=== PATIENT | female | born 1960 | race Caucasian/White ===

== ENCOUNTER 2018-08-23 12:21 | Inpatient (IN) | payer MEDICARE, OTHER ==
[~2018-08-23] VITALS: Ht 165.1 cm; Wt 101.0 kg
[2018-08-23] MEDS ORDERED: cefTRIAXone 1GM/10ml IVPUSH 10 ML IV ONE (12:30)
[2018-08-23] MEDS ORDERED: methylPREDNISolone SOD SUCC 125 MG/2 ML VL IV ONE (13:15)
[2018-08-23] MEDS ORDERED: ALBUTEROL SULF 2.5 MG/0.5ML(0.5%) NEB SOLN NEB ONE (13:15)
[2018-08-23] MEDS ORDERED: IPRATROPIUM BROM 0.5 MG/2.5ML INH SOL NEB ONE (13:15)
[2018-08-23 13:48] LABS: Basophils # (auto) 0 uL; Basophils % (auto) 0.4 % (0.0-2.0); Eosinophils # (auto) 0.1 uL; Monocytes # (auto) 0.4 uL; Neutrophils # (auto) 6.4 uL; Neutrophils % (auto) 81.3 % (37.0-80.0); White Blood Cell 7.9 10^3/uL (4.4-10.8)
[2018-08-23 13:51] LABS: Hematocrit 47.9 % (36.0-46.0); Hemoglobin 14.1 g/dL (12.2-16.2); Lymphocytes % (auto) 12.5 % (10.0-50.0); Mean Corpuscular Hemoglobin 20.3 pg (28.0-32.0); Mean Corpuscular Hgb Conc. 29.5 g/dL (32.0-36.0); Mean Corpuscular Volume 68.8 fL (80.0-100.0); Monocytes % (auto) 4.8 % (0.0-12.0); Nucleated Red Blood Cells % 0.5 %; Platelet Count (auto) 255 10^3/uL (140-450); Red Blood Cells 6.97 10^6/uL (4.0-5.20)
[2018-08-23 13:59] LABS: Red Cell Distribution Width 20.2 % (11.8-14.3)
[2018-08-23 14:02] LABS: Partial Thromboplastin Time 29.3 sec (23.78-33.04); Prothrombin Time 10.7 sec (9.27-12.13)
[2018-08-23 14:07] LABS: Alanine Aminotransferase 21 U/L (13-56); Albumin 3.3 g/dL (3.4-5.0); Anion Gap 6 (5-15); Aspartate Aminotransferase 19 U/L (15-37); BUN/Creatinine Ratio 12.2; Blood Urea Nitrogen 9 mg/dL (7-18); Calcium 8.2 mg/dL (8.5-10.1); Carbon Dioxide 32 mmol/L (21-32); Chloride 93 mmol/L (98-107); GFR African American 104 mL/min; GFR Non-African American 86 mL/min; Glucose 186 mg/dL (74-106); Potassium 4.2 mmol/L (3.5-5.1); Sodium 131 mmol/L (136-145)
[2018-08-23 14:11] LABS: Alkaline Phosphatase 127 U/L (45-117); Bilirubin, Total 0.5 mg/dL (0.2-1.0); Total Protein 7.8 g/dL (6.4-8.2)
[2018-08-23] MEDS ORDERED: ACETAMINOPHEN 500 MG TAB PO PRN (15:30)
[2018-08-23] MEDS ORDERED: NITROGLYCERIN 0.4 MG SL TAB SL PRN (15:30)
[2018-08-23] MEDS ORDERED: traMADol HCL 50 MG TAB PO PRN (15:30)
[2018-08-23] MEDS ORDERED: LORazepam 0.5 MG TAB PO PRN (15:30)
[2018-08-23] MEDS ORDERED: TEMAZEPAM 15 MG CAP PO PRN (15:30)
[2018-08-23] MEDS ORDERED: ALBUTEROL SULF 2.5 MG/0.5ML(0.5%) NEB SOLN NEB PRN (15:30)
[2018-08-23] MEDS ORDERED: DEXTROSE (50%) 50ML SYRG IV PRN (15:30)
[2018-08-23] MEDS ORDERED: LACTULOSE 20Gm/30ML SOLN PO PRN (15:30)
[2018-08-23] MEDS: SODIUM CHLORIDE 0.9% 1,000 ML IV SCH (15:52)
[2018-08-23] MEDS ORDERED: DOXYCYCLINE 100MG/250ML 250 ML IV ONE (16:00)
[2018-08-23 16:54] LABS: Amylase 33 U/L (25-115); Lipase 110 U/L (73-393)
[2018-08-23 17:19] VITALS: BP 145/83
[2018-08-23 17:28] VITALS: BP 145/85
[2018-08-23] MEDS: InsuLIN REG 1unit/0.01ml Soln (100units/ml) SC SCH (18:16)
[2018-08-23] MEDS: ACCU-CHEK COMFORT CURVE STRIP VI SCH (18:16)
[2018-08-23] MEDS: ALBUTEROL SULF 2.5 MG/0.5ML(0.5%) NEB SOLN NEB SCH (18:22)
[2018-08-23] MEDS: IPRATROPIUM BROM 0.5 MG/2.5ML INH SOL NEB SCH (18:22)
[2018-08-23] MEDS ORDERED: methylPREDNISolone SOD SUCC 40 MG/ML VL IV SCH (22:00)
[2018-08-23] MEDS: methylPREDNISolone SOD SUCC 40 MG/ML VL IV SCH (23:14)
[2018-08-24] VITALS (76 sets, daily range): BP systolic 90–164; BP diastolic 48–100
[2018-08-24] MEDS: ALBUTEROL SULF 2.5 MG/0.5ML(0.5%) NEB SOLN NEB SCH ×4 (00:01→18:01)
[2018-08-24] MEDS: IPRATROPIUM BROM 0.5 MG/2.5ML INH SOL NEB SCH ×4 (00:01→18:01)
[2018-08-24] MEDS: ACCU-CHEK COMFORT CURVE STRIP VI SCH ×4 (00:26→17:38)
[2018-08-24] MEDS ORDERED: LORazepam 2MG/ML-1ML VIAL IV ONE (01:15)
[2018-08-24] MEDS ORDERED: SUCCINYLCHOLINE CHLORIDE 20 MG/ML 10ML VIAL IV ONE ×2 (01:28→04:00)
[2018-08-24] MEDS ORDERED: ETOMIDATE (2MG/ML) 20ML VIAL IV ONE ×2 (01:28→04:00)
[2018-08-24] MEDS ORDERED: methylPREDNISolone SOD SUCC 125 MG/2 ML VL IV ONE (01:30)
[2018-08-24] MEDS ORDERED: PROPOFOL 100 ML IV ONE (01:43)
[2018-08-24] MEDS: PROPOFOL 100 ML IV SCH ×2 (01:50→13:10)
[2018-08-24] MEDS ORDERED: fentaNYL Drip 2500mCg/250mlNS 250 ML IV ONE (02:01)
[2018-08-24] MEDS: fentaNYL Drip 2500mCg/250mlNS 250 ML IV SCH (02:10)
[2018-08-24] MEDS: SODIUM CHLORIDE 0.9% 1,000 ML IV SCH ×2 (04:00→13:13)
[2018-08-24] MEDS: DOXYCYCLINE 100MG/250ML 250 ML IV SCH ×2 (06:00→17:38)
[2018-08-24] MEDS: methylPREDNISolone SOD SUCC 40 MG/ML VL IV SCH ×3 (06:00→22:00)
[2018-08-24 06:24] LABS: Albumin 2.8 g/dL (3.4-5.0); Calcium 8.3 mg/dL (8.5-10.1); Potassium 4.5 mmol/L (3.5-5.1)
[2018-08-24 06:27] LABS: BUN/Creatinine Ratio 19.4
[2018-08-24 06:33] LABS: Bilirubin, Total 0.5 mg/dL (0.2-1.0); Total Protein 6.7 g/dL (6.4-8.2)
[2018-08-24] MEDS: InsuLIN REG 1unit/0.01ml Soln (100units/ml) SC SCH ×4 (06:35→17:38)
[2018-08-24] MEDS: ENOXAPARIN SOD 40 MG/0.4 ML SYRINGE SC SCH (09:59)
[2018-08-24] MEDS: PANTOPRAZOLE 40 MG TAB PO SCH (10:00)
[2018-08-24] MEDS ORDERED: DEXTROSE (50%) 50ML SYRG IV PRN (14:30)
[2018-08-24] MEDS: LEVOFLOXACIN 500MG 100 ML IV SCH (14:41)
[2018-08-24] MEDS ORDERED: Glucerna 1.2 Cal 1Liter BOTTLE GT SCH (15:00)
[2018-08-24] MEDS ORDERED: INSULIN LANTUS (GLARGINE) 1 /0.01ml (100units/ml) SC SCH (22:00)
[2018-08-25] VITALS (100 sets, daily range): BP systolic 94–183; BP diastolic 44–104
[2018-08-25] MEDS: IPRATROPIUM BROM 0.5 MG/2.5ML INH SOL NEB SCH ×4 (00:09→18:11)
[2018-08-25] MEDS: ALBUTEROL SULF 2.5 MG/0.5ML(0.5%) NEB SOLN NEB SCH ×4 (00:10→18:11)
[2018-08-25] MEDS: PROPOFOL 100 ML IV SCH ×2 (00:13→05:12)
[2018-08-25] MEDS: ACCU-CHEK COMFORT CURVE STRIP VI SCH ×4 (00:13→18:16)
[2018-08-25] MEDS: fentaNYL Drip 2500mCg/250mlNS 250 ML IV SCH (02:00)
[2018-08-25 03:50] LABS: Basophils # (auto) 0 uL; Basophils % (auto) 0.1 % (0.0-2.0); Eosinophils # (auto) 0 uL; Hematocrit 43.8 % (36.0-46.0); Hemoglobin 12.8 g/dL (12.2-16.2); Lymphocytes # (auto) 0.5 uL; Mean Corpuscular Hemoglobin 20.3 pg (28.0-32.0); Mean Corpuscular Hgb Conc. 29.3 g/dL (32.0-36.0); Mean Corpuscular Volume 69.5 fL (80.0-100.0); Monocytes # (auto) 0.4 uL; Monocytes % (auto) 4.4 % (0.0-12.0); Neutrophils # (auto) 8.6 uL; Neutrophils % (auto) 90.5 % (37.0-80.0); Nucleated Red Blood Cells % 0.4 %; Platelet Count (auto) 226 10^3/uL (140-450); White Blood Cell 9.5 10^3/uL (4.4-10.8)
[2018-08-25 03:51] LABS: Red Cell Distribution Width 20.3 % (11.8-14.3)
[2018-08-25 04:10] LABS: BUN/Creatinine Ratio 20.7; Calcium 7.8 mg/dL (8.5-10.1); Magnesium 1.8 mg/dL (1.6-2.6); Potassium 4.6 mmol/L (3.5-5.1)
[2018-08-25] MEDS: DOXYCYCLINE 100MG/250ML 250 ML IV SCH ×2 (05:12→18:44)
[2018-08-25] MEDS: methylPREDNISolone SOD SUCC 40 MG/ML VL IV SCH ×3 (05:13→22:23)
[2018-08-25] MEDS: InsuLIN REG 1unit/0.01ml Soln (100units/ml) SC SCH ×4 (05:14→18:44)
[2018-08-25] MEDS: SODIUM CHLORIDE 0.9% 1,000 ML IV SCH ×2 (07:17→20:37)
[2018-08-25] MEDS ORDERED: NIFE30TA76 PO (09:14)
[2018-08-25] MEDS ORDERED: [UNRECOGNIZED DRUG - CODE] IV (09:14)
[2018-08-25] MEDS: PANTOPRAZOLE 40 MG TAB PO SCH (10:00)
[2018-08-25] MEDS: LEVOFLOXACIN 500MG 100 ML IV SCH (10:23)
[2018-08-25] MEDS: ENOXAPARIN SOD 40 MG/0.4 ML SYRINGE SC SCH (10:23)
[2018-08-25] MEDS: PANTOPRAZOLE 40 MG/10 ML VIAL IV SCH (14:01)
[2018-08-25] MEDS ORDERED: INSULIN LANTUS (GLARGINE) 1 /0.01ml (100units/ml) SC SCH (22:00)
[2018-08-26] VITALS (80 sets, daily range): BP systolic 111–195; BP diastolic 45–109
[2018-08-26] MEDS: PROPOFOL 100 ML IV SCH (00:07)
[2018-08-26] MEDS: fentaNYL Drip 2500mCg/250mlNS 250 ML IV SCH (00:07)
[2018-08-26] MEDS: IPRATROPIUM BROM 0.5 MG/2.5ML INH SOL NEB SCH ×5 (00:09→23:53)
[2018-08-26] MEDS: ALBUTEROL SULF 2.5 MG/0.5ML(0.5%) NEB SOLN NEB SCH ×5 (00:09→23:53)
[2018-08-26] MEDS: ACCU-CHEK COMFORT CURVE STRIP VI SCH ×4 (00:14→18:03)
[2018-08-26 04:14] LABS: Basophils # (auto) 0 uL; Eosinophils # (auto) 0 uL; Lymphocytes # (auto) 0.4 uL; Monocytes # (auto) 0.4 uL; Monocytes % (auto) 4.2 % (0.0-12.0)
[2018-08-26 04:17] LABS: Hematocrit 43.2 % (36.0-46.0); Hemoglobin 12.8 g/dL (12.2-16.2); Mean Corpuscular Hemoglobin 20.6 pg (28.0-32.0); Mean Corpuscular Hgb Conc. 29.5 g/dL (32.0-36.0); Mean Corpuscular Volume 69.8 fL (80.0-100.0); Neutrophils # (auto) 8.3 uL; Neutrophils % (auto) 91.8 % (37.0-80.0); Nucleated Red Blood Cells % 0.5 %; Platelet Count (auto) 218 10^3/uL (140-450); Red Blood Cells 6.19 10^6/uL (4.0-5.20)
[2018-08-26 04:33] LABS: BUN/Creatinine Ratio 20.3; Calcium 8.1 mg/dL (8.5-10.1); Magnesium 2.1 mg/dL (1.6-2.6); Potassium 4.5 mmol/L (3.5-5.1)
[2018-08-26 05:19] LABS: Red Cell Distribution Width 20.4 % (11.8-14.3)
[2018-08-26] MEDS: InsuLIN REG 1unit/0.01ml Soln (100units/ml) SC SCH ×4 (06:00→18:03)
[2018-08-26] MEDS: DOXYCYCLINE 100MG/250ML 250 ML IV SCH ×2 (06:18→18:21)
[2018-08-26] MEDS: methylPREDNISolone SOD SUCC 40 MG/ML VL IV SCH ×3 (06:18→22:06)
[2018-08-26] MEDS: SODIUM CHLORIDE 0.9% 1,000 ML IV SCH ×2 (06:31→23:17)
[2018-08-26] MEDS: ONDANSETRON HCL 4 MG/2 ML VIAL IV PRN ×2 (08:45→12:55)
[2018-08-26] MEDS: PANTOPRAZOLE 40 MG/10 ML VIAL IV SCH (09:55)
[2018-08-26] MEDS: LEVOFLOXACIN 500MG 100 ML IV SCH (09:55)
[2018-08-26] MEDS: ENOXAPARIN SOD 40 MG/0.4 ML SYRINGE SC SCH (09:55)
[2018-08-26] MEDS: hydrALAZINE HCL 20 MG/ML VL IV PRN (11:47)
[2018-08-26] MEDS ORDERED: PROCHLORPERAZINE EDISYLATE 5 MG/ML 2ML VIAL IV PRN (16:30)
[2018-08-26] MEDS: INSULIN LANTUS (GLARGINE) 1 /0.01ml (100units/ml) SC SCH (22:06)
[2018-08-27] VITALS (16 sets, daily range): BP systolic 128–163; BP diastolic 61–88
[2018-08-27] MEDS: InsuLIN REG 1unit/0.01ml Soln (100units/ml) SC SCH ×5 (00:07→22:06)
[2018-08-27] MEDS: ACCU-CHEK COMFORT CURVE STRIP VI SCH ×4 (00:07→17:32)
[2018-08-27] MEDS: PROPOFOL 100 ML IV SCH (01:43)
[2018-08-27] MEDS: fentaNYL Drip 2500mCg/250mlNS 250 ML IV SCH ×2 (02:00→03:27)
[2018-08-27 04:26] LABS: Basophils # (auto) 0 uL; Basophils % (auto) 0.1 % (0.0-2.0); Eosinophils # (auto) 0 uL; Hemoglobin 13.1 g/dL (12.2-16.2); Monocytes # (auto) 0.4 uL; Nucleated Red Blood Cells % 0.5 %
[2018-08-27 04:29] LABS: Hematocrit 43.8 % (36.0-46.0); Lymphocytes # (auto) 0.3 uL; Lymphocytes % (auto) 4.7 % (10.0-50.0); Mean Corpuscular Volume 69.3 fL (80.0-100.0); Monocytes % (auto) 5.6 % (0.0-12.0); Neutrophils # (auto) 6.2 uL; Neutrophils % (auto) 89.6 % (37.0-80.0); Platelet Count (auto) 214 10^3/uL (140-450); White Blood Cell 6.9 10^3/uL (4.4-10.8)
[2018-08-27 04:32] LABS: Mean Corpuscular Hemoglobin 20.1 pg (28.0-32.0); Mean Corpuscular Hgb Conc. 30.5 g/dL (32.0-36.0); Red Blood Cells 6.24 10^6/uL (4.0-5.20); Red Cell Distribution Width 20.6 % (11.8-14.3)
[2018-08-27 04:35] LABS: Calcium 8.3 mg/dL (8.5-10.1); Potassium 4.5 mmol/L (3.5-5.1)
[2018-08-27 04:36] LABS: BUN/Creatinine Ratio 17.6
[2018-08-27] MEDS: methylPREDNISolone SOD SUCC 40 MG/ML VL IV SCH ×2 (05:57→21:35)
[2018-08-27] MEDS: DOXYCYCLINE 100MG/250ML 250 ML IV SCH (05:57)
[2018-08-27] MEDS: IPRATROPIUM BROM 0.5 MG/2.5ML INH SOL NEB SCH ×3 (07:03→19:55)
[2018-08-27] MEDS: ALBUTEROL SULF 2.5 MG/0.5ML(0.5%) NEB SOLN NEB SCH ×3 (07:03→19:55)
[2018-08-27] MEDS: hydrALAZINE HCL 20 MG/ML VL IV PRN (09:33)
[2018-08-27] MEDS: ENOXAPARIN SOD 40 MG/0.4 ML SYRINGE SC SCH (09:33)
[2018-08-27] MEDS: LEVOFLOXACIN 500MG 100 ML IV SCH (09:33)
[2018-08-27] MEDS: PANTOPRAZOLE 40 MG/10 ML VIAL IV SCH (09:33)
[2018-08-27] MEDS: SODIUM CHLORIDE 0.9% 1,000 ML IV SCH (12:37)
[2018-08-27 19:51] LABS: Cholesterol 164 mg/dL (< 200); Triglycerides 114 mg/dL (< 150)
[2018-08-27 19:54] LABS: HDL Cholesterol 51 mg/dL (40-59); LDL Cholesterol 98 mg/dL (< 100)
[2018-08-27] MEDS: INSULIN LANTUS (GLARGINE) 1 /0.01ml (100units/ml) SC SCH (21:35)
[2018-08-28] MEDS: IPRATROPIUM BROM 0.5 MG/2.5ML INH SOL NEB SCH ×3 (00:34→11:53)
[2018-08-28] MEDS: ALBUTEROL SULF 2.5 MG/0.5ML(0.5%) NEB SOLN NEB SCH ×3 (00:34→11:53)
[2018-08-28] MEDS: ACCU-CHEK COMFORT CURVE STRIP VI SCH ×3 (02:06→13:45)
[2018-08-28 05:00] VITALS: BP 152/74
[2018-08-28] MEDS: SODIUM CHLORIDE 0.9% 1,000 ML IV SCH (05:42)
[2018-08-28] MEDS: InsuLIN REG 1unit/0.01ml Soln (100units/ml) SC SCH ×2 (06:00→12:00)
[2018-08-28 07:09] LABS: Basophils # (auto) 0 uL; Eosinophils # (auto) 0 uL; Hemoglobin 13.2 g/dL (12.2-16.2); Lymphocytes # (auto) 0.5 uL; Monocytes # (auto) 0.4 uL; Neutrophils # (auto) 6.1 uL; Nucleated Red Blood Cells % 0.4 %
[2018-08-28 07:12] LABS: Basophils % (auto) 0.1 % (0.0-2.0); Eosinophils % (auto) 0.1 % (0.0-7.0); Hematocrit 45.2 % (36.0-46.0); Lymphocytes % (auto) 6.6 % (10.0-50.0); Mean Corpuscular Hemoglobin 20.2 pg (28.0-32.0); Mean Corpuscular Hgb Conc. 29.3 g/dL (32.0-36.0); Monocytes % (auto) 5.7 % (0.0-12.0); Neutrophils % (auto) 87.5 % (37.0-80.0); Platelet Count (auto) 250 10^3/uL (140-450); Red Blood Cells 6.55 10^6/uL (4.0-5.20)
[2018-08-28 07:29] LABS: BUN/Creatinine Ratio 26.6; Calcium 8.5 mg/dL (8.5-10.1); Potassium 4.4 mmol/L (3.5-5.1); Red Cell Distribution Width 20.7 % (11.8-14.3)
[2018-08-28 09:09] VITALS: BP 151/70
[2018-08-28] MEDS: ENOXAPARIN SOD 40 MG/0.4 ML SYRINGE SC SCH (10:00)
[2018-08-28] MEDS: PANTOPRAZOLE 40 MG/10 ML VIAL IV SCH (11:28)
[2018-08-28] MEDS: methylPREDNISolone SOD SUCC 40 MG/ML VL IV SCH (11:28)
[2018-08-28] MEDS: LEVOFLOXACIN 500MG 100 ML IV SCH (11:28)
[2018-08-28 12:57] VITALS: BP 161/73
[2018-08-28 16:49] VITALS: BP 162/74
== END 2018-08-28 18:20 | disposition home or self-care (01) | DRG 208 ==
LOC: ER 12:24 → TELE 12:25 → ICU WEST 08-24 07:19 → TELE-EAST 08-27 17:12
PROVIDERS: ADMIT Internal Medicine; ATTEND Internal Medicine
PROC: 5A1945Z Respiratory Ventilation, 24-96 Consecutive Hours (ICD-10-PCS; principal; 2018-08-24)
PROC: 0BH17EZ Insertion of Endotracheal Airway into Trachea, Via Natural or Artificial Opening (ICD-10-PCS; 2018-08-24)
DX: J96.01 Acute respiratory failure with hypoxia (principal); J44.1 Chronic obstructive pulmonary disease with (acute) exacerbation; C79.51 Secondary malignant neoplasm of bone; C64.2 Malignant neoplasm of left kidney, except renal pelvis; E11.9 Type 2 diabetes mellitus without complications; I10 Essential (primary) hypertension; E66.9 Obesity, unspecified; F17.210 Nicotine dependence, cigarettes, uncomplicated; R91.1 Solitary pulmonary nodule; I70.8 Atherosclerosis of other arteries; Z80.9 Family history of malignant neoplasm, unspecified; Z90.49 Acquired absence of other specified parts of digestive tract; Z90.5 Acquired absence of kidney; Z90.710 Acquired absence of both cervix and uterus; Z88.5 Allergy status to narcotic agent; Z88.8 Allergy status to other drugs, medicaments and biological substances; Z68.37 Body mass index [BMI] 37.0-37.9, adult
CPT/HCPCS: 36415; 36600; 71045; 71250; 74176; 80048; 80053; 80061; 82150; 82805; 82962; 83036; 83605; 83690; 83735; 83880; 84484; 85025; 85379; 85610; 85730; 87040; 87070; 87081; 87205; 93005; 94002; 94003; 94640; 96374; C9113; J0330; J0696; J1815; J1956; J2405; J2704; J3490

== ENCOUNTER 2019-04-04 09:31 | Inpatient (IN) | payer MEDICARE, MEDICAID, OTHER | END 2019-04-12 15:15 | disposition home or self-care (01) | LOC: DOU IN ICU 04-10 16:45 → TELE-WESTW 04-11 12:12 → ER 09:31 → TELE-WESTW 04-11 12:34 → TELE 11:48 → ICU WEST 15:54 | PROC: 5A1955Z Respiratory Ventilation, Greater than 96 Consecutive Hours (ICD-10-PCS; principal; ~2019-04-04) | PROC: 0BH17EZ Insertion of Endotracheal Airway into Trachea, Via Natural or Artificial Opening (ICD-10-PCS; ~2019-04-04) | PROC: 05HM33Z Insertion of Infusion Device into Right Internal Jugular Vein, Percutaneous Approach (ICD-10-PCS; ~2019-04-04) | DX: J96.00 Acute respiratory failure, unspecified whether with hypoxia or hypercapnia (principal); I50.41 Acute combined systolic (congestive) and diastolic (congestive) heart failure; J44.1 Chronic obstructive pulmonary disease with (acute) exacerbation; J81.1 Chronic pulmonary edema; C78.00 Secondary malignant neoplasm of unspecified lung; C79.00 Secondary malignant neoplasm of unspecified kidney and renal pelvis; E87.4 Mixed disorder of acid-base balance; E11.8 Type 2 diabetes mellitus with unspecified complications; E66.9 Obesity, unspecified ==

== ENCOUNTER → 2019-05-01 | Outpatient (CLI) | payer MEDICARE, MEDICAID ==
[~2019-05-01] VITALS: Ht 165.1 cm; Wt 93.4 kg
[~2019-05-01] MED LIST: ADENOSINE 78 MG in GIVE UN-DILUTED 0 ML IV ONE; ADENOSINE 90 MG/30 ML INJ IV ONE; NIFE30TA76 PO; [UNRECOGNIZED DRUG - CODE] IV
== END | disposition home or self-care (01) ==
LOC: Rad HDHVI 13:37
PROVIDERS: ATTEND Internal Medicine Cardiovascular Disease
DX: R07.89 Other chest pain (principal); I10 Essential (primary) hypertension; Z82.49 Family history of ischemic heart disease and other diseases of the circulatory system
CPT/HCPCS: 78452; 93005; 96374; 96375; A9500; J0153

== ENCOUNTER → 2019-06-19 | Outpatient (CLI) | payer MEDICARE, MEDICAID ==
[~2019-06-19] MED LIST changes: -ADENOSINE 78 MG in GIVE UN-DILUTED 0 ML IV ONE; -ADENOSINE 90 MG/30 ML INJ IV ONE
== END | disposition home or self-care (01) ==
LOC: Rad HDHVI 08:52
PROVIDERS: ATTEND Internal Medicine Cardiovascular Disease
DX: I42.0 Dilated cardiomyopathy (principal); I11.0 Hypertensive heart disease with heart failure; I50.23 Acute on chronic systolic (congestive) heart failure
CPT/HCPCS: 93306

== ENCOUNTER 2021-09-25 15:51 | Inpatient (IN) | payer MEDICARE, OTHER, MEDICAID ==
[~2021-09-25] VITALS: Ht 167.6 cm; Wt 101.7 kg
[~2021-09-25 15:51] MED LIST changes: +NIFE1TAB31 PO; -NIFE30TA76 PO
[2021-09-25] MEDS ORDERED: ASPirin 81 mg TAB PO ONE (16:00)
[2021-09-25] MEDS ORDERED: SODIUM CHLORIDE 0.9% 1,000 ML IV ONE (16:00)
[2021-09-25] MEDS ORDERED: ALBUTEROL SULF 2.5 MG/0.5ML(0.5%) NEB SOLN ONE (16:08)
[2021-09-25] MEDS ORDERED: ALBUTEROL SULF 2.5 MG/0.5ML(0.5%) NEB SOLN NEB ONE (16:15)
[2021-09-25 16:53] LABS: INR 1.04 (0.9-1.15); Partial Thromboplastin Time 30.1 sec (23.6-33.0)
[2021-09-25 16:55] LABS: Urine Bacteria MOD /hpf (None Seen); Urine Blood 1+ /uL (Negative); Urine Hyaline Cast MOD /lpf (0 - 2); Urine Mucus FEW (None Seen); Urine Specific Gravity 1.026 (1.001-1.035); Urine WBC 229 /hpf (0 - 5)
[2021-09-25 16:57] LABS: Albumin 3.1 g/dL (3.4-5.0); Calcium 9.2 mg/dL (8.5-10.1); Magnesium 2.6 mg/dL (1.6-2.6); Potassium 3.8 mmol/L (3.5-5.1)
[2021-09-25 17:00] LABS: Basophils # (auto) 0 10 ^3/uL (0-0.2); Eosinophils # (auto) 0 10 ^3/uL (0-0.8); Mean Corpuscular Volume 77.8 fL (80.0-100.0)
[2021-09-25 17:02] LABS: BUN/Creatinine Ratio 15.1; Bilirubin, Total 0.6 mg/dL (0.2-1.0); Total Protein 8.4 g/dL (6.4-8.2)
[2021-09-25 17:42] LABS: Basophils % (auto) 0.3 % (0.0-2.0); Eosinophils % (auto) 0.4 % (0.0-7.0); Hematocrit 32.3 % (36.0-46.0); Hemoglobin 9.6 g/dL (12.2-16.2); Lymphocytes # (auto) 0.3 10 ^3/uL (0.4-5.4); Lymphocytes % (auto) 3.5 % (10.0-50.0); Mean Corpuscular Hemoglobin 23.2 pg (28.0-32.0); Mean Corpuscular Hgb Conc. 29.8 g/dL (32.0-36.0); Monocytes # (auto) 0.9 10 ^3/uL (0-1.3); Monocytes % (auto) 9.2 % (0.0-12.0); Neutrophils # (auto) 8.4 10 ^3/uL (1.6-8.6); Neutrophils % (auto) 86.6 % (37.0-80.0); Nucleated Red Blood Cells % 0.1 %; Red Blood Cells 4.15 10^6/uL (4.0-5.20); Red Cell Distribution Width 17.2 % (11.8-14.3); White Blood Cell 9.7 10^3/uL (4.4-10.8)
[2021-09-25 18:05] VITALS: BP 111/61
[2021-09-25] MEDS ORDERED: cefTRIAXone 1GM/50ML D5W 50 ML IV ONE (18:30)
[2021-09-25] MEDS ORDERED: LEVOTHYROXINE SODIUM 100 MCG/5 ML INJ IV ONE (18:30)
[2021-09-25] MEDS ORDERED: AZITHROMYCIN 500MG/ 250ML 250 ML IV ONE (18:30)
[2021-09-25] MEDS ORDERED: FUROSEMIDE 40 MG/4 ML VIAL IV ONE (18:30)
[2021-09-25] MEDS ORDERED: INSULIN LISPRO (HUMAN) 100 UNITS/ML ML SC ONE (18:30)
[2021-09-25] MEDS ORDERED: NITROGLYCERIN 0.4 MG SL TAB SL PRN ×2 (18:45→20:30)
[2021-09-25] MEDS ORDERED: MORPHINE SULFATE INJECTION 2 MG/ML SYRG IV PRN ×2 (18:45→20:30)
[2021-09-25] MEDS ORDERED: DEXTROSE (50%) 50ML SYRG IV PRN (18:45)
[2021-09-25] MEDS ORDERED: levoFLOXacin 750MG 150 ML IV ONE (20:15)
[2021-09-25] MEDS ORDERED: FAMOTIDINE (10MG/ML) 2ML VL IV ONE (20:15)
[2021-09-25] MEDS ORDERED: hydrALAZINE HCL 20 MG/ML VL IV PRN (20:15)
[2021-09-25] MEDS ORDERED: BENAZEPRIL HCL 10 MG TAB PO ONE (20:15)
[2021-09-25] MEDS ORDERED: ACETAMINOPHEN 325 MG TAB PO PRN (20:30)
[2021-09-25] MEDS ORDERED: ALUM & MAG HYDROX-SIMETH LIQ(MAALOX) 30 ML PO PRN (20:30)
[2021-09-25] MEDS ORDERED: ONDANSETRON HCL 4 MG/2 ML VIAL IV PRN (20:30)
[2021-09-25] MEDS ORDERED: DOCUSATE SOD 100 MG CAP PO PRN (20:30)
[2021-09-25] MEDS ORDERED: LORazepam 0.5 MG TAB PO PRN (20:30)
[2021-09-25] MEDS: FAMOTIDINE (10MG/ML) 2ML VL IV SCH (22:43)
[2021-09-25] MEDS: InsuLIN REG 1unit/0.01ml Soln (100units/ml) SC SCH (22:43)
[2021-09-25] MEDS: IPRATROPIUM BROM 0.5 MG/2.5ML INH SOL NEB SCH (22:44)
[2021-09-25] MEDS: ALBUTEROL SULF 2.5 MG/0.5ML(0.5%) NEB SOLN NEB SCH (22:44)
[2021-09-25] MEDS: methylPREDNISolone SOD SUCC 40 MG/ML VL IV SCH (22:45)
[2021-09-25] MEDS: ACCU-CHEK COMFORT CURVE STRIP VI SCH (22:45)
[2021-09-25] MEDS: ATORVASTATIN 20 MG TAB PO SCH (22:45)
[2021-09-25] MEDS: POTASSIUM CHL 20 Meq TABLET PO SCH (22:45)
[2021-09-26] VITALS (8 sets, daily range): BP systolic 102–138; BP diastolic 58–87
[2021-09-26] MEDS: LORazepam 2MG/ML-1ML VIAL IV PRN ×2 (01:45→11:07)
[2021-09-26] MEDS: IPRATROPIUM BROM 0.5 MG/2.5ML INH SOL NEB SCH ×6 (02:24→22:08)
[2021-09-26] MEDS: ALBUTEROL SULF 2.5 MG/0.5ML(0.5%) NEB SOLN NEB SCH ×6 (02:24→22:08)
[2021-09-26] MEDS: FUROSEMIDE 40 MG/4 ML VIAL IV SCH ×2 (06:22→17:26)
[2021-09-26] MEDS: methylPREDNISolone SOD SUCC 40 MG/ML VL IV SCH ×3 (06:22→21:46)
[2021-09-26 07:41] LABS: Basophils # (auto) 0 10 ^3/uL (0-0.2); Basophils % (auto) 0.1 % (0.0-2.0); Eosinophils # (auto) 0 10 ^3/uL (0-0.8); Hematocrit 29.3 % (36.0-46.0); Hemoglobin 8.8 g/dL (12.2-16.2); Lymphocytes # (auto) 0.2 10 ^3/uL (0.4-5.4); Lymphocytes % (auto) 1.9 % (10.0-50.0); Mean Corpuscular Hemoglobin 23.5 pg (28.0-32.0); Mean Corpuscular Hgb Conc. 30.1 g/dL (32.0-36.0); Mean Corpuscular Volume 78.1 fL (80.0-100.0); Monocytes # (auto) 0.3 10 ^3/uL (0-1.3); Monocytes % (auto) 3.5 % (0.0-12.0); Neutrophils # (auto) 9.1 10 ^3/uL (1.6-8.6); Neutrophils % (auto) 94.5 % (37.0-80.0); Nucleated Red Blood Cells % 0.1 %; Red Blood Cells 3.75 10^6/uL (4.0-5.20); Red Cell Distribution Width 17.2 % (11.8-14.3); White Blood Cell 9.6 10^3/uL (4.4-10.8)
[2021-09-26] MEDS: LEVOTHYROXINE SODIUM 50 MCG TAB PO SCH (07:45)
[2021-09-26] MEDS: ACCU-CHEK COMFORT CURVE STRIP VI SCH ×4 (07:53→21:48)
[2021-09-26] MEDS: InsuLIN REG 1unit/0.01ml Soln (100units/ml) SC SCH ×4 (07:54→21:49)
[2021-09-26 07:55] LABS: INR 1.07 (0.9-1.15); Partial Thromboplastin Time 29.3 sec (23.6-33.0)
[2021-09-26 08:08] LABS: Albumin 2.5 g/dL (3.4-5.0); Calcium 8.6 mg/dL (8.5-10.1); Magnesium 2.5 mg/dL (1.6-2.6); Potassium 4.7 mmol/L (3.5-5.1)
[2021-09-26 08:16] LABS: BUN/Creatinine Ratio 16.5; Bilirubin, Total 0.2 mg/dL (0.2-1.0); Total Protein 7.2 g/dL (6.4-8.2); Uric Acid 5.3 mg/dL (2.6-6.0)
[2021-09-26] MEDS: levoFLOXacin 750MG 150 ML IV SCH (09:46)
[2021-09-26] MEDS: FAMOTIDINE (10MG/ML) 2ML VL IV SCH ×2 (09:46→21:46)
[2021-09-26] MEDS: BENAZEPRIL HCL 10 MG TAB PO SCH (09:47)
[2021-09-26] MEDS: ASPirin 81 mg TAB PO SCH (09:47)
[2021-09-26] MEDS: POTASSIUM CHL 20 Meq TABLET PO SCH ×2 (09:47→21:46)
[2021-09-26] MEDS ORDERED: dilTIAZem 25 MG/5 ML VIAL IV ONE (19:19)
[2021-09-26] MEDS ORDERED: dilTIAZem 25 MG/5 ML VIAL IV PRN (19:30)
[2021-09-26] MEDS ORDERED: ENOXAPARIN SOD 100 MG/1 ML SYRINGE SC ONE (19:30)
[2021-09-26] MEDS: ATORVASTATIN 20 MG TAB PO SCH (21:47)
[2021-09-27] MEDS: IPRATROPIUM BROM 0.5 MG/2.5ML INH SOL NEB SCH ×3 (02:30→10:50)
[2021-09-27] MEDS: ALBUTEROL SULF 2.5 MG/0.5ML(0.5%) NEB SOLN NEB SCH ×3 (02:30→10:51)
[2021-09-27 05:00] VITALS: BP 137/94
[2021-09-27] MEDS: InsuLIN REG 1unit/0.01ml Soln (100units/ml) SC SCH ×2 (06:43→11:52)
[2021-09-27] MEDS: ACCU-CHEK COMFORT CURVE STRIP VI SCH ×2 (06:47→11:45)
[2021-09-27] MEDS: FUROSEMIDE 40 MG/4 ML VIAL IV SCH (06:48)
[2021-09-27] MEDS: methylPREDNISolone SOD SUCC 40 MG/ML VL IV SCH (06:48)
[2021-09-27] MEDS: LEVOTHYROXINE SODIUM 50 MCG TAB PO SCH (06:48)
[2021-09-27] MEDS ORDERED: ENOXAPARIN SOD 100 MG/1 ML SYRINGE SC SCH (07:30)
[2021-09-27 07:40] VITALS: BP 146/88
[2021-09-27] MEDS: POTASSIUM CHL 20 Meq TABLET PO SCH (09:52)
[2021-09-27] MEDS: ASPirin 81 mg TAB PO SCH (09:52)
[2021-09-27] MEDS: levoFLOXacin 750MG 150 ML IV SCH (09:53)
[2021-09-27] MEDS: BENAZEPRIL HCL 10 MG TAB PO SCH (09:53)
[2021-09-27] MEDS: FAMOTIDINE (10MG/ML) 2ML VL IV SCH (09:54)
[2021-09-27 10:40] VITALS: BP 146/88
[2021-09-27 12:49] VITALS: BP 139/87
[2021-09-28] MEDS ORDERED: dilTIAZem HCL 180MG ER CAP PO SCH (10:00)
== END 2021-09-27 14:20 | disposition home or self-care (01) | DRG 193 ==
LOC: ER 15:51 → EDBD 15:51 → TELE 20:19 → TELE-CENTR 09-26 12:45
PROVIDERS: ADMIT Hospitalist; ATTEND Internal Medicine Geriatric Medicine
PROC: 5A09357 Assistance with Respiratory Ventilation, Less than 24 Consecutive Hours, Continuous Positive Airway Pressure (ICD-10-PCS; principal; 2021-09-25)
PROC: 5A09357 Assistance with Respiratory Ventilation, Less than 24 Consecutive Hours, Continuous Positive Airway Pressure (ICD-10-PCS; 2021-09-26)
PROC: 5A09357 Assistance with Respiratory Ventilation, Less than 24 Consecutive Hours, Continuous Positive Airway Pressure (ICD-10-PCS; 2021-09-27)
DX: J18.9 Pneumonia, unspecified organism (principal); J96.21 Acute and chronic respiratory failure with hypoxia; I50.43 Acute on chronic combined systolic (congestive) and diastolic (congestive) heart failure; J96.22 Acute and chronic respiratory failure with hypercapnia; J44.0 Chronic obstructive pulmonary disease with (acute) lower respiratory infection; I47.1 Supraventricular tachycardia; E44.1 Mild protein-calorie malnutrition; J98.11 Atelectasis; N39.0 Urinary tract infection, site not specified; J44.1 Chronic obstructive pulmonary disease with (acute) exacerbation; I11.0 Hypertensive heart disease with heart failure; E88.09 Other disorders of plasma-protein metabolism, not elsewhere classified; D50.9 Iron deficiency anemia, unspecified; E66.01 Morbid (severe) obesity due to excess calories; E78.5 Hyperlipidemia, unspecified; F17.210 Nicotine dependence, cigarettes, uncomplicated; F41.9 Anxiety disorder, unspecified; I48.91 Unspecified atrial fibrillation; Z20.822 Contact with and (suspected) exposure to COVID-19; Z82.49 Family history of ischemic heart disease and other diseases of the circulatory system; Z82.5 Family history of asthma and other chronic lower respiratory diseases; Z68.36 Body mass index [BMI] 36.0-36.9, adult; Z90.49 Acquired absence of other specified parts of digestive tract; E11.65 Type 2 diabetes mellitus with hyperglycemia
CPT/HCPCS: 36415; 36600; 71045; 80053; 81001; 82306; 82805; 82962; 83036; 83540; 83550; 83735; 83880; 84100; 84439; 84443; 84484; 84550; 85025; 85379; 85610; 85730; 87040; 87426; 93005; 94640; 94644; 94660; 96365; 96368; 96375; 97163; 99291; G0378; J0696; J1815; J1956; J3490

== ENCOUNTER 2024-03-19 10:30 | Inpatient (IN) | payer MEDICARE, MEDICAID ==
[~2024-03-19] VITALS: Ht 162.6 cm; Wt 98.2 kg
[2024-03-19] MEDS: FUROSEMIDE 40 MG/4 ML VIAL IV ONE (11:19)
[2024-03-19] MEDS: methylPREDNISolone SOD SUCC 125 MG/2 ML VL IV ONE (11:19)
[2024-03-19 11:20] LABS: Basophils # (auto) 0 10 ^3/uL (0-0.2); Basophils % (auto) 0.2 % (0.0-2.0); Eosinophils # (auto) 0.2 10 ^3/uL (0-0.8); Eosinophils % (auto) 2.1 % (0.0-7.0); Hematocrit 35.8 % (36.0-46.0); Hemoglobin 10.2 g/dL (12.2-16.2); Lymphocytes # (auto) 0.4 10 ^3/uL (0.4-5.4); Lymphocytes % (auto) 4.7 % (10.0-50.0); Mean Corpuscular Hemoglobin 20.5 pg (28.0-32.0); Mean Corpuscular Hgb Conc. 28.6 g/dL (32.0-36.0); Mean Corpuscular Volume 71.8 fL (80.0-100.0); Monocytes # (auto) 0.6 10 ^3/uL (0-1.3); Monocytes % (auto) 6.9 % (0.0-12.0); Neutrophils # (auto) 7.7 10 ^3/uL (1.6-8.6); Neutrophils % (auto) 86.1 % (37.0-80.0); Nucleated Red Blood Cells % 0.2 %; Red Blood Cells 4.98 10^6/uL (4.0-5.20); Red Cell Distribution Width 19.3 % (11.8-14.3); White Blood Cell 8.9 10^3/uL (4.4-10.8)
[2024-03-19 11:36] LABS: Chloride 93 mmol/L (98-107); Potassium 3.8 mmol/L (3.5-5.1); Sodium 138 mmol/L (136-145)
[2024-03-19 11:37] LABS: Calcium 10.2 mg/dL (8.7-10.4)
[2024-03-19 11:42] LABS: BUN/Creatinine Ratio 14.3 (10.0-20.0); Blood Urea Nitrogen 10 mg/dL (9-23); Glucose 212 mg/dL (74-106)
[2024-03-19 11:43] LABS: Magnesium 1.9 mg/dL (1.6-2.6)
[2024-03-19 11:49] LABS: Anion Gap 4.99999 (5-15); Carbon Dioxide > 40 mmol/L (20-30)
[2024-03-19 14:11] LABS: Urine Bacteria MOD /hpf (None Seen); Urine Blood 1+ /uL (Negative); Urine Clarity Turbid (Clear); Urine Color Colorless (Yellow); Urine Protein, UAD 2+ (Negative); Urine Urobilinogen Normal (Negative); Urine WBC 48 /hpf (0 - 5); Urine pH 6.5 (5.0-9.0)
[2024-03-19] MEDS: AZITHROMYCIN 500MG/ 250ML 250 ML IV ONE (14:15)
[2024-03-19] MEDS: cefTRIAXone 1GM/50ML D5W 50 ML IV ONE (14:15)
[2024-03-19] MEDS ORDERED: ONDANSETRON HCL 4 MG/2 ML VIAL IV PRN (14:15)
[2024-03-19] MEDS ORDERED: DOCUSATE SOD 100 MG CAP PO PRN (14:15)
[2024-03-19] MEDS ORDERED: NITROGLYCERIN 0.4 MG SL TAB SL PRN (14:15)
[2024-03-19] MEDS ORDERED: DEXTROSE (50%) 50ML SYRG IV PRN (14:15)
[2024-03-19] MEDS ORDERED: MORPHINE SULFATE INJ 2 MG/ml SYRG IV PRN (14:15)
[2024-03-19] MEDS ORDERED: ACETAMINOPHEN 325 MG TAB PO PRN (14:15)
[2024-03-19 16:33] VITALS: BP 134/62; PULSE 81; RESP 24; TEMP 98.2; O2SAT 95
[2024-03-19] MEDS: InsuLIN REG 1unit/0.01ml Soln (100units/ml) SC SCH (17:00)
[2024-03-19] MEDS: ACCU-CHEK COMFORT CURVE STRIP VI SCH (17:00)
[2024-03-19 18:42] VITALS: PULSE 85; RESP 20; O2SAT 95
[2024-03-19] MEDS: IPRATROPIUM BROM 0.5 MG/2.5ML INH SOL NEB SCH (18:42)
[2024-03-19] MEDS: ALBUTEROL SULF 2.5 MG/0.5ML(0.5%) NEB SOLN NEB SCH (18:42)
[2024-03-19 18:52] VITALS: PULSE 85; RESP 20; O2SAT 98
[2024-03-19 19:27] VITALS: PULSE 82; RESP 20; O2SAT 96
[2024-03-19 19:30] VITALS: PULSE 94; RESP 20; O2SAT 92
[2024-03-19] MEDS: methylPREDNISolone SOD SUCC 40 MG/ML VL IV SCH (23:28)
[2024-03-19 23:54] VITALS: PULSE 95; RESP 18; O2SAT 94
[2024-03-20] VITALS (17 sets, daily range): BP systolic 141–192; BP diastolic 54–104; PULSE 82–101; RESP 16–22; TEMP 97.9–98.4; O2SAT 90–98
[2024-03-20 07:06] LABS: Alanine Aminotransferase 13 U/L (7-40); Alkaline Phosphatase 89 U/L (46-116); Aspartate Aminotransferase 19 U/L (13-40); BUN/Creatinine Ratio 14.7 (10.0-20.0); Bilirubin, Total 0.2 mg/dL (0.2-1.0); Blood Urea Nitrogen 11 mg/dL (9-23); Calcium 9.9 mg/dL (8.5-10.1); Chloride 92 mmol/L (98-107); Cholesterol 191 mg/dL (< 200); Glucose 176 mg/dL (74-106); HDL Cholesterol 74 mg/dL (40-59); LDL Cholesterol 95 mg/dL (< 100); Potassium 4.7 mmol/L (3.5-5.1); Sodium 138 mmol/L (136-145); Total Protein 7.2 g/dL (5.7-8.2); Triglycerides 92 mg/dL (< 150)
[2024-03-20 07:10] LABS: Anion Gap 5.99999 (5-15)
[2024-03-20 07:12] LABS: Carbon Dioxide > 40 mmol/L (20-30)
[2024-03-20 07:59] LABS: Hematocrit 34.4 % (36.0-46.0); Hemoglobin 9.9 g/dL (12.2-16.2); Mean Corpuscular Hemoglobin 20.6 pg (28.0-32.0); Mean Corpuscular Hgb Conc. 28.8 g/dL (32.0-36.0); Mean Corpuscular Volume 71.6 fL (80.0-100.0); White Blood Cell 8.3 10^3/uL (4.4-10.8)
[2024-03-20 08:05] LABS: Band Neutrophils % (manual) 0; Basophils % (manual) 0 (0.0-2.0); Blast Cells 0; Eosinophils % (manual) 0 (0-7); Metamyelocytes % 0; Myelocytes % 0; Promyelocytes % 0; Reactive Lymphocytes 0
[2024-03-20] MEDS: hydrALAZINE HCL 20 MG/ML VL IV ONE (08:54)
[2024-03-20 08:55] LABS: Lymphocytes % (manual) 5 (10.0-50.0); Monocytes % (manual) 7 (0-12)
[2024-03-20 08:56] LABS: Hypochromia Marked; Platelet Estimate Adequate
[2024-03-20 09:11] LABS: Base Excess 12.3 mmol/L (-2.0-2.0)
[2024-03-20] MEDS ORDERED: AZITHROMYCIN 500MG/ 250ML 250 ML IV SCH (10:00)
[2024-03-20] MEDS ORDERED: NIFEdipine ER 30 MG TAB PO SCH (10:00)
[2024-03-20] MEDS ORDERED: FUROSEMIDE 20 MG/2 ML VIAL IV SCH ×2 (10:00→18:00)
[2024-03-20] MEDS: PANTOPRAZOLE 40 MG/10 ML VIAL INJ IV SCH (10:51)
[2024-03-20] MEDS: ENOXAPARIN SOD 40 MG/0.4 ML SYRINGE SC SCH (10:51)
[2024-03-20] MEDS: cefTRIAXone 1GM/50ML D5W 50 ML IV SCH (10:51)
[2024-03-20] MEDS: NIFEdipine ER 30 MG TAB PO SCH (11:01)
[2024-03-20] MEDS: ASPirin 81 mg TAB PO SCH (11:33)
[2024-03-20] MEDS: methylPREDNISolone SOD SUCC 40 MG/ML VL IV SCH (11:33)
[2024-03-20] MEDS: acetaZOLAMIDE SODIUM 500 MG VL IV ONE (11:34)
[2024-03-20] MEDS: METOPROLOL TARTRATE 25 MG TAB PO SCH (11:35)
[2024-03-20] MEDS: FUROSEMIDE 20 MG/2 ML VIAL IV SCH (11:35)
[2024-03-20] MEDS: MAGNESIUM SULFATE 1GM/100ML 100 ML IV ONE (12:58)
[2024-03-20] MEDS: hydrALAZINE HCL 20 MG/ML VL IV PRN (15:38)
[2024-03-20 18:46] LABS: COVID19 ANTIGEN SOFIA FIA NEGATIVE (NEGATIVE); Rapid Influenza A Negative (Negative); Rapid Influenza B Negative (Negative)
[2024-03-20] MEDS: LORazepam 2MG/ML-1ML VIAL IV PRN (19:06)
[2024-03-20] MEDS: LEVOTHYROXINE SODIUM 100 MCG TAB PO ONE (19:06)
[2024-03-20] MEDS: LISINOPRIL 5 MG TAB PO ONE (19:06)
[2024-03-20] MEDS ORDERED: DIGO0.12 PO (19:43)
[2024-03-20] MEDS: ATORVASTATIN 20 MG TAB PO SCH (22:20)
[2024-03-20] MEDS: DOXYCYCLINE 100 MG TAB/CAP PO SCH (22:21)
[2024-03-21] VITALS (11 sets, daily range): BP systolic 114–142; BP diastolic 61–80; PULSE 59–88; RESP 17–22; TEMP 97.7–98.3; O2SAT 93–100
[2024-03-21] MEDS: LEVOTHYROXINE SODIUM 100 MCG TAB PO SCH (06:15)
[2024-03-21] MEDS: LISINOPRIL 5 MG TAB PO SCH (10:00)
[2024-03-21] MEDS: NIFEdipine ER 30 MG TAB PO SCH (10:11)
[2024-03-21] MEDS: acetaZOLAMIDE SODIUM 500 MG VL IV SCH (10:12)
[2024-03-21 10:51] LABS: Basophils # (auto) 0 10 ^3/uL (0-0.2); Eosinophils # (auto) 0 10 ^3/uL (0-0.8); Hemoglobin 10.1 g/dL (12.2-16.2)
[2024-03-21 10:53] LABS: Basophils % (auto) 0.1 % (0.0-2.0); Eosinophils % (auto) 0.4 % (0.0-7.0); Hematocrit 34.2 % (36.0-46.0); Lymphocytes # (auto) 0.4 10 ^3/uL (0.4-5.4); Lymphocytes % (auto) 4.8 % (10.0-50.0); Mean Corpuscular Hemoglobin 20.8 pg (28.0-32.0); Mean Corpuscular Hgb Conc. 29.4 g/dL (32.0-36.0); Mean Corpuscular Volume 70.8 fL (80.0-100.0); Monocytes # (auto) 0.9 10 ^3/uL (0-1.3); Monocytes % (auto) 10.4 % (0.0-12.0); Neutrophils # (auto) 7.1 10 ^3/uL (1.6-8.6); Neutrophils % (auto) 84.3 % (37.0-80.0); Nucleated Red Blood Cells % 0.2 %; Red Blood Cells 4.84 10^6/uL (4.0-5.20); White Blood Cell 8.5 10^3/uL (4.4-10.8)
[2024-03-21 11:07] LABS: Calcium 9.9 mg/dL (8.5-10.1); Chloride 94 mmol/L (98-107); Potassium 3.6 mmol/L (3.5-5.1); Sodium 136 mmol/L (136-145)
[2024-03-21 11:08] LABS: Anion Gap 3 (5-15); Carbon Dioxide 39 mmol/L (20-30)
[2024-03-21 11:13] LABS: BUN/Creatinine Ratio 20.9 (10.0-20.0); Blood Urea Nitrogen 19 mg/dL (9-23); Glucose 253 mg/dL (74-106)
[2024-03-22] VITALS (16 sets, daily range): BP systolic 117–147; BP diastolic 42–119; PULSE 60–81; RESP 16–22; TEMP 36.5; O2SAT 94–99
[2024-03-22 05:26] LABS: Basophils # (auto) 0 10 ^3/uL (0-0.2); Eosinophils # (auto) 0 10 ^3/uL (0-0.8); Lymphocytes # (auto) 0.4 10 ^3/uL (0.4-5.4); Lymphocytes % (auto) 4.6 % (10.0-50.0); Monocytes # (auto) 0.5 10 ^3/uL (0-1.3); Neutrophils # (auto) 8.6 10 ^3/uL (1.6-8.6); White Blood Cell 9.5 10^3/uL (4.4-10.8)
[2024-03-22 05:33] LABS: Basophils % (auto) 0.3 % (0.0-2.0); Eosinophils % (auto) 0.1 % (0.0-7.0); Hematocrit 34.9 % (36.0-46.0); Mean Corpuscular Hemoglobin 20.6 pg (28.0-32.0); Mean Corpuscular Hgb Conc. 28.6 g/dL (32.0-36.0); Nucleated Red Blood Cells % 0.1 %; Red Blood Cells 4.86 10^6/uL (4.0-5.20); Red Cell Distribution Width 19.5 % (11.8-14.3)
[2024-03-22 05:48] LABS: Chloride 96 mmol/L (98-107); Potassium 4.3 mmol/L (3.5-5.1); Sodium 136 mmol/L (136-145)
[2024-03-22 05:49] LABS: Anion Gap 4 (5-15); Calcium 9.6 mg/dL (8.7-10.4); Carbon Dioxide 36 mmol/L (20-30)
[2024-03-22 05:54] LABS: Blood Urea Nitrogen 23 mg/dL (9-23); Glucose 211 mg/dL (74-106)
[2024-03-22] MEDS ORDERED: PRED20TA2 PO (11:22)
[2024-03-22] MEDS ORDERED: ATOR20TA50 PO (11:22)
[2024-03-22] MEDS ORDERED: ASPI-325 PO (11:22)
== END 2024-03-22 16:30 | disposition home or self-care (01) | DRG 280 ==
LOC: EDBD 10:30 → ER 10:30 → TELE 14:18 → TELE-WESTW 21:27
PROVIDERS: ADMIT Nurse Practitioner Family; ATTEND Internal Medicine Pulmonary Disease
DX: I13.0 Hypertensive heart and chronic kidney disease with heart failure and stage 1 through stage 4 chronic kidney disease, or unspecified chronic kidney disease (principal); I50.43 Acute on chronic combined systolic (congestive) and diastolic (congestive) heart failure; I21.A1 Myocardial infarction type 2; J96.22 Acute and chronic respiratory failure with hypercapnia; J96.21 Acute and chronic respiratory failure with hypoxia; J44.1 Chronic obstructive pulmonary disease with (acute) exacerbation; N30.00 Acute cystitis without hematuria; E66.2 Morbid (severe) obesity with alveolar hypoventilation; E87.4 Mixed disorder of acid-base balance; L03.115 Cellulitis of right lower limb; Z20.822 Contact with and (suspected) exposure to COVID-19; E03.9 Hypothyroidism, unspecified; I48.91 Unspecified atrial fibrillation; E11.65 Type 2 diabetes mellitus with hyperglycemia; D50.9 Iron deficiency anemia, unspecified; E11.22 Type 2 diabetes mellitus with diabetic chronic kidney disease; N18.9 Chronic kidney disease, unspecified; I45.10 Unspecified right bundle-branch block; Z91.199 Patient's noncompliance with other medical treatment and regimen due to unspecified reason; Z85.528 Personal history of other malignant neoplasm of kidney; Z90.5 Acquired absence of kidney; Z87.891 Personal history of nicotine dependence; Z99.81 Dependence on supplemental oxygen; Z90.49 Acquired absence of other specified parts of digestive tract; Z90.722 Acquired absence of ovaries, bilateral; Z82.5 Family history of asthma and other chronic lower respiratory diseases; Z82.49 Family history of ischemic heart disease and other diseases of the circulatory system; Z88.5 Allergy status to narcotic agent; Z68.37 Body mass index [BMI] 37.0-37.9, adult
CPT/HCPCS: 36415; 36600; 71045; 71250; 80048; 80053; 80061; 81001; 82805; 82962; 83036; 83605; 83735; 83880; 84439; 84443; 84484; 85007; 85025; 85027; 85379; 87040; 87086; 87426; 87804; 93005; 93306; 93971; 94640; 97110; 97163; 97530; 99291; C9113; G0378; J1815

== ENCOUNTER 2024-04-01 11:20 | Inpatient (IN) | payer MEDICARE, MEDICAID ==
[~2024-04-01] VITALS: Ht 165.1 cm; Wt 89.4 kg
[2024-04-01] VITALS (21 sets, daily range): BP systolic 136–156; BP diastolic 54–118; PULSE 57–81; RESP 16–20; TEMP 98–100.4; O2SAT 97–100
[~2024-04-01 11:20] MED LIST changes: +ASPI-325 PO; +ATOR20TA50 PO; +DIGO0.12 PO; +PRED20TA2 PO
[2024-04-01] MEDS: methylPREDNISolone SOD SUCC 125 MG/2 ML VL IV ONE (11:45)
[2024-04-01] MEDS: PIPERACILLIN-TAZOB 3.375GM 100 ML IV ONE (11:45)
[2024-04-01] MEDS: CLINDAMYCIN 300MG IV 50 ML IV ONE (11:45)
[2024-04-01] MEDS: ALBUTEROL SULF 2.5 MG/0.5ML(0.5%) NEB SOLN NEB ONE (12:21)
[2024-04-01] MEDS: IPRATROPIUM BROM 0.5 MG/2.5ML INH SOL NEB ONE (12:22)
[2024-04-01 13:28] LABS: Alanine Aminotransferase 33 U/L (7-40); Albumin 3.9 g/dL (3.2-4.8); Alkaline Phosphatase 152 U/L (46-116); Aspartate Aminotransferase 28 U/L (13-40); BUN/Creatinine Ratio 24.7 (10.0-20.0); Bilirubin, Total 0.4 mg/dL (0.2-1.0); Blood Urea Nitrogen 19 mg/dL (9-23); Calcium 10.4 mg/dL (8.5-10.1); Chloride 94 mmol/L (98-107); Glucose 224 mg/dL (74-106); Sodium 140 mmol/L (136-145); Total Protein 6.6 g/dL (5.7-8.2)
[2024-04-01 13:34] LABS: Basophils # (auto) 0.1 10 ^3/uL (0-0.2); Basophils % (auto) 0.9 % (0.0-2.0); Eosinophils # (auto) 0.1 10 ^3/uL (0-0.8); Eosinophils % (auto) 0.8 % (0.0-7.0); Hematocrit 37.8 % (36.0-46.0); Hemoglobin 10.1 g/dL (12.2-16.2); Lymphocytes # (auto) 0.4 10 ^3/uL (0.4-5.4); Mean Corpuscular Hemoglobin 19.5 pg (28.0-32.0); Mean Corpuscular Hgb Conc. 26.7 g/dL (32.0-36.0); Mean Corpuscular Volume 73.1 fL (80.0-100.0); Monocytes % (auto) 7.5 % (0.0-12.0); Neutrophils # (auto) 11.7 10 ^3/uL (1.6-8.6); Neutrophils % (auto) 87.8 % (37.0-80.0); Nucleated Red Blood Cells % 0.1 %; Red Blood Cells 5.17 10^6/uL (4.0-5.20); Red Cell Distribution Width 19.4 % (11.8-14.3); White Blood Cell 13.4 10^3/uL (4.4-10.8)
[2024-04-01 13:36] LABS: Anion Gap 5.99999 (5-15)
[2024-04-01 13:39] LABS: Carbon Dioxide > 40 mmol/L (20-30)
[2024-04-01 13:52] LABS: Platelet Estimate Adequate
[2024-04-01 13:53] LABS: Hypochromia Marked; Stomatocytes Few
[2024-04-01 13:54] LABS: Large Platelets FEW
[2024-04-01] MEDS: FUROSEMIDE 40 MG/4 ML VIAL IV ONE (14:15)
[2024-04-01] MEDS: ETOMIDATE (2MG/ML) 20ML VIAL IV ONE (14:49)
[2024-04-01] MEDS: MIDAZOLAM DRIP 50 mg/50mL 50 ML IV SCH (14:50)
[2024-04-01] MEDS: ROCURONIUM 10MG/ML 10ML VIAL IV ONE (14:50)
[2024-04-01] MEDS: MAGNESIUM SULFATE 1GM/100ML 100 ML IV ONE (15:00)
[2024-04-01] MEDS: SODIUM CHLORIDE 0.9% 1,000 ML IV ONE ×2 (15:00)
[2024-04-01 15:31] LABS: Urine Bacteria MANY /hpf (None Seen); Urine Blood 1+ /uL (Negative); Urine Clarity Turbid (Clear); Urine Color Yellow (Yellow); Urine Hyaline Cast FEW /lpf (0 - 2); Urine Mucus FEW (None Seen); Urine Protein, UAD 3+ (Negative); Urine Specific Gravity 1.021 (1.001-1.035); Urine Urobilinogen Normal (Negative); Urine WBC 132 /hpf (0 - 5)
[2024-04-01] MEDS: ENOXAPARIN SOD 40 MG/0.4 ML SYRINGE SC ONE (16:15)
[2024-04-01] MEDS: PANTOPRAZOLE 40 MG/10 ML VIAL INJ IV ONE (16:15)
[2024-04-01] MEDS: cefTRIAXone 1GM/50ML D5W 50 ML IV ONE (16:15)
[2024-04-01] MEDS ORDERED: VANCOMYCIN PER PHARMACY 0 MG IV SCH (16:15)
[2024-04-01] MEDS ORDERED: DEXTROSE (50%) 50ML SYRG IV PRN (16:30)
[2024-04-01 16:35] LABS: Partial Thromboplastin Time 23.6 SEC (24.5-34.5); Prothrombin Time 10.6 sec (9.3-11.8)
[2024-04-01 16:42] LABS: Amphetamine Screen, Urine Neg (NEGATIVE)
[2024-04-01 16:43] LABS: Barbiturate Scree,Urine Neg (NEGATIVE); Benzodiazephine Screen, Urine Neg (NEGATIVE); Cannabinoid Screen, Urine Pos (NEGATIVE); Cocaine Screen, Urine Neg (NEGATIVE); Opiate Scree,Urine Neg (NEGATIVE); Phencyclidine Screen, Urine Neg (NEGATIVE)
[2024-04-01 16:46] LABS: Base Excess 12.2 mmol/L (-2.0-2.0)
[2024-04-01] MEDS: VANCOMYCIN 1GM/200ML 200 ML IV ONE (16:53)
[2024-04-01] MEDS: InsuLIN REG 1unit/0.01ml Soln (100units/ml) SC SCH (17:27)
[2024-04-01] MEDS: ACCU-CHEK COMFORT CURVE STRIP VI SCH (17:31)
[2024-04-01] MEDS: NOREPINEPHRINE 8 MG/250ML KIT 250 ML IV ONE (17:56)
[2024-04-01] MEDS: NOREPINEPHRINE 8 MG/250ML KIT 250 ML IV SCH (18:00)
[2024-04-01] MEDS: ALBUTEROL SULF 2.5 MG/0.5ML(0.5%) NEB SOLN NEB SCH (18:21)
[2024-04-01] MEDS: IPRATROPIUM BROM 0.5 MG/2.5ML INH SOL NEB SCH (18:21)
[2024-04-01] MEDS: acetaZOLAMIDE SODIUM 500 MG VL IV ONE (18:30)
[2024-04-01] MEDS: LEVOTHYROXINE SODIUM 100 MCG/5 ML INJ IV ONE (19:00)
[2024-04-01] MEDS: fentaNYL Drip 2500mCg/250mlNS 250 ML IV SCH (20:11)
[2024-04-01] MEDS: methylPREDNISolone SOD SUCC 40 MG/ML VL IV SCH (23:24)
[2024-04-02] VITALS (109 sets, daily range): BP systolic 88–177; BP diastolic 45–112; PULSE 51–104; RESP 13–34; TEMP 97.5–99.9; O2SAT 88–100
[2024-04-02 04:15] LABS: Hemoglobin 8.6 g/dL (12.2-16.2)
[2024-04-02 04:17] LABS: Hematocrit 29.8 % (36.0-46.0); Mean Corpuscular Hemoglobin 20.5 pg (28.0-32.0); Mean Corpuscular Hgb Conc. 28.9 g/dL (32.0-36.0); Mean Corpuscular Volume 71.1 fL (80.0-100.0); Red Cell Distribution Width 18.8 % (11.8-14.3); White Blood Cell 9.4 10^3/uL (4.4-10.8)
[2024-04-02 04:22] LABS: Alanine Aminotransferase 20 U/L (7-40); Albumin 3.3 g/dL (3.2-4.8); Alkaline Phosphatase 117 U/L (46-116); Anion Gap 5 (5-15); Aspartate Aminotransferase 11 U/L (13-40); BUN/Creatinine Ratio 30.6 (10.0-20.0); Blood Urea Nitrogen 22 mg/dL (9-23); Calcium 9.4 mg/dL (8.7-10.4); Carbon Dioxide 39 mmol/L (20-30); Chloride 93 mmol/L (98-107); Glucose 301 mg/dL (74-106); Potassium 3.8 mmol/L (3.5-5.1); Sodium 137 mmol/L (136-145)
[2024-04-02 04:23] LABS: Basophils % (manual) 0 (0.0-2.0); Bilirubin, Total 0.4 mg/dL (0.2-1.0); Blast Cells 0; Eosinophils % (manual) 0 (0-7); Metamyelocytes % 0; Myelocytes % 0; Promyelocytes % 0; Reactive Lymphocytes 0; Total Protein 6.2 g/dL (5.7-8.2)
[2024-04-02] MEDS: VANCOMYCIN 1GM/200ML 200 ML IV SCH (04:37)
[2024-04-02 06:36] LABS: Anisocytosis Slight; Band Neutrophils % (manual) 3; Hypochromia Marked; Lymphocytes % (manual) 1 (10.0-50.0); Monocytes % (manual) 5 (0-12); Platelet Estimate Adequate; Stomatocytes Moderate
[2024-04-02 07:25] LABS: Base Excess 14.6 mmol/L (-2.0-2.0)
[2024-04-02] MEDS ORDERED: Jevity 1.2 Cal/Fiber 1 Liter GT SCH (08:45)
[2024-04-02] MEDS: cefTRIAXone 1GM/50ML D5W 50 ML IV SCH (09:24)
[2024-04-02] MEDS: LEVOTHYROXINE SODIUM 100 MCG/5 ML INJ IV SCH (09:27)
[2024-04-02] MEDS: acetaZOLAMIDE SODIUM 500 MG VL IV SCH (09:29)
[2024-04-02] MEDS: FUROSEMIDE 20 MG/2 ML VIAL IV ONE ×2 (09:31→15:18)
[2024-04-02] MEDS: PANTOPRAZOLE 40 MG/10 ML VIAL INJ IV SCH (09:32)
[2024-04-02] MEDS: ENOXAPARIN SOD 40 MG/0.4 ML SYRINGE SC SCH (09:34)
[2024-04-02] MEDS: POTASSIUM CHL 20MEQ/100ML 100 ML IV SCH (09:44)
[2024-04-02] MEDS: INSULIN LANTUS (GLARGINE) 1 /0.01ml (100units/ml) SC SCH (10:00)
[2024-04-02 10:23] LABS: COVID19 ANTIGEN SOFIA FIA NEGATIVE (NEGATIVE); Rapid Influenza A Negative (Negative); Rapid Influenza B Negative (Negative)
[2024-04-02] MEDS: CEFEPIME 1GM/ 50ML 50 ML IV SCH (13:07)
[2024-04-02] MEDS: SPIRONOLACTONE 25 MG TAB PO ONE (15:17)
[2024-04-02] MEDS: FUROSEMIDE 20 MG/2 ML VIAL IV SCH (17:24)
[2024-04-02 17:38] LABS: % Iron Saturation 4.2 % (15-50)
[2024-04-03] VITALS (76 sets, daily range): BP systolic 93–139; BP diastolic 42–94; PULSE 51–79; RESP 12–20; TEMP 97–98.8; O2SAT 93–100
[2024-04-03] MEDS: Glucerna 1.2 Cal 1Liter BOTTLE GT SCH (02:54)
[2024-04-03 04:10] LABS: Basophils # (auto) 0 10 ^3/uL (0-0.2); Eosinophils # (auto) 0 10 ^3/uL (0-0.8); Lymphocytes # (auto) 0.5 10 ^3/uL (0.4-5.4); Nucleated Red Blood Cells % 0.1 %; White Blood Cell 8.1 10^3/uL (4.4-10.8)
[2024-04-03 04:14] LABS: Basophils % (auto) 0.1 % (0.0-2.0); Eosinophils % (auto) 0.1 % (0.0-7.0); Hematocrit 26.2 % (36.0-46.0); Hemoglobin 7.8 g/dL (12.2-16.2); Lymphocytes % (auto) 5.8 % (10.0-50.0); Mean Corpuscular Hemoglobin 20.9 pg (28.0-32.0); Mean Corpuscular Hgb Conc. 29.7 g/dL (32.0-36.0); Mean Corpuscular Volume 70.3 fL (80.0-100.0); Monocytes # (auto) 0.7 10 ^3/uL (0-1.3); Monocytes % (auto) 8.1 % (0.0-12.0); Neutrophils % (auto) 85.9 % (37.0-80.0); Red Blood Cells 3.72 10^6/uL (4.0-5.20)
[2024-04-03 04:32] LABS: Alanine Aminotransferase 14 U/L (7-40); Albumin 3.2 g/dL (3.2-4.8); Alkaline Phosphatase 93 U/L (46-116); Anion Gap 4 (5-15); Aspartate Aminotransferase 14 U/L (13-40); BUN/Creatinine Ratio 28.9 (10.0-20.0); Blood Urea Nitrogen 26 mg/dL (9-23); Calcium 9.5 mg/dL (8.5-10.1); Carbon Dioxide 39 mmol/L (20-30); Chloride 97 mmol/L (98-107); Glucose 175 mg/dL (74-106); Potassium 3.2 mmol/L (3.5-5.1); Sodium 140 mmol/L (136-145)
[2024-04-03 04:33] LABS: Bilirubin, Total 0.2 mg/dL (0.2-1.0); Phosphorus 3.2 mg/dL (2.4-5.1); Total Protein 5.7 g/dL (5.7-8.2)
[2024-04-03] MEDS: POTASSIUM CHL 20MEQ/100ML 100 ML IV ONE ×2 (06:24→16:45)
[2024-04-03] MEDS ORDERED: DEXTROSE (50%) 50ML SYRG IV PRN (07:30)
[2024-04-03] MEDS: DOXYCYCLINE 100MG/250ML 250 ML IV SCH (08:58)
[2024-04-03] MEDS: methylPREDNISolone SOD SUCC 40 MG/ML VL IV SCH (09:05)
[2024-04-03] MEDS: SPIRONOLACTONE 25 MG TAB PO SCH (09:05)
[2024-04-03] MEDS: LEVOTHYROXINE SODIUM 100 MCG/5 ML INJ IV SCH (09:05)
[2024-04-03] MEDS: METOCLOPRAMIDE HCL 5MG/ml INJ 2ml VIAL IV ONE (09:31)
[2024-04-03] MEDS: ACCU-CHEK COMFORT CURVE STRIP VI SCH (11:43)
[2024-04-03] MEDS: InsuLIN REG 1unit/0.01ml Soln (100units/ml) SC SCH (11:47)
[2024-04-03] MEDS: VANCOMYCIN 1GM/200ML 200 ML IV SCH (11:53)
[2024-04-03] MEDS: IRON SUCROSE COMPLEX 100 ML IV SCH (11:54)
[2024-04-03] MEDS: METOCLOPRAMIDE HCL 5MG/ml INJ 2ml VIAL IV SCH (13:59)
[2024-04-03] MEDS: FUROSEMIDE 20 MG/2 ML VIAL IV SCH (17:37)
[2024-04-04] VITALS (95 sets, daily range): BP systolic 75–156; BP diastolic 28–77; PULSE 47–95; RESP 15–27; TEMP 98.2–99.1; O2SAT 93–99
[2024-04-04 03:54] LABS: Basophils # (auto) 0 10 ^3/uL (0-0.2); Eosinophils # (auto) 0 10 ^3/uL (0-0.8); Eosinophils % (auto) 0.1 % (0.0-7.0); Hemoglobin 7.6 g/dL (12.2-16.2); Lymphocytes # (auto) 0.4 10 ^3/uL (0.4-5.4); Monocytes # (auto) 0.6 10 ^3/uL (0-1.3); Neutrophils # (auto) 7.8 10 ^3/uL (1.6-8.6); Neutrophils % (auto) 88.3 % (37.0-80.0)
[2024-04-04 03:58] LABS: Basophils % (auto) 0.1 % (0.0-2.0); Hematocrit 26.1 % (36.0-46.0); Lymphocytes % (auto) 4.9 % (10.0-50.0); Mean Corpuscular Hemoglobin 20.4 pg (28.0-32.0); Mean Corpuscular Hgb Conc. 29.3 g/dL (32.0-36.0); Mean Corpuscular Volume 69.6 fL (80.0-100.0); Monocytes % (auto) 6.6 % (0.0-12.0); Nucleated Red Blood Cells % 0.3 %; Red Blood Cells 3.75 10^6/uL (4.0-5.20); Red Cell Distribution Width 19.5 % (11.8-14.3); White Blood Cell 8.8 10^3/uL (4.4-10.8)
[2024-04-04 04:06] LABS: Alanine Aminotransferase 15 U/L (7-40); Albumin 3.1 g/dL (3.2-4.8); Alkaline Phosphatase 82 U/L (46-116); Anion Gap 4 (5-15); Aspartate Aminotransferase 14 U/L (13-40); BUN/Creatinine Ratio 30.9 (10.0-20.0); Bilirubin, Total 0.3 mg/dL (0.2-1.0); Blood Urea Nitrogen 25 mg/dL (9-23); Carbon Dioxide 35 mmol/L (20-30); Chloride 97 mmol/L (98-107); Glucose 196 mg/dL (74-106); Phosphorus 3.3 mg/dL (2.4-5.1); Potassium 4.1 mmol/L (3.5-5.1); Sodium 136 mmol/L (136-145); Total Protein 5.7 g/dL (5.7-8.2)
[2024-04-04] MEDS: FUROSEMIDE 40 MG/4 ML VIAL IV SCH (05:35)
[2024-04-04] MEDS: LEVOTHYROXINE SODIUM 100 MCG TAB PO SCH (06:11)
[2024-04-04 07:35] LABS: Base Excess 6.4 mmol/L (-2.0-2.0)
[2024-04-04] MEDS ORDERED: CEFEPIME 2GM/50ML NS 50 ML IV SCH (14:00)
[2024-04-04] MEDS: LEVOTHYROXINE SODIUM 100 MCG/5 ML INJ IV ONE (14:41)
[2024-04-04] MEDS: CEFEPIME 2GM/50ML NS 50 ML IV SCH (15:22)
[2024-04-04] MEDS: NOREPINEPHRINE 8 MG/250ML KIT 250 ML IV SCH (19:30)
[2024-04-05] VITALS (115 sets, daily range): BP systolic 90–179; BP diastolic 45–92; PULSE 50–104; RESP 14–25; TEMP 98.1–99; O2SAT 92–100
[2024-04-05 03:38] LABS: Basophils # (auto) 0 10 ^3/uL (0-0.2); Basophils % (auto) 0.1 % (0.0-2.0); Eosinophils # (auto) 0 10 ^3/uL (0-0.8); Eosinophils % (auto) 0.1 % (0.0-7.0); Hemoglobin 8.9 g/dL (12.2-16.2); Lymphocytes # (auto) 0.7 10 ^3/uL (0.4-5.4); Monocytes # (auto) 0.9 10 ^3/uL (0-1.3)
[2024-04-05 03:44] LABS: Hematocrit 30.1 % (36.0-46.0); Lymphocytes % (auto) 5.9 % (10.0-50.0); Mean Corpuscular Hemoglobin 20.5 pg (28.0-32.0); Mean Corpuscular Hgb Conc. 29.6 g/dL (32.0-36.0); Mean Corpuscular Volume 69.2 fL (80.0-100.0); Monocytes % (auto) 7.7 % (0.0-12.0); Neutrophils # (auto) 10.4 10 ^3/uL (1.6-8.6); Neutrophils % (auto) 86.2 % (37.0-80.0); Nucleated Red Blood Cells % 0.5 %; Red Blood Cells 4.34 10^6/uL (4.0-5.20); Red Cell Distribution Width 19.5 % (11.8-14.3); White Blood Cell 12.1 10^3/uL (4.4-10.8)
[2024-04-05 03:48] LABS: Anion Gap 6 (5-15); Carbon Dioxide 32 mmol/L (20-30); Chloride 99 mmol/L (98-107); Sodium 137 mmol/L (136-145)
[2024-04-05 03:50] LABS: Calcium 9.5 mg/dL (8.7-10.4)
[2024-04-05 03:54] LABS: BUN/Creatinine Ratio 24.7 (10.0-20.0); Blood Urea Nitrogen 22 mg/dL (9-23); Glucose 180 mg/dL (74-106)
[2024-04-05 06:55] LABS: Base Excess 6.9 mmol/L (-2.0-2.0)
[2024-04-05] MEDS: LEVOTHYROXINE SODIUM 100 MCG/5 ML INJ IV SCH (07:34)
[2024-04-05] MEDS: FUROSEMIDE 40 MG/4 ML VIAL IV SCH (07:35)
[2024-04-05] MEDS ORDERED: DexmedeTOMIDine 200 MCG in D5W 5% 48 ML IV SCH (15:00)
[2024-04-05] MEDS: LISINOPRIL 5 MG TAB PO ONE (15:24)
[2024-04-05] MEDS: MIDAZOLAM DRIP 50 mg/50mL 50 ML IV SCH (17:04)
[2024-04-06] VITALS (97 sets, daily range): BP systolic 80–196; BP diastolic 37–163; PULSE 54–109; RESP 19–29; TEMP 98.2–99.7; O2SAT 90–100
[2024-04-06] MEDS: DexmedeTOMIDine 200 MCG in D5W 5% 48 ML IV SCH (01:35)
[2024-04-06 04:16] LABS: Basophils # (auto) 0 10 ^3/uL (0-0.2); Eosinophils # (auto) 0.1 10 ^3/uL (0-0.8); Lymphocytes # (auto) 0.6 10 ^3/uL (0.4-5.4); Lymphocytes % (auto) 5.8 % (10.0-50.0); Mean Corpuscular Hemoglobin 20.7 pg (28.0-32.0); Monocytes # (auto) 0.6 10 ^3/uL (0-1.3); Neutrophils # (auto) 9.3 10 ^3/uL (1.6-8.6)
[2024-04-06 04:18] LABS: Basophils % (auto) 0.1 % (0.0-2.0); Eosinophils % (auto) 0.8 % (0.0-7.0); Hematocrit 30.1 % (36.0-46.0); Hemoglobin 8.9 g/dL (12.2-16.2); Mean Corpuscular Hgb Conc. 29.5 g/dL (32.0-36.0); Mean Corpuscular Volume 69.9 fL (80.0-100.0); Neutrophils % (auto) 87.3 % (37.0-80.0); Nucleated Red Blood Cells % 0.4 %; Red Blood Cells 4.31 10^6/uL (4.0-5.20); Red Cell Distribution Width 19.1 % (11.8-14.3); White Blood Cell 10.7 10^3/uL (4.4-10.8)
[2024-04-06 04:37] LABS: Hypochromia Marked; Platelet Estimate Adequate
[2024-04-06 04:38] LABS: Stomatocytes Moderate
[2024-04-06 04:40] LABS: Alanine Aminotransferase 14 U/L (7-40); Alkaline Phosphatase 90 U/L (46-116); Anion Gap 6 (5-15); Aspartate Aminotransferase 11 U/L (13-40); Calcium 9.9 mg/dL (8.7-10.4); Carbon Dioxide 32 mmol/L (20-30); Chloride 98 mmol/L (98-107); Glucose 130 mg/dL (74-106); Potassium 3.3 mmol/L (3.5-5.1); Sodium 136 mmol/L (136-145)
[2024-04-06 04:41] LABS: Albumin 3.4 g/dL (3.2-4.8); Bilirubin, Total 0.3 mg/dL (0.2-1.0); Phosphorus 3.2 mg/dL (2.4-5.1); Total Protein 6.2 g/dL (5.7-8.2)
[2024-04-06 04:55] LABS: Blood Urea Nitrogen 21 mg/dL (9-23)
[2024-04-06 07:12] LABS: Base Excess 6.2 mmol/L (-2.0-2.0)
[2024-04-06] MEDS: LISINOPRIL 5 MG TAB PO SCH (07:44)
[2024-04-06] MEDS: POTASSIUM EFFERVESENT TAB 25 MEQ GT ONE (15:15)
[2024-04-06] MEDS: hydrALAZINE HCL 20 MG/ML VL IV PRN (20:52)
[2024-04-07] VITALS (105 sets, daily range): BP systolic 72–182; BP diastolic 36–80; PULSE 49–107; RESP 15–22; TEMP 98.6–99.7; O2SAT 96–100
[2024-04-07 03:54] LABS: Basophils # (auto) 0 10 ^3/uL (0-0.2); Eosinophils # (auto) 0.2 10 ^3/uL (0-0.8); Lymphocytes # (auto) 0.9 10 ^3/uL (0.4-5.4); Mean Corpuscular Hemoglobin 20.6 pg (28.0-32.0); Neutrophils # (auto) 11.9 10 ^3/uL (1.6-8.6); Nucleated Red Blood Cells % 0.2 %
[2024-04-07 03:57] LABS: Eosinophils % (auto) 1.4 % (0.0-7.0); Hematocrit 34.1 % (36.0-46.0); Hemoglobin 9.9 g/dL (12.2-16.2); Lymphocytes % (auto) 6.2 % (10.0-50.0); Mean Corpuscular Hgb Conc. 29.1 g/dL (32.0-36.0); Mean Corpuscular Volume 70.6 fL (80.0-100.0); Monocytes # (auto) 0.9 10 ^3/uL (0-1.3); Monocytes % (auto) 6.6 % (0.0-12.0); Neutrophils % (auto) 85.8 % (37.0-80.0); Red Blood Cells 4.83 10^6/uL (4.0-5.20); Red Cell Distribution Width 19.2 % (11.8-14.3); White Blood Cell 13.9 10^3/uL (4.4-10.8)
[2024-04-07 04:12] LABS: Alanine Aminotransferase 13 U/L (7-40); Albumin 3.5 g/dL (3.2-4.8); Alkaline Phosphatase 95 U/L (46-116); Anion Gap 8 (5-15); Aspartate Aminotransferase 9 U/L (13-40); BUN/Creatinine Ratio 27.7 (10.0-20.0); Blood Urea Nitrogen 23 mg/dL (9-23); Calcium 10.3 mg/dL (8.7-10.4); Carbon Dioxide 30 mmol/L (20-30); Chloride 97 mmol/L (98-107); Glucose 166 mg/dL (74-106); Magnesium 2.1 mg/dL (1.6-2.6); Potassium 3.8 mmol/L (3.5-5.1); Sodium 135 mmol/L (136-145)
[2024-04-07 04:13] LABS: Bilirubin, Total 0.5 mg/dL (0.2-1.0); Total Protein 6.5 g/dL (5.7-8.2)
[2024-04-07 07:37] LABS: Base Excess 6.1 mmol/L (-2.0-2.0)
[2024-04-07] MEDS: POTASSIUM EFFERVESENT TAB 25 MEQ GT SCH (09:29)
[2024-04-07] MEDS: SODIUM FERR GLUC 62.5MG/5ML 125 MG in SODIUM CHL 0.9% 100 ML IV SCH (12:02)
[2024-04-07] MEDS: CEFEPIME 2GM/50ML NS 50 ML IV SCH (22:32)
[2024-04-08] VITALS (99 sets, daily range): BP systolic 88–188; BP diastolic 50–110; PULSE 50–130; RESP 12–33; TEMP 98.4–100.6; O2SAT 84–100
[2024-04-08 06:46] LABS: Chloride 99 mmol/L (98-107); Potassium 4.3 mmol/L (3.5-5.1); Sodium 134 mmol/L (136-145)
[2024-04-08 06:47] LABS: Anion Gap 5 (5-15); Carbon Dioxide 30 mmol/L (20-30)
[2024-04-08 06:48] LABS: Calcium 10.5 mg/dL (8.5-10.1)
[2024-04-08 06:52] LABS: BUN/Creatinine Ratio 27.5 (10.0-20.0); Basophils # (auto) 0 10 ^3/uL (0-0.2); Blood Urea Nitrogen 22 mg/dL (9-23); Glucose 174 mg/dL (74-106)
[2024-04-08 06:54] LABS: Basophils % (auto) 0.1 % (0.0-2.0); Eosinophils # (auto) 0.1 10 ^3/uL (0-0.8); Eosinophils % (auto) 1.1 % (0.0-7.0); Hemoglobin 10.5 g/dL (12.2-16.2); Lymphocytes # (auto) 0.8 10 ^3/uL (0.4-5.4); Lymphocytes % (auto) 6.5 % (10.0-50.0); Mean Corpuscular Hemoglobin 20.7 pg (28.0-32.0); Mean Corpuscular Hgb Conc. 29.2 g/dL (32.0-36.0); Mean Corpuscular Volume 70.9 fL (80.0-100.0); Monocytes # (auto) 0.7 10 ^3/uL (0-1.3); Monocytes % (auto) 5.8 % (0.0-12.0); Neutrophils # (auto) 10.3 10 ^3/uL (1.6-8.6); Neutrophils % (auto) 86.5 % (37.0-80.0); Red Blood Cells 5.07 10^6/uL (4.0-5.20); Red Cell Distribution Width 19.6 % (11.8-14.3); White Blood Cell 11.9 10^3/uL (4.4-10.8)
[2024-04-08 07:16] LABS: Hypochromia Slight
[2024-04-08 07:17] LABS: Stomatocytes Few
[2024-04-08 07:29] LABS: Base Excess 4.1 mmol/L (-2.0-2.0)
[2024-04-08 07:32] LABS: Platelet Estimate Adequate
[2024-04-08] MEDS ORDERED: LEVOTHYROXINE SODIUM 100 MCG/5 ML INJ IV SCH (10:00)
[2024-04-08] MEDS ORDERED: FLUCONAZOLE 200MG/100ML 100 ML IV SCH (10:00)
[2024-04-08 10:30] LABS: Base Excess 2.6 mmol/L (-2.0-2.0)
[2024-04-08 11:46] LABS: Alkaline Phosphatase 95 U/L (46-116)
[2024-04-08 11:47] LABS: Alanine Aminotransferase 13 U/L (7-40); Albumin 3.9 g/dL (3.2-4.8); Aspartate Aminotransferase < 8 U/L (13-40); Bilirubin, Direct 0.1 mg/dL (<0.3); Bilirubin, Total 0.3 mg/dL (0.2-1.0); Magnesium 1.9 mg/dL (1.6-2.6); Phosphorus 3.2 mg/dL (2.4-5.1); Total Protein 6.8 g/dL (5.7-8.2)
[2024-04-08] MEDS: LEVOTHYROXINE SODIUM 100 MCG/5 ML INJ IV ONE (12:36)
[2024-04-08] MEDS: LORazepam 2MG/ML-1ML VIAL IV PRN (14:41)
[2024-04-08] MEDS: MORPHINE SULFATE INJ 2 MG/ml SYRG IM ONE (18:07)
[2024-04-08] MEDS: LABETALOL HCL 5 MG/ML 4ML SYRINGE IV ONE (18:31)
[2024-04-08] MEDS: DOCUSATE ORAL LIQUID 100 MG/10 ML UD GT SCH (21:31)
[2024-04-08] MEDS: ACETAMINOPHEN 325 MG TAB PO PRN (21:41)
[2024-04-09] VITALS (77 sets, daily range): BP systolic 89–213; BP diastolic 37–120; PULSE 76–121; RESP 12–36; TEMP 97.3–100; O2SAT 84–100
[2024-04-09] MEDS: dilTIAZem 25 MG/5 ML VIAL IV ONE (01:34)
[2024-04-09 04:07] LABS: Basophils # (auto) 0 10 ^3/uL (0-0.2); Eosinophils # (auto) 0.2 10 ^3/uL (0-0.8); Lymphocytes # (auto) 0.4 10 ^3/uL (0.4-5.4); Lymphocytes % (auto) 2.3 % (10.0-50.0); White Blood Cell 17.9 10^3/uL (4.4-10.8)
[2024-04-09 04:13] LABS: Basophils % (auto) 0.2 % (0.0-2.0); Hematocrit 38.7 % (36.0-46.0); Hemoglobin 11.2 g/dL (12.2-16.2); Mean Corpuscular Hemoglobin 21.3 pg (28.0-32.0); Mean Corpuscular Hgb Conc. 28.9 g/dL (32.0-36.0); Mean Corpuscular Volume 73.9 fL (80.0-100.0); Monocytes # (auto) 0.9 10 ^3/uL (0-1.3); Monocytes % (auto) 5.1 % (0.0-12.0); Neutrophils # (auto) 16.4 10 ^3/uL (1.6-8.6); Neutrophils % (auto) 91.4 % (37.0-80.0); Red Blood Cells 5.23 10^6/uL (4.0-5.20)
[2024-04-09 04:21] LABS: Anion Gap 5 (5-15); Carbon Dioxide 31 mmol/L (20-30); Chloride 98 mmol/L (98-107); Potassium 4.5 mmol/L (3.5-5.1); Sodium 134 mmol/L (136-145)
[2024-04-09 04:22] LABS: Calcium 10.6 mg/dL (8.7-10.4)
[2024-04-09 04:24] LABS: Red Cell Distribution Width 20.5 % (11.8-14.3)
[2024-04-09 04:27] LABS: Blood Urea Nitrogen 19 mg/dL (9-23); Glucose 284 mg/dL (74-106)
[2024-04-09 04:28] LABS: Magnesium 1.8 mg/dL (1.6-2.6)
[2024-04-09 04:34] LABS: Base Excess 0.7 mmol/L (-2.0-2.0)
[2024-04-09 07:55] LABS: Base Excess 4.6 mmol/L (-2.0-2.0)
[2024-04-09] MEDS ORDERED: DEXTROSE (50%) 50ML SYRG IV PRN (08:45)
[2024-04-09] MEDS: FUROSEMIDE 20 MG/2 ML VIAL IV SCH (09:46)
[2024-04-09] MEDS ORDERED: LEVOTHYROXINE SODIUM 100 MCG/5 ML INJ IV SCH (10:00)
[2024-04-09 10:04] LABS: Alanine Aminotransferase 20 U/L (7-40); Albumin 3.8 g/dL (3.2-4.8); Alkaline Phosphatase 104 U/L (46-116); Anion Gap 3 (5-15); Aspartate Aminotransferase 17 U/L (13-40); BUN/Creatinine Ratio 27.2 (10.0-20.0); Blood Urea Nitrogen 22 mg/dL (9-23); Calcium 10.3 mg/dL (8.5-10.1); Carbon Dioxide 33 mmol/L (20-30); Chloride 99 mmol/L (98-107); Glucose 210 mg/dL (74-106); Potassium 4.6 mmol/L (3.5-5.1); Sodium 135 mmol/L (136-145)
[2024-04-09 10:05] LABS: Bilirubin, Total 0.4 mg/dL (0.2-1.0); Total Protein 6.6 g/dL (5.7-8.2)
[2024-04-09] MEDS: LEVOTHYROXINE SODIUM 100 MCG TAB PO ONE (10:09)
[2024-04-09] MEDS: EMPAGLIFLOZIN 10 MG TAB PO SCH (10:14)
[2024-04-09 11:51] LABS: Base Excess 5.8 mmol/L (-2.0-2.0)
[2024-04-09] MEDS: InsuLIN REG 1unit/0.01ml Soln (100units/ml) SC SCH ×2 (12:12→22:20)
[2024-04-09] MEDS: ACCU-CHEK COMFORT CURVE STRIP VI SCH (12:12)
[2024-04-09 13:46] LABS: Base Excess 1.9 mmol/L (-2.0-2.0)
[2024-04-09] MEDS: FUROSEMIDE 20 MG/2 ML VIAL IV ONE (15:15)
[2024-04-09] MEDS: DOCUSATE SOD 100 MG CAP PO PRN (16:47)
[2024-04-09] MEDS: PANTOPRAZOLE 40 MG TAB PO ONE (16:47)
[2024-04-09] MEDS: methylPREDNISolone SOD SUCC 40 MG/ML VL IV ONE (16:48)
[2024-04-10] VITALS (33 sets, daily range): BP systolic 91–147; BP diastolic 39–69; PULSE 77–104; RESP 11–32; TEMP 98.3–99.7; O2SAT 86–100
[2024-04-10 04:00] LABS: Basophils # (auto) 0 10 ^3/uL (0-0.2); Basophils % (auto) 0.1 % (0.0-2.0); Eosinophils # (auto) 0 10 ^3/uL (0-0.8); Eosinophils % (auto) 0.1 % (0.0-7.0); Hemoglobin 10.1 g/dL (12.2-16.2); Lymphocytes # (auto) 0.3 10 ^3/uL (0.4-5.4); Monocytes # (auto) 0.5 10 ^3/uL (0-1.3)
[2024-04-10 04:02] LABS: Hematocrit 34.1 % (36.0-46.0); Lymphocytes % (auto) 3.1 % (10.0-50.0); Mean Corpuscular Hemoglobin 21.3 pg (28.0-32.0); Mean Corpuscular Hgb Conc. 29.6 g/dL (32.0-36.0); Monocytes % (auto) 5.2 % (0.0-12.0); Neutrophils # (auto) 8.4 10 ^3/uL (1.6-8.6); Neutrophils % (auto) 91.5 % (37.0-80.0); Nucleated Red Blood Cells % 0.1 %; Red Blood Cells 4.73 10^6/uL (4.0-5.20); White Blood Cell 9.2 10^3/uL (4.4-10.8)
[2024-04-10 04:13] LABS: Alanine Aminotransferase 17 U/L (7-40); Albumin 3.5 g/dL (3.2-4.8); Alkaline Phosphatase 91 U/L (46-116); Anion Gap 3 (5-15); Aspartate Aminotransferase 11 U/L (13-40); Bilirubin, Total 0.4 mg/dL (0.2-1.0); Blood Urea Nitrogen 22 mg/dL (9-23); Calcium 10.5 mg/dL (8.7-10.4); Carbon Dioxide 33 mmol/L (20-30); Chloride 100 mmol/L (98-107); Glucose 127 mg/dL (74-106); Magnesium 1.8 mg/dL (1.6-2.6); Potassium 4.3 mmol/L (3.5-5.1); Sodium 136 mmol/L (136-145); Total Protein 6.4 g/dL (5.7-8.2)
[2024-04-10 04:19] LABS: Red Cell Distribution Width 20.6 % (11.8-14.3)
[2024-04-10] MEDS: PANTOPRAZOLE 40 MG TAB PO SCH (05:31)
[2024-04-10] MEDS: LEVOTHYROXINE SODIUM 100 MCG TAB PO SCH (05:31)
[2024-04-10 08:29] LABS: Base Excess 7.9 mmol/L (-2.0-2.0)
[2024-04-10] MEDS: methylPREDNISolone SOD SUCC 40 MG/ML VL IV SCH (10:38)
[2024-04-10] MEDS: FUROSEMIDE 40 MG/4 ML VIAL IV SCH (10:39)
[2024-04-10] MEDS: LACTULOSE 20Gm/30ML SOLN PO ONE (10:39)
[2024-04-10] MEDS: HYDROcodone-ACET 5/325MG TAB PO PRN (16:46)
[2024-04-11] VITALS (20 sets, daily range): BP systolic 100–139; BP diastolic 52–79; PULSE 69–92; RESP 13–26; TEMP 98.2–98.4; O2SAT 91–100
[2024-04-11 03:52] LABS: Anion Gap 7 (5-15); Carbon Dioxide 32 mmol/L (20-30); Chloride 98 mmol/L (98-107); Potassium 3.4 mmol/L (3.5-5.1); Sodium 137 mmol/L (136-145)
[2024-04-11 03:53] LABS: Calcium 10.7 mg/dL (8.7-10.4)
[2024-04-11 03:55] LABS: Basophils # (auto) 0 10 ^3/uL (0-0.2); Basophils % (auto) 0.2 % (0.0-2.0); Monocytes # (auto) 0.7 10 ^3/uL (0-1.3)
[2024-04-11 03:57] LABS: Eosinophils # (auto) 0.1 10 ^3/uL (0-0.8); Eosinophils % (auto) 0.8 % (0.0-7.0); Hematocrit 33.3 % (36.0-46.0); Hemoglobin 9.9 g/dL (12.2-16.2); Lymphocytes # (auto) 0.6 10 ^3/uL (0.4-5.4); Lymphocytes % (auto) 8.8 % (10.0-50.0); Mean Corpuscular Hemoglobin 21.5 pg (28.0-32.0); Mean Corpuscular Hgb Conc. 29.8 g/dL (32.0-36.0); Monocytes % (auto) 9.1 % (0.0-12.0); Neutrophils # (auto) 5.8 10 ^3/uL (1.6-8.6); Neutrophils % (auto) 81.1 % (37.0-80.0); Nucleated Red Blood Cells % 0.1 %; Red Blood Cells 4.62 10^6/uL (4.0-5.20); White Blood Cell 7.2 10^3/uL (4.4-10.8)
[2024-04-11 03:58] LABS: BUN/Creatinine Ratio 33.3 (10.0-20.0); Blood Urea Nitrogen 22 mg/dL (9-23); Glucose 104 mg/dL (74-106); Red Cell Distribution Width 21.3 % (11.8-14.3)
[2024-04-11 03:59] LABS: Magnesium 1.9 mg/dL (1.6-2.6)
[2024-04-11] MEDS: ONDANSETRON HCL 4 MG/2 ML VIAL IV PRN (06:34)
[2024-04-11] MEDS: LISINOPRIL 20 MG TAB PO SCH (10:00)
[2024-04-11] MEDS: POTASSIUM CHL 20MEQ/100ML 100 ML IV ONE (10:17)
[2024-04-12] VITALS (12 sets, daily range): BP systolic 123–147; BP diastolic 48–70; PULSE 73–93; RESP 18–20; TEMP 97.1–99.3; O2SAT 92–100
[2024-04-12 06:38] LABS: Basophils # (auto) 0 10 ^3/uL (0-0.2); Basophils % (auto) 0.2 % (0.0-2.0); Eosinophils # (auto) 0.1 10 ^3/uL (0-0.8); Hemoglobin 10.4 g/dL (12.2-16.2); Lymphocytes # (auto) 0.6 10 ^3/uL (0.4-5.4); Monocytes # (auto) 0.8 10 ^3/uL (0-1.3); Neutrophils # (auto) 6.4 10 ^3/uL (1.6-8.6); Nucleated Red Blood Cells % 0.1 %
[2024-04-12 06:41] LABS: Eosinophils % (auto) 1.1 % (0.0-7.0); Hematocrit 35.4 % (36.0-46.0); Lymphocytes % (auto) 7.8 % (10.0-50.0); Mean Corpuscular Hemoglobin 21.8 pg (28.0-32.0); Mean Corpuscular Hgb Conc. 29.5 g/dL (32.0-36.0); Mean Corpuscular Volume 73.9 fL (80.0-100.0); Monocytes % (auto) 10.4 % (0.0-12.0); Neutrophils % (auto) 80.5 % (37.0-80.0); Red Blood Cells 4.78 10^6/uL (4.0-5.20)
[2024-04-12 06:49] LABS: Red Cell Distribution Width 22.3 % (11.8-14.3)
[2024-04-12 06:56] LABS: Alanine Aminotransferase 14 U/L (7-40); Albumin 3.5 g/dL (3.2-4.8); Alkaline Phosphatase 78 U/L (46-116); Anion Gap 4 (5-15); Aspartate Aminotransferase 12 U/L (13-40); Blood Urea Nitrogen 15 mg/dL (9-23); Calcium 10.3 mg/dL (8.7-10.4); Carbon Dioxide 31 mmol/L (20-30); Chloride 100 mmol/L (98-107); Glucose 73 mg/dL (74-106); Phosphorus 2.6 mg/dL (2.4-5.1); Potassium 4.1 mmol/L (3.5-5.1); Sodium 135 mmol/L (136-145)
[2024-04-12 06:57] LABS: Bilirubin, Total 0.3 mg/dL (0.2-1.0); Total Protein 6.2 g/dL (5.7-8.2)
[2024-04-12] MEDS: predniSONE 20 MG TAB PO SCH (10:03)
[2024-04-12] MEDS: FUROSEMIDE 40 MG TAB PO SCH (10:04)
[2024-04-13] VITALS (11 sets, daily range): BP systolic 91–159; BP diastolic 41–94; PULSE 69–93; RESP 16–20; TEMP 97.9–99.1; O2SAT 93–100
[2024-04-13 05:44] LABS: Basophils # (auto) 0 10 ^3/uL (0-0.2); Basophils % (auto) 0.1 % (0.0-2.0); Eosinophils # (auto) 0 10 ^3/uL (0-0.8); Eosinophils % (auto) 0.5 % (0.0-7.0); Hematocrit 35.4 % (36.0-46.0); Hemoglobin 10.5 g/dL (12.2-16.2); Lymphocytes # (auto) 0.6 10 ^3/uL (0.4-5.4); Lymphocytes % (auto) 8.5 % (10.0-50.0); Mean Corpuscular Hemoglobin 21.8 pg (28.0-32.0); Mean Corpuscular Hgb Conc. 29.6 g/dL (32.0-36.0); Mean Corpuscular Volume 73.7 fL (80.0-100.0); Monocytes # (auto) 0.7 10 ^3/uL (0-1.3); Monocytes % (auto) 10.4 % (0.0-12.0); Neutrophils # (auto) 5.5 10 ^3/uL (1.6-8.6); Neutrophils % (auto) 80.5 % (37.0-80.0); Red Blood Cells 4.81 10^6/uL (4.0-5.20); White Blood Cell 6.8 10^3/uL (4.4-10.8)
[2024-04-13 05:46] LABS: Red Cell Distribution Width 22.7 % (11.8-14.3)
[2024-04-13 05:58] LABS: Chloride 98 mmol/L (98-107); Potassium 3.8 mmol/L (3.5-5.1); Sodium 136 mmol/L (136-145)
[2024-04-13 05:59] LABS: Anion Gap 1 (5-15); Calcium 10.4 mg/dL (8.7-10.4); Carbon Dioxide 37 mmol/L (20-30)
[2024-04-13 06:04] LABS: Glucose 100 mg/dL (74-106)
[2024-04-13 06:05] LABS: Magnesium 1.8 mg/dL (1.6-2.6)
[2024-04-13 06:06] LABS: Phosphorus 2.6 mg/dL (2.4-5.1)
[2024-04-13 06:10] LABS: BUN/Creatinine Ratio 26.4 (10.0-20.0); Blood Urea Nitrogen 19 mg/dL (9-23)
[2024-04-13] MEDS: predniSONE 20 MG TAB PO SCH (09:11)
[2024-04-14] VITALS (13 sets, daily range): BP systolic 106–131; BP diastolic 46–62; PULSE 61–89; RESP 16–18; TEMP 97.7–98.5; O2SAT 91–99
[2024-04-14] MEDS: ALBUTEROL SULF 2.5 MG/0.5ML(0.5%) NEB SOLN NEB PRN (20:38)
[2024-04-14] MEDS: IPRATROPIUM BROM 0.5 MG/2.5ML INH SOL NEB PRN (20:38)
[2024-04-14] MEDS: LORazepam 2MG/ML-1ML VIAL IV PRN (23:19)
[2024-04-15] VITALS (13 sets, daily range): BP systolic 111–161; BP diastolic 44–79; PULSE 76–87; RESP 16–18; TEMP 97.7–98.6; O2SAT 91–100
[2024-04-15] MEDS: ENOXAPARIN SOD 40 MG/0.4 ML SYRINGE SC ONE (14:08)
[2024-04-16] VITALS (12 sets, daily range): BP systolic 96–143; BP diastolic 43–80; PULSE 79–91; RESP 17–20; TEMP 97.7–98.6; O2SAT 91–98
[2024-04-16 08:09] LABS: Basophils # (auto) 0 10 ^3/uL (0-0.2); Eosinophils # (auto) 0.1 10 ^3/uL (0-0.8); Lymphocytes # (auto) 0.7 10 ^3/uL (0.4-5.4); Lymphocytes % (auto) 7.7 % (10.0-50.0); Mean Corpuscular Hemoglobin 22.2 pg (28.0-32.0); Monocytes # (auto) 0.7 10 ^3/uL (0-1.3); Neutrophils # (auto) 7.7 10 ^3/uL (1.6-8.6); White Blood Cell 9.2 10^3/uL (4.4-10.8)
[2024-04-16 08:11] LABS: Basophils % (auto) 0.3 % (0.0-2.0); Eosinophils % (auto) 0.9 % (0.0-7.0); Hematocrit 38.5 % (36.0-46.0); Hemoglobin 11.3 g/dL (12.2-16.2); Mean Corpuscular Hgb Conc. 29.3 g/dL (32.0-36.0); Mean Corpuscular Volume 75.8 fL (80.0-100.0); Monocytes % (auto) 7.5 % (0.0-12.0); Neutrophils % (auto) 83.6 % (37.0-80.0); Red Blood Cells 5.08 10^6/uL (4.0-5.20)
[2024-04-16 08:14] LABS: Red Cell Distribution Width 24.7 % (11.8-14.3)
[2024-04-16 08:17] LABS: Chloride 97 mmol/L (98-107); Potassium 4.8 mmol/L (3.5-5.1); Sodium 136 mmol/L (136-145)
[2024-04-16 08:18] LABS: Anion Gap 3 (5-15); Calcium 10.4 mg/dL (8.5-10.1); Carbon Dioxide 36 mmol/L (20-30)
[2024-04-16 08:23] LABS: Blood Urea Nitrogen 23 mg/dL (9-23); Glucose 121 mg/dL (74-106)
[2024-04-16] MEDS: ENOXAPARIN SOD 40 MG/0.4 ML SYRINGE SC SCH (09:59)
[2024-04-17] VITALS (8 sets, daily range): BP systolic 99–157; BP diastolic 58–67; PULSE 71–130; RESP 18–20; TEMP 37.1; O2SAT 94–99
[2024-04-17] MEDS ORDERED: predniSONE 20 MG TAB PO SCH (10:00)
[2024-04-17] MEDS ORDERED: LISI20TA56 PO (15:52)
[2024-04-17] MEDS ORDERED: ASPI1TAB20 PO (15:52)
[2024-04-17] MEDS ORDERED: EMPA1TAB PO (15:52)
[2024-04-17] MEDS ORDERED: ATOR-507 PO (15:52)
[2024-04-17] MEDS ORDERED: PANT40T PO (15:52)
[2024-04-17] MEDS ORDERED: LEV100T PO (15:52)
[2024-04-17] MEDS ORDERED: INSLANTI SC (15:52)
[2024-04-17] MEDS ORDERED: FURO40TA4 PO (15:52)
[2024-04-17] MEDS ORDERED: SPIR25TA PO (15:52)
[2024-04-17] MEDS ORDERED: METF-370 PO (15:53)
[2024-04-17] MEDS ORDERED: IPR002IS HHN (15:58)
[2024-04-17] MEDS ORDERED: ALBU1.258 IN (15:58)
[2024-04-17 18:06] LABS: Vitamin D 25-Hydroxy 4.4 ng/mL (.); Vitamin D-2 25-Hydroxy <1.0 ng/mL (.); Vitamin D-3 25-Hydroxy 4.4 ng/mL (.)
[2024-04-19 13:07] LABS: Albumin Urine 74.4 % (.); Alpha-1-Globulin Urine 2.6 % (.); Alpha-2-Globulin Urine 5.4 % (.); Beta Globulin Urine 10.5 % (.); Protein Total Urine 106.6 mg/dL (Not Estab.)
== END 2024-04-17 18:15 | disposition home health service (06) | DRG 870 ==
LOC: EDBD 11:20 → ER 11:20 → TELE 15:47 → ICU WEST 19:45 → TELE-WESTW 04-11 15:46
PROVIDERS: ADMIT Internal Medicine; ATTEND Internal Medicine
PROC: 5A1955Z Respiratory Ventilation, Greater than 96 Consecutive Hours (ICD-10-PCS; principal; 2024-04-01)
PROC: 0BH17EZ Insertion of Endotracheal Airway into Trachea, Via Natural or Artificial Opening (ICD-10-PCS; 2024-04-01)
PROC: 02HV33Z Insertion of Infusion Device into Superior Vena Cava, Percutaneous Approach (ICD-10-PCS; 2024-04-02)
PROC: B548ZZA Ultrasonography of Superior Vena Cava, Guidance (ICD-10-PCS; 2024-04-02)
PROC: 5A09357 Assistance with Respiratory Ventilation, Less than 24 Consecutive Hours, Continuous Positive Airway Pressure (ICD-10-PCS; 2024-04-09)
PROC: 05HB33Z Insertion of Infusion Device into Right Basilic Vein, Percutaneous Approach (ICD-10-PCS; 2024-04-10)
PROC: B54MZZA Ultrasonography of Right Upper Extremity Veins, Guidance (ICD-10-PCS; 2024-04-10)
PROC: 05HC33Z Insertion of Infusion Device into Left Basilic Vein, Percutaneous Approach (ICD-10-PCS; 2024-04-15)
PROC: B54NZZA Ultrasonography of Left Upper Extremity Veins, Guidance (ICD-10-PCS; 2024-04-15)
DX: A41.9 Sepsis, unspecified organism (principal); I50.33 Acute on chronic diastolic (congestive) heart failure; J96.22 Acute and chronic respiratory failure with hypercapnia; J15.69 Pneumonia due to other Gram-negative bacteria; R65.21 Severe sepsis with septic shock; J96.21 Acute and chronic respiratory failure with hypoxia; J15.9 Unspecified bacterial pneumonia; J44.1 Chronic obstructive pulmonary disease with (acute) exacerbation; E87.4 Mixed disorder of acid-base balance; E66.2 Morbid (severe) obesity with alveolar hypoventilation; N39.0 Urinary tract infection, site not specified; G93.49 Other encephalopathy; J44.0 Chronic obstructive pulmonary disease with (acute) lower respiratory infection; I82.611 Acute embolism and thrombosis of superficial veins of right upper extremity; I11.0 Hypertensive heart disease with heart failure; Z20.822 Contact with and (suspected) exposure to COVID-19; E11.65 Type 2 diabetes mellitus with hyperglycemia; E03.9 Hypothyroidism, unspecified; E87.6 Hypokalemia; D50.9 Iron deficiency anemia, unspecified; E21.0 Primary hyperparathyroidism; R93.41 Abnormal radiologic findings on diagnostic imaging of renal pelvis, ureter, or bladder; Z68.36 Body mass index [BMI] 36.0-36.9, adult; Z85.528 Personal history of other malignant neoplasm of kidney; Z90.49 Acquired absence of other specified parts of digestive tract; Z87.891 Personal history of nicotine dependence; Z90.5 Acquired absence of kidney; Z79.899 Other long term (current) drug therapy; Z79.4 Long term (current) use of insulin; Z88.5 Allergy status to narcotic agent
CPT/HCPCS: 36415; 36556; 36600; 71045; 76937; 80048; 80053; 80076; 80202; 80307; 81001; 82306; 82570; 82728; 82805; 82962; 83010; 83540; 83550; 83605; 83615; 83735; 83880; 83970; 84100; 84155; 84156; 84165; 84166; 84439; 84443; 84484; 85007; 85025; 85027; 85045; 85379; 85610; 85730; 87040; 87070; 87077; 87081; 87086; 87186; 87205; 87426; 87804; 92610; 93005; 93970; 93971; 94002; 94003; 94640; 94660; 96365; 96368; 96375; 97110; 97116; 97163; 97530; 99291; C9113; G0378; J0692; J1756; J1815; J2405; J2543; J3480; J3490; J7060

== ENCOUNTER → 2024-05-15 | Outpatient (CLI) | payer MEDICARE, MEDICAID ==
[~2024-05-15] MED LIST changes: +ALBU1.258 IN; +ASPI1TAB20 PO; +ATOR-507 PO; +EMPA1TAB PO; +FURO40TA4 PO; +GABA-1250 PO; +INSLANTI SC; +IPR002IS HHN; +LEV100T PO; +LISI20TA56 PO; +METF-370 PO; +PANT40T PO; +SPIR25TA PO
== END | disposition home or self-care (01) ==
LOC: Rad HDHVI 11:18
PROVIDERS: ATTEND Internal Medicine Cardiovascular Disease
DX: M51.36 Other intervertebral disc degeneration, lumbar region (principal); M47.816 Spondylosis without myelopathy or radiculopathy, lumbar region; M85.88 Other specified disorders of bone density and structure, other site; I25.10 Atherosclerotic heart disease of native coronary artery without angina pectoris; I70.0 Atherosclerosis of aorta; M54.50 Low back pain, unspecified; M25.552 Pain in left hip; M25.551 Pain in right hip; Z90.710 Acquired absence of both cervix and uterus
CPT/HCPCS: 72131; 72192

== ENCOUNTER 2024-05-21 11:22 | Inpatient (IN) | payer MEDICARE, MEDICAID ==
[~2024-05-21] VITALS: Ht 167.6 cm; Wt 85.3 kg
[~2024-05-21 11:22] MED LIST changes: -GABA-1250 PO
[2024-05-21 13:26] LABS: Basophils # (auto) 0 10 ^3/uL (0-0.2); Basophils % (auto) 0.4 % (0.0-2.0); Eosinophils # (auto) 0.2 10 ^3/uL (0-0.8); Eosinophils % (auto) 1.9 % (0.0-7.0); Hematocrit 35.6 % (36.0-46.0); Hemoglobin 10.9 g/dL (12.2-16.2); Lymphocytes # (auto) 0.5 10 ^3/uL (0.4-5.4); Lymphocytes % (auto) 6.4 % (10.0-50.0); Mean Corpuscular Hgb Conc. 30.5 g/dL (32.0-36.0); Mean Corpuscular Volume 78.4 fL (80.0-100.0); Monocytes # (auto) 0.6 10 ^3/uL (0-1.3); Monocytes % (auto) 7.4 % (0.0-12.0); Neutrophils % (auto) 83.9 % (37.0-80.0); Nucleated Red Blood Cells % 0.1 %; Red Blood Cells 4.54 10^6/uL (4.0-5.20); Red Cell Distribution Width 24.7 % (11.8-14.3); White Blood Cell 8.4 10^3/uL (4.4-10.8)
[2024-05-21 13:54] LABS: Alanine Aminotransferase 16 U/L (7-40); Albumin 4.3 g/dL (3.2-4.8); Alkaline Phosphatase 67 U/L (46-116); Anion Gap 6 (5-15); Aspartate Aminotransferase < 8 U/L (13-40); BUN/Creatinine Ratio 40.5 (10.0-20.0); Bilirubin, Total < 0.2 mg/dL (0.2-1.0); Blood Urea Nitrogen 53 mg/dL (9-23); CRP High Sensitivity 0.95 mg/dL (<1.0); Calcium 10.5 mg/dL (8.5-10.1); Carbon Dioxide 23 mmol/L (20-30); Chloride 109 mmol/L (98-107); Glucose 145 mg/dL (74-106); Potassium 5.2 mmol/L (3.5-5.1); Sodium 138 mmol/L (136-145); Total Protein 7.1 g/dL (5.7-8.2)
[2024-05-21 14:23] LABS: Lactic Acid w/Reflex 2.3 mmol/L (0.4-2.0)
[2024-05-21 14:37] LABS: Erythrocyte Sedimentation Rate 46 mm/hr (0-20)
[2024-05-21] MEDS ORDERED: DOCUSATE SOD 100 MG CAP PO PRN (15:15)
[2024-05-21] MEDS ORDERED: DEXTROSE (50%) 50ML SYRG IV PRN (15:15)
[2024-05-21] MEDS: SODIUM CHLORIDE 0.9% 1,000 ML IV SCH (15:15)
[2024-05-21] MEDS ORDERED: NITROGLYCERIN 0.4 MG SL TAB SL PRN (15:45)
[2024-05-21] MEDS: ACCU-CHEK COMFORT CURVE STRIP VI SCH (17:00)
[2024-05-21] MEDS: InsuLIN REG 1unit/0.01ml Soln (100units/ml) SC SCH ×2 (17:00→22:00)
[2024-05-21] MEDS: SODIUM CHLORIDE 0.9% 1,000 ML IV ONE (17:26)
[2024-05-21] MEDS: CLINDAMYCIN 900MG IV 50 ML IV ONE (17:27)
[2024-05-21] MEDS: FUROSEMIDE 20 MG/2 ML VIAL IV ONE (17:27)
[2024-05-21 20:00] VITALS: PULSE 107; RESP 14; O2SAT 92
[2024-05-21] MEDS: HYDROmorphone HCL 2 MG/ML VL/or syr IV ONE (20:21)
[2024-05-21] MEDS: ONDANSETRON HCL 4 MG/2 ML VIAL IV PRN (20:22)
[2024-05-21] MEDS: SODIUM ZIRCONIUM CYCL 10 GM PAK PO ONE (22:26)
[2024-05-21] MEDS: ATORVASTATIN 20 MG TAB PO SCH (22:27)
[2024-05-21] MEDS: CLINDAMYCIN 600MG IV 50 ML IV SCH (22:27)
[2024-05-21 22:55] LABS: Urine Bacteria FEW /hpf (None Seen); Urine Blood Negative /uL (Negative); Urine Budding Yeast MANY /hpf (None Seen); Urine Clarity Turbid (Clear); Urine Color Colorless (Yellow); Urine Hyaline Cast MOD /lpf (0 - 2); Urine Protein, UAD TRACE (Negative); Urine Specific Gravity 1.011 (1.001-1.035); Urine Urobilinogen Normal (Negative); Urine WBC 32 /hpf (0 - 5); Urine pH 5.5 (5.0-9.0)
[2024-05-21 23:18] VITALS: BP 143/78; PULSE 107; RESP 18; TEMP 97.8; O2SAT 94
[2024-05-21 23:21] VITALS: BP 143/78; PULSE 94; RESP 14; TEMP 97.8; O2SAT 94
[2024-05-22 01:00] VITALS: BP 162/67; PULSE 91; RESP 18; TEMP 97.5; O2SAT 100
[2024-05-22] MEDS: IBUPROFEN 600 MG TAB PO PRN (01:55)
[2024-05-22 04:49] VITALS: BP 129/57; PULSE 76; RESP 17; TEMP 97.4; O2SAT 93
[2024-05-22 05:36] LABS: Basophils # (auto) 0 10 ^3/uL (0-0.2); Basophils % (auto) 0.5 % (0.0-2.0); Eosinophils # (auto) 0.1 10 ^3/uL (0-0.8); Lymphocytes # (auto) 0.7 10 ^3/uL (0.4-5.4); Mean Corpuscular Hemoglobin 23.4 pg (28.0-32.0); Mean Corpuscular Hgb Conc. 29.8 g/dL (32.0-36.0); Monocytes # (auto) 0.6 10 ^3/uL (0-1.3)
[2024-05-22 05:39] LABS: Eosinophils % (auto) 1.7 % (0.0-7.0); Hematocrit 34.6 % (36.0-46.0); Hemoglobin 10.3 g/dL (12.2-16.2); Lymphocytes % (auto) 10.6 % (10.0-50.0); Mean Corpuscular Volume 78.5 fL (80.0-100.0); Monocytes % (auto) 10.2 % (0.0-12.0); Neutrophils # (auto) 4.8 10 ^3/uL (1.6-8.6); Nucleated Red Blood Cells % 0.1 %; Red Blood Cells 4.41 10^6/uL (4.0-5.20); White Blood Cell 6.2 10^3/uL (4.4-10.8)
[2024-05-22] MEDS: LEVOTHYROXINE SODIUM 100 MCG TAB PO SCH (05:46)
[2024-05-22 06:05] LABS: Alanine Aminotransferase 13 U/L (7-40); Albumin 3.8 g/dL (3.2-4.8); Alkaline Phosphatase 61 U/L (46-116); Anion Gap 6 (5-15); Aspartate Aminotransferase 10 U/L (13-40); BUN/Creatinine Ratio 36.6 (10.0-20.0); Calcium 10.2 mg/dL (8.7-10.4); Carbon Dioxide 22 mmol/L (20-30); Chloride 114 mmol/L (98-107); Glucose 112 mg/dL (74-106); Potassium 4.9 mmol/L (3.5-5.1); Sodium 142 mmol/L (136-145)
[2024-05-22 06:06] LABS: Bilirubin, Total 0.2 mg/dL (0.2-1.0); Total Protein 6.5 g/dL (5.7-8.2)
[2024-05-22 06:15] LABS: Red Cell Distribution Width 24.6 % (11.8-14.3)
[2024-05-22 06:33] LABS: Blood Urea Nitrogen 41 mg/dL (9-23)
[2024-05-22 08:00] VITALS: PULSE 77; RESP 20; O2SAT 91
[2024-05-22] MEDS: FAMOTIDINE (10MG/ML) 2ML VL IV SCH (08:32)
[2024-05-22] MEDS: ASPirin 81 mg TAB PO SCH (08:33)
[2024-05-22 09:07] VITALS: BP 142/93; PULSE 105; RESP 19; TEMP 98; O2SAT 93
[2024-05-22 09:51] LABS: Platelet Estimate Adequate
[2024-05-22 09:52] LABS: Anisocytosis Moderate; Hypochromia Moderate; Ovalocytes MODERATE
[2024-05-22 09:53] LABS: Tear Drop Cells FEW
[2024-05-22] MEDS ORDERED: GABA-1250 PO (10:14)
[2024-05-22] MEDS: NIFEdipine ER 30 MG TAB PO SCH (10:18)
[2024-05-22] MEDS: LISINOPRIL 20 MG TAB PO SCH (10:19)
[2024-05-22] MEDS: EMPAGLIFLOZIN 10 MG TAB PO SCH (10:19)
[2024-05-22] MEDS: SPIRONOLACTONE 25 MG TAB PO SCH (10:19)
[2024-05-22] MEDS: FUROSEMIDE 40 MG/4 ML VIAL IV SCH (10:20)
[2024-05-22] MEDS: DIGOXIN 0.125 MG TAB PO SCH (10:41)
[2024-05-22] MEDS ORDERED: VANCOMYCIN PER PHARMACY 0 MG IV SCH (11:30)
[2024-05-22] MEDS: HYDROcodone-ACET 5/325MG TAB PO PRN (11:56)
[2024-05-22] MEDS: IPRATROPIUM BROM 0.5 MG/2.5ML INH SOL NEB SCH (12:00)
[2024-05-22] MEDS: ALBUTEROL SULF 2.5 MG/0.5ML(0.5%) NEB SOLN NEB SCH (12:00)
[2024-05-22 13:00] VITALS: BP 160/51; PULSE 91; RESP 17; TEMP 98.7; O2SAT 95
[2024-05-22] MEDS: CEFEPIME 1GM/ 50ML 50 ML IV ONE (16:02)
[2024-05-22] MEDS: VANCOMYCIN 1GM/200ML 200 ML IV ONE (17:32)
[2024-05-22 18:00] VITALS: BP 132/76; PULSE 62; RESP 17; TEMP 98.9; O2SAT 93
[2024-05-22] MEDS: ENOXAPARIN SOD 40 MG/0.4 ML SYRINGE SC ONE (20:21)
[2024-05-22] MEDS: CEFEPIME 1GM/ 50ML 50 ML IV SCH (21:34)
[2024-05-22] MEDS: MORPHINE SULFATE INJ 2 MG/ml SYRG IV PRN (23:05)
[2024-05-23] VITALS (13 sets, daily range): BP systolic 104–167; BP diastolic 68–72; PULSE 64–108; RESP 18–20; TEMP 98–98.4; O2SAT 92–100
[2024-05-23] MEDS: PANTOPRAZOLE 40 MG TAB PO SCH (05:59)
[2024-05-23 07:03] LABS: Calcium 10.4 mg/dL (8.5-10.1); Chloride 108 mmol/L (98-107); Potassium 4.7 mmol/L (3.5-5.1); Sodium 139 mmol/L (136-145)
[2024-05-23 07:04] LABS: Anion Gap 8 (5-15); Carbon Dioxide 23 mmol/L (20-30)
[2024-05-23 07:09] LABS: BUN/Creatinine Ratio 27.6 (10.0-20.0); Glucose 126 mg/dL (74-106)
[2024-05-23 07:15] LABS: Basophils # (auto) 0 10 ^3/uL (0-0.2); Basophils % (auto) 0.4 % (0.0-2.0); Blood Urea Nitrogen 27 mg/dL (9-23); Eosinophils # (auto) 0.1 10 ^3/uL (0-0.8); Hemoglobin 10.3 g/dL (12.2-16.2); Lymphocytes # (auto) 0.6 10 ^3/uL (0.4-5.4); Monocytes # (auto) 0.7 10 ^3/uL (0-1.3)
[2024-05-23 07:18] LABS: Hematocrit 34.1 % (36.0-46.0); Lymphocytes % (auto) 7.5 % (10.0-50.0); Mean Corpuscular Hemoglobin 23.6 pg (28.0-32.0); Mean Corpuscular Hgb Conc. 30.2 g/dL (32.0-36.0); Monocytes % (auto) 8.8 % (0.0-12.0); Neutrophils # (auto) 6.4 10 ^3/uL (1.6-8.6); Neutrophils % (auto) 82.3 % (37.0-80.0); Nucleated Red Blood Cells % 0.1 %; Red Blood Cells 4.37 10^6/uL (4.0-5.20); White Blood Cell 7.7 10^3/uL (4.4-10.8)
[2024-05-23 07:20] LABS: Red Cell Distribution Width 24.5 % (11.8-14.3)
[2024-05-23] MEDS: ENOXAPARIN SOD 40 MG/0.4 ML SYRINGE SC SCH (09:13)
[2024-05-23] MEDS: FUROSEMIDE 40 MG TAB PO SCH (09:15)
[2024-05-23] MEDS: cefTRIAXone 1GM/50ML D5W 50 ML IV ONE (12:50)
[2024-05-23] MEDS: VANCOMYCIN 1GM/200ML 200 ML IV SCH (14:07)
[2024-05-23] MEDS: LORazepam 2MG/ML-1ML VIAL IV PRN (14:30)
[2024-05-24] VITALS (15 sets, daily range): BP systolic 110–155; BP diastolic 66–87; PULSE 56–110; RESP 16–20; TEMP 97.5–98.6; O2SAT 94–100
[2024-05-24] MEDS: LEVOTHYROXINE SODIUM 100 MCG TAB PO SCH (05:37)
[2024-05-24] MEDS ORDERED: LEVOTHYROXINE SODIUM 100 MCG TAB PO SCH (06:00)
[2024-05-24 06:48] LABS: Chloride 108 mmol/L (98-107); Potassium 4.4 mmol/L (3.5-5.1); Sodium 139 mmol/L (136-145)
[2024-05-24 06:49] LABS: Anion Gap 11 (5-15); Carbon Dioxide 20 mmol/L (20-30)
[2024-05-24 06:50] LABS: Calcium 10.1 mg/dL (8.5-10.1)
[2024-05-24 06:54] LABS: BUN/Creatinine Ratio 23.5 (10.0-20.0); Blood Urea Nitrogen 20 mg/dL (9-23); Glucose 124 mg/dL (74-106)
[2024-05-24 10:04] LABS: Basophils # (auto) 0.1 10 ^3/uL (0-0.2); Basophils % (auto) 0.8 % (0.0-2.0); Eosinophils # (auto) 0.1 10 ^3/uL (0-0.8); Eosinophils % (auto) 0.9 % (0.0-7.0); Hematocrit 33.7 % (36.0-46.0); Hemoglobin 10.5 g/dL (12.2-16.2); Lymphocytes # (auto) 0.6 10 ^3/uL (0.4-5.4); Lymphocytes % (auto) 7.7 % (10.0-50.0); Mean Corpuscular Hemoglobin 23.9 pg (28.0-32.0); Monocytes # (auto) 0.8 10 ^3/uL (0-1.3); Monocytes % (auto) 9.9 % (0.0-12.0); Neutrophils # (auto) 6.4 10 ^3/uL (1.6-8.6); Neutrophils % (auto) 80.7 % (37.0-80.0); Nucleated Red Blood Cells % 0.1 %; Red Blood Cells 4.38 10^6/uL (4.0-5.20)
[2024-05-24] MEDS: cefTRIAXone 1GM/50ML D5W 50 ML IV SCH (10:17)
[2024-05-25] VITALS (9 sets, daily range): BP systolic 142–147; BP diastolic 75–86; PULSE 88–112; RESP 18–20; TEMP 98.1–98.3; O2SAT 93–99
[2024-05-25 06:49] LABS: Hemoglobin 10.8 g/dL (12.2-16.2); White Blood Cell 8.2 10^3/uL (4.4-10.8)
[2024-05-25 06:52] LABS: Hematocrit 33.9 % (36.0-46.0); Mean Corpuscular Hemoglobin 24.2 pg (28.0-32.0); Mean Corpuscular Volume 75.7 fL (80.0-100.0); Red Blood Cells 4.48 10^6/uL (4.0-5.20)
[2024-05-25 07:13] LABS: Red Cell Distribution Width 25.2 % (11.8-14.3)
[2024-05-25 07:14] LABS: Anion Gap 9 (5-15); Basophils % (manual) 0 (0.0-2.0); Blast Cells 0; Carbon Dioxide 23 mmol/L (20-30); Chloride 104 mmol/L (98-107); Metamyelocytes % 0; Myelocytes % 0; Potassium 4.3 mmol/L (3.5-5.1); Promyelocytes % 0; Reactive Lymphocytes 0; Sodium 136 mmol/L (136-145)
[2024-05-25 07:15] LABS: Calcium 10.3 mg/dL (8.7-10.4)
[2024-05-25 07:20] LABS: BUN/Creatinine Ratio 24.7 (10.0-20.0); Blood Urea Nitrogen 22 mg/dL (9-23); Glucose 131 mg/dL (74-106)
[2024-05-25 08:25] LABS: Band Neutrophils % (manual) 4; Eosinophils % (manual) 3 (0-7); Lymphocytes % (manual) 15 (10.0-50.0); Monocytes % (manual) 6 (0-12); Platelet Estimate Adequate
== END 2024-05-25 14:53 | disposition home or self-care (01) | DRG 602 ==
LOC: ER 11:22 → OVERFLOW 15:45 → WEST WING 23:00
PROVIDERS: ADMIT Internal Medicine Geriatric Medicine; ATTEND Internal Medicine Geriatric Medicine
DX: L03.115 Cellulitis of right lower limb (principal); I50.33 Acute on chronic diastolic (congestive) heart failure; N39.0 Urinary tract infection, site not specified; I13.0 Hypertensive heart and chronic kidney disease with heart failure and stage 1 through stage 4 chronic kidney disease, or unspecified chronic kidney disease; E87.5 Hyperkalemia; E11.40 Type 2 diabetes mellitus with diabetic neuropathy, unspecified; J44.9 Chronic obstructive pulmonary disease, unspecified; E03.9 Hypothyroidism, unspecified; E11.22 Type 2 diabetes mellitus with diabetic chronic kidney disease; N18.30 Chronic kidney disease, stage 3 unspecified; S91.301A Unspecified open wound, right foot, initial encounter; S82.831A Other fracture of upper and lower end of right fibula, initial encounter for closed fracture; Z79.4 Long term (current) use of insulin; Z90.710 Acquired absence of both cervix and uterus; Z82.49 Family history of ischemic heart disease and other diseases of the circulatory system; Z82.5 Family history of asthma and other chronic lower respiratory diseases; X58.XXXA Exposure to other specified factors, initial encounter; Y93.89 Activity, other specified; Y92.89 Other specified places as the place of occurrence of the external cause; Y99.8 Other external cause status
CPT/HCPCS: 36415; 71045; 73600; 73700; 73721; 80048; 80053; 80162; 80202; 81001; 82962; 83036; 83605; 83880; 84439; 84443; 84484; 85007; 85025; 85027; 85652; 86141; 87081; 93306; 93971; 94640; 96361; 96365; 96375; 97163; G0378; J1815; J2405; J3490

== ENCOUNTER → 2024-06-03 | Outpatient (CLI) | payer MEDICARE, MEDICAID ==
[~2024-06-03] VITALS: Ht 165.1 cm; Wt 77.1 kg
[~2024-06-03] MED LIST changes: +ADENOSINE 65 MG in GIVE UN-DILUTED 0 ML IV ONE; +ADENOSINE 90 MG/30 ML INJ IV ONE; -ASPI1TAB20 PO; -ATOR-507 PO; +GABA-1250 PO; -PRED20TA2 PO
== END | disposition home or self-care (01) ==
LOC: Rad HDHVI 12:49
PROVIDERS: ATTEND Internal Medicine Cardiovascular Disease
DX: R07.89 Other chest pain (principal); R06.02 Shortness of breath; J44.9 Chronic obstructive pulmonary disease, unspecified; I13.0 Hypertensive heart and chronic kidney disease with heart failure and stage 1 through stage 4 chronic kidney disease, or unspecified chronic kidney disease; N18.2 Chronic kidney disease, stage 2 (mild); E11.40 Type 2 diabetes mellitus with diabetic neuropathy, unspecified; I50.32 Chronic diastolic (congestive) heart failure; Z82.49 Family history of ischemic heart disease and other diseases of the circulatory system; E78.5 Hyperlipidemia, unspecified
CPT/HCPCS: 78452; 93005; 96374; 96375; A9500; J0153

== ENCOUNTER 2024-07-20 13:32 | Inpatient (IN) | payer MEDICARE, MEDICAID ==
[~2024-07-20] VITALS: Ht 165.1 cm; Wt 85.4 kg
[~2024-07-20 13:32] MED LIST changes: -ADENOSINE 65 MG in GIVE UN-DILUTED 0 ML IV ONE; -ADENOSINE 90 MG/30 ML INJ IV ONE; -LEV100T PO; +LEVO-849 PO
[2024-07-20 14:40] LABS: Basophils # (auto) 0 10 ^3/uL (0-0.2); Eosinophils # (auto) 0.1 10 ^3/uL (0-0.8); Eosinophils % (auto) 0.5 % (0.0-7.0); Lymphocytes # (auto) 0.7 10 ^3/uL (0.4-5.4); Mean Corpuscular Hemoglobin 26.1 pg (28.0-32.0); Neutrophils # (auto) 9.7 10 ^3/uL (1.6-8.6)
[2024-07-20 14:42] LABS: Basophils % (auto) 0.3 % (0.0-2.0); Hematocrit 28.9 % (36.0-46.0); Hemoglobin 9.1 g/dL (12.2-16.2); Lymphocytes % (auto) 6.1 % (10.0-50.0); Mean Corpuscular Hgb Conc. 31.5 g/dL (32.0-36.0); Mean Corpuscular Volume 82.8 fL (80.0-100.0); Monocytes # (auto) 1.2 10 ^3/uL (0-1.3); Monocytes % (auto) 10.2 % (0.0-12.0); Neutrophils % (auto) 82.9 % (37.0-80.0); Platelet Count (auto) 363 10^3/uL (140-450); Red Blood Cells 3.49 10^6/uL (4.0-5.20); Red Cell Distribution Width 16.4 % (11.8-14.3); White Blood Cell 11.8 10^3/uL (4.4-10.8)
[2024-07-20 14:55] LABS: Alanine Aminotransferase 43 U/L (7-40); Albumin 4.3 g/dL (3.2-4.8); Alkaline Phosphatase 78 U/L (46-116); Anion Gap 4 (5-15); Aspartate Aminotransferase 18 U/L (13-40); BUN/Creatinine Ratio 21.3 (10.0-20.0); Blood Urea Nitrogen 33 mg/dL (9-23); Calcium 10.5 mg/dL (8.7-10.4); Carbon Dioxide 25 mmol/L (20-30); Chloride 106 mmol/L (98-107); Glucose 101 mg/dL (74-106); Potassium 4.9 mmol/L (3.5-5.1); Sodium 135 mmol/L (136-145)
[2024-07-20 14:56] LABS: Bilirubin, Total 0.2 mg/dL (0.2-1.0); Total Protein 7.9 g/dL (5.7-8.2)
[2024-07-20 15:53] VITALS: PULSE 95; RESP 18; O2SAT 98
[2024-07-20] MEDS: SODIUM CHLORIDE 0.9% 1,000 ML IV ONE ×2 (17:34→18:20)
[2024-07-20] MEDS: PIPERACILLIN-TAZOB 3.375GM 100 ML IV ONE (17:34)
[2024-07-20] MEDS: HYDROcodone-ACET 10/325MG TAB PO ONE (17:38)
[2024-07-20] MEDS: CLINDAMYCIN 600MG IV 50 ML IV ONE (18:12)
[2024-07-20 19:45] VITALS: PULSE 86; RESP 16; O2SAT 99
[2024-07-20] MEDS ORDERED: ACETAMINOPHEN 325 MG TAB PO PRN (22:15)
[2024-07-20] MEDS ORDERED: VANCOMYCIN PER PHARMACY 0 MG IV SCH (22:15)
[2024-07-20] MEDS ORDERED: DOCUSATE SOD 100 MG CAP PO PRN (22:15)
[2024-07-20 22:20] LABS: Urine Bacteria FEW /hpf (None Seen); Urine Blood 2+ /uL (Negative); Urine Budding Yeast OCCASIONAL /hpf (None Seen); Urine Clarity Ex.Turbid (Clear); Urine Color Light-Orange (Yellow); Urine Mucus FEW (None Seen); Urine Protein, UAD 1+ (Negative); Urine Specific Gravity 1.017 (1.001-1.035); Urine Urobilinogen Normal (Negative); Urine WBC 457 /hpf (0 - 5); Urine WBC Clumps PRESENT /hpf (None Seen); Urine pH 5.5 (5.0-9.0)
[2024-07-20 22:43] LABS: Creatinine, Urine 105.68 mg/dL (30.0-125.0)
[2024-07-21] VITALS (8 sets, daily range): BP systolic 116–140; BP diastolic 51–75; PULSE 72–102; RESP 16–19; TEMP 97.4–98.2; O2SAT 92–97
[2024-07-21] MEDS: HYDROmorphone HCL 2 MG/ML VL/or syr IV PRN (00:45)
[2024-07-21] MEDS: VANCOMYCIN 1GM/200ML 200 ML IV ONE (00:51)
[2024-07-21] MEDS: LACTATED RINGER'S 1,000 ML IV ONE (00:52)
[2024-07-21] MEDS: PIPERACILLIN-TAZOB 3.375GM 100 ML IV SCH (03:03)
[2024-07-21] MEDS: PANTOPRAZOLE 40 MG TAB PO SCH (06:32)
[2024-07-21] MEDS: GABAPENTIN 300 MG CAP PO SCH (06:33)
[2024-07-21] MEDS: SODIUM CHLOR 0.9% PF (SALINE LOCK) 10ML VIAL/SYR IV SCH (06:33)
[2024-07-21] MEDS: LEVOTHYROXINE SODIUM 100 MCG TAB PO SCH (06:59)
[2024-07-21 08:15] LABS: Basophils # (auto) 0 10 ^3/uL (0-0.2); Basophils % (auto) 0.3 % (0.0-2.0); Eosinophils # (auto) 0.1 10 ^3/uL (0-0.8); Monocytes # (auto) 0.8 10 ^3/uL (0-1.3); White Blood Cell 8.2 10^3/uL (4.4-10.8)
[2024-07-21 08:18] LABS: Hematocrit 27.4 % (36.0-46.0); Hemoglobin 8.8 g/dL (12.2-16.2); Lymphocytes # (auto) 0.4 10 ^3/uL (0.4-5.4); Lymphocytes % (auto) 4.5 % (10.0-50.0); Mean Corpuscular Hemoglobin 26.7 pg (28.0-32.0); Mean Corpuscular Hgb Conc. 32.1 g/dL (32.0-36.0); Mean Corpuscular Volume 83.4 fL (80.0-100.0); Monocytes % (auto) 9.5 % (0.0-12.0); Neutrophils % (auto) 84.7 % (37.0-80.0); Platelet Count (auto) 315 10^3/uL (140-450); Red Blood Cells 3.28 10^6/uL (4.0-5.20); Red Cell Distribution Width 16.3 % (11.8-14.3)
[2024-07-21 08:29] LABS: Alanine Aminotransferase 48 U/L (7-40); Albumin 3.9 g/dL (3.2-4.8); Alkaline Phosphatase 74 U/L (46-116); Anion Gap 3 (5-15); Aspartate Aminotransferase 23 U/L (13-40); BUN/Creatinine Ratio 21.2 (10.0-20.0); Bilirubin, Total 0.3 mg/dL (0.2-1.0); Blood Urea Nitrogen 28 mg/dL (9-23); Carbon Dioxide 25 mmol/L (20-30); Chloride 108 mmol/L (98-107); Glucose 99 mg/dL (74-106); Potassium 4.6 mmol/L (3.5-5.1); Sodium 136 mmol/L (136-145); Total Protein 7.1 g/dL (5.7-8.2)
[2024-07-21 08:37] LABS: CRP High Sensitivity 12.39 mg/dL (<1.0)
[2024-07-21 08:38] LABS: INR 1.09 (0.9-1.15); Partial Thromboplastin Time 30.2 SEC (24.5-34.5); Prothrombin Time 11.5 sec (9.3-11.8)
[2024-07-21 09:03] LABS: Erythrocyte Sedimentation Rate 82 mm/hr (0-20)
[2024-07-21] MEDS ORDERED: LISINOPRIL 20 MG TAB PO SCH (10:00)
[2024-07-21] MEDS ORDERED: SPIRONOLACTONE 25 MG TAB PO SCH (10:00)
[2024-07-21] MEDS: HYDROcodone-ACET 5/325MG TAB PO PRN (10:35)
[2024-07-21] MEDS: EMPAGLIFLOZIN 10 MG TAB PO SCH (10:36)
[2024-07-21] MEDS: NIFEdipine ER 30 MG TAB PO SCH (10:36)
[2024-07-21] MEDS: FUROSEMIDE 40 MG TAB PO SCH (10:36)
[2024-07-21] MEDS: ASPirin-EC 81 mg tab PO SCH (10:36)
[2024-07-21] MEDS: cefTRIAXone 1GM/50ML D5W 50 ML IV ONE (12:45)
[2024-07-21] MEDS: VANCOMYCIN 500 MG in D5W 5% 100 ML IV SCH (15:24)
[2024-07-21] MEDS: INSULIN LANTUS (GLARGINE) 1 /0.01ml (100units/ml) SC SCH (17:04)
[2024-07-21] MEDS: ATORVASTATIN 20 MG TAB PO SCH (22:15)
[2024-07-22] VITALS (12 sets, daily range): BP systolic 116–166; BP diastolic 50–93; PULSE 78–93; RESP 16–21; TEMP 97.9–98.3; O2SAT 94–100
[2024-07-22 06:32] LABS: Basophils # (auto) 0 10 ^3/uL (0-0.2); Basophils % (auto) 0.4 % (0.0-2.0); Eosinophils # (auto) 0.2 10 ^3/uL (0-0.8); Eosinophils % (auto) 2.4 % (0.0-7.0); Hematocrit 27.1 % (36.0-46.0); Hemoglobin 8.5 g/dL (12.2-16.2); Lymphocytes # (auto) 0.5 10 ^3/uL (0.4-5.4); Lymphocytes % (auto) 7.1 % (10.0-50.0); Mean Corpuscular Hemoglobin 26.2 pg (28.0-32.0); Mean Corpuscular Hgb Conc. 31.5 g/dL (32.0-36.0); Mean Corpuscular Volume 83.4 fL (80.0-100.0); Monocytes # (auto) 0.8 10 ^3/uL (0-1.3); Neutrophils # (auto) 5.2 10 ^3/uL (1.6-8.6); Neutrophils % (auto) 78.1 % (37.0-80.0); Nucleated Red Blood Cells % 0.1 %; Platelet Count (auto) 308 10^3/uL (140-450); Red Blood Cells 3.25 10^6/uL (4.0-5.20); White Blood Cell 6.7 10^3/uL (4.4-10.8)
[2024-07-22 06:51] LABS: Alanine Aminotransferase 51 U/L (7-40); Albumin 3.9 g/dL (3.2-4.8); Alkaline Phosphatase 70 U/L (46-116); Anion Gap 5 (5-15); Aspartate Aminotransferase 24 U/L (13-40); BUN/Creatinine Ratio 17.4 (10.0-20.0); Bilirubin, Total 0.2 mg/dL (0.2-1.0); Blood Urea Nitrogen 21 mg/dL (9-23); Carbon Dioxide 25 mmol/L (20-30); Chloride 107 mmol/L (98-107); Glucose 90 mg/dL (74-106); Potassium 4.5 mmol/L (3.5-5.1); Sodium 137 mmol/L (136-145)
[2024-07-22] MEDS: cefTRIAXone 1GM/50ML D5W 50 ML IV SCH (08:56)
[2024-07-22] MEDS: ALBUTEROL SULF 2.5 MG/0.5ML(0.5%) NEB SOLN NEB PRN (17:27)
[2024-07-23] VITALS (15 sets, daily range): BP systolic 118–152; BP diastolic 46–76; PULSE 77–92; RESP 12–22; TEMP 97.6–98.5; O2SAT 93–100
[2024-07-23 07:17] LABS: Basophils # (auto) 0 10 ^3/uL (0-0.2); Eosinophils # (auto) 0.1 10 ^3/uL (0-0.8); Lymphocytes # (auto) 0.5 10 ^3/uL (0.4-5.4); Monocytes # (auto) 0.7 10 ^3/uL (0-1.3)
[2024-07-23 07:20] LABS: Basophils % (auto) 0.4 % (0.0-2.0); Eosinophils % (auto) 1.8 % (0.0-7.0); Hematocrit 27.4 % (36.0-46.0); Hemoglobin 9.1 g/dL (12.2-16.2); Mean Corpuscular Hemoglobin 27.3 pg (28.0-32.0); Mean Corpuscular Hgb Conc. 33.4 g/dL (32.0-36.0); Mean Corpuscular Volume 81.8 fL (80.0-100.0); Monocytes % (auto) 9.7 % (0.0-12.0); Neutrophils # (auto) 6.1 10 ^3/uL (1.6-8.6); Neutrophils % (auto) 81.1 % (37.0-80.0); Nucleated Red Blood Cells % 0.1 %; Platelet Count (auto) 319 10^3/uL (140-450); Red Blood Cells 3.35 10^6/uL (4.0-5.20); Red Cell Distribution Width 15.7 % (11.8-14.3); White Blood Cell 7.6 10^3/uL (4.4-10.8)
[2024-07-23 07:44] LABS: Alanine Aminotransferase 51 U/L (7-40); Albumin 4.1 g/dL (3.2-4.8); Alkaline Phosphatase 73 U/L (46-116); Anion Gap 5 (5-15); Aspartate Aminotransferase 17 U/L (13-40); BUN/Creatinine Ratio 20.6 (10.0-20.0); Bilirubin, Total < 0.2 mg/dL (0.2-1.0); Blood Urea Nitrogen 20 mg/dL (9-23); Calcium 10.3 mg/dL (8.7-10.4); Carbon Dioxide 27 mmol/L (20-30); Chloride 105 mmol/L (98-107); Glucose 111 mg/dL (74-106); Potassium 4.4 mmol/L (3.5-5.1); Sodium 137 mmol/L (136-145); Total Protein 7.5 g/dL (5.7-8.2)
[2024-07-23] MEDS: MORPHINE SULFATE INJ 2 MG/ml SYRG IV PRN (10:50)
[2024-07-23] MEDS: ZOLPIDEM TARTRATE 5 MG TAB PO ONE (12:30)
[2024-07-23] MEDS: IODIXANOL 320MG/ML 100ML BTL IV ONE (12:32)
[2024-07-23] MEDS: MIDAZOLAM HCL 2MG/2ML 2ml VIAL (1mg/ml) ONE ×2 (13:03→14:17)
[2024-07-23] MEDS: fentaNYL CITRATE 100 MCG/2 ML VL ONE (13:03)
[2024-07-23] MEDS: LIDOCAINE 2%HCL (LOCAL ANESTH.) INJ 20ML MDV ONE ×2 (13:08→13:44)
[2024-07-23] MEDS: ANGIOMAX 250 MG VIAL IV ONE (14:07)
[2024-07-23] MEDS: CLOPIDOGREL BISULFATE 75 MG TAB ONE (14:57)
[2024-07-23] MEDS: VANCOMYCIN 500 MG in D5W 5% 100 ML IV SCH (16:34)
[2024-07-23 21:22] LABS: Protein, Urine 83.5 mg/dL (0.0-11.9)
[2024-07-23 21:25] LABS: Creatinine, Urine 68.47 mg/dL (30.0-125.0)
[2024-07-23] MEDS: LORazepam 0.5 MG TAB PO PRN (21:28)
[2024-07-24] VITALS (9 sets, daily range): BP systolic 114–160; BP diastolic 48–81; PULSE 81–102; RESP 18–22; TEMP 97.5–98.4; O2SAT 93–100
[2024-07-24] MEDS: CLOPIDOGREL BISULFATE 75 MG TAB PO SCH (09:39)
[2024-07-24] MEDS: ONDANSETRON HCL 4 MG/2 ML VIAL IV PRN (09:41)
[2024-07-24 09:46] LABS: Basophils # (auto) 0 10 ^3/uL (0-0.2); Basophils % (auto) 0.2 % (0.0-2.0); Eosinophils # (auto) 0.1 10 ^3/uL (0-0.8); Eosinophils % (auto) 1.2 % (0.0-7.0); Hematocrit 29.5 % (36.0-46.0); Hemoglobin 9.7 g/dL (12.2-16.2); Lymphocytes # (auto) 0.5 10 ^3/uL (0.4-5.4); Lymphocytes % (auto) 6.3 % (10.0-50.0); Mean Corpuscular Hemoglobin 27.1 pg (28.0-32.0); Mean Corpuscular Hgb Conc. 32.8 g/dL (32.0-36.0); Mean Corpuscular Volume 82.4 fL (80.0-100.0); Monocytes # (auto) 0.7 10 ^3/uL (0-1.3); Neutrophils # (auto) 7.2 10 ^3/uL (1.6-8.6); Neutrophils % (auto) 84.3 % (37.0-80.0); Nucleated Red Blood Cells % 0.2 %; Platelet Count (auto) 327 10^3/uL (140-450); Red Blood Cells 3.58 10^6/uL (4.0-5.20); Red Cell Distribution Width 15.8 % (11.8-14.3); White Blood Cell 8.5 10^3/uL (4.4-10.8)
[2024-07-24 09:56] LABS: Alanine Aminotransferase 39 U/L (7-40); Albumin 4.2 g/dL (3.2-4.8); Alkaline Phosphatase 84 U/L (46-116); Anion Gap 6 (5-15); Aspartate Aminotransferase 17 U/L (13-40); BUN/Creatinine Ratio 20.7 (10.0-20.0); Bilirubin, Total 0.2 mg/dL (0.2-1.0); Blood Urea Nitrogen 23 mg/dL (9-23); Calcium 10.4 mg/dL (8.7-10.4); Carbon Dioxide 25 mmol/L (20-30); Chloride 105 mmol/L (98-107); Glucose 157 mg/dL (74-106); Potassium 4.4 mmol/L (3.5-5.1); Sodium 136 mmol/L (136-145); Total Protein 7.6 g/dL (5.7-8.2)
[2024-07-24] MEDS ORDERED: ZOLPIDEM TARTRATE 5 MG TAB PO PRN (22:00)
[2024-07-25] VITALS (11 sets, daily range): BP systolic 119–157; BP diastolic 45–67; PULSE 75–94; RESP 16–20; TEMP 97.5–98.5; O2SAT 96–100
[2024-07-25 06:09] LABS: Basophils # (auto) 0 10 ^3/uL (0-0.2); Eosinophils # (auto) 0.2 10 ^3/uL (0-0.8); Eosinophils % (auto) 2.5 % (0.0-7.0); Mean Corpuscular Volume 82.5 fL (80.0-100.0); Neutrophils # (auto) 5.6 10 ^3/uL (1.6-8.6)
[2024-07-25 06:13] LABS: Alanine Aminotransferase 27 U/L (7-40); Alkaline Phosphatase 72 U/L (46-116); Calcium 10.2 mg/dL (8.7-10.4); Carbon Dioxide 24 mmol/L (20-30); Chloride 106 mmol/L (98-107); Glucose 113 mg/dL (74-106); Potassium 4.4 mmol/L (3.5-5.1)
[2024-07-25 06:14] LABS: Albumin 3.7 g/dL (3.2-4.8); Anion Gap 5 (5-15); Aspartate Aminotransferase 12 U/L (13-40); BUN/Creatinine Ratio 19.1 (10.0-20.0); Bilirubin, Total < 0.2 mg/dL (0.2-1.0); Blood Urea Nitrogen 21 mg/dL (9-23); Sodium 135 mmol/L (136-145); Total Protein 6.8 g/dL (5.7-8.2)
[2024-07-25 06:16] LABS: Basophils % (auto) 0.6 % (0.0-2.0); Hematocrit 26.3 % (36.0-46.0); Hemoglobin 8.6 g/dL (12.2-16.2); Lymphocytes % (auto) 12.7 % (10.0-50.0); Mean Corpuscular Hemoglobin 26.9 pg (28.0-32.0); Mean Corpuscular Hgb Conc. 32.6 g/dL (32.0-36.0); Monocytes # (auto) 0.8 10 ^3/uL (0-1.3); Neutrophils % (auto) 73.2 % (37.0-80.0); Nucleated Red Blood Cells % 0.4 %; Platelet Count (auto) 307 10^3/uL (140-450); Red Blood Cells 3.19 10^6/uL (4.0-5.20); Red Cell Distribution Width 16.4 % (11.8-14.3); White Blood Cell 7.7 10^3/uL (4.4-10.8)
[2024-07-25] MEDS: IRON SUCROSE COMPLEX 100 ML IV SCH (14:59)
[2024-07-25] MEDS: MEROPENEM 1GM IVPB 50 ML IV SCH (18:54)
[2024-07-25] MEDS: EPOETIN ALFA-EPBX 10,000 UNIT/1ML VIAL SC ONE (20:33)
[2024-07-26] VITALS (8 sets, daily range): BP systolic 97–124; BP diastolic 46–71; PULSE 72–85; RESP 16–20; TEMP 36.7; O2SAT 95–100
[2024-07-26 09:35] LABS: Chloride 105 mmol/L (98-107); Potassium 4.8 mmol/L (3.5-5.1); Sodium 134 mmol/L (136-145)
[2024-07-26 09:36] LABS: Anion Gap 5 (5-15); Calcium 10.1 mg/dL (8.7-10.4); Carbon Dioxide 24 mmol/L (20-30)
[2024-07-26 09:41] LABS: BUN/Creatinine Ratio 25.5 (10.0-20.0); Blood Urea Nitrogen 26 mg/dL (9-23); Glucose 148 mg/dL (74-106)
[2024-07-26 15:18] LABS: COVID19 ANTIGEN SOFIA FIA NEGATIVE (NEGATIVE)
[2024-07-26 17:06] LABS: INR 1.12 (0.9-1.15); Partial Thromboplastin Time 30.6 SEC (24.5-34.5); Prothrombin Time 11.8 sec (9.3-11.8)
[2024-07-26] MEDS: LIDOCAINE 1% (LOCAL ANESTH.) PF 5ml SDV ID ONE (18:45)
[2024-07-26] MEDS ORDERED: SODIUM CHLOR 0.9% PF (SALINE LOCK) 10ML VIAL/SYR IV SCH (22:00)
[2024-07-27] MEDS ORDERED: VANCOMYCIN 500 MG in D5W 5% 100 ML IV SCH (03:00)
== END 2024-07-26 21:15 | DRG 854 ==
LOC: ER 13:32 → OVERFLOW 22:05 → WEST WING 23:50
PROVIDERS: ADMIT Internal Medicine; ATTEND Family Medicine
PROC: 05H933Z Insertion of Infusion Device into Right Brachial Vein, Percutaneous Approach (ICD-10-PCS; 2024-07-22)
PROC: B54MZZA Ultrasonography of Right Upper Extremity Veins, Guidance (ICD-10-PCS; 2024-07-22)
PROC: 047C3Z1 Dilation of Right Common Iliac Artery using Drug-Coated Balloon, Percutaneous Approach (ICD-10-PCS; principal; 2024-07-23)
PROC: 047L3Z1 Dilation of Left Femoral Artery using Drug-Coated Balloon, Percutaneous Approach (ICD-10-PCS; 2024-07-23)
PROC: 047K3Z1 Dilation of Right Femoral Artery using Drug-Coated Balloon, Percutaneous Approach (ICD-10-PCS; 2024-07-23)
PROC: 047D3Z1 Dilation of Left Common Iliac Artery using Drug-Coated Balloon, Percutaneous Approach (ICD-10-PCS; 2024-07-23)
PROC: 04CK3ZZ Extirpation of Matter from Right Femoral Artery, Percutaneous Approach (ICD-10-PCS; 2024-07-23)
PROC: 04CH3ZZ Extirpation of Matter from Right External Iliac Artery, Percutaneous Approach (ICD-10-PCS; 2024-07-23)
PROC: B41GYZZ Fluoroscopy of Left Lower Extremity Arteries using Other Contrast (ICD-10-PCS; 2024-07-23)
PROC: B41FYZZ Fluoroscopy of Right Lower Extremity Arteries using Other Contrast (ICD-10-PCS; 2024-07-23)
PROC: 05HC33Z Insertion of Infusion Device into Left Basilic Vein, Percutaneous Approach (ICD-10-PCS; 2024-07-24)
PROC: B54NZZA Ultrasonography of Left Upper Extremity Veins, Guidance (ICD-10-PCS; 2024-07-24)
PROC: 02HV33Z Insertion of Infusion Device into Superior Vena Cava, Percutaneous Approach (ICD-10-PCS; 2024-07-26)
PROC: B548ZZA Ultrasonography of Superior Vena Cava, Guidance (ICD-10-PCS; 2024-07-26)
DX: A41.9 Sepsis, unspecified organism (principal); E44.0 Moderate protein-calorie malnutrition; L03.115 Cellulitis of right lower limb; N39.0 Urinary tract infection, site not specified; J44.1 Chronic obstructive pulmonary disease with (acute) exacerbation; N17.9 Acute kidney failure, unspecified; I13.0 Hypertensive heart and chronic kidney disease with heart failure and stage 1 through stage 4 chronic kidney disease, or unspecified chronic kidney disease; I50.9 Heart failure, unspecified; F41.9 Anxiety disorder, unspecified; N18.30 Chronic kidney disease, stage 3 unspecified; E11.22 Type 2 diabetes mellitus with diabetic chronic kidney disease; E11.621 Type 2 diabetes mellitus with foot ulcer; I95.9 Hypotension, unspecified; E11.40 Type 2 diabetes mellitus with diabetic neuropathy, unspecified; D63.8 Anemia in other chronic diseases classified elsewhere; L97.529 Non-pressure chronic ulcer of other part of left foot with unspecified severity; Z85.528 Personal history of other malignant neoplasm of kidney; Z90.5 Acquired absence of kidney; Z87.891 Personal history of nicotine dependence; Z82.5 Family history of asthma and other chronic lower respiratory diseases; Z82.49 Family history of ischemic heart disease and other diseases of the circulatory system; Z91.199 Patient's noncompliance with other medical treatment and regimen due to unspecified reason; Z91.81 History of falling; Z68.31 Body mass index [BMI] 31.0-31.9, adult; Z79.4 Long term (current) use of insulin
CPT/HCPCS: 34201; 36415; 36569; 37224; 71045; 73620; 73718; 75716; 76775; 80048; 80053; 80202; 81001; 82570; 82962; 83036; 83605; 84156; 84300; 85025; 85610; 85652; 85730; 86141; 86850; 86900; 86901; 87040; 87086; 87088; 87186; 87426; 93925; 94640; 96365; 96367; 97163; 99152; 99291; C1725; C2623; G0378; J1756; J2185; J2250; J2405; J2543; J3490; J7060; Q9967

== ENCOUNTER → 2024-08-21 | Outpatient (CLI) | payer MEDICARE, MEDICAID ==
[~2024-08-21] MED LIST changes: +IOHEXOL 350 MG/ML 100ML IJ ONE
[2024-08-21 10:05] VITALS: BP 142/62; PULSE 91; RESP 18; O2SAT 100
[2024-08-21 10:50] VITALS: BP 140/68; PULSE 78; RESP 18; O2SAT 99
== END | disposition home or self-care (01) ==
LOC: Rad HDHVI 09:56
PROVIDERS: ATTEND Internal Medicine Cardiovascular Disease
DX: I73.9 Peripheral vascular disease, unspecified (principal)
CPT/HCPCS: 75635; G0463; Q9967

== ENCOUNTER → 2024-12-03 | Outpatient (CLI) | payer MEDICARE, MEDICAID ==
[~2024-12-03] MED LIST changes: -IOHEXOL 350 MG/ML 100ML IJ ONE
--- NOTE | 2024-12-03 11:55 | DVH ---
XY CHEST TWO VIEWS ROUTINE, HISTORY: SOB COMPARISON: None None TECHNICAL DATA: 2 view of the chest was obtained. FINDINGS: Lines and tubes: None Cardiomediastinal silhouette: normal Pulmonary vasculature: normal Lung expansion: normal Lung airspace: normal Lung interstitium: Increased Pleura: normal Pneumothorax: no Bones: Unremarkable Other: no IMPRESSION: Bilateral mid and lower lung zone reticular thickening can be seen with interstitial lung disease.
== END | disposition home or self-care (01) ==
LOC: Rad HDHVI 11:26
PROVIDERS: ATTEND Internal Medicine Cardiovascular Disease
DX: J84.89 Other specified interstitial pulmonary diseases (principal); R06.02 Shortness of breath
CPT/HCPCS: 71046

== ENCOUNTER → 2025-03-17 | Outpatient (CLI) | payer MEDICARE, MEDICAID | END | disposition home or self-care (01) | LOC: Rad HDHVI 12:35 | PROVIDERS: ATTEND Internal Medicine Cardiovascular Disease | DX: I10 Essential (primary) hypertension (principal); R07.89 Other chest pain | CPT/HCPCS: 93306 ==

== ENCOUNTER → 2025-03-24 | Outpatient (CLI) | payer MEDICARE, MEDICAID ==
[~2025-03-24] VITALS: Ht 165.1 cm; Wt 78.9 kg
[~2025-03-24] MED LIST changes: +ADENOSINE 66 MG in GIVE UN-DILUTED 0 ML IV ONE; +ADENOSINE 90 MG/30 ML INJ IV ONE
== END | disposition home or self-care (01) ==
LOC: Rad HDHVI 12:48
PROVIDERS: ATTEND Internal Medicine Cardiovascular Disease
DX: I45.10 Unspecified right bundle-branch block (principal); R07.89 Other chest pain; I11.0 Hypertensive heart disease with heart failure; I50.23 Acute on chronic systolic (congestive) heart failure; E11.21 Type 2 diabetes mellitus with diabetic nephropathy; Z82.49 Family history of ischemic heart disease and other diseases of the circulatory system; I25.5 Ischemic cardiomyopathy; E78.00 Pure hypercholesterolemia, unspecified; I73.9 Peripheral vascular disease, unspecified; J44.9 Chronic obstructive pulmonary disease, unspecified; Z88.5 Allergy status to narcotic agent; Z79.4 Long term (current) use of insulin; Z79.82 Long term (current) use of aspirin
CPT/HCPCS: 78452; 93017; A9500; J0153

== ENCOUNTER 2025-06-05 15:17 | Inpatient (IN) | payer MEDICARE, MEDICAID ==
[~2025-06-05] VITALS: Ht 165.1 cm; Wt 78.2 kg
[~2025-06-05 15:17] MED LIST changes: -ADENOSINE 66 MG in GIVE UN-DILUTED 0 ML IV ONE; -ADENOSINE 90 MG/30 ML INJ IV ONE
--- NOTE | 2025-06-05 15:30 | ED.PDOC ---
HPI (NEURO) HPI Comments OMAR: gen weak, aloc HPI: Poor Historian. Past Medical History: Past Surgical History: HPI: 65y F who presents to the ED via EMS for chief complaint of generalized weakness - per EMS, pt lives with son who is caregiver and states over the past 2x days, she has not been acting like herself and he called EMS - EMS upon arrival was ax0x2 but is baseline at ax0x04 and pt had low BP and pt had IV established and given 300 ml of fluids - EMS states pt is normally bed bound and was recently at [facility] being treated for urine infection and discharged home with antibiotics - pt has history of chronic knee pain after surgery and is bed bound due to the pain and states she takes daily Ativan and gabapentin - pt now in the ED, is alert and oriented x 4 and able to answer all questions but noted to be bed bound and - pt otherwise denies any other symptoms at this time Past Medical history: DM, CHF, COPD, hypothyroidism, depression, HLD, Past Surgical history: Medications: Lantus, Lipitor, Protonix, lisinopril, levothyroxine, asa, albuterol, gabapentin, Ativan, Social History: Denies smoking, ETOH, and drug use. Allergies: codeine REVIEW OF SYSTEMS: CONSTITUTIONAL: Denies acute: fever, diaphoresis, chills, HEAD: Denies acute: headache, photophobia Eyes: Denies acute: Double vision, vision loss, eye pain, eye discharge. EARS: Denies acute: tinnitus, hearing loss, ear discharge, ear pain, THROAT: Denies acute: sore throat, swelling, difficulty swallowing , pain with swallowing, change in voice. NECK: Denies acute: neck pain, neck swelling, stiff neck. HEART: Denies acute : chest pain, palpitations, LUNGS: Denies acute: SOB, wheezing, cough, hemoptysis ABDOMEN: Denies acute: abdominal pain, Nausea, Vomiting, diarrhea, melena , hematemesis, hematochezia SKIN: Denies acute: rash, redness, lesions, itchiness. EXTREMITIES: Denies acute: calf pain, numbness, tingling, weakness, denies pain in extremity. Denies acute: Low back pain. Neuro: Denies acute: focal neurological deficit, motor or sensory focal neurological deficit, tremors, seizure like activity, loss of bowel or bladder function, cauda equina like symptoms. : Denies acute: dysuria, hematuria, flank pain, increase in urinary frequency. PSYCH: Denies acute: hallucination, suicidal ideation, homicidal ideation. FEMALE: Denies acute: abnormal vaginal bleeding, foul odor, unusual discharge. PHYSICAL EXAM: General: ----no----acute distress, awake and alert. Head: normocephalic, atraumatic. Neck: supple, trachea is midline, no swelling. Throat: Normal phonation. Dry oral mucosa Eyes:, no erythema, no purulent discharge, no proptosis, no icterus. Heart: regular rate, regular rhythm, no significant murmur appreciated. Lungs: no apparent respiratory distress, Able to speak in full sentences. No wheezing, no rhonchi, no crackles. No stridors Clear to auscultation bilaterally. Abdomen: non tender to palpation, non distended, soft, no guarding, no rebound, + bowel sounds. Obese. Neuro: Awake, Alert, oriented to name, self, situation, follows commands. Appears weak and sedated although she is answering questions. Speech is normal. Skin: no petechia, no purpura, no cyanosis, non-pale, not jaundice. Lower extremities: --no - Pitting edema no deformity, no focal swelling, no calf TTP. Makes eye contact. Patient is bed-bound. Patient has chronic left knee pain unable to move it much. No recent fall or trauma. Face: no apparent facial droop. PERRLA, EOM-I CN 2-12 are grossly intact, No nystagmus. ED COURSE: DISCLAIMER: This medical document was created using an electronic medical record system with voice recognition software and computerized dictation system. Although this document has been carefully reviewed, there might still be some phonetic and typographical errors. Occasional wrong-word or "sound-alike" substitutions may have occurred due to the inherent limitations of voice recognition software. These areas are purely typographical due to imperfections of the software prog paul and do not reflect any compromise in the patient's medical care. Please read the chart carefully and recognize, using context, where these substitutions have occurred. Chief Complaint: General Weakness Time Seen by MD: 15:28 Primary Care Provider: DIEGO Information Source: Patient, Emergency Med Personnel Mode of Arrival: EMS Past Medical History PAST MEDICAL HISTORY: Cancer, CHF, COPD, DM, HTN Surgical History: Cholecystectomy, Tonsillectomy [employer] History: Other Family History Family History: Unknown Social History Smoker: Quit Greater Than 1 Year, Cigarettes Alcohol: Denies ETOH Use Drugs: Marijuana Lives In: Home Was a procedure done? Was a procedure done?: No X-Ray, Labs, Meds, VS Vital Signs Date Time Temp Pulse Resp B/P (MAP) Pulse Ox O2 Delivery O2 Flow Rate FiO2 06/05/25 16:00 105 06/05/25 15:50 97.8 104 16 119/62 (81) 95 97.8 06/05/25 15:25 99.1 105 22 99/52 (68) 94 99.1 06/05/25 15:20 105 Lab Test 06/05/25 16:50 06/05/25 15:55 Range/Units Troponin I High Sensitivity Pending 9 </=34 ng/L White Blood Count 14.6 H 4.4-10.8 10^3/uL Red Blood Count 4.26 4.0-5.20 10^6/uL Hemoglobin 10.7 L 12.2-16.2 g/dL Hematocrit 34.7 L 36.0-46.0 % Mean Corpuscular Volume 81.3 80.0-100.0 fL Mean Corpuscular Hemoglobin 25.1 L 28.0-32.0 pg Mean Corpuscular Hemoglobin Concent 30.9 L 32.0-36.0 g/dL Red Cell Distribution Width 16.4 H 11.8-14.3 % Platelet Count 207 140-450 10^3/uL Mean Platelet Volume 7.6 6.9-10.8 fL Neutrophils (%) (Auto) 89.0 H 37.0-80.0 % Lymphocytes (%) (Auto) 4.2 L 10.0-50.0 % Monocytes (%) (Auto) 6.3 0.0-12.0 % Eosinophils (%) (Auto) 0.4 0.0-7.0 % Basophils (%) (Auto) 0.1 0.0-2.0 % Neutrophils # (Auto) 13.0 H 1.6-8.6 10 ^3/uL Lymphocytes # (Auto) 0.6 0.4-5.4 10 ^3/uL Monocytes # (Auto) 0.9 0-1.3 10 ^3/uL Eosinophils # (Auto) 0.1 0-0.8 10 ^3/uL Basophils # (Auto) 0 0-0.2 10 ^3/uL Nucleated Red Blood Cells 0.1 % Sodium Level 139 136-145 mmol/L Potassium Level 4.7 3.5-5.1 mmol/L Chloride Level 106 98-107 mmol/L Carbon Dioxide Level 23 20-31 mmol/L Anion Gap 10 5-15 Blood Urea Nitrogen 75 H 9-23 mg/dL Creatinine 2.22 H 0.550-1.02 mg/dL Glomerular Filtration Rate Calc 24 >90 mL/min BUN/Creatinine Ratio 33.8 H 10.0-20.0 Serum Glucose 165 H 74-106 mg/dL Lactic Acid Level 1.5 0.4-2.0 mmol/L Calcium Level 9.1 8.7-10.4 mg/dL Magnesium Level 2.0 1.6-2.6 mg/dL Total Bilirubin 0.3 0.2-1.0 mg/dL Aspartate Amino Transferase (AST) 46 H 13-40 U/L Alanine Aminotransferase (ALT) 103 H 7-40 U/L Alkaline Phosphatase 249 H 46-116 U/L Ammonia < 10 L 11-32 umol/L Total Protein 5.7 5.7-8.2 g/dL Albumin 3.6 3.2-4.8 g/dL Current Medications Medications (Trade) Dose Ordered Sig/Audrey Route Start Time Stop Time Status Last Admin Sodium Chloride 1,000 ml @ 1,000 mls/hr Q1H ONCE IV 06/05/25 15:30 06/05/25 16:29 DC 06/05/25 15:45 [place] [id number] Ph: [phone] DIAGNOSTIC IMAGING Diagnostic Imaging Report : [id number] Signed PATIENT: DYLAN NELSON ACCT: [id number] UNIT: [id number] : 1960 LOC: ER ROOM / BED: / AGE / SEX: 65 / F ADM STATUS: REG ER SERVICE 1528 ORDERING PHYSICIAN: TEOFILO TANG DO PROCEDURE(s): CXRP - CHEST PORTABLE REASON: gen weak ORDER NUMBER(s): [id number], ACCESSION NUMBER(s): [id number] XY CHEST PORTABLE, HISTORY: gen kim COMPARISON: XY CHEST XRAY 1 VIEW on DOS: 07/22/24, XY CHEST PORTABLE on DOS: 05/22/24, XY CHEST XRAY 1 VIEW on DOS: 04/13/24 XY CHEST XRAY 1 VIEW on DOS: 07/22/24, XY CHEST PORTABLE on DOS: 05/22/24, XY CHEST XRAY 1 VIEW on DOS: 04/13/24 TECHNICAL DATA: 1 view of the chest was obtained. FINDINGS: Lines and tubes: None Cardiomediastinal silhouette: normal Pulmonary vasculature: normal Lung expansion: normal Lung airspace: Multifocal bilateral airspace opacities could be seen with pneumonia. Lung interstitium: normal Pleura: normal Pneumothorax: no Bones: Unremarkable Other: no IMPRESSION: Multifocal bilateral airspace opacities could be seen with pneumonia. ATED BY: ISAI SANDERS MD DICTATED DATE/TIME: 06/05/25 1601 SIGNED BY: ISAI SANDERS MD SIGNED DATE/TIME: 06/05/25 1601 CC: Patient Education/Counseling: Diagnosis, Treatment Family Education/Counseling: No Family Present Departure 1 Departure Time of Disposition: 16:24 Impression: Primary Impression: Altered level of consciousness Additional Impressions: Generalized weakness Multifocal pneumonia Sepsis Acute renal insufficiency Disposition: ADMITTED INPATIENT Admit to: [facility] Condition: Guarded Discharged With: Self Stability Stability form required: No Heart Score Heart Score: Heart Score Response (Comments) Value History Slightly Suspicious 0 Age >65 2 Risk Factors 1 or 2 risk factors 1 Troponin Normal limit 0 Total 3 I personally scribed for TEOFILO TANG DO ([email or web address]) on 06/05/25 at 15:30. Electronically submitted by Janett Daley ([facility] [employer]). I personally scribed for TEOFILO TANG DO ([email or web address]) on 06/05/25 at 17:24. Electronically submitted by Janett Daley ([employer]). I personally scribed for TEOFILO TANG DO ([email or web address]) on 06/05/25 at 17:27. Electronically submitted by Janett Daley ([employer]). I personally scribed for TEOFILO TANG DO ([email or web address]) on 06/05/25 at 17:31. Electro nically submitted by Janett Daley ([employer]). TEOFILO TANG DO Jun 05, 2025 15:30
--- NOTE | 2025-06-05 15:39 | ECG ---
[facility] Test Date: 2025-06-05 Test Time: 15:20:40 Pat Name: DYLAN NELSON Department: ED Room: 0294 Gender: F [employer]: gp : 1960 Requested By: TEOFILO TANG Order Number: [id number] Reading MD: Maycol Ryan Measurements Intervals [place] Rate: 105 P: 54 TX: 168 QRS: -84 QRSD: 139 T: 67 QT: 361 QTc: 478 Interpretive Statements Sinus tachycardia RBBB and LAFB ST elevation, consider inferior injury Baseline wander in lead(s) I,II,aVR Electronically Signed On 06-11-2025 15:42:05 PDT by Maycol Ryan Please click the below link to view image of tracing.
[2025-06-05] MEDS: SODIUM CHLORIDE 0.9% 1,000 ML IV ONE (15:45)
--- NOTE | 2025-06-05 16:03 | DVH ---
XY CHEST PORTABLE, HISTORY: gen weak COMPARISON: XY CHEST XRAY 1 VIEW on DOS: 07/22/24, XY CHEST PORTABLE on DOS: 05/22/24, XY CHEST XRAY 1 EW on DOS: 04/13/24 XY CHEST XRAY 1 VIEW on DOS: 07/22/24, XY CHEST PORTABLE on DOS: 05/22/24, XY CHEST XRAY 1 VIEW on DOS: TECHNICAL DATA: 1 view of the chest was obtained. FINDINGS: Lines and tubes: None Cardiomediastinal silhouette: normal Pulmonary vasculature: normal Lung expansion: normal Lung airspace: Multifocal bilateral airspace opacities could be seen with pneumonia. Lung interstitium: normal Pleura: normal Pneumothorax: no Bones: Unremarkable Other: no IMPRESSION: Multifocal bilateral airspace opacities could be seen with pneumonia.
[2025-06-05 16:15] LABS: Hematocrit 34.7 % (36.0-46.0); Hemoglobin 10.7 g/dL (12.2-16.2); Mean Corpuscular Hemoglobin 25.1 pg (28.0-32.0); Mean Corpuscular Volume 81.3 fL (80.0-100.0); Nucleated Red Blood Cells % 0.1 %
[2025-06-05 16:29] LABS: Albumin 3.6 g/dL (3.2-4.8); Alkaline Phosphatase 249 U/L (46-116); Anion Gap 10 (5-15); BUN/Creatinine Ratio 33.8 (10.0-20.0); Blood Urea Nitrogen 75 mg/dL (9-23); Calcium 9.1 mg/dL (8.7-10.4); Carbon Dioxide 23 mmol/L (20-31); Chloride 106 mmol/L (98-107); Glucose 165 mg/dL (74-106); Magnesium 2.0 mg/dL (1.6-2.6); Potassium 4.7 mmol/L (3.5-5.1); Sodium 139 mmol/L (136-145); Total Protein 5.7 g/dL (5.7-8.2)
[2025-06-05 16:30] LABS: Alanine Aminotransferase 103 U/L (7-40); Bilirubin, Total 0.3 mg/dL (0.2-1.0)
[2025-06-05] MEDS ORDERED: cefTRIAXone 1GM/50ML D5W 50 ML IV ONE (16:30)
[2025-06-05] MEDS ORDERED: ALBUTEROL SULF 2.5 MG/0.5ML(0.5%) NEB SOLN NEB PRN (17:30)
[2025-06-05] MEDS ORDERED: ONDANSETRON HCL 4 MG/2 ML VIAL IV PRN (17:30)
[2025-06-05] MEDS ORDERED: DEXTROSE (50%) 50ML SYRG IV PRN (17:30)
[2025-06-05] MEDS ORDERED: ACETAMINOPHEN 325 MG TAB PO PRN (17:30)
[2025-06-05] MEDS: PIPERACILLIN-TAZOB 3.375GM 100 ML IV ONE (18:28)
[2025-06-05 18:40] LABS: INR 1.11 (0.9-1.15); Partial Thromboplastin Time 29.4 SEC (24.5-34.5); Prothrombin Time 11.6 sec (9.3-11.8)
[2025-06-05 19:30] VITALS: O2SAT 94
[2025-06-05 19:33] VITALS: PULSE 102; RESP 12; O2SAT 97
[2025-06-05 19:42] LABS: Urine Budding Yeast FEW /hpf (None Seen); Urine Protein, UAD 1+ (Negative)
[2025-06-05 19:57] LABS: Amphetamine Screen, Urine Neg (NEGATIVE); Barbiturate Scree,Urine Neg (NEGATIVE); Benzodiazephine Screen, Urine Neg (NEGATIVE); Cannabinoid Screen, Urine Neg (NEGATIVE); Cocaine Screen, Urine Neg (NEGATIVE); Opiate Scree,Urine Neg (NEGATIVE); Phencyclidine Screen, Urine Neg (NEGATIVE)
[2025-06-05] MEDS: LACTATED RINGER'S 1,700 ML IV ONE (20:08)
[2025-06-05 20:23] VITALS: BP 119/62; PULSE 105; RESP 18; TEMP 97.8; O2SAT 95
--- NOTE | 2025-06-05 20:30 | DVHHP2 ---
History of Present Illness Reason for Visit: Altered mental status History of Present Illness 65-year-old female presents for evaluation of altered mental status. Patient's son reports patient being bed ridden and became progressively weak over the past seven days. He states that today patient became more altered but no making sense with several episodes of diarrhea as well. No complaints of chest pain or shortness for breath. No unilateral weakness. Past Medical History DM, CHF, COPD, hypothyroidism, depression, HLD, Past Surgical History None Family History Noncontributory Smoke: No ALCOHOL: none Drugs: None Lives: with Family Review of Systems Review of Systems Review of systems are currently negative otherwise addressed in HPI. Allergies: Coded Allergies: Codeine (Verified Allergy, Unknown, 04/04/19) Medications Current Medications Medications Dose Ordered Sig/Audrey Route Start Time Stop Time Status Last Admin Dose Admin Ceftriaxone Sodium 50 ml @ 100 mls/hr DAILY@09 IV 06/06/25 09:00 Azithromycin 250 ml @ 125 mls/hr DAILY IV 06/06/25 10:00 Albuterol 2.5 mg Q6HPRN PRN NEB 06/05/25 17:30 Aspirin 81 mg DAILY PO 06/06/25 10:00 Atorvastatin Calcium 40 mg HS PO 06/05/25 22:00 Digoxin 0.125 mg DAILY PO 06/06/25 10:00 Empaglifozin 10 mg DAILY PO 06/06/25 10:00 Furosemide 40 mg DAILY PO 06/06/25 10:00 Levothyroxine Sodium 100 mcg QAM@0600 PO 06/06/25 06:00 Pantoprazole Sodium 40 mg DAILY@0700 PO 06/06/25 07:00 Spironolactone 25 mg DAILY PO 06/06/25 10:00 Nifedipine 30 mg DAILY PO 06/06/25 10:00 Diagnostic Test (Pha) 1 strip ACHS 06/05/25 22:00 Insulin Human Regular ACHS SC 06/05/25 22:00 Dextrose 50 ml UD PRN IV 06/05/25 17:30 Ondansetron HCl 4 mg Q4HP PRN IV 06/05/25 17:30 Acetaminophen 650 mg Q6HP PRN PO 06/05/25 17:30 Exam Vital Signs Vital Signs Date Time Temp Pulse Resp B/P (MAP) Pulse Ox O2 Delivery O2 Flow Rate FiO2 06/05/25 19:33 102 12 97 Nasal Cannula* 2 28 06/05/25 19:33 97.8 128/77 (11) 97.8 Exam Gen: 65-year-old female in mild distress, lethargic Skin: Warm, dry, normal color and texture, no rash. HEENT: Normocephalic atraumatic, mucous membranes moist and pink. Neck: Cervical and supraclavicular nodes normal without enlargement, trachea is midline, thyroid gland is normal without masses. Pulmonary: Clear to auscultation and percussion bilaterally. Cardiac: Regular rate and rhythm. No murmur Abdomen: Soft, nontender, nondistended, bowel sounds present all 4 quadrants, no guarding, no rigidity, no organomegaly. Extremities: No cyanosis, clubbing, no edema Neuro: Lethargic Labs/Xrays ORDERING PHYSICIAN: TEOFILO TANG DO PROCEDURE(s): CXRP - CHEST PORTABLE REASON: gen alvarez ORDER NUMBER(s): [id number], ACCESSION NUMBER(s): [id number] XY CHEST PORTABLE, HISTORY: gen alvarez COMPARISON: XY CHEST XRAY 1 VIEW on DOS: 07/22/24, XY CHEST PORTABLE on DOS: 05/22/24, XY CHEST XRAY 1 VIEW on DOS: 04/13/24 XY CHEST XRAY 1 VIEW on DOS: 07/22/24, XY CHEST PORTABLE on DOS: 05/22/24, XY CHEST XRAY 1 VIEW on DOS: 04/13/24 TECHNICAL DATA: 1 view of the chest was obtained. FINDINGS: Lines and tubes: None Cardiomediastinal silhouette: normal Pulmonary vasculature: normal Lung expansion: normal Lung airspace: Multifocal bilateral airspace opacities could be seen with pneumonia. Lung interstitium: normal Pleura: normal Pneumothorax: no Bones: Unremarkable Other: no IMPRESSION: Multifocal bilateral airspace opacities could be seen with pneumonia. ATED BY: ISAI SANDERS MD DICTATED DATE/TIME: 06/05/251600 SIGNED BY: ISAI SANDERS MD SIGNED DATE/TIME: 06/05/251600 CC: Labs Test 06/05/25 18:30 06/05/25 18:00 06/05/25 15:55 Range/Units Lactic Acid Level 1.3 0.4-2.0 mmol/L Troponin I High Sensitivity 8 </=34 ng/L Urine Color Yellow Yellow Urine Clarity Turbid H Clear Urine pH 5.5 5.0-9.0 Urine Specific [place] 1.015 1.001-1.035 Urine Protein 1+ H Negative Urine Ketones Negative Negative Urine Blood 2+ H Negative /uL Urine Nitrite Negative Negative Urine Bilirubin Negative Negative Urine Urobilinogen Normal Negative mg/dL Urine Leukocyte Esterase 2+ Negative /uL Urine RBC 15 0 - 4 /hpf Urine Microscopic WBC 54 H 0-5 /HPF Urine Squamous Epithelial Cells Few <5 /hpf Urine Bacteria Few H None Seen /hpf Urine Mucus Few None Seen Urine Yeast (Budding) Few None Seen /hpf Urine Glucose Normal Normal mg/dL Urine Opiates Screen Neg NEGATIVE Urine Fentanyl Screen Neg NEGATIVE Urine Barbiturates Screen Neg NEGATIVE Urine Phencyclidine Screen Neg NEGATIVE Urine Amphetamines Screen Neg NEGATIVE Urine Benzodiazepines Screen Neg NEGATIVE Urine Cocaine Screen Neg NEGATIVE Urine Cannabinoids Screen Neg NEGATIVE White Blood Count 14.6 H 4.4-10.8 10^3/uL Red Blood Count 4.26 4.0-5.20 10^6/uL Hemoglobin 10.7 L 12.2-16.2 g/dL Hematocrit 34.7 L 36.0-46.0 % Mean Corpuscular Volume 81.3 80.0-100.0 fL Mean Corpuscular Hemoglobin 25.1 L 28.0-32.0 pg Mean Corpuscular Hemoglobin Concent 30.9 L 32.0-36.0 g/dL Red Cell Distribution Width 16.4 H 11.8-14.3 % Platelet Count 207 140-450 10^3/uL Mean Platelet Volume 7.6 6.9-10.8 fL Neutrophils (%) (Auto) 89.0 H 37.0-80.0 % Lymphocytes (%) (Auto) 4.2 L 10.0-50.0 % Monocytes (%) (Auto) 6.3 0.0-12.0 % Eosinophils (%) (Auto) 0.4 0.0-7.0 % Basophils (%) (Auto) 0.1 0.0-2.0 % Neutrophils # (Auto) 13.0 H 1.6-8.6 10 ^3/uL Lymphocytes # (Auto) 0.6 0.4-5.4 10 ^3/uL Monocytes # (Auto) 0.9 0-1.3 10 ^3/uL Eosinophils # (Auto) 0.1 0-0.8 10 ^3/uL Basophils # (Auto) 0 0-0.2 10 ^3/uL Nucleated Red Blood Cells 0.1 % Prothrombin Time 11.6 9.3-11.8 sec Prothrombin Time INR 1.11 0.9-1.15 Activated Partial Thromboplast Time 29.4 24.5-34.5 SEC Sodium Level 139 136-145 mmol/L Potassium Level 4.7 3.5-5.1 mmol/L Chloride Level 106 98-107 mmol/L Carbon Dioxide Level 23 20-31 mmol/L Anion Gap 10 5-15 Blood Urea Nitrogen 75 H 9-23 mg/dL Creatinine 2.22 H 0.550-1.02 mg/dL Glomerular Filtration Rate Calc 24 >90 mL/min BUN/Creatinine Ratio 33.8 H 10.0-20.0 Serum Glucose 165 H 74-106 mg/dL Calcium Level 9.1 8.7-10.4 mg/dL Magnesium Level 2.0 1.6-2.6 mg/dL Total Bilirubin 0.3 0.2-1.0 mg/dL Aspartate Amino Transferase (AST) 46 H 13-40 U/L Alanine Aminotransferase (ALT) 103 H 7-40 U/L Alkaline Phosphatase 249 H 46-116 U/L Ammonia < 10 L 11-32 umol/L Total Protein 5.7 5.7-8.2 g/dL Albumin 3.6 3.2-4.8 g/dL SEPSIS Sepsis Screen Date sepsis recognized/suspect: Jun 05, 2025 Time Sepsis recognized/suspect: 2013 Recent Procedure: No On Antibiotic Therapy: Yes Respiratory Rate >20: No Heart Rate >90: No Temp<36 C (96.8 F) or >38.3 C: No SBP <90 or MAP <65 mmHG: No New Acute Mental Status Change: Yes Is the patient on CPAP, BIPAP,: No Physician Orders [employer] (06/05/25 ) Chest Portable (06/05/25 15:28) Blood Culture (06/05/25 15:34) Accucheck (06/05/25 17:02) Lactic Acid W/ Reflex Order (06/05/25 20:00) Notify Md If Map <65 Or Bp<90 (06/05/25 17:02) If Map<65 Start Vasopressor (06/05/25 17:02) Sepsis Reassesment After Fluid (06/05/25 18:02) Ceftriaxone 1gm/50ml D5w (Rocephin) (06/06/25 09:00) Azithromycin 500mg/ 250ml (Zithromax 50 (06/06/25 10:00) Albuterol Medneb (Ventolin Medneb) (06/05/25 17:30) Aspirin Tablet (06/06/25 10:00) Atorvastatin (Lipitor) (06/05/25 22:00) Digoxin Tablet (Lanoxin Tablet) (06/06/25 10:00) Empagliflozin (Jardiance) (06/06/25 10:00) Furosemide Tablet (Lasix Tablet) (06/06/25 10:00) Levothyroxine Tablet (Synthroid Tablet) (06/06/25 06:00) Pantoprazole Tablet (Protonix Tablet) (06/06/25 07:00) Spironolactone (Aldactone) (06/06/25 10:00) Nifedipine Er (Procardia Xl (Time-Releas (06/06/25 10:00) Basic Metabolic Panel (06/06/25 04:00) Glucose Blood (Accu-Chek Comfort Curve T (06/05/25 22:00) Insulin R (Human) (Insulin R) (06/05/25 22:00) Dextrose 50% Syringe (06/05/25 17:30) Admit (06/05/25 17:23) Renal Standard(2gna,3gk,Lopho) (06/05/25 Dinner) Ondansetron Hcl (Zofran) (06/05/25 17:30) Complete Blood Count (06/06/25 04:00) Condition: Stable (06/05/25 17:23) Acetaminophen Tablet (Tylenol Tablet) (06/05/25 17:30) Bedrest With Bathroom Privileg (06/05/25 17:23) Digoxin (Lanoxin) (06/06/25 04:00) Vital Signs Date Time Temp Pulse Resp B/P (MAP) Pulse Ox O2 Delivery O2 Flow Rate FiO2 06/05/25 19:33 102 12 97 Nasal Cannula* 2 28 06/05/25 19:33 97.8 102 12 128/77 (94) 97 97.8 06/05/25 16:00 105 06/05/25 15:50 97.8 104 16 119/62 (81) 95 97.8 06/05/25 15:25 99.1 105 22 99/52 (68) 94 99.1 06/05/25 15:20 105 Laboratory Tests Test 06/05/25 15:55 06/05/25 18:30 Lactic Acid Level 1.5 mmol/L (0.4-2.0) 1.3 mmol/L (0.4-2.0) White Blood Count 14.6 10^3/uL (4.4-10.8) H Medications Medications Dose Ordered Sig/Audrey Route Start Time Stop Time Status Last Admin Dose Admin Piperacillin Sod/ Tazobactam Sod 100 ml @ 100 mls/hr ONCE ONCE IV 06/05/25 17:15 06/05/25 18:14 DC 06/05/25 18:28 100 MLS/HR Sodium Chloride 1,000 ml @ 1,000 mls/hr Q1H ONCE IV 06/05/25 15:30 06/05/25 16:29 DC 06/05/25 15:45 1,000 MLS/HR Assessment/Plan Assessment/Plan Assessment Metabolic encephalopathy Community-acquired pneumonia Urinary tract infection Leukocytosis Acute on chronic renal failure Plan Admit the patient to [facility] to the hospitalist Rocephin/azithromycin Resume home medications Continue treatment per orders. Plan discussed with: Son My Orders Orders - PINA REED AGACNP Procedure Category Date Status Time Ceftriaxone 1gm/50ml PHA 06/06/25 In Process D5w (Rocephin) 09:00 Azithromycin 500mg/ PHA 06/06/25 In Process 250ml (Zithromax 50 10:00 Albuterol Medneb PHA 06/05/25 In Process (Ventolin Medneb) 17:30 Aspirin Tablet PHA 06/06/25 In Process 10:00 Atorvastatin (Lipitor) PHA 06/05/25 In Process 22:00 Digoxin Tablet PHA 06/06/25 In Process (Lanoxin Tablet) 10:00 Empagliflozin PHA 06/06/25 In Process (Jardiance) 10:00 Furosemide Tablet PHA 06/06/25 In Process (Lasix Tablet) 10:00 Levothyroxine Tablet PHA 06/06/25 In Process (Synthroid Tablet) 06:00 Pantoprazole Tablet PHA 06/06/25 In Process (Protonix Tablet) 07:00 Spironolactone PHA 06/06/25 In Process (Aldactone) 10:00 Nifedipine Er PHA 06/06/25 In Process (Procardia Xl 10:00 Basic Metabolic Panel LAB 06/06/25 Verified 04:00 Glucose Blood PHA 06/05/25 In Process (Accu-Chek Comfort 22:00 Insulin R (Human) PHA 06/05/25 In Process (Insulin R) 22:00 Dextrose 50% Syringe PHA 06/05/25 In Process 17:30 Admit ADMIT 06/05/25 Transmitted 17:23 Renal DIET 06/05/25 Transmitted Standard(2gna,3gk,Lopho) Dinner Ondansetron Hcl PHA 06/05/25 In Process (Zofran) 17:30 Complete Blood Count LAB 06/06/25 Verified 04:00 Condition: Stable ANDREW 06/05/25 In Process 17:23 Acetaminophen Tablet PHA 06/05/25 In Process (Tylenol Tablet) 17:30 Bedrest With Bathroom ANDREW 06/05/25 In Process Privileg 17:23 Digoxin (Lanoxin) LAB 06/06/25 Verified 04:00 Date of Service: Jun 05, 2025 Billing Provider: PINA REED Common Visit Codes: [id number] INP/OBS CARE (HIGH) PINA REED Jun 05, 2025 20:30
[2025-06-05] MEDS: ACCU-CHEK COMFORT CURVE STRIP VI SCH (22:00)
[2025-06-05] MEDS: ATORVASTATIN 20 MG TAB PO SCH (22:46)
[2025-06-05] MEDS: InsuLIN REG 1unit/0.01ml Soln (100units/ml) SC SCH (22:54)
[2025-06-05 23:02] VITALS: BP 106/45; PULSE 101; RESP 19; TEMP 98.7; TEMP 99.8; O2SAT 100
[2025-06-06] VITALS (11 sets, daily range): BP systolic 105–141; BP diastolic 45–70; PULSE 87–100; RESP 14–19; TEMP 97.5–98.6; O2SAT 93–99
[2025-06-06] MEDS: LEVOTHYROXINE SODIUM 100 MCG TAB PO SCH (05:54)
[2025-06-06] MEDS: PANTOPRAZOLE 40 MG TAB PO SCH (06:15)
[2025-06-06] MEDS ORDERED: LORA-655 PO (06:48)
[2025-06-06] MEDS ORDERED: LEVO200T7 PO (06:48)
[2025-06-06] MEDS ORDERED: VERI5TAB PO (06:48)
[2025-06-06 07:08] LABS: Hemoglobin 9.7 g/dL (12.2-16.2)
[2025-06-06 07:11] LABS: Hematocrit 31.2 % (36.0-46.0); Mean Corpuscular Hemoglobin 25.7 pg (28.0-32.0); Mean Corpuscular Volume 82.6 fL (80.0-100.0); Nucleated Red Blood Cells % 0.1 %
[2025-06-06 07:12] LABS: Potassium 4.6 mmol/L (3.5-5.1); Sodium 140 mmol/L (136-145)
[2025-06-06 07:13] LABS: Anion Gap 9 (5-15)
[2025-06-06 07:14] LABS: Calcium 10.0 mg/dL (8.7-10.4); Carbon Dioxide 20 mmol/L (20-31); Chloride 111 mmol/L (98-107)
[2025-06-06 07:19] LABS: BUN/Creatinine Ratio 34.8 (10.0-20.0)
[2025-06-06 07:24] LABS: Blood Urea Nitrogen 57 mg/dL (9-23); Glucose 113 mg/dL (74-106)
[2025-06-06] MEDS: EMPAGLIFLOZIN 10 MG TAB PO SCH (09:02)
[2025-06-06] MEDS: DIGOXIN 0.125 MG TAB PO SCH (09:02)
[2025-06-06] MEDS: SPIRONOLACTONE 25 MG TAB PO SCH (09:03)
[2025-06-06] MEDS: FUROSEMIDE 40 MG TAB PO SCH (09:04)
[2025-06-06] MEDS: cefTRIAXone 1GM/50ML D5W 50 ML IV SCH (09:04)
[2025-06-06] MEDS: AZITHROMYCIN 500MG/ 250ML 250 ML IV SCH (10:20)
--- NOTE | 2025-06-06 14:17 | DVHPN2 ---
Progress Note - Dictate Date Seen: Jun 06, 2025 Medical Necessity Reason Pt with a Central, PICC or Fol: No Subjective PT WITH AMS METABOLC ENCEPHALOPATHY DIARRHEA HYPOTENSION HYPOVOLEMIA SECONDARY TO DIARRHEA AND POOR PO INTAKE LEUKOCYTOSIS ACUTE RENAL FAILURE CHRONIC RENAL DISEASE PMH: LE DOPPLER CONSISTENT WITH ADVANCE PAD HX OF DM VASCULOPATHY NEUROPATHY HX OF RENAL CELL CARCINOMA WITH LEFT PARTIAL NEPHRECTOMY BUT RENAL US SHOWS RIGHT kidney measures 12.7 cm in length. No hydronephrosis. LEFT kidney measures 9.9 cm in length. No hydronephrosis. COPD HX OF TOBACCO USE HTN ORGANIC HD NL EF DIASTOLIC DYSFUNCTIO vital signs Vital Sign Date Time Temp Pulse Resp B/P (MAP) Pulse Ox O2 Delivery O2 Flow Rate FiO2 06/06/25 12:53 97.5 90 18 141/57 (85) 98 97.5 06/06/25 10:00 Nasal Cannula* 2 28 Total Intake and Output 06/05/25 06/05/25 06/06/25 15:00 23:00 07:00 Intake Total 1000 ml 75 ml Output Total 1025 ml Balance 1000 ml -950 ml medications Current Medications Medications Dose Ordered Sig/Audrey Route Start Time Stop Time Status Last Admin Dose Admin Ceftriaxone Sodium 50 ml @ 100 mls/hr DAILY@09 IV 06/06/25 09:00 06/06/25 09:04 100 MLS/HR Azithromycin 250 ml @ 125 mls/hr DAILY IV 06/06/25 10:00 06/06/25 10:20 125 MLS/HR Albuterol 2.5 mg Q6HPRN PRN NEB 06/05/25 17:30 Aspirin 81 mg DAILY PO 06/06/25 10:00 06/06/25 09:03 81 MG Atorvastatin Calcium 40 mg HS PO 06/05/25 22:00 06/05/25 22:46 40 MG Digoxin 0.125 mg DAILY PO 06/06/25 10:00 06/06/25 09:02 0.125 MG Empaglifozin 10 mg DAILY PO 06/06/25 10:00 06/06/25 09:02 10 MG Furosemide 40 mg DAILY PO 06/06/25 10:00 06/06/25 09:04 40 MG Levothyroxine Sodium 100 mcg QAM@0600 PO 06/06/25 06:00 06/06/25 05:54 100 MCG Pantoprazole Sodium 40 mg DAILY@0700 PO 06/06/25 07:00 06/06/25 06:15 40 MG Spironolactone 25 mg DAILY PO 06/06/25 10:00 06/06/25 09:03 25 MG Nifedipine 30 mg DAILY PO 06/06/25 10:00 06/06/25 09:03 30 MG Diagnostic Test (Pha) 1 strip ACHS 06/05/25 22:00 06/06/25 11:52 1 STRIP Insulin Human Regular ACHS SC 06/05/25 22:00 06/06/25 11:52 2 UNITS Dextrose 50 ml UD PRN IV 06/05/25 17:30 Ondansetron HCl 4 mg Q4HP PRN IV 06/05/25 17:30 Acetaminophen 650 mg Q6HP PRN PO 06/05/25 17:30 Multi-Ingred Cream/Lotion/Oil/ Oint 1 applic Q6HR TOP 06/06/25 18:00 laboratory and microbiology Laboratory Tests 06/06/25 06:00 Test 06/06/25 06:00 Range/Units Serum Glucose 113 H 74-106 mg/dL Problem List PT WITH AMS METABOLC ENCEPHALOPATHY DIARRHEA HYPOTENSION HYPOVOLEMIA SECONDARY TO DIARRHEA AND POOR PO INTAKE LEUKOCYTOSIS ACUTE RENAL FAILURE CHRONIC RENAL DISEASE PMH: LE DOPPLER CONSISTENT WITH ADVANCE PAD HX OF DM VASCULOPATHY NEUROPATHY HX OF RENAL CELL CARCINOMA WITH LEFT PARTIAL NEPHRECTOMY BUT RENAL US SHOWS RIGHT kidney measures 12.7 cm in length. No hydronephrosis. LEFT kidney measures 9.9 cm in length. No hydronephrosis. COPD HX OF TOBACCO USE HTN ORGANIC HD NL EF DIASTOLIC DYSFUNCTIO Assessment/Plan IV FLUID ABX BLOOD CX Plan discussed with: Patient HUNG IVAN MD Jun 06, 2025 14:17 ZAYRA SARGENT Jun 06, 2025 16:45
[2025-06-06] MEDS: HYDROcodone-ACET 5/325MG TAB PO ONE (14:50)
--- NOTE | 2025-06-06 16:02 | DVHPNRES ---
Progress Note Date Seen: Jun 06, 2025 Resident Creating Document: ZAYRA SARGENT Medical Necessity Reason Pt with a Central, PICC or Fol: Yes The following are medically ne: [place]anca Catheter Medical Necessity Reason Altered mental status Subjective Review of Systems 65-year-old female presents to the ED with altered mental status and lethargy. The son who is a caregiver reports that he notices his mother was having diarrhea since the last 15 hours, the stool was not blood mixed. After several episodes of diarrhea, the patient started feeling lethargic, usually, patient can sit up at the corner of the bed and feed herself. But following diarrhea, she was lethargic and her level of consciousness was altered, noted by the son and the home health caregiver. Patient could not provide any further history or complaints due to altered mental status and confusion. Medical history: DM, CHF, COPD, hypothyroidism, depression, HLD, renal cell carcinoma Surgical history: Partial left nephrectomy due to RCC Family history: Noncontributory Smoke: The patient was a heavy smoker for several years. Alcohol: Unknown Drugs: Unknown Lives with family The patient was seen and examined at the bedside. Overnight events were reviewed. The patient is still confused; the patient's son stated that she still confused; asked to be seen by Dr. Kidd Objective vital signs Vital Sign Date Time Temp Pulse Resp B/P (MAP) Pulse Ox O2 Delivery O2 Flow Rate FiO2 06/06/25 12:53 97.5 90 18 141/57 (85) 98 97.5 06/06/25 10:00 Nasal Cannula* 2 28 Total Intake and Output 06/05/25 06/05/25 06/06/25 15:00 23:00 07:00 Intake Total 1000 ml 75 ml Output Total 1025 ml Balance 1000 ml -950 ml medications Current Medications Medications Dose Ordered Sig/Audrey Route Start Time Stop Time Status Last Admin Dose Admin Ceftriaxone Sodium 50 ml @ 100 mls/hr DAILY@09 IV 06/06/25 09:00 06/06/25 09:04 100 MLS/HR Azithromycin 250 ml @ 125 mls/hr DAILY IV 06/06/25 10:00 06/06/25 10:20 125 MLS/HR Albuterol 2.5 mg Q6HPRN PRN NEB 06/05/25 17:30 Aspirin 81 mg DAILY PO 06/06/25 10:00 06/06/25 09:03 81 MG Atorvastatin Calcium 40 mg HS PO 06/05/25 22:00 06/05/25 22:46 40 MG Digoxin 0.125 mg DAILY PO 06/06/25 10:00 06/06/25 09:02 0.125 MG Empaglifozin 10 mg DAILY PO 06/06/25 10:00 06/06/25 09:02 10 MG Furosemide 40 mg DAILY PO 06/06/25 10:00 06/06/25 09:04 40 MG Levothyroxine Sodium 100 mcg QAM@0600 PO 06/06/25 06:00 06/06/25 05:54 100 MCG Pantoprazole Sodium 40 mg DAILY@0700 PO 06/06/25 07:00 06/06/25 06:15 40 MG Spironolactone 25 mg DAILY PO 06/06/25 10:00 06/06/25 09:03 25 MG Nifedipine 30 mg DAILY PO 06/06/25 10:00 06/06/25 09:03 30 MG Diagnostic Test (Pha) 1 strip ACHS 06/05/25 22:00 06/06/25 11:52 1 STRIP Insulin Human Regular ACHS SC 06/05/25 22:00 06/06/25 11:52 2 UNITS Dextrose 50 ml UD PRN IV 06/05/25 17:30 Ondansetron HCl 4 mg Q4HP PRN IV 06/05/25 17:30 Acetaminophen 650 mg Q6HP PRN PO 06/05/25 17:30 Multi-Ingred Cream/Lotion/Oil/ Oint 1 applic Q6HR TOP 06/06/25 18:00 Examination Pt is lying on bed General Appearance: Altered, confused HEENT: Atraumatic, Mucous membranes moist/pink Respiratory: Clear to auscultation, Normal air movement, No added sounds Cardiovascular: Regular rate, Normal S1, Normal S2, No murmurs Abdominal/ : Active bowel sounds, Soft, no distention, no tenderness; Salamanca's in place Extremities: Bandage food on the right heel, Skin: reddish rash in the perineal area; past surgical scars Neuro: Normal speech, sensorimotor deficits none; no focal motor deficits Psych/Mental Status: Confused Nurse was there as air hole driller during examination laboratory and microbiology Laboratory Tests 06/06/25 06:00 Test 06/06/25 06:00 Range/Units Serum Glucose 113 H 74-106 mg/dL Microbiology Date/Time Source Procedure Growth Status 06/06/25 06:00 Stool Stool Culture - Preliminary Resulted 06/06/25 06:00 Stool Shiga Toxin I & II - Final Resulted Labs and/or images reviewed: Labs reviewed by me, Image(s) reviewed by me Problem List/Assessment/Plan Problem List/Assessment/Plan # Sepsis due to suspected aspiration pneumonia and UTI # Acute toxic/Metabolic encephalopathy likely due to above #Acute hypoxic respiratory failure due to pneumonia # ? COPD exacerbation # acute Gram-positive/negative bacterial PNA -Ceftriaxone and Azithromycin -Albuterol -pancultures -Chest x-ray bilateral opacities seen with pneumonia -continue oxygen therapy as needed # Acute complicated UTI/ cystitis - evident on urinalysis - ordered urine bacterial culture - currently giving Rocephin # ? Gastroenteritis -stool studies # Diabetes mellitus -Accu-Cheks to ISS # ? PAD Vasculopathy # suspected acute on chronic Diastolic heart failure, normal EF # Hypertension # HLD -Atorvastatin -empagliflozin, spironolactone -furosemide -nifedipine -consult Dr. Kidd -monitor blood pressure # history of renal cell carcinoma with left partial nephrectomy Goals of care discussed with the patient's son for 20 minutes: Full code status Case discussed with Dr. Cortez, patient's son and RN Plan discussed with: Son, Other (RN) Addendum Addendum Addendum I was physically present for the raphael portions of the service provided to patient by THE RESIDENT. I have reviewed the documentation, discussed the case with resident and agree with the resident's documentation except as noted. Also the patient's clinical case was discussed with the patient's nurse. This medical document was created using an electronic medical record system with computerized dictation system. Although this document has been carefully reviewed, there might still be some phonetic and typographical errors. These areas are purely typographical due to imperfections of the software programs, and do not reflect any compromise in the patient's medical care. Late signature. Date of Service: Jun 06, 2025 Billing Provider: NABEEL CORTEZ MD Common Visit Codes: [id number] INP/OBS CARE(HIGH) Secondary Visit Codes: [id number] CARE PLAN 30 MINUTES (20 minutes) ZAYRA SARGENT RESIDENT Jun 06, 2025 16:02 BRIT ULRICH RESIDENT Jun 06, 2025 18:12 NABEEL CORTEZ MD Jun 07, 2025 13:08
[2025-06-06 17:19] LABS: COVID19 ANTIGEN SOFIA FIA NEGATIVE (NEGATIVE)
[2025-06-06] MEDS: ZINC OXIDE 20 % OINT 30GM TOP SCH (17:45)
[2025-06-07] VITALS (9 sets, daily range): BP systolic 110–146; BP diastolic 62–83; PULSE 79–96; RESP 17–20; TEMP 97.5–98.5; O2SAT 96–98
[2025-06-07] MEDS: HYDROcodone-ACET 5/325MG TAB PO PRN (05:47)
[2025-06-07 07:45] LABS: Hematocrit 31.8 % (36.0-46.0); Hemoglobin 9.9 g/dL (12.2-16.2); Mean Corpuscular Hemoglobin 25.2 pg (28.0-32.0); Mean Corpuscular Volume 80.7 fL (80.0-100.0); Nucleated Red Blood Cells % 0.0 %
[2025-06-07 08:05] LABS: Anion Gap 9 (5-15); Carbon Dioxide 24 mmol/L (20-31); Chloride 107 mmol/L (98-107); Potassium 3.8 mmol/L (3.5-5.1); Sodium 140 mmol/L (136-145)
[2025-06-07 08:06] LABS: Calcium 10.3 mg/dL (8.7-10.4)
[2025-06-07 08:11] LABS: BUN/Creatinine Ratio 40.2 (10.0-20.0); Blood Urea Nitrogen 51 mg/dL (9-23); Glucose 79 mg/dL (74-106)
[2025-06-07] MEDS: MORPHINE SULFATE INJ 2 MG/ml SYRG IV PRN (11:54)
--- NOTE | 2025-06-07 14:22 | DVH ---
CT HEAD WITHOUT CONTRAST INDICATION: Altered mental status. Thank You! EXAM DATE: 06/07/2025 01:46 PM COMPARISON: None RADIATION DOSE: CTDIvol: 49.31 mGy, DLP: 855.23 mGy*cm PROCEDURE: CT scans of the head were obtained from the vertex to the skull base. Sagittal and coronal reconstructions were provided. All CT scans at this medical facility are performed using dose modulation techniques as appropriate t o a performed exam including the following: Automated exposure control was utilized; adjustment of th e MA and/or KV according to patient size; and use of iterative reconstruction technique. FINDINGS: There is sulcal and ventricular prominence. The brainshows normal morphology and johnson-whi te matter differentiation, without intracranial hemorrhage, extra-axial fluid collection, mass effect or acute large vessel infarct. The ventricles are normal in size. The basal cisterns are patent. The skull and visible facial bones are intact. The paranasal sinuses, mastoid air cells and middle ear c avities are well-aerated. The soft tissues of the scalp are unremarkable. IMPRESSION: No acute intracranial abnormality.
--- NOTE | 2025-06-07 15:55 | DVHPNRES ---
Progress Note Date Seen: Jun 07, 2025 Resident Creating Document: ZAYRA SARGENT Medical Necessity Reason Pt with a Central, PICC or Fol: Yes The following are medically ne: [place] Catheter Reason for samayoa catheter: Strict I&O Subjective Review of Systems A 65-year-old female presents to the ED with altered mental status and lethargy. The son who is a caregiver reports that he notices his mother was having diarrhea since the last 15 hours, the stool was not blood mixed. After several episodes of diarrhea, the patient started feeling lethargic, usually, patient can sit up at the corner of the bed and feed herself. But following diarrhea, she was lethargic and her level of consciousness was altered, noted by the son and the home health caregiver. Patient could not provide any further history or complaints due to altered mental status and confusion. Medical history: DM, CHF, COPD, hypothyroidism, depression, HLD, renal cell carcinoma Surgical history: Partial left nephrectomy due to RCC Family history: Noncontributory Smoke: The patient was a heavy smoker for several years. Alcohol: Unknown Drugs: Unknown Lives with family 06/07 interval events: The patient was seen and examined at the bedside. Overnight events were reviewed. The patient's confusion was improved since yesterday. She was experiencing pain on both of her knees, rating 8/10. The son was concerned about abdominal distention, which started 5 days ago. She had pain in the flank region. She denies any shortness of breath, nausea, vomiting or any other complaints at this time. Head CT showed no acute changes this time. Objective vital signs Vital Sign Date Time Temp Pulse Resp B/P (MAP) Pulse Ox O2 Delivery O2 Flow Rate FiO2 06/07/25 13:00 98.2 87 20 115/74 (88) 97 98.2 06/07/25 07:15 Nasal Cannula* 2 28 Total Intake and Output 06/06/25 06/06/25 06/07/25 15:00 23:00 07:00 Intake Total 50 ml 620 ml 150 ml Output Total 1300 ml 1000 ml Balance 50 ml -680 ml -850 ml medications Current Medications Medications Dose Ordered Sig/Audrey Route Start Time Stop Time Status Last Admin Dose Admin Ceftriaxone Sodium 50 ml @ 100 mls/hr DAILY@09 IV 06/06/25 09:00 06/07/25 09:20 100 MLS/HR Azithromycin 250 ml @ 125 mls/hr DAILY IV 06/06/25 10:00 06/07/25 09:58 125 MLS/HR Albuterol 2.5 mg Q6HPRN PRN NEB 06/05/25 17:30 Aspirin 81 mg DAILY PO 06/06/25 10:00 06/07/25 09:20 81 MG Atorvastatin Calcium 40 mg HS PO 06/05/25 22:00 06/06/25 21:58 40 MG Digoxin 0.125 mg DAILY PO 06/06/25 10:00 06/07/25 09:21 0.125 MG Empaglifozin 10 mg DAILY PO 06/06/25 10:00 06/07/25 09:21 10 MG Furosemide 40 mg DAILY PO 06/06/25 10:00 06/07/25 09:21 40 MG Levothyroxine Sodium 100 mcg QAM@0600 PO 06/06/25 06:00 06/07/25 05:40 100 MCG Pantoprazole Sodium 40 mg DAILY@0700 PO 06/06/25 07:00 06/07/25 05:40 40 MG Spironolactone 25 mg DAILY PO 06/06/25 10:00 06/07/25 09:20 25 MG Nifedipine 30 mg DAILY PO 06/06/25 10:00 06/07/25 09:22 30 MG Diagnostic Test (Pha) 1 strip ACHS 06/05/25 22:00 06/07/25 11:29 1 STRIP Insulin Human Regular ACHS SC 06/05/25 22:00 06/07/25 11:52 3 UNITS Dextrose 50 ml UD PRN IV 06/05/25 17:30 Ondansetron HCl 4 mg Q4HP PRN IV 06/05/25 17:30 Acetaminophen 650 mg Q6HP PRN PO 06/05/25 17:30 Multi-Ingred Cream/Lotion/Oil/ Oint 1 applic Q6HR TOP 06/06/25 18:00 06/07/25 12:11 1 APPLIC Acetaminophen/ Hydrocodone Bitart 1 tab Q6HPRN PRN PO 06/07/25 00:30 06/07/25 05:47 1 TAB Morphine Sulfate 2 mg Q6HPRN PRN IV 06/07/25 10:30 06/07/25 11:54 2 MG Enoxaparin Sodium 40 mg DAILY SC 06/08/25 10:00 Examination General Appearance: Altered, confused HEENT: Atraumatic, Mucous membranes moist/pink Respiratory: Clear to auscultation, Normal air movement, No added sounds Cardiovascular: Regular rate, Normal S1, Normal S2, No murmurs Abdominal/ : Active bowel sounds, Soft, no distention, no tenderness; F oley's in place Extremities: Bandage on the right heel, Skin: reddish rash in the perineal area Neuro: Normal speech, sensorimotor deficits none; no focal motor deficits Psych/Mental Status: Confused Nurse was there as correctional sergeant during examination laboratory and microbiology Laboratory Tests 06/07/25 05:53 Test 06/07/25 05:53 Range/Units Serum Glucose 79 74-106 mg/dL Microbiology Date/Time Source Procedure Growth Status 06/06/25 16:38 Nose MRSA Screen - Final Complete 06/06/25 16:00 Voided Urine Urine Culture - Preliminary Resulted 06/06/25 06:00 Stool Stool Culture - Preliminary Resulted 06/06/25 06:00 Stool Shiga Toxin I & II - Final Resulted 06/05/25 15:55 Blood Blood Culture - Preliminary NO GROWTH AFTER 24 HOURS OF INCUBATION. Resulted Labs and/or images reviewed: Labs reviewed by me, Image(s) reviewed by me (RN) Problem List/Assessment/Plan Problem List/Assessment/Plan # Sepsis due to suspected aspiration pneumonia and UTI # Acute toxic/Metabolic encephalopathy likely due to above #Acute hypoxic respiratory failure due to pneumonia # ? COPD exacerbation # acute Gram-positive/negative bacterial PNA -head CT showed no acute changes -Ceftriaxone and Azithromycin -Albuterol -pancultures, preliminary negative -Chest x-ray bilateral opacities seen with pneumonia -continue oxygen therapy as needed # Acute complicated UTI/ cystitis - evident on urinalysis - ordered urine bacterial culture - currently giving Rocephin # ? Gastroenteritis -stool studies # Diabetes mellitus -Accu-Cheks to ISS # exacerbation of chronic knee pain Bilateral knee x-rays ordered # abdominal distension? X-ray KUB # ? PAD Vasculopathy # suspected acute on chronic Diastolic heart failure, normal EF # Hypertension # HLD -Atorvastatin -empagliflozin, spironolactone -furosemide -nifedipine -consult Dr. Kidd -monitor blood pressure # history of renal cell carcinoma with left partial nephrectomy Case discussed with Dr. Cortez, patient's son and RN Plan discussed with: Son, Other (RN) My Orders My Orders Orders - ZAYRA SARGENT RESIDENT Procedure Category Date Status Time Kub Abdomen Single XY 06/07/25 Taken View 14:20 L Knee 2v Xray XY 06/07/25 Logged 14:20 R Knee 2v Xray XY 06/07/25 Logged 14:20 Dietary Evaluation Review Comments: 1) Consider Liberalizing to NCS + 2gm Na diet 2) Glucerna 240 ml BID if PO intake < 50% 3) Deuce 1 pk daily 4) Refer Physical Education Teacher for diabetes education Expected Outcomes/Goals: To meet >75% estimated needs Wound to improve Fu 3-5 days Addendum Addendum Addendum I was physically present for the raphael portions of the service provided to patient by THE RESIDENT. I have reviewed the documentation, discussed the case with resident and agree with the resident's documentation except as noted. Also the patient's clinical case was discussed with the patient's nurse. This medical document was created using an electronic medical record system with computerized dictation system. Although this document has been carefully reviewed, there might still be some phonetic and typographical errors. These areas are purely typographical due to imperfections of the software programs, and do not reflect any compromise in the patient's medical care. Late signature. Date of Service: Jun 07, 2025 Billing Provider: NABEEL CORTEZ MD Common Visit Codes: [id number] INP/OBS CARE(HIGH) ZAYRA SARGENT RESIDENT Jun 07, 2025 15:55 BRIT ULRICH RESIDENT Jun 07, 2025 16:31 NABEEL CORTEZ MD Jun 08, 2025 14:27
[2025-06-07] MEDS ORDERED: LORazepam 0.5 MG TAB PO PRN (16:45)
[2025-06-07 17:23] LABS: Chloride 104 mmol/L (98-107); Potassium 3.8 mmol/L (3.5-5.1); Sodium 139 mmol/L (136-145)
[2025-06-07 17:24] LABS: Anion Gap 8 (5-15); Carbon Dioxide 27 mmol/L (20-31)
[2025-06-07 17:29] LABS: BUN/Creatinine Ratio 41.7 (10.0-20.0); Hematocrit 33.8 % (36.0-46.0); Hemoglobin 10.7 g/dL (12.2-16.2); Mean Corpuscular Hemoglobin 25.6 pg (28.0-32.0); Mean Corpuscular Volume 80.8 fL (80.0-100.0); Nucleated Red Blood Cells % 0.0 %
[2025-06-07] MEDS: ENOXAPARIN SOD 40 MG/0.4 ML SYRINGE SC ONE (17:47)
[2025-06-07 18:03] LABS: Blood Urea Nitrogen 48 mg/dL (9-23); Calcium 10.7 mg/dL (8.7-10.4); Glucose 120 mg/dL (74-106)
--- NOTE | 2025-06-07 18:39 | DVH ---
Date: 06/07/2025 03:17 PM Examination: XY KUB ABDOMEN SINGLE VIEW History: Abdominal pain Comparison: None TECHNIQUE: Frontal views of the abdomen was obtained. FINDINGS: Bowel gas pattern is unremarkable. Mildly distended small bowel with gas if small bowel obstruction is clinically of concern recommend s mall-bowel follow-through. The lung bases are unremarkable. No acute osseous abnormality identified. IMPRESSION: 1. Distended small bowel worrisome for small bowel obstruction. 2. Consider small-bowel follow-through. HS:Y
[2025-06-08] VITALS (9 sets, daily range): BP systolic 138–151; BP diastolic 57–88; PULSE 88–102; RESP 17–20; TEMP 97.4–98.6; O2SAT 90–98
[2025-06-08 05:24] LABS: Urine Budding Yeast MANY /hpf (None Seen); Urine Protein, UAD 1+ (Negative)
[2025-06-08] MEDS: ENOXAPARIN SOD 40 MG/0.4 ML SYRINGE SC SCH (08:54)
--- NOTE | 2025-06-08 13:29 | DVH ---
CT CT AB PEL WO CON-NO ORAL OR IV INDICATION: abdominal pain, possible sbo EXAM DATE: 06/08/2025 11:05 AM COMPARISON: CT ANGIO ABDOMINAL WITH RUN on DOS: 08/21/24 RADIATION DOSE: CTDIvol: 20.18 mGy, DLP: 1132.17 mGy*cm PROCEDURE: Helical CT images were obtained of the abdomen and pelvis without IV contrast Sagittal and coronal reconstructions are provided. ORAL CONTRAST: None. ADDITIONAL IMAGES / REFORMATS: None All C T scans at this medical facility are performed using dose modulation techniques as appropriate to a p erformed exam including the following: Automated exposure control was utilized; adjustment of the MA and/or KV according to patient size; and use of iterative reconstruction technique. FINDINGS: LUNG BASE: Bibasilar centrilobular nodularity could be from aspiration. LIVER: Normal. GALLBLADDER AND BILIARY TREE: Norah clips are seen. No intra- or extrahepatic biliary ductal dilation . PANCREAS: Normal. SPLEEN: Normal. BOWEL: Moderate impacted feces in the rectum with mild perirectal fat stranding could be proctitis. N ormal appendix. ADRENALS: Normal. KIDNEYS AND URETER: Mild right hydronephrosis. No kidney stones are seen. BLADDER: [place]anca. REPRODUCTIVE ORGANS: Normal. LYMPH NODES:No lymphadenopathy. PERITONEUM: No ascites or free air. No other fluid collection. VESSELS: Scattered atherosclerotic calcifications are noted. RETROPERITONEUM: Normal. ABDOMINAL WALL: Normal. BONES: Scattered osseous degenerative changes are noted. IMPRESSION: Moderate impacted feces in the rectum with mild perirectal fat stranding could be proctitis. No dilat ed small bowel to suggest for SBO.
--- NOTE | 2025-06-08 16:52 | DVHPNRES ---
Progress Note Date Seen: Jun 08, 2025 Resident Creating Document: ANAT PEDERSEN Medical Necessity Reason Pt with a Central, PICC or Fol: Yes The following are medically ne: Samayoa Catheter Reason for samayoa catheter: Strict I&O Subjective Review of Systems A 65-year-old female presents to the ED with altered mental status and lethargy. The son who is a caregiver reports that he notices his mother was having diarrhea since the last 15 hours, the stool was not blood mixed. After several episodes of diarrhea, the patient started feeling lethargic, usually, patient can sit up at the corner of the bed and feed herself. But following diarrhea, she was lethargic and her level of consciousness was altered, noted by the son and the home health caregiver. Patient could not provide any further history or complaints due to altered mental status and confusion. Medical history: DM, CHF, COPD, hypothyroidism, depression, HLD, renal cell carcinoma Surgical history: Partial left nephrectomy due to RCC Family history: Noncontributory Smoke: The patient was a heavy smoker for several years. Alcohol: Unknown Drugs: Unknown Lives with family The patient was seen and examined at the bedside. Overnight events were reviewed. The patient has improved slightly than yesterday. She is slightly disoriented and seems to be having delusions; believes the patient next to her in the same room, does not like her and took away her milk. She complains of diarrhea as well but upon questioning the nurse she has had only 1 episode and was complaining of pain when they were wiping her after changing her diaper yesterday. Objective vital signs Vital Sign Date Time Temp Pulse Resp B/P (MAP) Pulse Ox O2 Delivery O2 Flow Rate FiO2 06/08/25 16:46 97.9 91 19 149/88 (108) 98 97.9 06/08/25 08:00 Nasal Cannula* 2 28 Total Intake and Output 06/07/25 06/07/25 06/08/25 15:00 23:00 07:00 Intake Total 300 ml 60 ml 100 ml Output Total 500 ml 500 ml Balance 300 ml -440 ml -400 ml medications Current Medications Medications Dose Ordered Sig/Audrey Route Start Time Stop Time Status Last Admin Dose Admin Ceftriaxone Sodium 50 ml @ 100 mls/hr DAILY@09 IV 06/06/25 09:00 06/08/25 08:52 100 MLS/HR Azithromycin 250 ml @ 125 mls/hr DAILY IV 06/06/25 10:00 06/08/25 13:17 125 MLS/HR Albuterol 2.5 mg Q6HPRN PRN NEB 06/05/25 17:30 Aspirin 81 mg DAILY PO 06/06/25 10:00 06/08/25 08:53 81 MG Atorvastatin Calcium 40 mg HS PO 06/05/25 22:00 06/06/25 21:58 40 MG Digoxin 0.125 mg DAILY PO 06/06/25 10:00 06/08/25 08:52 0.125 MG Empaglifozin 10 mg DAILY PO 06/06/25 10:00 06/08/25 08:52 10 MG Furosemide 40 mg DAILY PO 06/06/25 10:00 06/08/25 08:53 40 MG Levothyroxine Sodium 100 mcg QAM@0600 PO 06/06/25 06:00 06/08/25 06:00 100 MCG Pantoprazole Sodium 40 mg DAILY@0700 PO 06/06/25 07:00 06/08/25 06:00 40 MG Spironolactone 25 mg DAILY PO 06/06/25 10:00 06/08/25 08:52 25 MG Nifedipine 30 mg DAILY PO 06/06/25 10:00 06/08/25 08:53 30 MG Diagnostic Test (Pha) 1 strip ACHS 06/05/25 22:00 06/08/25 11:36 1 STRIP Insulin Human Regular ACHS SC 06/05/25 22:00 06/08/25 12:01 3 UNITS Dextrose 50 ml UD PRN IV 06/05/25 17:30 Ondansetron HCl 4 mg Q4HP PRN IV 06/05/25 17:30 Acetaminophen 650 mg Q6HP PRN PO 06/05/25 17:30 Multi-Ingred Cream/Lotion/Oil/ Oint 1 applic Q6HR TOP 06/06/25 18:00 06/08/25 12:13 1 APPLIC Acetaminophen/ Hydrocodone Bitart 1 tab Q6HPRN PRN PO 06/07/25 00:30 06/08/25 12:04 1 TAB Morphine Sulfate 2 mg Q6HPRN PRN IV 06/07/25 10:30 06/07/25 21:32 2 MG Enoxaparin Sodium 40 mg DAILY SC 06/08/25 10:00 06/08/25 08:54 40 MG Lorazepam 0.5 mg Q12HP PRN PO 06/07/25 16:45 Examination General Appearance: Altered, patient is confused HEENT: Atraumatic, Mucous membranes moist/pink Respiratory: Clear to auscultation, Normal air movement, No added sounds Cardiovascular: Regular rate, Normal S1, Normal S2, No murmurs Abdominal/ : Active bowel sounds, Soft, no distention, tenderness in epigastric region, Samayoa's in place Extremities: Bandage on the right side of the feet Skin: reddish rash in the perineal area Neuro: Normal speech, sensorimotor deficits none; no focal motor deficits Psych/Mental Status: Confused Nurse was there as petal cutter during examination laboratory and microbiology Laboratory Tests 06/07/25 16:53 Test 06/07/25 16:53 Range/Units Serum Glucose 120 H 74-106 mg/dL Microbiology Date/Time Source Procedure Growth Status 06/06/25 16:38 Nose MRSA Screen - Final Complete 06/06/25 16:00 Voided Urine Urine Culture - Preliminary Presumptive Marj albicans Resulted 06/06/25 06:00 Stool Stool Culture - Final Complete 06/06/25 06:00 Stool Shiga Toxin I & II - Final Complete 06/05/25 15:55 Blood Blood Culture - Preliminary NO GROWTH AFTER 72 HOURS OF INCUBATION. Resulted Labs and/or images reviewed: Labs reviewed by me, Image(s) reviewed by me Problem List/Assessment/Plan Problem List/Assessment/Plan # Sepsis due to suspected aspiration pneumonia and UTI # Acute toxic/Metabolic encephalopathy likely due to above #Acute hypoxic respiratory failure due to pneumonia # ? COPD exacerbation # acute Gram-positive/negative bacterial PNA -head CT showed no acute changes -Ceftriaxone and Azithromycin -Albuterol -yoder cultures, preliminary negative -Chest x-ray bilateral opacities seen with pneumonia -continue oxygen therapy as needed # Acute complicated UTI/ cystitis - evident on urinalysis - ordered urine bacterial culture - currently giving Rocephin # ? Gastroenteritis -stool culture, negative # Diabetes mellitus - Accu-Cheks to ISS # exacerbation of chronic knee pain - Bilateral knee x-rays ordered # Abdominal distension? X-ray KUB- Distended small bowel worrisome for small bowel obstruction. Consider small-bowel follow-through. - CT abdomen pelvis without contrast: Moderate impacted feces in the rectum with mild perirectal fat stranding could be proctitis. No dilated small bowel to suggest for SBO. - Per rectal disimpaction tried, patient in pain and didnt allow - Patient kept NPO - Small-bowel follow-through ordered, pending # ? PAD Vasculopathy # suspected acute on chronic Diastolic heart failure, normal EF # Hypertension # HLD -Atorvastatin -empagliflozin, spironolactone -furosemide -nifedipine -consult Dr. Kidd -monitor blood pressure # history of renal cell carcinoma with left partial nephrectomy GI prophylaxis: Protonix 40 mg p.o. DVT prophylaxis: Lovenox 40 mg sc Diet: Diabetic Case discussed with Dr. Cortez Plan discussed with: Son, Other (rn) My Orders My Orders Orders - ANAT PEDERSEN RESIDENT Procedure Category Date Status Time Basic Metabolic Panel LAB 06/09/25 Verified 04:00 Complete Blood Count LAB 06/09/25 Verified 04:00 Dietary Evaluation Review Comments: 1) Consider Liberalizing to NCS + 2gm Na diet 2) Glucerna 240 ml BID if PO intake < 50% 3) Deuce 1 pk daily 4) Refer Tax Revenue Officer for diabetes education Expected Outcomes/Goals: To meet >75% estimated needs Wound to improve Fu 3-5 days Addendum Addendum Addendum I was physically present for the raphael portions of the service provided to patient by THE RESIDENT. I have reviewed the documentation, discussed the case with resident and agree with the resident's documentation except as noted. Also the patient's clinical case was discussed with the patient's nurse. This medical document was created using an electronic medical record system with computerized dictation system. Although this document has been carefully reviewed, there might still be some phonetic and typographical errors. These areas are purely typographical due to imperfections of the software programs, and do not reflect any compromise in the patient's medical care. Late signature. Date of Service: Jun 08, 2025 Billing Provider: NABEEL CORTEZ MD Common Visit Codes: [id number] INP/OBS CARE(HIGH) ANAT PEDERSEN Jun 08, 2025 16:52 NABEEL CORTEZ MD Jun 09, 2025 09:53
[2025-06-09] VITALS (9 sets, daily range): BP systolic 117–158; BP diastolic 74–91; PULSE 85–97; RESP 18–20; TEMP 97.2–98.2; O2SAT 96–99
[2025-06-09 08:11] LABS: Chloride 104 mmol/L (98-107); Sodium 142 mmol/L (136-145)
[2025-06-09 08:12] LABS: Anion Gap 12 (5-15); Carbon Dioxide 26 mmol/L (20-31)
[2025-06-09 08:18] LABS: BUN/Creatinine Ratio 41.9 (10.0-20.0); Glucose 100 mg/dL (74-106)
[2025-06-09 08:23] LABS: Blood Urea Nitrogen 39 mg/dL (9-23); Calcium 10.6 mg/dL (8.7-10.4); Potassium 3.5 mmol/L (3.5-5.1)
[2025-06-09 08:25] LABS: Hematocrit 35.3 % (36.0-46.0); Hemoglobin 11.0 g/dL (12.2-16.2); Mean Corpuscular Hemoglobin 25.5 pg (28.0-32.0); Mean Corpuscular Volume 81.9 fL (80.0-100.0); Nucleated Red Blood Cells % 0.1 %
[2025-06-09] MEDS: FLUCONAZOLE 200MG/100ML 100 ML IV SCH (11:41)
[2025-06-09] MEDS ORDERED: GASTROGRAFIN 120 ML SOL ONE (14:34)
--- NOTE | 2025-06-09 15:50 | DVHPNRES ---
Progress Note Date Seen: Jun 09, 2025 Resident Creating Document: ZAYRA SARGENT Medical Necessity Reason Pt with a Central, PICC or Fol: Yes The following are medically ne: Samayoa Catheter Reason for samayoa catheter: Strict I&O Subjective Review of Systems A 65-year-old female presents to the ED with altered mental status and lethargy. The son who is a caregiver reports that he notices his mother was having diarrhea since the last 15 hours, the stool was not blood mixed. After several episodes of diarrhea, the patient started feeling lethargic, usually, patient can sit up at the corner of the bed and feed herself. But following diarrhea, she was lethargic and her level of consciousness was altered, noted by the son and the home health caregiver. Patient could not provide any further history or complaints due to altered mental status and confusion. Medical history: DM, CHF, COPD, hypothyroidism, depression, HLD, renal cell carcinoma Surgical history: Partial left nephrectomy due to RCC Family history: Noncontributory Smoke: The patient was a heavy smoker for several years. Alcohol: Unknown Drugs: Unknown Lives with family Review of the systems: The patient was seen and examined at the bedside site. Overnight events were reviewed. The patient complains of chest pain 05/29, no relation with breathing. Patient reports having abdominal pain, she was kept NPO for small-bowel series. She wanted to have some food. Rest of the ROS is negative. Objective vital signs Vital Sign Date Time Temp Pulse Resp B/P (MAP) Pulse Ox O2 Delivery O2 Flow Rate FiO2 06/09/25 13:00 97.4 85 18 135/83 (100) 97 97.4 06/09/25 09:50 Nasal Cannula* 2 28 Total Intake and Output 06/08/25 06/08/25 06/09/25 15:00 23:00 07:00 Intake Total 50 ml 710 ml 0 ml Output Total 1700 ml 650 ml Balance 50 ml -990 ml -650 ml medications Current Medications Medications Dose Ordered Sig/Audrey Route Start Time Stop Time Status Last Admin Dose Admin Ceftriaxone Sodium 50 ml @ 100 mls/hr DAILY@09 IV 06/06/25 09:00 06/09/25 08:52 100 MLS/HR Azithromycin 250 ml @ 125 mls/hr DAILY IV 06/06/25 10:00 06/09/25 08:53 125 MLS/HR Albuterol 2.5 mg Q6HPRN PRN NEB 06/05/25 17:30 Aspirin 81 mg DAILY PO 06/06/25 10:00 06/08/25 08:53 81 MG Atorvastatin Calcium 40 mg HS PO 06/05/25 22:00 06/08/25 21:23 40 MG Digoxin 0.125 mg DAILY PO 06/06/25 10:00 06/08/25 08:52 0.125 MG Empaglifozin 10 mg DAILY PO 06/06/25 10:00 06/08/25 08:52 10 MG Furosemide 40 mg DAILY PO 06/06/25 10:00 06/08/25 08:53 40 MG Levothyroxine Sodium 100 mcg QAM@0600 PO 06/06/25 06:00 06/09/25 06:06 100 MCG Pantoprazole Sodium 40 mg DAILY@0700 PO 06/06/25 07:00 06/09/25 06:06 40 MG Spironolactone 25 mg DAILY PO 06/06/25 10:00 06/08/25 08:52 25 MG Nifedipine 30 mg DAILY PO 06/06/25 10:00 06/08/25 08:53 30 MG Diagnostic Test (Pha) 1 strip ACHS 06/05/25 22:00 06/09/25 11:51 1 STRIP Insulin Human Regular ACHS SC 06/05/25 22:00 06/08/25 12:01 3 UNITS Dextrose 50 ml UD PRN IV 06/05/25 17:30 Ondansetron HCl 4 mg Q4HP PRN IV 06/05/25 17:30 Acetaminophen 650 mg Q6HP PRN PO 06/05/25 17:30 Multi-Ingred Cream/Lotion/Oil/ Oint 1 applic Q6HR TOP 06/06/25 18:00 06/09/25 11:50 1 APPLIC Acetaminophen/ Hydrocodone Bitart 1 tab Q6HPRN PRN PO 06/07/25 00:30 06/08/25 21:24 1 TAB Morphine Sulfate 2 mg Q6HPRN PRN IV 06/07/25 10:30 06/09/25 11:44 2 MG Enoxaparin Sodium 40 mg DAILY SC 06/08/25 10:00 06/09/25 08:53 40 MG Lorazepam 0.5 mg Q12HP PRN PO 06/07/25 16:45 Fluconazole 100 ml @ 100 mls/hr DAILY IV 06/09/25 10:00 06/09/25 11:41 100 MLS/HR Examination Pt is lying on bed General Appearance: Samayoa's catheter in place, Alert, Oriented X1, Cooperative, Mild distress HEENT: Atraumatic, Mucous membranes moist/pink Respiratory: Clear to auscultation, Normal air movement, No added sounds Cardiovascular: Regular rate, Normal S1, Normal S2, No murmurs Abdominal/ : Mild diffuse abdominal tenderness, Active bowel sounds, Soft, no distention Extremities: No edema, Normal pulses, No tenderness/swelling Skin: Rash in the diaper area, Neuro: Normal speech, sensorimotor deficits none Psych/Mental Status: Mental status NL, Mood NL Nurse was there as brush holder assembler during examination laboratory and microbiology Laboratory Tests 06/09/25 06:42 Test 06/09/25 06:42 Range/Units Serum Glucose 100 74-106 mg/dL Microbiology Date/Time Source Procedure Growth Status 06/06/25 16:38 Nose MRSA Screen - Final Complete 06/06/25 16:00 Voided Urine Urine Culture - Final Presumptive Marj albicans Complete 06/06/25 06:00 Stool Stool Culture - Final Complete 06/06/25 06:00 Stool Shiga Toxin I & II - Final Complete 06/05/25 15:55 Blood Blood Culture - Preliminary NO GROWTH AFTER 72 HOURS OF INCUBATION. Resulted Labs and/or images reviewed: Labs reviewed by me, Image(s) reviewed by me Problem List/Assessment/Plan Problem List/Assessment/Plan # Sepsis due to suspected aspiration pneumonia and UTI # Acute toxic/Metabolic encephalopathy likely due to above #Acute hypoxic respiratory failure due to pneumonia # ? COPD exacerbation # acute Gram-positive/negative bacterial PNA -Ceftriaxone and Azithromycin -Albuterol -pancultures -Chest x-ray bilateral opacities seen with pneumonia -continue oxygen therapy as needed # Acute complicated UTI/ cystitis - evident on urinalysis - ordered urine bacterial culture - currently giving Rocephin # ? Gastroenteritis -stool studies # Diabetes mellitus -Accu-Cheks to ISS # exacerbation of chronic knee pain Bilateral knee x-rays ordered # abdominal distension? X-ray KUB # ? PAD Vasculopathy # suspected acute on chronic Diastolic heart failure, normal EF # Hypertension # HLD -Atorvastatin -empagliflozin, spironolactone -furosemide -nifedipine -consult Dr. Kidd -monitor blood pressure # history of renal cell carcinoma with left partial nephrectomy Goals of care discussed with the patient's son for 20 minutes: Full code status Case discussed with Dr. Casitllo, patient's son and RN Plan discussed with: Son, Other (RN) Plan discussed with: Patient, Son My Orders My Orders Orders - ZAYRA SARGENT RESIDENT Procedure Category Date Status Time Small Bowel Series-W XY 06/09/25 Logged Gastrogra 08:00 Dietary Evaluation Review Comments: 1) Consider Liberalizing to NCS + 2gm Na diet 2) Glucerna 240 ml BID if PO intake < 50% 3) Deuce 1 pk daily 4) Refer Gum Dipper for diabetes education Expected Outcomes/Goals: To meet >75% estimated needs Wound to improve Fu 3-5 days Date of Service: Jun 09, 2025 Billing Provider: GRETCHEN SCHNEIDER MD Common Visit Codes: [id number] INP/OBS CARE(HIGH) ZAYRA SARGENT Jun 09, 2025 15:50 GRETCHEN SCHNEIDER MD Jun 09, 2025 22:29
--- NOTE | 2025-06-09 16:13 | DVHPN2 ---
Progress Note - Dictate Date Seen: Jun 08, 2025 Medical Necessity Reason Pt with a Central, PICC or Fol: Yes The following are medically ne: Samayoa Catheter Reason for samayoa catheter: Strict I&O Subjective PT WITH AMS METABOLC ENCEPHALOPATHY DIARRHEA HYPOTENSION HYPOVOLEMIA SECONDARY TO DIARRHEA AND POOR PO INTAKE LEUKOCYTOSIS ACUTE RENAL FAILURE CHRONIC RENAL DISEASE PMH: LE DOPPLER CONSISTENT WITH ADVANCE PAD HX OF DM VASCULOPATHY NEUROPATHY HX OF RENAL CELL CARCINOMA WITH LEFT PARTIAL NEPHRECTOMY BUT RENAL US SHOWS RIGHT kidney measures 12.7 cm in length. No hydronephrosis. LEFT kidney measures 9.9 cm in length. No hydronephrosis. COPD HX OF TOBACCO USE HTN ORGANIC HD NL EF DIASTOLIC DYSFUNCTION vital signs Vital Sign Date Time Temp Pulse Resp B/P (MAP) Pulse Ox O2 Delivery O2 Flow Rate FiO2 06/09/25 13:00 97.4 85 18 135/83 (100) 97 97.4 06/09/25 09:50 Nasal Cannula* 2 28 Total Intake and Output 06/08/25 06/08/25 06/09/25 15:00 23:00 07:00 Intake Total 50 ml 710 ml 0 ml Output Total 1700 ml 650 ml Balance 50 ml -990 ml -650 ml medications Current Medications Medications Dose Ordered Sig/Audrey Route Start Time Stop Time Status Last Admin Dose Admin Ceftriaxone Sodium 50 ml @ 100 mls/hr DAILY@09 IV 06/06/25 09:00 06/09/25 08:52 100 MLS/HR Azithromycin 250 ml @ 125 mls/hr DAILY IV 06/06/25 10:00 06/09/25 08:53 125 MLS/HR Albuterol 2.5 mg Q6HPRN PRN NEB 06/05/25 17:30 Aspirin 81 mg DAILY PO 06/06/25 10:00 06/08/25 08:53 81 MG Atorvastatin Calcium 40 mg HS PO 06/05/25 22:00 06/08/25 21:23 40 MG Digoxin 0.125 mg DAILY PO 06/06/25 10:00 06/08/25 08:52 0.125 MG Empaglifozin 10 mg DAILY PO 06/06/25 10:00 06/08/25 08:52 10 MG Furosemide 40 mg DAILY PO 06/06/25 10:00 06/08/25 08:53 40 MG Levothyroxine Sodium 100 mcg QAM@0600 PO 06/06/25 06:00 06/09/25 06:06 100 MCG Pantoprazole Sodium 40 mg DAILY@0700 PO 06/06/25 07:00 06/09/25 06:06 40 MG Spironolactone 25 mg DAILY PO 06/06/25 10:00 06/08/25 08:52 25 MG Nifedipine 30 mg DAILY PO 06/06/25 10:00 06/08/25 08:53 30 MG Diagnostic Test (Pha) 1 strip ACHS 06/05/25 22:00 06/09/25 11:51 1 STRIP Insulin Human Regular ACHS SC 06/05/25 22:00 06/08/25 12:01 3 UNITS Dextrose 50 ml UD PRN IV 06/05/25 17:30 Ondansetron HCl 4 mg Q4HP PRN IV 06/05/25 17:30 Acetaminophen 650 mg Q6HP PRN PO 06/05/25 17:30 Multi-Ingred Cream/Lotion/Oil/ Oint 1 applic Q6HR TOP 06/06/25 18:00 06/09/25 11:50 1 APPLIC Acetaminophen/ Hydrocodone Bitart 1 tab Q6HPRN PRN PO 06/07/25 00:30 06/08/25 21:24 1 TAB Morphine Sulfate 2 mg Q6HPRN PRN IV 06/07/25 10:30 06/09/25 11:44 2 MG Enoxaparin Sodium 40 mg DAILY SC 06/08/25 10:00 06/09/25 08:53 40 MG Lorazepam 0.5 mg Q12HP PRN PO 06/07/25 16:45 Fluconazole 100 ml @ 100 mls/hr DAILY IV 06/09/25 10:00 06/09/25 11:41 100 MLS/HR laboratory and microbiology Laboratory Tests 06/09/25 06:42 Test 06/09/25 06:42 Range/Units Serum Glucose 100 74-106 mg/dL Problem List AMS METABOLC ENCEPHALOPATHY DIARRHEA HYPOTENSION HYPOVOLEMIA SECONDARY TO DIARRHEA AND POOR PO INTAKE LEUKOCYTOSIS ACUTE RENAL FAILURE CHRONIC RENAL DISEASE CXR POSSIBLE INFILTRATE PMH: LE DOPPLER CONSISTENT WITH ADVANCE PAD HX OF DM VASCULOPATHY NEUROPATHY HX OF RENAL CELL CARCINOMA WITH LEFT PARTIAL NEPHRECTOMY BUT RENAL US SHOWS RIGHT kidney measures 12.7 cm in length. No hydronephrosis. LEFT kidney measures 9.9 cm in length. No hydronephrosis. COPD HX OF TOBACCO USE HTN ORGANIC HD NL EF DIASTOLIC DYSFUNCTION Assessment/Plan IV FLUID ABX BLOOD CX CT ABD PELVIS Moderate impacted feces in the rectum with mild perirectal fat stranding could be proctitis. No dilated small bowel to suggest for SBO. Dietary Evaluation Review Comments: 1) Consider Liberalizing to NCS + 2gm Na diet 2) Glucerna 240 ml BID if PO intake < 50% 3) Deuce 1 pk daily 4) Refer Director Of Marketing Communications for diabetes education Expected Outcomes/Goals: To meet >75% estimated needs Wound to improve Fu 3-5 days Plan discussed with: Patient HUNG IVAN MD Jun 09, 2025 16:13
--- NOTE | 2025-06-09 19:34 | DVH ---
Procedure: XY SMALL BOWEL SERIES-W GASTROGRA Reason for study/Clinical History: R/O SBO Comparison Study: None Technique: Single contrast small bowel series performed. FINDINGS/IMPRESSION: Initial insecticide maker view of the abdomen and pelvis appears demonstrates no acute process. Contrast is not identified within the colon by at 60 minute. The patient vomited most of the contras t before reaching the colon.
[2025-06-10 01:00] VITALS: BP 153/90; PULSE 88; RESP 19; TEMP 97.8; O2SAT 99
[2025-06-10 05:00] VITALS: BP 144/81; PULSE 90; RESP 17; TEMP 98.6; O2SAT 99
[2025-06-10 06:40] LABS: Anion Gap 14 (5-15); Carbon Dioxide 27 mmol/L (20-31); Chloride 103 mmol/L (98-107); Potassium 3.5 mmol/L (3.5-5.1); Sodium 144 mmol/L (136-145)
[2025-06-10 06:44] LABS: Hemoglobin 11.7 g/dL (12.2-16.2)
[2025-06-10 06:46] LABS: BUN/Creatinine Ratio 47.2 (10.0-20.0); Glucose 99 mg/dL (74-106)
[2025-06-10 06:49] LABS: Hematocrit 36.9 % (36.0-46.0); Mean Corpuscular Hemoglobin 25.3 pg (28.0-32.0); Mean Corpuscular Volume 79.7 fL (80.0-100.0)
[2025-06-10 06:50] LABS: Blood Urea Nitrogen 42 mg/dL (9-23); Calcium 10.7 mg/dL (8.7-10.4)
[2025-06-10 08:49] VITALS: BP 157/90; PULSE 87; RESP 18; TEMP 97.2; O2SAT 99
[2025-06-10 09:06] LABS: Total Cells Counted 100.0 (100)
[2025-06-10 09:34] VITALS: O2SAT 99
[2025-06-10 12:30] VITALS: BP 157/92; PULSE 81; RESP 18; TEMP 98.1; O2SAT 100
[2025-06-10] MEDS ORDERED: FLUC200T PO (12:57)
[2025-06-10] MEDS ORDERED: DOXY1CAP58 PO (12:57)
[2025-06-10] MEDS ORDERED: AUG875T PO (12:57)
--- NOTE | 2025-06-10 14:40 | DVHPN2 ---
Progress Note - Dictate Date Seen: Jun 09, 2025 Medical Necessity Reason Pt with a Central, PICC or Fol: Yes The following are medically ne: Samayoa Catheter Reason for samayoa catheter: Strict I&O Subjective PT WITH AMS METABOLC ENCEPHALOPATHY DIARRHEA HYPOTENSION HYPOVOLEMIA SECONDARY TO DIARRHEA AND POOR PO INTAKE LEUKOCYTOSIS ACUTE RENAL FAILURE CHRONIC RENAL DISEASE PMH: LE DOPPLER CONSISTENT WITH ADVANCE PAD HX OF DM VASCULOPATHY NEUROPATHY HX OF RENAL CELL CARCINOMA WITH LEFT PARTIAL NEPHRECTOMY BUT RENAL US SHOWS RIGHT kidney measures 12.7 cm in length. No hydronephrosis. LEFT kidney measures 9.9 cm in length. No hydronephrosis. COPD HX OF TOBACCO USE HTN ORGANIC HD NL EF DIASTOLIC DYSFUNCTION vital signs Vital Sign Date Time Temp Pulse Resp B/P (MAP) Pulse Ox O2 Delivery O2 Flow Rate FiO2 06/10/25 12:30 98.1 81 18 157/92 (113) 100 98.1 06/10/25 09:34 Nasal Cannula 2.0 06/10/25 09:34 28 Total Intake and Output 06/09/25 06/09/25 06/10/25 15:00 23:00 07:00 Intake Total 50 ml 450 ml 250 ml Output Total 600 ml 300 ml Balance 50 ml -150 ml -50 ml medications Current Medications Medications Dose Ordered Sig/Audrey Route Start Time Stop Time Status Last Admin Dose Admin Ceftriaxone Sodium 50 ml @ 100 mls/hr DAILY@09 IV 06/06/25 09:00 06/10/25 08:06 100 MLS/HR Azithromycin 250 ml @ 125 mls/hr DAILY IV 06/06/25 10:00 06/10/25 08:42 125 MLS/HR Albuterol 2.5 mg Q6HPRN PRN NEB 06/05/25 17:30 Cancel Aspirin 81 mg DAILY PO 06/06/25 10:00 06/10/25 08:38 81 MG Atorvastatin Calcium 40 mg HS PO 06/05/25 22:00 06/09/25 21:47 40 MG Digoxin 0.125 mg DAILY PO 06/06/25 10:00 06/10/25 08:38 0.125 MG Empaglifozin 10 mg DAILY PO 06/06/25 10:00 06/10/25 08:39 10 MG Furosemide 40 mg DAILY PO 06/06/25 10:00 06/10/25 08:38 40 MG Levothyroxine Sodium 100 mcg QAM@0600 PO 06/06/25 06:00 06/10/25 06:23 100 MCG Pantoprazole Sodium 40 mg DAILY@0700 PO 06/06/25 07:00 06/10/25 06:23 40 MG Spironolactone 25 mg DAILY PO 06/06/25 10:00 06/10/25 08:38 25 MG Nifedipine 30 mg DAILY PO 06/06/25 10:00 06/10/25 08:38 30 MG Diagnostic Test (Pha) 1 strip ACHS 06/05/25 22:00 06/10/25 11:15 1 STRIP Insulin Human Regular ACHS SC 06/05/25 22:00 06/10/25 11:19 2 UNITS Dextrose 50 ml UD PRN IV 06/05/25 17:30 Ondansetron HCl 4 mg Q4HP PRN IV 06/05/25 17:30 Acetaminophen 650 mg Q6HP PRN PO 06/05/25 17:30 Multi-Ingred Cream/Lotion/Oil/ Oint 1 applic Q6HR TOP 06/06/25 18:00 06/10/25 11:17 1 APPLIC Acetaminophen/ Hydrocodone Bitart 1 tab Q6HPRN PRN PO 06/07/25 00:30 06/10/25 08:45 1 TAB Morphine Sulfate 2 mg Q6HPRN PRN IV 06/07/25 10:30 06/09/25 11:44 2 MG Enoxaparin Sodium 40 mg DAILY SC 06/08/25 10:00 06/10/25 08:39 40 MG Lorazepam 0.5 mg Q12HP PRN PO 06/07/25 16:45 Fluconazole 100 ml @ 100 mls/hr DAILY IV 06/09/25 10:00 06/10/25 08:39 100 MLS/HR laboratory and microbiology Laboratory Tests 06/10/25 04:06 Test 06/10/25 04:06 Range/Units Serum Glucose 99 74-106 mg/dL Problem List AMS METABOLC ENCEPHALOPATHY DIARRHEA HYPOTENSION HYPOVOLEMIA SECONDARY TO DIARRHEA AND POOR PO INTAKE LEUKOCYTOSIS ACUTE RENAL FAILURE CHRONIC RENAL DISEASE CXR POSSIBLE INFILTRATE PMH: LE DOPPLER CONSISTENT WITH ADVANCE PAD HX OF DM VASCULOPATHY NEUROPATHY HX OF RENAL CELL CARCINOMA WITH LEFT PARTIAL NEPHRECTOMY BUT RENAL US SHOWS RIGHT kidney measures 12.7 cm in length. No hydronephrosis. LEFT kidney measures 9.9 cm in length. No hydronephrosis. COPD HX OF TOBACCO USE HTN ORGANIC HD NL EF DIASTOLIC DYSFUNCTION Assessment/Plan IV FLUID ABX BLOOD CX CT ABD PELVIS Moderate impacted feces in the rectum with mild perirectal fat stranding could be proctitis. No dilated small bowel to suggest for SBO. SMALL BOWEL SERIES NO ABSTRUCTION BUT PT VOMITED MOST CONTRAST SO NO CONSTRAST IN LASRGE INTESTINE X 60 MINS Dietary Evaluation Review Comments: 1) Consider Liberalizing to NCS + 2gm Na diet 2) Glucerna 240 ml BID if PO intake < 50% 3) Deuce 1 pk daily 4) Refer Bread Oven Operator for diabetes education Expected Outcomes/Goals: To meet >75% estimated needs Wound to improve Fu 3-5 days Plan discussed with: Patient HUNG IVAN MD Jun 10, 2025 14:40
--- NOTE | 2025-06-10 16:10 | DVHDSRES ---
Discharge Summary Date of Admission Resident Creating Document: ZAYRA SARGENT Jun 05, 2025 at 17:23 Date of Discharge: Jun 10, 2025 Admitting Diagnosis Altered mental status Labs/Diagnostic Data: Laboratory Results Test 06/10/25 05:39 06/10/25 04:06 06/09/25 06:42 06/07/25 02:34 POC Glucose 120 mg/dl (70-106) White Blood Count 10.8 10^3/uL (4.4-10.8) Red Blood Count 4.63 10^6/uL (4.0-5.20) Hemoglobin 11.7 g/dL (12.2-16.2) Hematocrit 36.9 % (36.0-46.0) Mean Corpuscular Volume 79.7 fL (80.0-100.0) Mean Corpuscular Hemoglobin 25.3 pg (28.0-32.0) Mean Corpuscular Hemoglobin Concent 31.7 g/dL (32.0-36.0) Red Cell Distribution Width 16.3 % (11.8-14.3) Platelet Count 305 10^3/uL (140-450) Mean Platelet Volume 7.3 fL (6.9-10.8) Neutrophils (%) (Auto) % (37.0-80.0) Lymphocytes (%) (Auto) % (10.0-50.0) Monocytes (%) (Auto) % (0.0-12.0) Basophils (%) (Auto) % (0.0-2.0) Neutrophils # (Auto) 10 ^3/uL (1.6-8.6) Lymphocytes # (Auto) 10 ^3/uL (0.4-5.4) Monocytes # (Auto) 10 ^3/uL (0-1.3) Differential Total Cells Counted 100.0 (100) Neutrophils % (Manual) 75 (37.0-80.0) Band Neutrophils % (Manual) 7 Lymphocytes % (Manual) 8 (10.0-50.0) Monocytes % (Manual) 4 (0-12) Eosinophils % (Manual) 6 (0-7) Basophils % (Manual) 0 (0.0-2.0) Metamyelocytes % (manual) 0 Myelocytes % (Manual) 0 Promyelocytes % (Manual) 0 Blast Cells % (Manual) 0 Reactive Lymphocytes 0 Platelet Estimate Adequate Microcytosis Slight Sodium Level 144 mmol/L (136-145) Potassium Level 3.5 mmol/L (3.5-5.1) Chloride Level 103 mmol/L (98-107) Carbon Dioxide Level 27 mmol/L (20-31) Anion Gap 14 (5-15) Blood Urea Nitrogen 42 mg/dL (9-23) Creatinine 0.89 mg/dL (0.550-1.02) Glomerular Filtration Rate Calc 72 mL/min (>90) BUN/Creatinine Ratio 47.2 (10.0-20.0) Serum Glucose 99 mg/dL (74-106) Calcium Level 10.7 mg/dL (8.7-10.4) Eosinophils (%) (Auto) 1.3 % (0.0-7.0) Eosinophils # (Auto) 0.2 10 ^3/uL (0-0.8) Basophils # (Auto) 0 10 ^3/uL (0-0.2) Nucleated Red Blood Cells 0.1 % Urine Color Light-yellow (Yellow) Urine Clarity Turbid (Clear) Urine pH 5.5 (5.0-9.0) Urine Specific [place] 1.013 (1.001-1.035) Urine Protein 1+ (Negative) Urine Ketones Negative (Negative) Urine Blood 1+ /uL (Negative) Urine Nitrite Negative (Negative) Urine Bilirubin Negative (Negative) Urine Urobilinogen Normal mg/dL (Negative) Urine Leukocyte Esterase 2+ /uL (Negative) Urine RBC 10 /hpf (0 - 4) Urine Microscopic WBC 19 /HPF (0-5) Urine Squamous Epithelial Cells None seen /hpf (<5) Urine Bacteria None seen /hpf (None Seen) Urine Yeast (Budding) Many /hpf (None Seen) Urine Glucose 3+ mg/dL (Normal) Test 06/06/25 12:42 06/06/25 06:00 06/06/25 00:00 06/05/25 18:30 B-Type Natriuretic Peptide 35.02 pg/mL (0-100) Digoxin Level < 0.14 ng/mL (0.8-2) Influenza Type A Antigen Negative (Negative) Influenza Type B Antigen Negative (Negative) SARS-CoV-2 Antigen (Rapid) Negative (NEGATIVE) Lactic Acid Level 1.3 mmol/L (0.4-2.0) Troponin I High Sensitivity 8 ng/L (</=34) Test 06/05/25 18:00 06/05/25 15:55 Urine Mucus Few (None Seen) Urine Opiates Screen Neg (NEGATIVE) Urine Fentanyl Screen Neg (NEGATIVE) Urine Barbiturates Screen Neg (NEGATIVE) Urine Phencyclidine Screen Neg (NEGATIVE) Urine Amphetamines Screen Neg (NEGATIVE) Urine Benzodiazepines Screen Neg (NEGATIVE) Urine Cocaine Screen Neg (NEGATIVE) Urine Cannabinoids Screen Neg (NEGATIVE) Prothrombin Time 11.6 sec (9.3-11.8) Prothrombin Time INR 1.11 (0.9-1.15) Activated Partial Thromboplast Time 29.4 SEC (24.5-34.5) Magnesium Level 2.0 mg/dL (1.6-2.6) Total Bilirubin 0.3 mg/dL (0.2-1.0) Aspartate Amino Transferase (AST) 46 U/L (13-40) Alanine Aminotransferase (ALT) 103 U/L (7-40) Alkaline Phosphatase 249 U/L (46-116) Ammonia < 10 umol/L (11-32) Total Protein 5.7 g/dL (5.7-8.2) Albumin 3.6 g/dL (3.2-4.8) Other Laboratory Tests 06/10/25 04:06 Brief Hx & Hospital Course: A 65-year-old female presents to the ED with altered mental status and lethargy. The son who is a caregiver reports that he notices his mother was having diarrhea since the last 15 hours, the stool was not blood mixed. After several episodes of diarrhea, the patient started feeling lethargic, usually, patient can sit up at the corner of the bed and feed herself. But following diarrhea, she was lethargic and her level of consciousness was altered, noted by the son and the home health caregiver. Patient could not provide any further history or complaints due to altered mental status and confusion. Medical history: DM, CHF, COPD, hypothyroidism, depression, HLD, renal cell carcinoma Surgical history: Partial left nephrectomy due to RCC Family history: Noncontributory Smoke: The patient was a heavy smoker for several years. Alcohol: Unknown Drugs: Unknown Lives with family Head CT reveals no acute intracranial abnormality. Chest x-ray revealed bilateral opacities with pneumonia and there was leukocytosis. The patient was treated with ceftriaxone and azithromycin and albuterol. Respiratory cultures were sent continue oxygen therapy as needed. Acute complicated cystitis or UTI evident on urinalysis was treated with on ceftriaxone and urine bacterial culture was sent. Because of patient's diarrhea we did stool studies her diabetes mellitus was controlled with Accu-Cheks and insulin sliding scale. Because of her exacerbation of chronic knee pain bilateral knee x-rays was ordered however the patient was confused and was not been able to do. Her pain was managed with [place]. For Her abdominal distention and flank pain we ordered x-ray KUB which showed distended small bowel worrisome for small bowel obstruction, we ordered small bowel series which showed no acute findings. Abdomen pelvis CT revealed moderate impacted feces in the rectum with proctitis. During the time of discharge the patient was oriented to time place person and was in hemodynamically clinically stable condition. She was tolerating oral foods. Her hypertension was managed with nifedipine and chronic diastolic heart failure was managed with and the empagliflozin, spironolactone and furosemide. Her PCP Dr. Berry was consulted. For her previous history of nephrectomy followed by renal cell carcinoma she can do outpatient follow-up with PCP and vegetable tester. General Appearance: [place]amanca's catheter in place, Alert, Oriented X1, Cooperative, Mild distress HEENT: Atraumatic, Mucous membranes moist/pink Respiratory: Clear to auscultation, Normal air movement, No added sounds Cardiovascular: Regular rate, Normal S1, Normal S2, No murmurs Abdominal/ : Mild diffuse abdominal tenderness, Active bowel sounds, Soft, no distention Extremities: No edema, Normal pulses, No tenderness/swelling Skin: Rash in the diaper area, Neuro: Normal speech, sensorimotor deficits none Psych/Mental Status: Mental status NL, Mood NL Nurse was there as upholsterer assembly line during examination Operations or Procedures X-ray KUB abdomen: 1. Distended small bowel worrisome for small bowel obstruction. 2. Consider small-bowel follow-through. Small-bowel series: No acute findings Abdomen pelvis CT: Moderate impacted feces in the rectum with mild perirectal fat stranding could be proctitis. No dilated small bowel to suggest for SBO. Head CT: No acute intracranial abnormality Chest x-ray: Multifocal bilateral airspace opacities could be seen with pneumonia. Condition at Discharge: Stable Final Diagnosis/Problems List Sepsis due to aspiration pneumonia and UTI Acute toxic or metabolic encephalopathy due to above Acute hypoxic respiratory failure due to pneumonia COPD exacerbation Acute Gram-positive or negative bacterial pneumonia Acute complicated UTI cystitis Gastroenteritis Diabetes mellitus Exacerbation of chronic knee pain Abdominal distention PID vasculopathy Suspected acute on chronic diastolic heart failure normal EF Hypertension Hyperlipidemia History of renal cell carcinoma with left partial nephrectomy Discharge Disposition: Home with Health Services Discharge Instruct/Medications Diet: Consistent carbohydrate, Cardiac 2g Na,low cholest Activity: No Restrictions, As Tolerated Follow Up/Referral: Follow-up with PCP in 1 week Medications: As per EMR Scheduled Amoxicillin & Pot Clavulanate (Augmentin Tablet), 875 MG PO BID Aspirin (Aspirin Low Dose), 81 MG PO DAILY Atorvastatin Calcium (Atorvastatin Calcium), 40 MG PO HS Digoxin (Digoxin), 125 MCG PO DAILY, (Reported) Doxycycline (Monohydrate) (Doxycycline), 100 MG PO BID Empagliflozin (Jardiance), 10 MG PO DAILY Fluconazole (Diflucan), 200 MG PO DAILY Furosemide (Furosemide), 40 MG PO DAILY Gabapentin (Gabapentin), 1 CAP PO TID, (Reported) Insulin Glargine (Lantus), 15 UNIT SC QPM Levothyroxine Sodium (Synthroid Tablet), 100 MCG PO QAM Levothyroxine Sodium (Levothyroxine Sodium), 200 MCG PO QAM, (Reported) Lisinopril (Lisinopril), 20 MG PO DAILY Lorazepam (Ativan), 1 MG PO BID, (Reported) Metformin Hydrochloride (Metformin Hcl), 500 MG PO BID Nifedipine (Nifedipine Er), 1 TAB PO DAILY, (Reported) Pantoprazole Sodium Sesquihydr (Pantoprazole Sodium), 40 MG PO DAILY@0600 Spironolactone (Aldactone), 25 MG PO DAILY Vericiguat (Verquvo), 5 MG PO BID, (Reported) Scheduled PRN Albuterol Sulfate (Albuterol Sulfate), 1.25 MG IN TIDP PRN Ipratropium [place] (Ipratropium [place]), 0.5 % HHN TIDP PRN Miscellaneous Medications Nivolumab (Opdivo), 240 MG IV, (Reported) Discharge Statement: "Patient was advised to return to the ER or call 911 if any headaches, dizziness, shortness of breath, chest pain, abdominal pain, bleeding, fevers, or worsening of medical condition. Patient was counseled about treatment plan, medications, possible side effects, patientverbalized understanding. All questions were answered to the best of my ability. This discharge took greater then 30 minutes in planning, reviewing documentation, counseling the patient, and discussing with other team members." ASSESSMENT ASSESSMENT Assessment Sepsis due to aspiration pneumonia and UTI Acute toxic or metabolic encephalopathy due to above Acute hypoxic respiratory failure due to pneumonia COPD exacerbation Acute Gram-positive or negative bacterial pneumonia Acute complicated UTI cystitis Gastroenteritis Diabetes mellitus Exacerbation of chronic knee pain Abdominal distention PID vasculopathy Suspected acute on chronic diastolic heart failure normal EF Hypertension Hyperlipidemia History of renal cell carcinoma with left partial nephrectomy Date of Service: Jun 10, 2025 Billing Provider: GRETCHEN SCHNEIDER MD Common Visit Codes: 65532-LPR/OBS DISCH DAY >30min ZAYRA SARGENT RESIDENT Jun 10, 2025 16:10 GRETCHEN SCHNEIDER MD Jun 10, 2025 22:28
== END 2025-06-10 15:53 | disposition home or self-care (01) | DRG 871 ==
LOC: EDBD 15:17 → ER 15:17 → OVERFLOW 17:23 → WEST WING 21:43
PROVIDERS: ADMIT Internal Medicine; ATTEND Internal Medicine
PROC: 05H933Z Insertion of Infusion Device into Right Brachial Vein, Percutaneous Approach (ICD-10-PCS; principal; 2025-06-08)
PROC: B54MZZA Ultrasonography of Right Upper Extremity Veins, Guidance (ICD-10-PCS; 2025-06-08)
DX: A41.9 Sepsis, unspecified organism (principal); G92.8 Other toxic encephalopathy; I50.33 Acute on chronic diastolic (congestive) heart failure; J96.01 Acute respiratory failure with hypoxia; J69.0 Pneumonitis due to inhalation of food and vomit; J15.69 Pneumonia due to other Gram-negative bacteria; J15.9 Unspecified bacterial pneumonia; N17.9 Acute kidney failure, unspecified; I13.0 Hypertensive heart and chronic kidney disease with heart failure and stage 1 through stage 4 chronic kidney disease, or unspecified chronic kidney disease; J44.1 Chronic obstructive pulmonary disease with (acute) exacerbation; J44.0 Chronic obstructive pulmonary disease with (acute) lower respiratory infection; N30.00 Acute cystitis without hematuria; N18.9 Chronic kidney disease, unspecified; E11.40 Type 2 diabetes mellitus with diabetic neuropathy, unspecified; E11.22 Type 2 diabetes mellitus with diabetic chronic kidney disease; E78.5 Hyperlipidemia, unspecified; E86.1 Hypovolemia; E03.9 Hypothyroidism, unspecified; G89.29 Other chronic pain; K56.41 Fecal impaction; N73.8 Other specified female pelvic inflammatory diseases; Z74.01 Bed confinement status; Z90.49 Acquired absence of other specified parts of digestive tract; Z87.891 Personal history of nicotine dependence; Z88.5 Allergy status to narcotic agent; Z85.528 Personal history of other malignant neoplasm of kidney; Z90.5 Acquired absence of kidney; Z79.899 Other long term (current) drug therapy
CPT/HCPCS: 36415; 70450; 71045; 74018; 74176; 74250; 80048; 80053; 80162; 80307; 81001; 82140; 82962; 83605; 83735; 83880; 84484; 85007; 85025; 85027; 85610; 85730; 87040; 87045; 87081; 87086; 87088; 87426; 87427; 87804; 93005; 96361; 96365; G0378; J1450; J1815; J2543

== ENCOUNTER 2025-06-25 13:04 | Outpatient (CLI) | payer MEDICARE, MEDICAID ==
[2025-06-25 12:58] VITALS: BP 134/80; PULSE 102; RESP 16; O2SAT 98
[~2025-06-25 13:04] MED LIST changes: +AUG875T PO; +DOXY1CAP58 PO; +FLUC200T PO; +LEVO200T7 PO; +LORA-655 PO; +VERI5TAB PO
[2025-06-25] MEDS: MULTIPLE VIT 10 ML IV ONE (13:15)
[2025-06-25] MEDS: ONDANSETRON HCL 4 MG/2 ML VIAL ONE (13:15)
[2025-06-25] MEDS: ONDANSETRON HCL 4 MG/2 ML VIAL IV ONE (13:18)
[2025-06-25] MEDS: MVI in SODIUM CHLORIDE 0.9% 500 ML IVB ONE (13:19)
--- NOTE | 2025-06-25 13:49 | DVH ---
Date: 06/25/2025 02:09 PM Examination: XY KUB ABDOMEN SINGLE VIEW History: ABD PAIN Comparison: XY SMALL BOWEL SERIES-W GASTROGRA on DOS: 06/09/25, CT CT AB PEL WO CON-NO ORAL OR IV on D OS: 06/08/25, XY KUB ABDOMEN SINGLE VIEW on DOS: 06/07/25, US KIDNEY on DOS: 07/20/24, CT PELVIS WO CONT RAST on DOS: 05/15/24 TECHNIQUE: Frontal views of the abdomen was obtained. FINDINGS: Bowel gas pattern is unremarkable. Contrast is visualized in the colon. The lung bases are unremarkable. No acute osseous abnormality identified. IMPRESSION: Nonobstructive bowel gas pattern. Contrast is visualized in the colon. Evaluation is limited given t echnique of the exam.
[2025-06-25 15:40] VITALS: BP 145/68; PULSE 92; RESP 16; O2SAT 98
== END 2025-06-25 17:00 | disposition home or self-care (01) ==
LOC: Rad HDHVI 13:04
PROVIDERS: ATTEND Internal Medicine Cardiovascular Disease
DX: E86.0 Dehydration (principal); I13.0 Hypertensive heart and chronic kidney disease with heart failure and stage 1 through stage 4 chronic kidney disease, or unspecified chronic kidney disease; E11.22 Type 2 diabetes mellitus with diabetic chronic kidney disease; I50.33 Acute on chronic diastolic (congestive) heart failure; N18.30 Chronic kidney disease, stage 3 unspecified; E11.51 Type 2 diabetes mellitus with diabetic peripheral angiopathy without gangrene; E11.40 Type 2 diabetes mellitus with diabetic neuropathy, unspecified; J44.9 Chronic obstructive pulmonary disease, unspecified; E03.9 Hypothyroidism, unspecified; F41.9 Anxiety disorder, unspecified; E78.00 Pure hypercholesterolemia, unspecified; I48.91 Unspecified atrial fibrillation; R11.0 Nausea; R10.9 Unspecified abdominal pain; Z87.891 Personal history of nicotine dependence; Z90.5 Acquired absence of kidney; Z90.49 Acquired absence of other specified parts of digestive tract; Z79.4 Long term (current) use of insulin; Z79.899 Other long term (current) drug therapy; Z79.82 Long term (current) use of aspirin; Z90.710 Acquired absence of both cervix and uterus
CPT/HCPCS: 74018; 96365; 96366; 96375; G0463; J2405; J3411; J3475; J7040; 96360; 96361

== ENCOUNTER 2025-09-04 17:35 | Inpatient (IN) | payer MEDICARE, OTHER ==
[~2025-09-04] VITALS: Ht 165.1 cm; Wt 80.0 kg
[2025-09-04 18:10] VITALS: PULSE 90; RESP 20; O2SAT 98
--- NOTE | 2025-09-04 18:20 | ED.PDOC ---
GI ASSESSMENT HPI Comments This is a 65 year old female BIBA presenting to the ED with chief complaint of ALOC and GI bleed. EMS reports patient has been experiencing nausea/vomiting with associated hematemesis and dark stools for the past 3 days. EMS relays patient's son had noted patient vomited bright red blood twice today prior to EMS arrival. EMS states patient has also been noted by son to be increasingly more altered and confused over the past month and she is currently being worked up for a possible diagnosis of dementia. Patient denies any abdominal pain, diarrhea, chest pain, or SOB. Chief Complaint: ALOC Time Seen by MD: 18:17 Primary Care Provider: UNKNOWN Reviewed Notes: Nurses Notes, Gasket Supervisor Notes, Medications, Allergies Allergies: Coded Allergies: Codeine (Verified Adverse Reaction, Unknown, vomiting, 06/06/25) patient states when she was young codeine syrup made her vomit. Home Meds Active Scripts Doxycycline (Monohydrate) (Doxycycline) 100 Mg Cap, 100 MG PO BID for 7 Days, #14 CAP Prov:BRIT ULRICH RESIDENT 06/10/25 Amoxicillin & Pot Clavulanate (AUGMENTIN TABLET) 875 Mg Tb, 875 MG PO BID for 7 Days, #14 TAB Prov:BRIT ULRICH RESIDENT 06/10/25 Fluconazole (Diflucan) 200 Mg Tab, 200 MG PO DAILY for 14 Days, #14 TAB Prov:BRIT ULRICH RESIDENT 06/10/25 Ipratropium [place] (Ipratropium [place]) 0.02 % Iram, 0.5 % HHN TIDP PRN for 30 Days, #90 ML 3 Refills Prov:PINA RIVERO MD 04/17/24 Albuterol Sulfate (Albuterol Sulfate) 1.25 Mg/3 Ml Neb, 1.25 MG IN TIDP PRN for 30 Days, #90 INH 3 Refills Prov:PINA RIVERO MD 04/17/24 Metformin Hydrochloride (Metformin Hcl) 500 Mg Tab, 500 MG PO BID for 30 Days, #60 TAB 3 Refills Prov:PINA RIVERO MD 04/17/24 Insulin Glargine (Lantus) 100 Unit/Ml Inj, 15 UNIT SC QPM for 30 Days, #1 INJ 3 Refills Prov:PINA RIVERO MD 04/17/24 Spironolactone (Aldactone) 25 Mg Tab, 25 MG PO DAILY for 30 Days, #30 TAB 3 Refills Prov:PINA RIVERO MD 04/17/24 Pantoprazole Sodium Sesquihydr (Pantoprazole Sodium) 40 Mg Tab, 40 MG PO DAILY@0600 for 30 Days, #30 TAB 3 Refills Prov:PINA RIVERO MD 04/17/24 Lisinopril (Lisinopril) 20 Mg Tab, 20 MG PO DAILY for 30 Days, #30 TAB 3 Refills Prov:PINA RIVERO MD 04/17/24 Levothyroxine Sodium (SYNTHROID TABLET) 100 Mcg Tb, 100 MCG PO QAM for 30 Days, #30 TAB 3 Refills Prov:PINA RIVERO MD 04/17/24 Furosemide (Furosemide) 40 Mg Tab, 40 MG PO DAILY for 30 Days, #30 TAB 3 Refills Prov:PINA RIVERO MD 04/17/24 Empagliflozin (Jardiance) 10 Mg Tab, 10 MG PO DAILY for 30 Days, #30 TAB 3 Refills Prov:PINA RIVERO MD 04/17/24 Atorvastatin Calcium (ATORVASTATIN CALCIUM) 20 Mg Tab, 40 MG PO HS for 30 Days, #60 TAB Prov:JAS VICTORIA MD 03/22/24 Aspirin (Aspirin Low Dose) 81 Mg Tab, 81 MG PO DAILY for 30 Days, #30 TAB Prov:JAS VICTORIA MD 03/22/24 Reported Medications Vericiguat (Verquvo) 5 Mg Tab, 5 MG PO BID, TAB 06/06/25 Lorazepam (Ativan) 0.5 Mg Tab, 1 MG PO BID, TAB 06/06/25 Levothyroxine Sodium (Levothyroxine Sodium) 200 Mcg Tab, 200 MCG PO QAM for 30 Days, MCG 06/06/25 Gabapentin (Gabapentin) 300 Mg Cap, 1 CAP PO TID, #90 CAP 1 Refill 05/22/24 Digoxin (Digoxin) 125 Mcg Tab, 125 MCG PO DAILY, TAB 03/20/24 Nifedipine (Nifedipine Er) 30 Mg Tab, 1 TAB PO DAILY, #90 TAB 1 Refill 08/25/18 Nivolumab (Opdivo) 240 Mg/24 Ml Inj, 240 MG IV, INJ 08/25/18 Information Source: Patient, Emergency Med Personnel Mode of Arrival: EMS Timing: Days Duration: Since onset Prehospital treatment: None Vomitus: Bright Red Bood Stool: Black Severity: Moderate Recent: None Recent Hx of: None Associated sign and symptoms: Nausea, Vomiting, Hematemesis, Melena Past Medical History PAST MEDICAL HISTORY: Cancer, CHF, COPD, DM, HTN Surgical History: Cholecystectomy, Tonsillectomy Surgical History (Other): Left nephrectomy RANGE AID History: Denies all RANGE AID Hx, Other Family History Family History: Reviewed,noncontributory to illness Social History Smoker: Quit Greater Than 1 Year, Cigarettes Alcohol: Denies ETOH Use Drugs: Denies Drug Use Lives In: Home Constitutional: denies: chills, diaphoresis, fatigue, fever, malaise, sweats, weakness, others EENTM: denies: blurred vision, double vision, ear bleeding, ear discharge, ear drainage, ear pain, ear ringing, eye pain, eye redness, hearing loss, mouth pain, mouth swelling, nasal discharge, nose bleeding, nose congestion, nose pain, photophobia, tearing, throat pain, throat swelling, voice changes, others Respiratory: denies: cough, hemoptysis, orthopnea, SOB at rest, shortness of breath, SOB with excertion, stridor, wheezing, others Cardiovascular: denies: chest pain, dizzy spells, diaphoresis, Dyspnea on exertion, edema, irregular heart beat, left arm pain, lightheadedness, palpitations, PND, syncope, others Gastrointestinal: reports: hematemesis, melena, nausea, vomiting; denies: abdomen distended, abdominal pain, blood streaked bowels, constipated, diarrhea, dysphagia, difficulty swallowing, poor appetite, poor fluid intake, rectal bl eeding, rectal pain, others Genitourinary: denies: abnormal vagina bleeding, burning, dyspareunia, dysuria, flank pain, frequency, hematuria, incontinence, pain, , vagina discharge, urgency, others Neurological: denies: dizziness, fainting, headache, left sided numbness, left sided weakness, numbness, paresthesia, pre-existing deficit, right sided numbness, right sided weakness, seizure, speech problems, tingling, tremors, weakness, others Musculoskeletal: denies: back pain, gout, joint pain, joint swelling, muscle pain, muscle stiffness, neck pain, others Integumetry: denies: bruises, change in color, change in hair/nails, dryness, laceration, lesions, lumps, rash, wounds, others Allergic/Immunocompromised: denies: Difficulty Healing, Frequent Infections, Hives, Itching, others Hematologic/Lymphatic: denies: anemia, blood clots, easy bleeding, easy bruising, swollen glands, others Endocrine: denies: excessive hunger, excessive sweating, excessive thirst, excessive urination, flushing, intolerance to cold, intolerance to heat, unexplained weight gain, unexplained weight loss, others Psychiatric: denies: anxiety, bipolar disorder, depression, hopeless, panic disorder, schizophrenia, sleepless, suicidal, others All Other Systems: Reviewed and Negative Physical Exam General Appearance: Moderate Distress, Obese HEENT: Pale [place] (L), Pale [place] (R), Pharynx Normal, TMs Normal Neck: Full Range of Motion, Non-Tender, Normal, Normal Inspection Respiratory: Chest Non-Tender, Lungs Clear, No Accessory Muscle Use, No Respiratory Distress, Normal Breath Sounds Cardiovascular: No Edema, No JVD, No Murmur, No Gallop, Normal Peripheral Pulses, Regular Rate/Rhythm Breast Exam: Deferred Gastrointestinal: No Organomegaly, Non Tender, No Pulsatile Mass, Normal Bowel Sounds, Soft Genitalia: Deferred Pelvic: Deferred Rectal: Deferred Extremities: No calf tenderness, Normal capillary refill, Pedal edema Musculoskeletal : Apperance: Normal Neurologic: personnel analyst II-XII nml as Tested, Motor Weakness, No Sensory Deficits, Other (The patient's seems somewhat confused) Cerebellar Function: Normal Reflexes: Normal Skin: Dry, Pallor, Warm Lymphatic: No Adenopathy Was a procedure done? Was a procedure done?: No GI differential Dx Differential Diagnosis: Appendicitis, Gastritis/PUD, Gastroenteritis, Inflammatory BD, Pancreatitis, UTI, Electrolyte Imbalance, Food Poisoning X-Ray, Labs, Meds, VS Vital Signs Date Time Temp Pulse Resp B/P (MAP) Pulse Ox O2 Delivery O2 Flow Rate FiO2 09/04/25 18:10 97.4 90 20 137/60 (85) 98 97.4 09/04/25 18:10 90 20 98 Nasal Cannula* 2 28 09/04/25 17:50 90 09/04/25 17:48 97.8 91 16 118/53 96 97.8 Lab Test 09/04/25 19:23 09/04/25 18:39 Range/Units Urine Color Yellow Yellow Urine Clarity Turbid H Clear Urine pH 6.5 5.0-9.0 Urine Specific [place] 1.020 1.001-1.035 Urine Protein 2+ H Negative Urine Ketones Negative Negative Urine Blood 2+ H Negative /uL Urine Nitrite Negative Negative Urine Bilirubin Negative Negative Urine Urobilinogen Normal Negative mg/dL Urine Leukocyte Esterase 3+ Negative /uL Urine RBC 127 0 - 4 /hpf Urine Microscopic WBC 244 H 0-5 /HPF Urine Squamous Epithelial Cells Few <5 /hpf Urine Bacteria Mod H None Seen /hpf Urine Hyaline Casts Mod 0 - 2 /lpf Urine Mucus Few None Seen Urine Yeast (Budding) Few None Seen /hpf Urine Glucose Normal Normal mg/dL Urine Opiates Screen Neg NEGATIVE Urine Fentanyl Screen Neg NEGATIVE Urine Barbiturates Screen Neg NEGATIVE Urine Phencyclidine Screen Neg NEGATIVE Urine Amphetamines Screen Neg NEGATIVE Urine Benzodiazepines Screen Neg NEGATIVE Urine Cocaine Screen Neg NEGATIVE Urine Cannabinoids Screen Neg NEGATIVE White Blood Count 5.5 4.4-10.8 10^3/uL Red Blood Count 4.49 4.0-5.20 10^6/uL Hemoglobin 10.3 L 12.2-16.2 g/dL Hematocrit 34.4 L 36.0-46.0 % Mean Corpuscular Volume 76.5 L 80.0-100.0 fL Mean Corpuscular Hemoglobin 22.9 L 28.0-32.0 pg Mean Corpuscular Hemoglobin Concent 29.9 L 32.0-36.0 g/dL Red Cell Distribution Width 17.5 H 11.8-14.3 % Platelet Count 350 140-450 10^3/uL Mean Platelet Volume 6.5 L 6.9-10.8 fL Neutrophils (%) (Auto) 69.7 37.0-80.0 % Lymphocytes (%) (Auto) 14.8 10.0-50.0 % Monocytes (%) (Auto) 12.6 H 0.0-12.0 % Eosinophils (%) (Auto) 2.4 0.0-7.0 % Basophils (%) (Auto) 0.5 0.0-2.0 % Neutrophils # (Auto) 3.8 1.6-8.6 10 ^3/uL Lymphocytes # (Auto) 0.8 0.4-5.4 10 ^3/uL Monocytes # (Auto) 0.7 0-1.3 10 ^3/uL Eosinophils # (Auto) 0.1 0-0.8 10 ^3/uL Basophils # (Auto) 0 0-0.2 10 ^3/uL Nucleated Red Blood Cells 0.0 % Prothrombin Time 11.6 9.3-11.8 sec Prothrombin Time INR 1.11 0.9-1.15 Activated Partial Thromboplast Time 24.8 24.5-34.5 SEC Sodium Level 143 136-145 mmol/L Potassium Level 4.1 3.5-5.1 mmol/L Chloride Level 108 H 98-107 mmol/L Carbon Dioxide Level 25 20-31 mmol/L Anion Gap 10 5-15 Blood Urea Nitrogen 35 H 9-23 mg/dL Creatinine 1.58 H 0.550-1.02 mg/dL Glomerular Filtration Rate Calc 36 >90 mL/min BUN/Creatinine Ratio 22.2 H 10.0-20.0 Serum Glucose 121 H 74-106 mg/dL Calcium Level 9.9 8.7-10.4 mg/dL IV Hep-Lock was established The urine tox is negative The urine test is significant for a significant UTI This time the patient was started on normal saline per sepsis protocol The patient's CBC and chemistry panel is within normal limits except for BUN of 35 and a creatinine of 1.58 At this time the patient was then started on vancomycin and Rocephin The patient is being admitted at this time Images Reviewed?: Images reviewed and evaluated by me Time of 1ST Reevaluation: 19:51 Reevaluation 1ST: Unchanged Patient Education/Counseling: Diagnosis, Treatment, Prognosis Family Education/Counseling: No Family Present SEPSIS Sepsis Screen Date sepsis recognized/suspect: Sep 04, 2025 Time Sepsis recognized/suspect: 1739 Recent Procedure: No On Antibiotic Therapy: No Respiratory Rate >20: No Heart Rate >90: No Temp<36 C (96.8 F) or >38.3 C: No SBP <90 or MAP <65 mmHG: No New Acute Mental Status Change: No Is the patient on CPAP, BIPAP,: No Physician Orders Chest Portable (09/04/25 18:08) Gm/Svp [employer] (09/04/25 18:08) Blood Pressure (09/04/25 18:08) Heplock Iv (09/04/25 18:08) Type And Screen (09/04/25 18:08) 0.9% Ns 30mls/Kg (09/04/25 20:00) Blood Culture (09/04/25 19:48) Lactic Acid W/ Reflex Order (09/04/25 19:48) Vancomycin (09/04/25 20:00) Ceftriaxone Ivpb Rocephin (09/04/25 20:00) Vital Signs Date Time Temp Pulse Resp B/P (MAP) Pulse Ox O2 Delivery O2 Flow Rate FiO2 09/04/25 18:10 97.4 90 20 137/60 (85) 98 97.4 09/04/25 18:10 90 20 98 Nasal Cannula* 2 28 09/04/25 17:50 90 09/04/25 17:48 97.8 91 16 118/53 96 97.8 Laboratory Tests Test 09/04/25 18:39 White Blood Count 5.5 10^3/uL (4.4-10.8) Departure 1 Departure Time of Disposition: 19:51 Impression: Primary Impression: UTI (urinary tract infection) Qualified Codes: N30.00 - Acute cystitis without hematuria Additional Impression: Altered mental status Qualified Codes: R41.0 - Disorientation, unspecified Disposition: 09 ADMITTED INPATIENT Admit to: Tele Condition: Fair Critical Care Note Critical Care Time?: Yes (55 min-critical care time only) Stability Stability form required: Yes Unstable for transfer: Telemetry monitoring (Telemetry monitoring required), ED Physician Assesment (Clinical assesment) Heart Score Heart Score: Heart Score Response (Comments) Value History N/A 0 EKG N/A 0 Age N/A 0 Risk Factors N/A 0 Troponin N/A 0 Total 0 I personally scribed for JOEY ESPARZA MD ([email or web address]) on 09/04/25 at 18:20. Electronically submitted by Ezra Gerber ([email or web address]). JOEY ESPARZA MD Sep 04, 2025 18:20
--- NOTE | 2025-09-04 18:45 | ECG ---
[facility] Test Date: 2025-09-04 Test Time: 17:47:39 Pat Name: DYLAN NELSON Department: [facility] ED Patient ID: [id number] Room: 0279T Gender: F Pul[employer] Operator: TAI : 1960 Requested By: JOEY ESPARZA Order Number: [id number] Reading MD: Maycol Ryan Measurements Intervals Emblem Rate: 90 P: 37 KS: 154 QRS: -92 QRSD: 139 T: 71 QT: 396 QTc: 485 Interpretive Statements Sinus rhythm RBBB and LAFB LVH by voltage Inferior infarct, acute Lateral leads are also involved Electronically Signed On 09-06-2025 18:45:31 PDT by Maycol Ryan Please click the below link to view image of tracing.
[2025-09-04 19:04] LABS: Hematocrit 34.4 % (36.0-46.0); Hemoglobin 10.3 g/dL (12.2-16.2); Mean Corpuscular Hemoglobin 22.9 pg (28.0-32.0); Mean Corpuscular Volume 76.5 fL (80.0-100.0); Nucleated Red Blood Cells % 0.0 %
[2025-09-04 19:12] LABS: Potassium 4.1 mmol/L (3.5-5.1); Sodium 143 mmol/L (136-145)
[2025-09-04 19:13] LABS: Anion Gap 10 (5-15); Calcium 9.9 mg/dL (8.7-10.4); Carbon Dioxide 25 mmol/L (20-31)
[2025-09-04 19:18] LABS: BUN/Creatinine Ratio 22.2 (10.0-20.0); INR 1.11 (0.9-1.15); Partial Thromboplastin Time 24.8 SEC (24.5-34.5); Prothrombin Time 11.6 sec (9.3-11.8)
[2025-09-04 19:30] VITALS: O2SAT 100
[2025-09-04 19:32] LABS: Blood Urea Nitrogen 35 mg/dL (9-23); Chloride 108 mmol/L (98-107); Glucose 121 mg/dL (74-106)
[2025-09-04 19:45] LABS: Urine Budding Yeast FEW /hpf (None Seen); Urine Protein, UAD 2+ (Negative)
[2025-09-04 19:46] LABS: Benzodiazephine Screen, Urine Neg (NEGATIVE); Opiate Scree,Urine Neg (NEGATIVE)
[2025-09-04 19:49] LABS: Amphetamine Screen, Urine Neg (NEGATIVE); Barbiturate Scree,Urine Neg (NEGATIVE); Cannabinoid Screen, Urine Neg (NEGATIVE); Cocaine Screen, Urine Neg (NEGATIVE); Phencyclidine Screen, Urine Neg (NEGATIVE)
[2025-09-04] MEDS: VANCOMYCIN 1GM/250ML KIT 250 ML IV ONE (20:43)
[2025-09-04] MEDS: SODIUM CHLORIDE 0.9% 1,000 ML IV ONE ×2 (20:43→22:50)
[2025-09-04] MEDS ORDERED: MORPHINE SULFATE INJ 2 MG/ml SYRG IV PRN (20:45)
[2025-09-04] MEDS ORDERED: ACETAMINOPHEN 325 MG TAB PO PRN (20:45)
--- NOTE | 2025-09-04 20:54 | DVHHPRES ---
History of Present Illness Resident Creating Document: SAE GOMEZ RESIDENT History of Present Illness Chrissy Billings this is a 65-year-old female patient who is brought to ED via EMS with chief complaint of nausea/vomiting with hematemesis associated with altered mental status which worsened three days before her admission. Due to clinical status could not obtain review of systems, obtained past medical history from EMR. Patient has been bed ridden for approximately one year. Past medical history: Dyslipidemia, hypertension, diabetes, CHF, COPD, hypothyroidism, renal cell carcinoma status post nephrectomy, CVA currently bedridden Surgical history: Nephrectomy, cholecystectomy, tonsillectomy Family history: Unknown Social history: [place] son (he is her caregiver). Unknown tobacco, alcohol and other drug abuse history Allergies: Codeine Home medication: Albuterol, aspirin, atorvastatin, digoxin, empagliflozin, fluconazole, furosemide, gabapentin, ipratropium, insulin glargine, levothyroxine 100 mcg p.o. daily, lisinopril 20 mg p.o. daily, metformin, nifedipine, nivolumab, pantoprazole, spironolactone, Vericiguat Patient seen and examined at bedside. Currently only oriented in person. Patient will be admitted for further management. Past Medical History Per HPI Past Surgical History Per HPI Family History Per HPI Past Social History Per HPI Review of Systems Allergies: Coded Allergies: Codeine (Verified Adverse Reaction, Unknown, vomiting, 06/06/25) patient states when she was young codeine syrup made her vomit. Exam Vital Signs Vital Signs Date Time Temp Pulse Resp B/P (MAP) Pulse Ox O2 Delivery O2 Flow Rate FiO2 09/04/25 19:30 97.8 90 12 112/81 (91) 100 97.8 09/04/25 19:30 Nasal Cannula* 4 36 Exam Patient lying in bed, in no acute distress General: Walters, afebrile, mucosae are dry Cardiovascular: Normal S1 and S2. No murmurs, gallops or rubs Respiratory: Normal ventilation mechanics. Clear lung sounds on auscultation Abdomen: Soft, nontender, no organomegaly, normal bowel sounds MSK/skin: Mobilizes 4 limbs. Skin is dry and warm. Presents bilateral foot wounds, no secretion and nor erythema observed during evaluation Neurological: Oriented in 1 spheres (only person). No motor no sensitive deficits. Pupils are isocoric and reactive Labs/Xrays Labs Test 09/04/25 20:05 09/04/25 19:23 09/04/25 18:39 Range/Units Lactic Acid Level 1.1 0.4-2.0 mmol/L Urine Color Yellow Yellow Urine Clarity Turbid H Clear Urine pH 6.5 5.0-9.0 Urine Specific [place] 1.020 1.001-1.035 Urine Protein 2+ H Negative Urine Ketones Negative Negative Urine Blood 2+ H Negative /uL Urine Nitrite Negative Negative Urine Bilirubin Negative Negative Urine Urobilinogen Normal Negative mg/dL Urine Leukocyte Esterase 3+ Negative /uL Urine RBC 127 0 - 4 /hpf Urine Microscopic WBC 244 H 0-5 /HPF Urine Squamous Epithelial Cells Few <5 /hpf Urine Bacteria Mod H None Seen /hpf Urine Hyaline Casts Mod 0 - 2 /lpf Urine Mucus Few None Seen Urine Yeast (Budding) Few None Seen /hpf Urine Glucose Normal Normal mg/dL Urine Opiates Screen Neg NEGATIVE Urine Fentanyl Screen Neg NEGATIVE Urine Barbiturates Screen Neg NEGATIVE Urine Phencyclidine Screen Neg NEGATIVE Urine Amphetamines Screen Neg NEGATIVE Urine Benzodiazepines Screen Neg NEGATIVE Urine Cocaine Screen Neg NEGATIVE Urine Cannabinoids Screen Neg NEGATIVE White Blood Count 5.5 4.4-10.8 10^3/uL Red Blood Count 4.49 4.0-5.20 10^6/uL Hemoglobin 10.3 L 12.2-16.2 g/dL Hematocrit 34.4 L 36.0-46.0 % Mean Corpuscular Volume 76.5 L 80.0-100.0 fL Mean Corpuscular Hemoglobin 22.9 L 28.0-32.0 pg Mean Corpuscular Hemoglobin Concent 29.9 L 32.0-36.0 g/dL Red Cell Distribution Width 17.5 H 11.8-14.3 % Platelet Count 350 140-450 10^3/uL Mean Platelet Volume 6.5 L 6.9-10.8 fL Neutrophils (%) (Auto) 69.7 37.0-80.0 % Lymphocytes (%) (Auto) 14.8 10.0-50.0 % Monocytes (%) (Auto) 12.6 H 0.0-12.0 % Eosinophils (%) (Auto) 2.4 0.0-7.0 % Basophils (%) (Auto) 0.5 0.0-2.0 % Neutrophils # (Auto) 3.8 1.6-8.6 10 ^3/uL Lymphocytes # (Auto) 0.8 0.4-5.4 10 ^3/uL Monocytes # (Auto) 0.7 0-1.3 10 ^3/uL Eosinophils # (Auto) 0.1 0-0.8 10 ^3/uL Basophils # (Auto) 0 0-0.2 10 ^3/uL Nucleated Red Blood Cells 0.0 % Prothrombin Time 11.6 9.3-11.8 sec Prothrombin Time INR 1.11 0.9-1.15 Activated Partial Thromboplast Time 24.8 24.5-34.5 SEC Sodium Level 143 136-145 mmol/L Potassium Level 4.1 3.5-5.1 mmol/L Chloride Level 108 H 98-107 mmol/L Carbon Dioxide Level 25 20-31 mmol/L Anion Gap 10 5-15 Blood Urea Nitrogen 35 H 9-23 mg/dL Creatinine 1.58 H 0.550-1.02 mg/dL Glomerular Filtration Rate Calc 36 >90 mL/min BUN/Creatinine Ratio 22.2 H 10.0-20.0 Serum Glucose 121 H 74-106 mg/dL Calcium Level 9.9 8.7-10.4 mg/dL SEPSIS Sepsis Screen Date sepsis recognized/suspect: Sep 04, 2025 Time Sepsis recognized/suspect: 2007 Recent Procedure: No On Antibiotic Therapy: No Respiratory Rate >20: No Heart Rate >90: No Temp<36 C (96.8 F) or >38.3 C: No SBP <90 or MAP <65 mmHG: No New Acute Mental Status Change: Yes Is the patient on CPAP, BIPAP,: No Physician Orders Chest Portable (09/04/25 18:08) Beater Lead (09/04/25 18:08) Blood Pressure (09/04/25 18:08) Heplock Iv (09/04/25 18:08) Type And Screen (09/04/25 18:08) Sodium Chloride 0.9% (09/04/25 20:00) Blood Culture (09/04/25 19:48) Vancomycin 1gm/250ml Kit (09/04/25 20:00) Admit (09/04/25 20:44) Code Status (09/04/25 20:44) Acetaminophen Tablet (Tylenol Tablet) (09/04/25 20:45) Ondansetron Hcl (Zofran) (09/04/25 20:45) Complete Blood Count (09/05/25 04:00) Comprehensive Metabolic Panel (09/05/25 04:00) Npo (Nothing By Mouth) Diet (09/05/25 Breakfast) Echo 2d Mode Cardiac Dop (09/04/25 20:44) Morphine Sulfate Injection (09/04/25 20:45) Oxygen By Nasal Cannula (09/04/25:44) Stat Ekg For Chest Pain (09/04/25 20:44) Notify Of Changes From Base (09/04/25 20:44) Healthcare Technician For 24 Hours (09/04/25 20:44) Emergency Dysrhythmia Protocol (09/04/25:44) Rhythm Strips Once Every Shift (09/04/25 20:44) NS (09/04/25 20:45) Vital Signs Date Time Temp Pulse Resp B/P (MAP) Pulse Ox O2 Delivery O2 Flow Rate FiO2 09/04/25 19:30 97.8 90 12 112/81 (91) 100 97.8 09/04/25 19:30 100 Nasal Cannula* 4 36 09/04/25 18:10 97.4 90 20 137/60 (85) 98 97.4 09/04/25 18:10 90 20 98 Nasal Cannula* 2 28 09/04/25 17:50 90 09/04/25 17:48 97.8 91 16 118/53 96 97.8 Laboratory Tests Test 09/04/25 18:39 09/04/25 20:05 White Blood Count 5.5 10^3/uL (4.4-10.8) Lactic Acid Level 1.1 mmol/L (0.4-2.0) Assessment/Plan Assessment/Plan ASSESSMENT Metabolic encephalopathy Probable upper GI bleed Complicated UTI KELLY hemodynamically mediated (VMN) Microcytic anemia Diabetic foot Thallic ulcer decubitus wound present on admission Diabetes Hypertension Dyslipidemia History of CVA currently bed-bound Hypothyroidism Chronic systolic congestive heart failure (HFrEF, LVEF 35-45%) PLAN Completed head CT which showed no acute findings, did show chronic microvascular changes and old left thalamus infarct Urine analysis compatible with UTI. Currently under empiric IV antibiotic (ceftriaxone) Ordered yoder culture, pending result Indicated IV fluids Patient currently with bowel rest due to probable GI bleed. Evaluate need for GI counseled for eventual endoscopies. TSH obtain, above 26. Ordered free T4 and total T3 Currently on Accu-Cheks and insulin sliding scale Ordered swallow evaluation On SCDs, avoid enoxaparin and aspirin. Goals of care could not be discussed with patient, son did not picking supervisor phone call, currently indicated as full code status from previous progress notes (per son's wishes). Discussed plan with Dr. Alvarez and nurses: Admit patient to telemetry. Currently under empiric IV antibiotic, IV fluids, completing anemia workup. Patient has poor prognosis. Plan discussed with: Patient, Other (Nurses) My Orders Orders - SAE GOMEZ RESIDENT Procedure Category Date Status Time Admit ADMIT 09/04/25 Verified 20:44 Code Status CODE 09/04/25 Verified 20:44 Acetaminophen Tablet PHA 09/04/25 Verified (Tylenol Tablet) 20:45 Ondansetron Hcl PHA 09/04/25 Verified (Zofran) 20:45 Complete Blood Count LAB 09/05/25 Verified 04:00 Comprehensive LAB 09/05/25 Verified Metabolic Panel 04:00 Npo (Nothing By DIET 09/05/25 Verified Mouth) Diet Breakfast Echo 2d Mode Cardiac US 09/04/25 Verified DOP 20:44 Morphine Sulfate PHA 09/04/25 Verified Injection 20:45 Oxygen By Nasal RT 09/04/25 Verified Cannula 20:44 Stat Ekg For Chest [facility] 09/04/25 Verified Pain 20:44 Notify Md Of Changes [facility] 09/04/25 Verified From Base 20:44 Healthcare Technician For [facility] 09/04/25 Verified 24 Hours 20:44 Emergency Dysrhythmia [facility] 09/04/25 Verified Protocol 20:44 Rhythm Strips Once [facility] 09/04/25 Verified Every Shift 20:44 NS PHA 09/04/25 Verified 20:45 Date of Service: Sep 04, 2025 Billing Provider: RUDOLPH ALVAREZ MD Common Visit Codes: [id number] INP/OBS CARE (HIGH) Secondary Visit Codes: [id number] CARE PLAN 30 MINUTES SAE GOMEZ RESIDENT Sep 04, 2025 20:54
[2025-09-04] MEDS ORDERED: DEXTROSE (50%) 50ML SYRG IV PRN (22:00)
[2025-09-04 22:45] VITALS: BP 145/77; PULSE 77; RESP 18; TEMP 97.4; O2SAT 96
[2025-09-04 23:01] LABS: Lipase 21.0 U/L (12-53)
[2025-09-04 23:02] LABS: Magnesium 2.0 mg/dL (1.6-2.6)
[2025-09-04 23:26] LABS: Triglycerides 123.0 mg/dL (< 150)
[2025-09-04 23:28] LABS: Alkaline Phosphatase 77 U/L (46-116)
[2025-09-04 23:29] LABS: Cholesterol 118.0 mg/dL (< 200)
[2025-09-04 23:32] LABS: Alanine Aminotransferase < 9 U/L (7-40); Bilirubin, Direct < 0.1 mg/dL (<0.3); Bilirubin, Total < 0.2 mg/dL (0.2-1.0); HDL Cholesterol 35.0 mg/dL (40-59); Total Protein 5.6 g/dL (5.7-8.2)
[2025-09-04 23:33] LABS: Albumin 3.1 g/dL (3.2-4.8)
[2025-09-05] VITALS (8 sets, daily range): BP systolic 124–145; BP diastolic 63–86; PULSE 60–98; RESP 17–20; TEMP 97.4–98.8; O2SAT 95–100
[2025-09-05] MEDS: ACCU-CHEK COMFORT CURVE STRIP VI SCH
[2025-09-05] MEDS: PANTOPRAZOLE 40 MG/10 ML VIAL INJ IV SCH (01:15)
[2025-09-05] MEDS: InsuLIN REG 1unit/0.01ml Soln (100units/ml) SC SCH (01:16)
[2025-09-05] MEDS: SODIUM CHLORIDE 0.9% 1,000 ML IV SCH (01:17)
[2025-09-05 07:32] LABS: Hematocrit 31.8 % (36.0-46.0); Hemoglobin 9.8 g/dL (12.2-16.2); Mean Corpuscular Hemoglobin 23.5 pg (28.0-32.0); Mean Corpuscular Volume 76.4 fL (80.0-100.0); Nucleated Red Blood Cells % 0.1 %
[2025-09-05 07:50] LABS: Alkaline Phosphatase 73 U/L (46-116); Anion Gap 12 (5-15); BUN/Creatinine Ratio 24.3 (10.0-20.0); Carbon Dioxide 22 mmol/L (20-31); Glucose 92 mg/dL (74-106); Potassium 3.5 mmol/L (3.5-5.1); Sodium 145 mmol/L (136-145); Total Protein 6.0 g/dL (5.7-8.2)
[2025-09-05 07:52] LABS: Calcium 9.2 mg/dL (8.7-10.4)
[2025-09-05 07:54] LABS: Alanine Aminotransferase < 9 U/L (7-40); Albumin 3.2 g/dL (3.2-4.8); Bilirubin, Total < 0.2 mg/dL (0.2-1.0); Blood Urea Nitrogen 33 mg/dL (9-23); Chloride 111 mmol/L (98-107)
--- NOTE | 2025-09-05 09:21 | DVH ---
CT HEAD WITHOUT CONTRAST: HISTORY: ALOC COMPARISON: CT HEAD WITHOUT CONTRAST on DOS: 06/07/25 CONTRAST: Study was performed without contrast. TECHNIQUE: Axial images from the skull base to the vertex with coronal and sagittal reformatted image s. Dose reduction technique was used on this scan by utilizing automated exposure control, adjustment of the mA and/or kV according to the patient size. DICOM format image data available to non-affili ed external healthcare facilities or entities on a secure, media free, reciprocally searchable basis with patient authorization for at least a 12 month period after the study. FINDINGS: Parenchyma: No acute intraparenchymal hemorrhage or extra-axial fluid collection. Basal cisterns irena sly unremarkable. Cerebellum and posterior fossa structures without focal abnormality. There is age a ppropriate mild generalized atrophy. Mild chronic microvascular scheme changes are present. Chronic lacunar infarct in the left denise radiata / external capsule and left thalamus. The ventricles ar e normal in size and configuration . The basal cistern are patent. There is complete opacification o f the left maxillary sinus. Minimal thickening in the anterior ethmoid and right maxillary sinuses. R emainder of the paranasal sinuses are clear . There is partial opacification of the right mastoid air cells prior IMPRESSION: 1. No acute intracranial hemorrhage, mass effect or midline shift. 2. Mild chronic microvascular ischemic changes. 3. Chronic lacunar infarct in the left thalamus.
--- NOTE | 2025-09-05 09:33 | DVHPN2 ---
Progress Note - Dictate Date Seen: Sep 04, 2025 Medical Necessity Reason Pt with a Central, PICC or Fol: Yes The following are medically ne: Central Line, [place] Catheter Subjective PT WITH UGI BLEED HEMATEMESIS MELENA NAUSEA VOMITING AMS METABOLIC ENCEPHALOPATHY DIARRHEA HYPOTENSION HYPOVOLEMIA SECONDARY TO DIARRHEA AND POOR PO INTAKE ACUTE RENAL FAILURE CHRONIC RENAL DISEASE CXR MILD LLL ATELECTASIS PMH: LE DOPPLER CONSISTENT WITH ADVANCE PAD HX OF DM VASCULOPATHY NEUROPATHY HX OF RENAL CELL CARCINOMA WITH LEFT PARTIAL NEPHRECTOMY BUT RENAL US SHOWS RIGHT kidney measures 12.7 cm in length. No hydronephrosis. LEFT kidney measures 9.9 cm in length. No hydronephrosis. COPD HX OF TOBACCO USE HTN ORGANIC HD NL EF DIASTOLIC DYSFUNCTION ECHO MILD GLOBAL HYPOKINESIS EF 40% vital signs Vital Sign Date Time Temp Pulse Resp B/P (MAP) Pulse Ox O2 Delivery O2 Flow Rate FiO2 09/05/25 09:21 97.9 87 18 124/80 (95) 97 97.9 09/05/25 01:42 Nasal Cannula* 2 28 Total Intake and Output 09/04/25 09/04/25 09/05/25 15:00 23:00 07:00 Intake Total 0 ml Balance 0 ml medications Current Medications Medications Dose Ordered Sig/Audrey Route Start Time Stop Time Status Last Admin Dose Admin Acetaminophen 325 mg Q4HP PRN PO 09/04/25 20:45 Ondansetron HCl 4 mg Q4HP PRN IV 09/04/25 20:45 Sodium Chloride 1,000 ml @ 75 mls/hr [id number] IV 09/04/25 20:45 09/05/25 01:17 75 MLS/HR Ceftriaxone Sodium 50 ml @ 100 mls/hr DAILY@09 IV 09/05/25 09:00 09/05/25 09:04 100 MLS/HR Pantoprazole Sodium 40 mg BID IV 09/04/25 22:00 09/05/25 09:04 40 MG Diagnostic Test (Pha) 1 strip Q6HR 09/05/25 00:00 09/05/25 06:22 1 STRIP Insulin Human Regular Q6HR SC 09/05/25 00:00 Dextrose 50 ml UD PRN IV 09/04/25 22:00 laboratory and microbiology Laboratory Tests 09/05/25 04:43 Test 09/05/25 04:43 Range/Units Serum Glucose 92 74-106 mg/dL Problem List UGI BLEED HEMATEMESIS MELENA NAUSEA VOMITING AMS METABOLIC ENCEPHALOPATHY DIARRHEA HYPOTENSION HYPOVOLEMIA SECONDARY TO DIARRHEA AND POOR PO INTAKE ACUTE RENAL FAILURE CHRONIC RENAL DISEASE CXR MILD LLL ATELECTASIS PMH: LE DOPPLER CONSISTENT WITH ADVANCE PAD HX OF DM VASCULOPATHY NEUROPATHY HX OF RENAL CELL CARCINOMA WITH LEFT PARTIAL NEPHRECTOMY BUT RENAL US SHOWS RIGHT kidney measures 12.7 cm in length. No hydronephrosis. LEFT kidney measures 9.9 cm in length. No hydronephrosis. COPD HX OF TOBACCO USE HTN ORGANIC HD EF 40% DIASTOLIC DYSFUNCTION/ SYSTOLIC DYSFUNCTION Assessment/Plan PROTON INHIBITOR SERIAL CBC GI CONSULT Plan discussed with: Patient Critical Care Time(min): 35 HUNG IVAN MD Sep 05, 2025 09:33
[2025-09-05 10:50] LABS: COVID19 ANTIGEN SOFIA FIA NEGATIVE (NEGATIVE)
[2025-09-05 10:55] LABS: Free T4 (Free Thyroxine) 0.56 ng/dL (0.89-1.76)
[2025-09-05] MEDS: ERGOCALCIFEROL 50,000 UNIT(1.25MG) CAP PO SCH (10:56)
[2025-09-05 11:30] LABS: Iron 18.0 ug/dL (50-170); Total Iron Binding Capacity 175.0 ug/dL (250-425)
--- NOTE | 2025-09-05 12:30 | DVHPN2 ---
Subjective The patient seen and examination at bedside. Very confuse and sleepy Reviewed: Care Plan, H&P, Labs, Medications, Previous Orders, Radiology Changes from previous H/P or p: No Changes Objective Vitals Vital Signs Date Time Temp Pulse Resp B/P (MAP) Pulse Ox O2 Delivery O2 Flow Rate FiO2 09/05/25 09:21 97.9 87 18 124/80 (95) 97 97.9 09/05/25 08:00 Nasal Cannula* 2 28 Intake/Output Intake and Output 09/05/25 07:00 Intake Total 0 ml Balance 0 ml Intake Oral 0 ml # Voids 2 # Bowel Movements 2 General Appearance: Alert, Oriented X3, Cooperative, No acute distress HEENT: Atraumatic, PERRLA, EOMI, Mucous membr. moist/pink Neck: Supple Lungs: Clear to auscultation, Normal air movement Cardiovascular: Regular rate, Normal S1, Normal S2, No murmurs, Gallops, Rubs Abdomen: Normal bowel sounds, Soft, No tenderness Neuro: Cranial nerves 3-12 NL Psych/Mental Status: Mental status NL Medications Current Medications Medications Dose Ordered Sig/Audrey Route Start Time Stop Time Status Last Admin Dose Admin Acetaminophen 325 mg Q4HP PRN PO 09/04/25 20:45 Ondansetron HCl 4 mg Q4HP PRN IV 09/04/25 20:45 Sodium Chloride 1,000 ml @ 75 mls/hr [id number] IV 09/04/25 20:45 09/05/25 01:17 75 MLS/HR Ceftriaxone Sodium 50 ml @ 100 mls/hr DAILY@09 IV 09/05/25 09:00 09/05/25 09:04 100 MLS/HR Pantoprazole Sodium 40 mg BID IV 09/04/25 22:00 09/05/25 09:04 40 MG Diagnostic Test (Pha) 1 strip Q6HR 09/05/25 00:00 09/05/25 11:11 1 STRIP Insulin Human Regular Q6HR SC 09/05/25 00:00 Dextrose 50 ml UD PRN IV 09/04/25 22:00 Ergocalciferol 50,000 unit Q7D PO 09/05/25 10:00 09/05/25 10:56 50,000 UNIT Metronidazole 100 ml @ 100 mls/hr Q8HR IV 09/05/25 14:00 Atorvastatin Calcium 40 mg HS PO 10/17/25 22:00 Levothyroxine Sodium 100 mcg QAM PO 09/06/25 07:00 Laboratory Results Laboratory Tests 09/05/25 04:43 Chemistry Test 09/04/25 18:39 09/04/25 22:29 09/05/25 04:43 Calcium Level 9.9 mg/dL (8.7-10.4) 9.2 mg/dL (8.7-10.4) Albumin 3.1 g/dL (3.2-4.8) L 3.2 g/dL (3.2-4.8) Magnesium Level 2.0 mg/dL (1.6-2.6) Phosphorus Level 3.0 mg/dL (2.4-5.1) Total Protein 5.6 g/dL (5.7-8.2) L 6.0 g/dL (5.7-8.2) Coagulation Test 09/04/25 18:39 Prothrombin Time 11.6 sec (9.3-11.8) Prothrombin Time INR 1.11 (0.9-1.15) Activated Partial Thromboplast Time 24.8 SEC (24.5-34.5) Lipid panel Test 09/04/25 22:29 Cholesterol Level 118 mg/dL (< 200) HDL Cholesterol 35 mg/dL (40-59) L Lipase 21 U/L (12-53) Triglycerides Level 123 mg/dL (< 150) LFT Test 09/04/25 22:29 09/05/25 04:43 Alanine Aminotransferase (ALT) < 9 U/L (7-40) < 9 U/L (7-40) Alkaline Phosphatase 77 U/L (46-116) 73 U/L (46-116) Aspartate Amino Transferase (AST) < 8 U/L (13-40) L < 8 U/L (13-40) L Direct Bilirubin < 0.1 mg/dL (<0.3) Total Bilirubin < 0.2 mg/dL (0.2-1.0) L < 0.2 mg/dL (0.2-1.0) L HgA1c, TSH Test 09/04/25 22:29 Hemoglobin A1c 5.6 % A1C (<5.7) Thyroid Stimulating Hormone (TSH) 26.35 uIU/mL (0.55-4.78) H Urinalysis Test 09/04/25 19:23 Urine Color Yellow (Yellow) Urine Clarity Turbid (Clear) H Urine pH 6.5 (5.0-9.0) Urine Specific [place] 1.020 (1.001-1.035) Urine Protein 2+ (Negative) H Urine Ketones Negative (Negative) Urine Blood 2+ /uL (Negative) H Urine Nitrite Negative (Negative) Urine Bilirubin Negative (Negative) Urine Urobilinogen Normal mg/dL (Negative) Urine Leukocyte Esterase 3+ /uL (Negative) Urine RBC 127 /hpf (0 - 4) Urine Microscopic WBC 244 /HPF (0-5) H Urine Squamous Epithelial Cells Few /hpf (<5) Urine Bacteria Mod /hpf (None Seen) H Urine Hyaline Casts Mod /lpf (0 - 2) Urine Mucus Few (None Seen) Urine Yeast (Budding) Few /hpf (None Seen) Urine Glucose Normal mg/dL (Normal) Labs and/or images reviewed: Labs reviewed by me Assessment/Plan Assessment/Plan Metabolic encephalopathy Probable upper GI bleed Complicated UTI KELLY hemodynamically mediated (VMN) Microcytic anemia Diabetic foot Thallic ulcer decubitus wound present on admission Diabetes type 2 Hypertension Dyslipidemia History of CVA currently bed-bound Hypothyroidism Chronic systolic congestive heart failure (HFrEF, LVEF 35-45%) PLAN Continue current management Continue IV antibiotic Rocephin. Continue IV fluid Will follow culture Will follow Thyroid function. Continue wound care. Per son, the patient wish to be FULL CODE. Plan discussed with: Patient, Son My Orders Orders - GRETCHEN SCHNEIDER MD Procedure Category Date Status Time C-Diff: Collect Next ANDREW 09/05/25 In Process Specimen 11:53 Date of Service: Sep 06, 2025 Billing Provider: GRETCHEN SCHNEIDER MD Common Visit Codes: [id number] INP/OBS CARE(HIGH) GRETCHEN SCHNEIDER MD Sep 05, 2025 12:29
--- NOTE | 2025-09-05 14:00 | DVH ---
CHEST RADIOGRAPH Indication: aloc Technique: Single frontal view of the chest was obtained COMPARISON: XY CHEST PORTABLE on DOS: 06/05/25, XY CHEST TWO VIEWS ROUTINE on DOS: 12/03/24, XY CHEST X RAY 1 VIEW on DOS: 07/22/24, XY CHEST PORTABLE on DOS: 05/22/24, XY CHEST XRAY 1 VIEW on DOS: 04/13/24 FINDINGS: Lines and Tubes: None Lungs: Increased interstitial prominence Pleura: No effusion. No pneumothorax. Cardiomediastinal contours: Unremarkable Bones: Unremarkable IMPRESSION: Increased interstitial prominence is felt to represent chronic fibrotic change. Possible superimpose d viral pneumonia or pulmonary vascular congestion.
[2025-09-05] MEDS: HYDROcodone-ACET 5/325MG TAB PO PRN (17:37)
[2025-09-05] MEDS: ALPRAZolam 0.5 MG TAB PO SCH (22:25)
[2025-09-05] MEDS: ATORVASTATIN 20 MG TAB PO SCH (22:26)
[2025-09-06] MEDS: LEVOTHYROXINE SODIUM 100 MCG TAB PO SCH (06:40)
[2025-09-06 08:00] VITALS: PULSE 89
[2025-09-06 09:00] VITALS: BP 144/81; PULSE 98; RESP 20; TEMP 97.4; O2SAT 94
[2025-09-06 13:00] VITALS: BP 135/73; PULSE 89; RESP 20; TEMP 97.6; O2SAT 100
--- NOTE | 2025-09-06 14:45 | DVHPN2 ---
Subjective The patient seen and examined at bedside. More alert and awake today. Reviewed: Care Plan, H&P, Labs, Medications, Previous Orders, Radiology Changes from previous H/P or p: No Changes Objective Vitals Vital Signs Date Time Temp Pulse Resp B/P (MAP) Pulse Ox O2 Delivery O2 Flow Rate FiO2 09/06/25 13:00 97.6 89 20 135/73 (93) 100 97.6 09/06/25 08:00 Nasal Cannula* 2 28 Intake/Output Intake and Output 09/06/25 07:00 Intake Total 350 ml Balance 350 ml Intake Oral 300 ml IV Total 50 ml # Voids 13 # Bowel Movements 6 General Appearance: Alert, Oriented X3, Cooperative, No acute distress HEENT: Atraumatic, PERRLA, EOMI, Mucous membr. moist/pink Neck: Supple Lungs: Clear to auscultation, Normal air movement Cardiovascular: Regular rate, Normal S1, Normal S2, No murmurs, Gallops, Rubs Abdomen: Normal bowel sounds, Soft, No tenderness Neuro: Cranial nerves 3-12 NL Psych/Mental Status: Mental status NL Medications Current Medications Medications Dose Ordered Sig/Audrey Route Start Time Stop Time Status Last Admin Dose Admin Acetaminophen 325 mg Q4HP PRN PO 09/04/25 20:45 Ondansetron HCl 4 mg Q4HP PRN IV 09/04/25 20:45 Sodium Chloride 1,000 ml @ 75 mls/hr [id number] IV 09/04/25 20:45 09/06/25 12:45 75 MLS/HR Ceftriaxone Sodium 50 ml @ 100 mls/hr DAILY@09 IV 09/05/25 09:00 09/06/25 08:47 100 MLS/HR Pantoprazole Sodium 40 mg BID IV 09/04/25 22:00 09/06/25 08:47 40 MG Diagnostic Test (Pha) 1 strip Q6HR 09/05/25 00:00 09/06/25 11:38 1 STRIP Insulin Human Regular Q6HR SC 09/05/25 00:00 Dextrose 50 ml UD PRN IV 09/04/25 22:00 Ergocalciferol 50,000 unit Q7D PO 09/05/25 10:00 09/05/25 10:56 50,000 UNIT Metronidazole 100 ml @ 100 mls/hr Q8HR IV 09/05/25 14:00 09/06/25 13:37 100 MLS/HR Atorvastatin Calcium 40 mg HS PO 09/05/25 22:00 09/05/25 22:26 40 MG Levothyroxine Sodium 100 mcg QAM PO 09/06/25 07:00 09/06/25 06:40 100 MCG Alprazolam 0.5 mg BID PO 09/05/25 22:00 09/06/25 08:47 0.5 MG Acetaminophen/ Hydrocodone Bitart 1 tab Q4HPRN PRN PO 09/05/25 16:45 09/05/25 17:37 1 TAB Laboratory Results Laboratory Tests 09/05/25 04:43 Urinalysis Test 09/04/25 19:23 Urine Color Yellow (Yellow) Urine Clarity Turbid (Clear) H Urine pH 6.5 (5.0-9.0) Urine Specific [place] 1.020 (1.001-1.035) Urine Protein 2+ (Negative) H Urine Ketones Negative (Negative) Urine Blood 2+ /uL (Negative) H Urine Nitrite Negative (Negative) Urine Bilirubin Negative (Negative) Urine Urobilinogen Normal mg/dL (Negative) Urine Leukocyte Esterase 3+ /uL (Negative) Urine RBC 127 /hpf (0 - 4) Urine Microscopic WBC 244 /HPF (0-5) H Urine Squamous Epithelial Cells Few /hpf (<5) Urine Bacteria Mod /hpf (None Seen) H Urine Hyaline Casts Mod /lpf (0 - 2) Urine Mucus Few (None Seen) Urine Yeast (Budding) Few /hpf (None Seen) Urine Glucose Normal mg/dL (Normal) Microbiology Microbiology Date/Time Source Procedure Growth Status 09/05/25 05:25 Nose MRSA Screen - Final Complete 09/04/25 20:05 Blood Blood Culture - Preliminary NO GROWTH AFTER 24 HOURS OF INCUBATION. Resulted 09/04/25 19:23 Voided Urine Urine Culture - Preliminary Resulted Labs and/or images reviewed: Labs reviewed by me Assessment/Plan Assessment/Plan Metabolic encephalopathy Probable upper GI bleed Complicated UTI KELLY hemodynamically mediated (VMN) Microcytic anemia Diabetic foot Thallic ulcer decubitus wound present on admission Diabetes type 2 Hypertension Dyslipidemia History of CVA currently bed-bound Hypothyroidism Chronic systolic congestive heart failure (HFrEF, LVEF 35-45%) PLAN Continue current management Continue IV antibiotic Rocephin. Continue IV fluid Will follow culture Will follow Thyroid function. Continue wound care. Hb stable. Plan discussed with: Patient My Orders Orders - GRETCHEN SCHNEIDER MD Procedure Category Date Status Time Hydrocodone-Acet PHA 09/05/25 In Process 5/325mg Tab (Zanoni 16:45 Date of Service: Sep 06, 2025 Billing Provider: GRETCHEN SCHNEIDER MD Common Visit Codes: [id number] INP/OBS CARE(HIGH) GRETCHEN SCHNEIDER MD Sep 06, 2025 14:45
[2025-09-06 17:00] VITALS: BP 166/91; PULSE 78; RESP 20; TEMP 96.1; O2SAT 99
[2025-09-06 20:00] VITALS: PULSE 82
[2025-09-06 21:00] VITALS: BP 156/85; PULSE 84; RESP 17; O2SAT 99
[2025-09-07] VITALS (7 sets, daily range): BP systolic 135–166; BP diastolic 70–99; PULSE 72–83; RESP 16–18; TEMP 97.3–97.7; O2SAT 100
[2025-09-07] MEDS: ONDANSETRON HCL 4 MG/2 ML VIAL IV PRN (08:41)
[2025-09-07 10:18] LABS: Potassium 3.7 mmol/L (3.5-5.1); Sodium 142 mmol/L (136-145)
[2025-09-07 10:19] LABS: Anion Gap 9 (5-15); Carbon Dioxide 23 mmol/L (20-31)
[2025-09-07 10:20] LABS: Calcium 8.8 mg/dL (8.7-10.4)
[2025-09-07 10:25] LABS: BUN/Creatinine Ratio 17.2 (10.0-20.0); Blood Urea Nitrogen 15 mg/dL (9-23); Glucose 90 mg/dL (74-106)
--- NOTE | 2025-09-07 10:31 | ECG ---
[facility] Test Date: 2025-09-04 Test Time: 17:48:13 Pat Name: DYLAN NELSON Department: [facility] ED Patient ID: [facility]-[id number] Room: 0279T A Gender: F Electronic Systems Technician: TAI : 1960 Requested By: JOEY ESPARZA Order Number: [id number] Reading MD: Maycol Ryan Measurements Intervals [place] Rate: 90 P: 60 WV: 150 QRS: -88 QRSD: 142 T: 67 QT: 408 QTc: 500 Interpretive Statements Sinus rhythm RBBB and LAFB LVH by voltage Inferior infarct, acute Lateral leads are also involved Electronically Signed On 09-07-2025 17:01:00 PDT by Maycol Ryan Please click the below link to view image of tracing.
[2025-09-07 10:34] LABS: Chloride 110 mmol/L (98-107)
[2025-09-07 10:35] LABS: Hematocrit 30.4 % (36.0-46.0); Hemoglobin 9.1 g/dL (12.2-16.2); Mean Corpuscular Hemoglobin 22.6 pg (28.0-32.0); Mean Corpuscular Volume 75.8 fL (80.0-100.0); Nucleated Red Blood Cells % 0.0 %
[2025-09-07] MEDS: LISINOPRIL 20 MG TAB PO ONE (16:40)
--- NOTE | 2025-09-07 22:28 | DVHPN2 ---
Subjective The patient seen and examined at bedside. Today she is very sleepy. Reviewed: Care Plan, H&P, Labs, Medications, Previous Orders, Radiology Changes from previous H/P or p: No Changes Objective Vitals Vital Signs Date Time Temp Pulse Resp B/P (MAP) Pulse Ox O2 Delivery O2 Flow Rate FiO2 09/07/25 20:00 78 09/07/25 20:00 Nasal Cannula* 2 28 09/07/25 17:00 97.7 17 140/95 (110) 100 97.7 Intake/Output Intake and Output 09/07/25 07:00 Intake Total 1900 ml Balance 1900 ml Intake Oral 1800 ml IV Total 100 ml # Voids 7 # Bowel Movements 11 General Appearance: Alert, Oriented X3, Cooperative, No acute distress HEENT: Atraumatic, PERRLA, EOMI, Mucous membr. moist/pink Neck: Supple Lungs: Clear to auscultation, Normal air movement Cardiovascular: Regular rate, Normal S1, Normal S2, No murmurs, Gallops, Rubs Abdomen: Normal bowel sounds, Soft, No tenderness Neuro: Cranial nerves 3-12 NL Psych/Mental Status: Mental status NL Medications Current Medications Medications Dose Ordered Sig/Audrey Route Start Time Stop Time Status Last Admin Dose Admin Acetaminophen 325 mg Q4HP PRN PO 09/04/25 20:45 Ondansetron HCl 4 mg Q4HP PRN IV 09/04/25 20:45 09/07/25 08:41 4 MG Sodium Chloride 1,000 ml @ 75 mls/hr [id number] IV 09/04/25 20:45 09/07/25 16:34 75 MLS/HR Ceftriaxone Sodium 50 ml @ 100 mls/hr DAILY@09 IV 09/05/25 09:00 09/07/25 08:54 100 MLS/HR Pantoprazole Sodium 40 mg BID IV 09/04/25 22:00 09/07/25 20:57 40 MG Diagnostic Test (Pha) 1 strip Q6HR 09/05/25 00:00 09/07/25 17:25 1 STRIP Insulin Human Regular Q6HR SC 09/05/25 00:00 Dextrose 50 ml UD PRN IV 09/04/25 22:00 Ergocalciferol 50,000 unit Q7D PO 09/05/25 10:00 09/05/25 10:56 50,000 UNIT Metronidazole 100 ml @ 100 mls/hr Q8HR IV 09/05/25 14:00 09/07/25 20:57 100 MLS/HR Atorvastatin Calcium 40 mg HS PO 09/05/25 22:00 09/07/25 20:58 40 MG Levothyroxine Sodium 100 mcg QAM PO 09/06/25 07:00 09/06/25 06:40 100 MCG Alprazolam 0.5 mg BID PO 09/05/25 22:00 09/07/25 20:58 0.5 MG Acetaminophen/ Hydrocodone Bitart 1 tab Q4HPRN PRN PO 09/05/25 16:45 09/07/25 16:33 1 TAB Lisinopril 20 mg DAILY PO 09/08/25 10:00 Laboratory Results Laboratory Tests 09/07/25 09:56 Chemistry Test 09/07/25 09:56 Calcium Level 8.8 mg/dL (8.7-10.4) Urinalysis Test 09/04/25 19:23 Urine Color Yellow (Yellow) Urine Clarity Turbid (Clear) H Urine pH 6.5 (5.0-9.0) Urine Specific [place] 1.020 (1.001-1.035) Urine Protein 2+ (Negative) H Urine Ketones Negative (Negative) Urine Blood 2+ /uL (Negative) H Urine Nitrite Negative (Negative) Urine Bilirubin Negative (Negative) Urine Urobilinogen Normal mg/dL (Negative) Urine Leukocyte Esterase 3+ /uL (Negative) Urine RBC 127 /hpf (0 - 4) Urine Microscopic WBC 244 /HPF (0-5) H Urine Squamous Epithelial Cells Few /hpf (<5) Urine Bacteria Mod /hpf (None Seen) H Urine Hyaline Casts Mod /lpf (0 - 2) Urine Mucus Few (None Seen) Urine Yeast (Budding) Few /hpf (None Seen) Urine Glucose Normal mg/dL (Normal) Microbiology Microbiology Date/Time Source Procedure Growth Status 09/06/25 13:45 Stool Stool Culture - Preliminary Resulted 09/06/25 13:45 Stool Shiga Toxin I & II Pending Resulted 09/05/25 05:25 Nose MRSA Screen - Final Complete 09/04/25 20:05 Blood Blood Culture - Preliminary NO GROWTH AFTER 72 HOURS OF INCUBATION. Resulted 09/04/25 19:23 Voided Urine Urine Culture - Final Complete Labs and/or images reviewed: Labs reviewed by me Assessment/Plan Assessment/Plan Metabolic encephalopathy Probable upper GI bleed Complicated UTI KELLY hemodynamically mediated (VMN) Microcytic anemia Diabetic foot Thallic ulcer decubitus wound present on admission Diabetes type 2 Hypertension Dyslipidemia History of CVA currently bed-bound Hypothyroidism Chronic systolic congestive heart failure (HFrEF, LVEF 35-45%) PLAN Continue current management Continue IV antibiotic Rocephin. Continue IV fluid Will follow culture Will follow Thyroid function. Continue wound care. No more episode of hematemesis. Hb is stable. will continue to follow up. This medical document was created using an electronic medical record system with [employer] dictation system. Although this document has been carefully reviewed, there may still be some phonetic and typographical errors. These areas are purely typographical due to imperfections of the software programs, and do not reflect any compromise in the patient's medical care. Plan discussed with: Other (RN) My Orders Orders - GRETCHEN SCHNEIDER MD Procedure Category Date Status Time Complete Blood Count LAB 09/08/25 Verified 05:00 Complete Blood Count LAB 09/09/25 Verified 05:00 Complete Blood Count LAB 09/10/25 Verified 05:00 Complete Blood Count LAB 09/11/25 Verified 05:00 Complete Blood Count LAB 09/12/25 Verified 05:00 Basic Metabolic Panel LAB 09/08/25 Verified 05:00 Basic Metabolic Panel LAB 09/09/25 Verified 05:00 Basic Metabolic Panel LAB 09/10/25 Verified 05:00 Basic Metabolic Panel LAB 09/11/25 Verified 05:00 Basic Metabolic Panel LAB 09/12/25 Verified 05:00 Lisinopril Tablet PHA 09/08/25 In Process (Zestril Tablet) 10:00 Date of Service: Sep 07, 2025 Billing Provider: GRETCHEN SCHNEIDER MD Common Visit Codes: [id number] INP/OBS CARE(HIGH) GRETCHEN SCHNEIDER MD Sep 07, 2025 22:28
[2025-09-08] VITALS (8 sets, daily range): BP systolic 139–176; BP diastolic 60–84; PULSE 72–89; RESP 16–18; TEMP 97.4–98.8; O2SAT 99–100
[2025-09-08 06:21] LABS: Potassium 3.6 mmol/L (3.5-5.1); Sodium 140 mmol/L (136-145)
[2025-09-08 06:22] LABS: Anion Gap 10 (5-15); Calcium 9.1 mg/dL (8.7-10.4); Carbon Dioxide 22 mmol/L (20-31)
[2025-09-08 06:23] LABS: Chloride 108 mmol/L (98-107)
[2025-09-08 06:27] LABS: BUN/Creatinine Ratio 13.9 (10.0-20.0); Blood Urea Nitrogen 11 mg/dL (9-23); Glucose 82 mg/dL (74-106)
[2025-09-08 06:34] LABS: Hematocrit 30.5 % (36.0-46.0); Hemoglobin 9.4 g/dL (12.2-16.2); Mean Corpuscular Hemoglobin 23.1 pg (28.0-32.0); Mean Corpuscular Volume 74.6 fL (80.0-100.0); Nucleated Red Blood Cells % 0.1 %
[2025-09-08] MEDS: LISINOPRIL 20 MG TAB PO SCH (08:51)
--- NOTE | 2025-09-08 11:27 | DVHPN2 ---
Subjective The patient seen and examined at bedside. Today she is awake but remain weak and coughing. Son at bedside. Reviewed: Care Plan, H&P, Labs, Medications, Previous Orders, Radiology Changes from previous H/P or p: No Changes Objective Vitals Vital Signs Date Time Temp Pulse Resp B/P (MAP) Pulse Ox O2 Delivery O2 Flow Rate FiO2 09/08/25 08:51 176/83 09/08/25 05:00 97.4 80 18 99 97.4 09/07/25 20:00 Nasal Cannula* 2 28 Intake/Output Intake and Output 09/08/25 07:00 Intake Total 1395 ml Balance 1395 ml Intake Oral 680 ml IV Total 475 ml Tube Feeding 240 ml # Voids 6 # Bowel Movements 6 General Appearance: Alert, Oriented X3, Cooperative, No acute distress HEENT: Atraumatic, PERRLA, EOMI, Mucous membr. moist/pink Neck: Supple Lungs: Clear to auscultation, Normal air movement Cardiovascular: Regular rate, Normal S1, Normal S2, No murmurs, Gallops, Rubs Abdomen: Normal bowel sounds, Soft, No tenderness Neuro: Cranial nerves 3-12 NL Psych/Mental Status: Mental status NL Medications Current Medications Medications Dose Ordered Sig/Audrey Route Start Time Stop Time Status Last Admin Dose Admin Acetaminophen 325 mg Q4HP PRN PO 09/04/25 20:45 Ondansetron HCl 4 mg Q4HP PRN IV 09/04/25 20:45 09/07/25 08:41 4 MG Sodium Chloride 1,000 ml @ 75 mls/hr [id number] IV 09/04/25 20:45 09/07/25 16:34 75 MLS/HR Ceftriaxone Sodium 50 ml @ 100 mls/hr DAILY@09 IV 09/05/25 09:00 09/08/25 08:50 100 MLS/HR Pantoprazole Sodium 40 mg BID IV 09/04/25 22:00 09/08/25 08:50 40 MG Diagnostic Test (Pha) 1 strip Q6HR 09/05/25 00:00 09/08/25 05:11 1 STRIP Insulin Human Regular Q6HR SC 09/05/25 00:00 Dextrose 50 ml UD PRN IV 09/04/25 22:00 Ergocalciferol 50,000 unit Q7D PO 09/05/25 10:00 09/05/25 10:56 50,000 UNIT Metronidazole 100 ml @ 100 mls/hr Q8HR IV 09/05/25 14:00 09/08/25 05:10 100 MLS/HR Atorvastatin Calcium 40 mg HS PO 09/05/25 22:00 09/07/25 20:58 40 MG Levothyroxine Sodium 100 mcg QAM PO 09/06/25 07:00 09/08/25 05:10 100 MCG Alprazolam 0.5 mg BID PO 09/05/25 22:00 09/08/25 08:50 0.5 MG Acetaminophen/ Hydrocodone Bitart 1 tab Q4HPRN PRN PO 09/05/25 16:45 09/08/25 01:35 1 TAB Lisinopril 20 mg DAILY PO 09/08/25 10:00 09/08/25 08:51 20 MG Laboratory Results Laboratory Tests 09/08/25 05:30 Chemistry Test 09/08/25 05:30 Calcium Level 9.1 mg/dL (8.7-10.4) Urinalysis Test 09/04/25 19:23 Urine Color Yellow (Yellow) Urine Clarity Turbid (Clear) H Urine pH 6.5 (5.0-9.0) Urine Specific [place] 1.020 (1.001-1.035) Urine Protein 2+ (Negative) H Urine Ketones Negative (Negative) Urine Blood 2+ /uL (Negative) H Urine Nitrite Negative (Negative) Urine Bilirubin Negative (Negative) Urine Urobilinogen Normal mg/dL (Negative) Urine Leukocyte Esterase 3+ /uL (Negative) Urine RBC 127 /hpf (0 - 4) Urine Microscopic WBC 244 /HPF (0-5) H Urine Squamous Epithelial Cells Few /hpf (<5) Urine Bacteria Mod /hpf (None Seen) H Urine Hyaline Casts Mod /lpf (0 - 2) Urine Mucus Few (None Seen) Urine Yeast (Budding) Few /hpf (None Seen) Urine Glucose Normal mg/dL (Normal) Microbiology Microbiology Date/Time Source Procedure Growth Status 09/06/25 13:45 Stool Stool Culture - Final Complete 09/06/25 13:45 Stool Shiga Toxin I & II - Final Complete 09/05/25 05:25 Nose MRSA Screen - Final Complete 09/04/25 20:05 Blood Blood Culture - Preliminary NO GROWTH AFTER 72 HOURS OF INCUBATION. Resulted 09/04/25 19:23 Voided Urine Urine Culture - Final Complete Labs and/or images reviewed: Labs reviewed by me Assessment/Plan Assessment/Plan Metabolic encephalopathy Probable upper GI bleed Complicated UTI KELLY hemodynamically mediated (VMN) Microcytic anemia Diabetic foot Thallic ulcer decubitus wound present on admission Diabetes type 2 Hypertension Dyslipidemia History of CVA currently bed-bound Hypothyroidism Chronic systolic congestive heart failure (HFrEF, LVEF 35-45%) PLAN Continue current management Continue IV antibiotic Rocephin. Continue IV fluid Will follow culture Will follow Thyroid function. Continue wound care. Will restart lisinopril. PT evaluation. No more episode of hematemesis. Hb is stable. will continue to follow up. This medical document was created using an electronic medical record system with [employer] computerized dictation system. Although this document has been carefully reviewed, there may still be some phonetic and typographical errors. These areas are purely typographical due to imperfections of the software programs, and do not reflect any compromise in the patient's medical care. Plan discussed with: Patient My Orders Orders - GRETCHEN SCHNEIDER MD Procedure Category Date Status Time Lisinopril Tablet PHA 09/08/25 In Process (Zestril Tablet) 10:00 Date of Service: Sep 08, 2025 Billing Provider: GRETCHEN SCHNEIDER MD Common Visit Codes: [id number] INP/OBS CARE(HIGH) GRETCHEN SCHNEIDER MD Sep 08, 2025 11:26
--- NOTE | 2025-09-08 13:37 | DVHPN2 ---
Progress Note - Dictate Date Seen: Sep 06, 2025 Medical Necessity Reason Pt with a Central, PICC or Fol: Yes The following are medically ne: Central Line, [place] Catheter Subjective PT WITH UGI BLEED HEMATEMESIS MELENA NAUSEA VOMITING AMS METABOLIC ENCEPHALOPATHY DIARRHEA HYPOTENSION HYPOVOLEMIA SECONDARY TO DIARRHEA AND POOR PO INTAKE ACUTE RENAL FAILURE CHRONIC RENAL DISEASE CXR MILD LLL ATELECTASIS PMH: LE DOPPLER CONSISTENT WITH ADVANCE PAD HX OF DM VASCULOPATHY NEUROPATHY HX OF RENAL CELL CARCINOMA WITH LEFT PARTIAL NEPHRECTOMY BUT RENAL US SHOWS RIGHT kidney measures 12.7 cm in length. No hydronephrosis. LEFT kidney measures 9.9 cm in length. No hydronephrosis. COPD HX OF TOBACCO USE HTN ORGANIC HD NL EF DIASTOLIC DYSFUNCTION ECHO MILD GLOBAL HYPOKINESIS EF 40% vital signs Vital Sign Date Time Temp Pulse Resp B/P (MAP) Pulse Ox O2 Delivery O2 Flow Rate FiO2 09/08/25 08:51 176/83 09/08/25 08:00 88 09/08/25 08:00 16 Nasal Cannula* 2 28 09/08/25 05:00 97.4 99 97.4 Total Intake and Output 09/07/25 09/07/25 09/08/25 15:00 23:00 07:00 Intake Total 150 ml 1005 ml 240 ml Balance 150 ml 1005 ml 240 ml medications Current Medications Medications Dose Ordered Sig/Audrey Route Start Time Stop Time Status Last Admin Dose Admin Acetaminophen 325 mg Q4HP PRN PO 09/04/25 20:45 Ondansetron HCl 4 mg Q4HP PRN IV 09/04/25 20:45 09/08/25 13:24 4 MG Sodium Chloride 1,000 ml @ 75 mls/hr [id number] IV 09/04/25 20:45 09/07/25 16:34 75 MLS/HR Ceftriaxone Sodium 50 ml @ 100 mls/hr DAILY@09 IV 09/05/25 09:00 09/08/25 08:50 100 MLS/HR Pantoprazole Sodium 40 mg BID IV 09/04/25 22:00 09/08/25 08:50 40 MG Diagnostic Test (Pha) 1 strip Q6HR 09/05/25 00:00 09/08/25 11:37 1 STRIP Insulin Human Regular Q6HR SC 09/05/25 00:00 Dextrose 50 ml UD PRN IV 09/04/25 22:00 Ergocalciferol 50,000 unit Q7D PO 09/05/25 10:00 09/05/25 10:56 50,000 UNIT Metronidazole 100 ml @ 100 mls/hr Q8HR IV 09/05/25 14:00 09/08/25 05:10 100 MLS/HR Atorvastatin Calcium 40 mg HS PO 09/05/25 22:00 09/07/25 20:58 40 MG Levothyroxine Sodium 100 mcg QAM PO 09/06/25 07:00 09/08/25 05:10 100 MCG Alprazolam 0.5 mg BID PO 09/05/25 22:00 09/08/25 08:50 0.5 MG Acetaminophen/ Hydrocodone Bitart 1 tab Q4HPRN PRN PO 09/05/25 16:45 09/08/25 01:35 1 TAB Lisinopril 20 mg DAILY PO 09/08/25 10:00 09/08/25 08:51 20 MG laboratory and microbiology Laboratory Tests 09/08/25 05:30 Test 09/08/25 05:30 Range/Units Serum Glucose 82 74-106 mg/dL Problem List UGI BLEED HEMATEMESIS MELENA NAUSEA VOMITING AMS METABOLIC ENCEPHALOPATHY DIARRHEA HYPOTENSION HYPOVOLEMIA SECONDARY TO DIARRHEA AND POOR PO INTAKE ACUTE RENAL FAILURE CHRONIC RENAL DISEASE CXR MILD LLL ATELECTASIS PMH: LE DOPPLER CONSISTENT WITH ADVANCE PAD HX OF DM VASCULOPATHY NEUROPATHY HX OF RENAL CELL CARCINOMA WITH LEFT PARTIAL NEPHRECTOMY BUT RENAL US SHOWS RIGHT kidney measures 12.7 cm in length. No hydronephrosis. LEFT kidney measures 9.9 cm in length. No hydronephrosis. COPD HX OF TOBACCO USE HTN ORGANIC HD EF 40% DIASTOLIC DYSFUNCTION/ SYSTOLIC DYSFUNCTION Assessment/Plan PR[employer] SERIAL CBC GI CONSULT CBC STABLE REVIEWED LABS: WBC, RBC, AND PLTS ARE NORMAL Plan discussed with: Patient HUNG IVAN MD Sep 08, 2025 13:37
[2025-09-09] VITALS (13 sets, daily range): BP systolic 141–195; BP diastolic 80–134; PULSE 68–93; RESP 17–20; TEMP 97.4–98.4; O2SAT 98–100
[2025-09-09 07:23] LABS: Potassium 3.8 mmol/L (3.5-5.1); Sodium 139 mmol/L (136-145)
[2025-09-09 07:24] LABS: Anion Gap 12 (5-15)
[2025-09-09 07:29] LABS: BUN/Creatinine Ratio 6.8 (10.0-20.0)
[2025-09-09 07:34] LABS: Blood Urea Nitrogen 5 mg/dL (9-23); Calcium 8.7 mg/dL (8.7-10.4); Carbon Dioxide 19 mmol/L (20-31); Chloride 108 mmol/L (98-107); Glucose 65 mg/dL (74-106)
[2025-09-09] MEDS: hydrALAZINE HCL 20 MG/ML VL IV PRN (10:19)
--- NOTE | 2025-09-09 11:47 | DVHPN2 ---
Subjective The patient seen and examined at bedside. Today she is awake but remain weak and coughing. Also has severe abdominal pain and BP elevated to 177/150. Son at bedside. Reviewed: Care Plan, H&P, Labs, Medications, Previous Orders, Radiology Changes from previous H/P or p: No Changes Objective Vitals Vital Signs Date Time Temp Pulse Resp B/P (MAP) Pulse Ox O2 Delivery O2 Flow Rate FiO2 09/09/25 10:19 179/150 09/09/25 09:00 97.4 87 20 100 97.4 09/08/25 20:00 Nasal Cannula* 2 28 Intake/Output Intake and Output 09/09/25 07:00 Intake Total 850 ml Output Total 1350 ml Balance -500 ml Intake Oral 600 ml IV Total 250 ml Output Urine Total 1350 ml # Bowel Movements 9 General Appearance: Alert, Oriented X3, Cooperative, No acute distress HEENT: Atraumatic, PERRLA, EOMI, Mucous membr. moist/pink Neck: Supple Lungs: Clear to auscultation, Normal air movement Cardiovascular: Regular rate, Normal S1, Normal S2, No murmurs, Gallops, Rubs Abdomen: Normal bowel sounds, Soft, No tenderness Neuro: Cranial nerves 3-12 NL Psych/Mental Status: Mental status NL Medications Current Medications Medications Dose Ordered Sig/Audrey Route Start Time Stop Time Status Last Admin Dose Admin Acetaminophen 325 mg Q4HP PRN PO 09/04/25 20:45 Ondansetron HCl 4 mg Q4HP PRN IV 09/04/25 20:45 09/09/25 08:53 4 MG Sodium Chloride 1,000 ml @ 75 mls/hr [id number] IV 09/04/25 20:45 09/09/25 02:10 75 MLS/HR Ceftriaxone Sodium 50 ml @ 100 mls/hr DAILY@09 IV 09/05/25 09:00 09/09/25 10:19 100 MLS/HR Pantoprazole Sodium 40 mg BID IV 09/04/25 22:00 09/09/25 10:20 40 MG Diagnostic Test (Pha) 1 strip Q6HR 09/05/25 00:00 09/09/25 06:22 1 STRIP Insulin Human Regular Q6HR SC 09/05/25 00:00 Dextrose 50 ml UD PRN IV 09/04/25 22:00 Ergocalciferol 50,000 unit Q7D PO 09/05/25 10:00 09/05/25 10:56 50,000 UNIT Metronidazole 100 ml @ 100 mls/hr Q8HR IV 09/05/25 14:00 09/09/25 05:16 100 MLS/HR Atorvastatin Calcium 40 mg HS PO 09/05/25 22:00 09/08/25 21:16 40 MG Levothyroxine Sodium 100 mcg QAM PO 09/06/25 07:00 09/09/25 06:22 100 MCG Alprazolam 0.5 mg BID PO 09/05/25 22:00 09/08/25 21:16 0.5 MG Acetaminophen/ Hydrocodone Bitart 1 tab Q4HPRN PRN PO 09/05/25 16:45 09/09/25 06:31 1 TAB Lisinopril 20 mg DAILY PO 09/08/25 10:00 09/08/25 08:51 20 MG Hydralazine HCl 10 mg Q6HP PRN IV 09/09/25 09:30 09/09/25 10:19 10 MG Laboratory Results Laboratory Tests 09/09/25 06:03 Chemistry Test 09/09/25 06:03 Calcium Level 8.7 mg/dL (8.7-10.4) Urinalysis Test 09/04/25 19:23 Urine Color Yellow (Yellow) Urine Clarity Turbid (Clear) H Urine pH 6.5 (5.0-9.0) Urine Specific [place] 1.020 (1.001-1.035) Urine Protein 2+ (Negative) H Urine Ketones Negative (Negative) Urine Blood 2+ /uL (Negative) H Urine Nitrite Negative (Negative) Urine Bilirubin Negative (Negative) Urine Urobilinogen Normal mg/dL (Negative) Urine Leukocyte Esterase 3+ /uL (Negative) Urine RBC 127 /hpf (0 - 4) Urine Microscopic WBC 244 /HPF (0-5) H Urine Squamous Epithelial Cells Few /hpf (<5) Urine Bacteria Mod /hpf (None Seen) H Urine Hyaline Casts Mod /lpf (0 - 2) Urine Mucus Few (None Seen) Urine Yeast (Budding) Few /hpf (None Seen) Urine Glucose Normal mg/dL (Normal) Microbiology Microbiology Date/Time Source Procedure Growth Status 09/06/25 13:45 Stool Stool Culture - Final Complete 09/06/25 13:45 Stool Shiga Toxin I & II - Final Complete 09/05/25 05:25 Nose MRSA Screen - Final Complete 09/04/25 20:05 Blood Blood Culture - Preliminary NO GROWTH AFTER 72 HOURS OF INCUBATION. Resulted 09/04/25 19:23 Voided Urine Urine Culture - Final Complete Labs and/or images reviewed: Labs reviewed by me Assessment/Plan Assessment/Plan Metabolic encephalopathy Probable upper GI bleed Complicated UTI KELLY hemodynamically mediated (VMN) Microcytic anemia Diabetic foot Thallic ulcer decubitus wound present on admission Diabetes type 2 Hypertension Dyslipidemia History of CVA currently bed-bound Hypothyroidism Chronic systolic congestive heart failure (HFrEF, LVEF 35-45%) PLAN Continue current management Continue IV antibiotic Rocephin. Continue IV fluid Will follow culture Will follow Thyroid function. Continue wound care. Will restart lisinopril. PT evaluation. No more episode of hematemesis. Hb is stable. will continue to follow up. I will give patient Hydralazine 10mg IV q 6hPRN for SBP greater than 160 and DBP greater than 100. I will give toradol 30mg IV bid PRN for pain CT abdomen and pelvis without contrast to rule out obstruction. This medical document was created using an electronic medical record system with [employer] computerized dictation system. Although this document has been carefully reviewed, there may still be some phonetic and typographical errors. These areas are purely typographical due to imperfections of the software programs, and do not reflect any compromise in the patient's medical care. Plan discussed with: Patient, Son My Orders Orders - GRETCHEN SCHNEIDER MD Procedure Category Date Status Time Pt Request For Service PT 09/08/25 Logged 18:29 Hydralazine Injection PHA 09/09/25 In Process (Apresoline Inject 09:30 Date of Service: Sep 09, 2025 Billing Provider: GRETCHEN SCHNEIDER MD Common Visit Codes: [id number] INP/OBS CARE(HIGH) GRETCHEN SCHNEIDER MD Sep 09, 2025 11:47
[2025-09-09] MEDS ORDERED: HYDROmorphone HCL 2 MG/ML VL/or syr IV PRN (12:15)
[2025-09-09 13:46] LABS: Nucleated Red Blood Cells % 0.1 %
[2025-09-09 13:47] LABS: Hematocrit 33.9 % (36.0-46.0); Hemoglobin 10.1 g/dL (12.2-16.2); Mean Corpuscular Hemoglobin 22.7 pg (28.0-32.0); Mean Corpuscular Volume 75.8 fL (80.0-100.0)
--- NOTE | 2025-09-09 14:31 | DVH ---
CLINICAL HISTORY: LUQ pain TECHNIQUE: CT of the abdomen and pelvis was performed without intravenous contrast. This exam was per formed according to our departmental dose optimization program. Up-to-date CT equipment and radiation dose reduction techniques are utilized as appropriate. 16.73 CTDI: 16.73 + 0.14 DLP: 990.13 WID: COMPARISON: CT CT AB PEL WO CON-NO ORAL OR IV on DOS: 06/08/25 FINDINGS: Lower Thorax: Normal-sized heart. Trace pericardial fluid. Tiny nodular and tree-in-bud opacities in the lung bases again seen. Calcified granulomas in the lung bases. Calcified coronary artery disease partially imaged up to moderate. Liver and Biliary system: Nodular contour of the liver. No definite hepatic lesion. Prior cholecystec george without biliary ductal dilatation. Spleen: Mild splenomegaly. Adrenal Glands and Kidneys: Mildly thickened bilateral adrenal glands. Bilateral renal hilar vascular calcifications. There is no hydronephrosis or nephrolithiasis. Pancreas and Retroperitoneum: Unremarkable. Aorta and Major Vessels: Aortoiliac vessels are normal in caliber with severe calcified atherosclerot ic plaque. Bowel, Mesentery and Peritoneal space: Normal caliber small and large bowel. There is moderate circum ferential wall thickening of the rectum with perirectal soft tissue stranding. Moderate retained stoo l in the colon. Normal appendix. No free air or fluid collection. Pelvis: There is a Salamanca catheter in the urinary bladder with nondependent gas likely related to inst rumentation. Prior hysterectomy. There is no pelvic lymphadenopathy. Abdominal wall and Osseous Structures: There is mild body wall edema. There is bony demineralization. Minor lower thoracic and lumbar spondylosis. No destructive osseous lesion. IMPRESSION: 1. Moderate circumferential wall thickening of the rectum with perirectal stranding which could be in fectious or inflammatory proctitis. 2. Moderate retained stool in the colon suggesting constipation. 3. No significant change in tiny nodular and tree-in-bud opacities in the bilateral lung bases which could be chronic atypical infection. 4. Mild nodular contour liver which could be fibrosis or cirrhosis. Correlate with liver function te sts and clinical history. 5. Mild splenomegaly. 6. Moderate Calcified coronary artery disease partially imaged.
--- NOTE | 2025-09-09 15:01 | DVHPN2 ---
Progress Note - Dictate Date Seen: Sep 09, 2025 Medical Necessity Reason Pt with a Central, PICC or Fol: Yes The following are medically ne: Central Line, [place] Catheter Subjective PT WITH UGI BLEED HEMATEMESIS MELENA NAUSEA VOMITING AMS METABOLIC ENCEPHALOPATHY DIARRHEA HYPOTENSION HYPOVOLEMIA SECONDARY TO DIARRHEA AND POOR PO INTAKE ACUTE RENAL FAILURE CHRONIC RENAL DISEASE CXR MILD LLL ATELECTASIS PMH: LE DOPPLER CONSISTENT WITH ADVANCE PAD HX OF DM VASCULOPATHY NEUROPATHY HX OF RENAL CELL CARCINOMA WITH LEFT PARTIAL NEPHRECTOMY BUT RENAL US SHOWS RIGHT kidney measures 12.7 cm in length. No hydronephrosis. LEFT kidney measures 9.9 cm in length. No hydronephrosis. COPD HX OF TOBACCO USE HTN ORGANIC HD NL EF DIASTOLIC DYSFUNCTION ECHO MILD GLOBAL HYPOKINESIS EF 40% vital signs Vital Sign Date Time Temp Pulse Resp B/P (MAP) Pulse Ox O2 Delivery O2 Flow Rate FiO2 09/09/25 13:18 98.0 68 165/87 (113) 98.0 09/09/25 13:00 19 100 09/08/25 20:00 Nasal Cannula* 2 28 Total Intake and Output 09/08/25 09/08/25 09/09/25 15:00 23:00 07:00 Intake Total 50 ml 400 ml 400 ml Output Total 450 ml 900 ml Balance 50 ml -50 ml -500 ml medications Current Medications Medications Dose Ordered Sig/Audrey Route Start Time Stop Time Status Last Admin Dose Admin Acetaminophen 325 mg Q4HP PRN PO 09/04/25 20:45 Ondansetron HCl 4 mg Q4HP PRN IV 09/04/25 20:45 09/09/25 08:53 4 MG Sodium Chloride 1,000 ml @ 75 mls/hr [id number] IV 09/04/25 20:45 09/09/25 02:10 75 MLS/HR Ceftriaxone Sodium 50 ml @ 100 mls/hr DAILY@09 IV 09/05/25 09:00 09/09/25 10:19 100 MLS/HR Pantoprazole Sodium 40 mg BID IV 09/04/25 22:00 09/09/25 10:20 40 MG Diagnostic Test (Pha) 1 strip Q6HR 09/05/25 00:00 09/09/25 12:00 1 STRIP Insulin Human Regular Q6HR SC 09/05/25 00:00 Dextrose 50 ml UD PRN IV 09/04/25 22:00 Ergocalciferol 50,000 unit Q7D PO 09/05/25 10:00 09/05/25 10:56 50,000 UNIT Metronidazole 100 ml @ 100 mls/hr Q8HR IV 09/05/25 14:00 09/09/25 14:47 100 MLS/HR Atorvastatin Calcium 40 mg HS PO 09/05/25 22:00 09/08/25 21:16 40 MG Levothyroxine Sodium 100 mcg QAM PO 09/06/25 07:00 09/09/25 06:22 100 MCG Alprazolam 0.5 mg BID PO 09/05/25 22:00 09/09/25 12:24 0.5 MG Acetaminophen/ Hydrocodone Bitart 1 tab Q4HPRN PRN PO 09/05/25 16:45 09/09/25 06:31 1 TAB Lisinopril 20 mg DAILY PO 09/08/25 10:00 09/08/25 08:51 20 MG Hydralazine HCl 10 mg Q6HP PRN IV 09/09/25 09:30 09/09/25 10:19 10 MG Hydromorphone HCl 0.5 mg Q6HPRN PRN IV 09/09/25 12:15 laboratory and microbiology Laboratory Tests 09/09/25 13:31 09/09/25 06:03 Test 09/09/25 06:03 Range/Units Serum Glucose 65 L 74-106 mg/dL Problem List UGI BLEED HEMATEMESIS MELENA NAUSEA VOMITING AMS METABOLIC ENCEPHALOPATHY DIARRHEA HYPOTENSION HYPOVOLEMIA SECONDARY TO DIARRHEA AND POOR PO INTAKE ACUTE RENAL FAILURE CHRONIC RENAL DISEASE CXR MILD LLL ATELECTASIS PMH: LE DOPPLER CONSISTENT WITH ADVANCE PAD HX OF DM VASCULOPATHY NEUROPATHY HX OF RENAL CELL CARCINOMA WITH LEFT PARTIAL NEPHRECTOMY BUT RENAL US SHOWS RIGHT kidney measures 12.7 cm in length. No hydronephrosis. LEFT kidney measures 9.9 cm in length. No hydronephrosis. COPD HX OF TOBACCO USE HTN ORGANIC HD EF 40% DIASTOLIC DYSFUNCTION/ SYSTOLIC DYSFUNCTION Assessment/Plan PROTON INHIBITOR SERIAL CBC GI CONSULT CBC STABLE Plan discussed with: Patient HUNG IVAN MD Sep 09, 2025 15:00
[2025-09-09] MEDS: KETOROLAC TROMETH 30 MG/ML 1ML VIAL IV PRN (17:49)
[2025-09-09] MEDS: IPRATROPIUM BROM 0.5 MG/2.5ML INH SOL NEB PRN (19:33)
[2025-09-09] MEDS: ALBUTEROL SULF 2.5 MG/0.5ML(0.5%) NEB SOLN NEB PRN (19:34)
[2025-09-10] VITALS (12 sets, daily range): BP systolic 102–166; BP diastolic 70–91; PULSE 52–95; RESP 16–20; TEMP 97.4–98.2; O2SAT 96–100
--- NOTE | 2025-09-10 10:02 | DVHPN2 ---
Subjective The patient seen and examined at bedside. Today she is awake but remain weak and coughing. Still have abdominal pain Reviewed: Care Plan, H&P, Labs, Medications, Previous Orders, Radiology Changes from previous H/P or p: No Changes Objective Vitals Vital Signs Date Time Temp Pulse Resp B/P (MAP) Pulse Ox O2 Delivery O2 Flow Rate FiO2 09/10/25 09:53 148/70 09/10/25 08:00 84 20 100 Nasal Cannula* 2 28 09/10/25 05:00 97.7 97.7 Intake/Output Intake and Output 09/10/25 07:00 Intake Total 930 ml Output Total 925 ml Balance 5 ml Intake Oral 830 ml IV Total 100 ml Output Urine Total 925 ml # Bowel Movements 5 General Appearance: Alert, Oriented X3, Cooperative, No acute distress HEENT: Atraumatic, PERRLA, EOMI, Mucous membr. moist/pink Neck: Supple Lungs: Clear to auscultation, Normal air movement Cardiovascular: Regular rate, Normal S1, Normal S2, No murmurs, Gallops, Rubs Abdomen: Normal bowel sounds, Soft, No tenderness Neuro: Cranial nerves 3-12 NL Psych/Mental Status: Mental status NL Medications Current Medications Medications Dose Ordered Sig/Audrey Route Start Time Stop Time Status Last Admin Dose Admin Acetaminophen 325 mg Q4HP PRN PO 09/04/25 20:45 Ondansetron HCl 4 mg Q4HP PRN IV 09/04/25 20:45 09/10/25 00:40 4 MG Sodium Chloride 1,000 ml @ 75 mls/hr [id number] IV 09/04/25 20:45 09/10/25 09:53 75 MLS/HR Ceftriaxone Sodium 50 ml @ 100 mls/hr DAILY@09 IV 09/05/25 09:00 09/10/25 09:51 100 MLS/HR Pantoprazole Sodium 40 mg BID IV 09/04/25 22:00 09/10/25 09:52 40 MG Diagnostic Test (Pha) 1 strip Q6HR 09/05/25 00:00 09/10/25 06:02 1 STRIP Insulin Human Regular Q6HR SC 09/05/25 00:00 Dextrose 50 ml UD PRN IV 09/04/25 22:00 Ergocalciferol 50,000 unit Q7D PO 09/05/25 10:00 09/05/25 10:56 50,000 UNIT Metronidazole 100 ml @ 100 mls/hr Q8HR IV 09/05/25 14:00 09/10/25 06:45 100 MLS/HR Atorvastatin Calcium 40 mg HS PO 09/05/25 22:00 09/09/25 21:42 40 MG Levothyroxine Sodium 100 mcg QAM PO 09/06/25 07:00 09/10/25 06:02 100 MCG Alprazolam 0.5 mg BID PO 09/05/25 22:00 09/10/25 09:52 0.5 MG Acetaminophen/ Hydrocodone Bitart 1 tab Q4HPRN PRN PO 09/05/25 16:45 09/09/25 06:31 1 TAB Lisinopril 20 mg DAILY PO 09/08/25 10:00 09/10/25 09:53 20 MG Hydralazine HCl 10 mg Q6HP PRN IV 09/09/25 09:30 09/09/25 23:35 10 MG Ketorolac Tromethamine 30 mg Q6HPRN PRN IV 09/09/25 15:45 09/14/25 15:44 09/09/25 17:49 30 MG Ipratropium [place] 0.5 mg Q6HPRN PRN NEB 09/09/25 15:45 09/10/25 06:15 0.5 MG Albuterol 1.25 mg Q6HPRN PRN NEB 09/09/25 15:45 09/10/25 06:15 1.25 MG Laboratory Results Laboratory Tests 09/09/25 06:03 09/09/25 13:31 Urinalysis Test 09/04/25 19:23 Urine Color Yellow (Yellow) Urine Clarity Turbid (Clear) H Urine pH 6.5 (5.0-9.0) Urine Specific [place] 1.020 (1.001-1.035) Urine Protein 2+ (Negative) H Urine Ketones Negative (Negative) Urine Blood 2+ /uL (Negative) H Urine Nitrite Negative (Negative) Urine Bilirubin Negative (Negative) Urine Urobilinogen Normal mg/dL (Negative) Urine Leukocyte Esterase 3+ /uL (Negative) Urine RBC 127 /hpf (0 - 4) Urine Microscopic WBC 244 /HPF (0-5) H Urine Squamous Epithelial Cells Few /hpf (<5) Urine Bacteria Mod /hpf (None Seen) H Urine Hyaline Casts Mod /lpf (0 - 2) Urine Mucus Few (None Seen) Urine Yeast (Budding) Few /hpf (None Seen) Urine Glucose Normal mg/dL (Normal) Microbiology Microbiology Date/Time Source Procedure Growth Status 09/06/25 13:45 Stool Stool Culture - Final Complete 09/06/25 13:45 Stool Shiga Toxin I & II - Final Complete 09/05/25 05:25 Nose MRSA Screen - Final Complete 09/04/25 20:05 Blood Blood Culture - Final NO GROWTH AFTER 5 DAYS OF INCUBATION. Complete 09/04/25 19:23 Voided Urine Urine Culture - Final Complete Labs and/or images reviewed: Labs reviewed by me Assessment/Plan Assessment/Plan Metabolic encephalopathy Probable upper GI bleed Complicated UTI KELLY hemodynamically mediated (VMN) Microcytic anemia Diabetic foot Thallic ulcer decubitus wound present on admission Diabetes type 2 Hypertension Dyslipidemia History of CVA currently bed-bound Hypothyroidism Chronic systolic congestive heart failure (HFrEF, LVEF 35-45%) PLAN Continue current management Continue IV antibiotic Rocephin. Continue IV fluid Will follow culture Will follow Thyroid function. Continue wound care. Will restart lisinopril. PT evaluation. No more episode of hematemesis. Hb is stable. will continue to follow up. I will give patient Hydralazine 10mg IV q 6hPRN for SBP greater than 160 and DBP greater than 100. I will give toradol 30mg IV bid PRN for pain CT abdomen and pelvis without contrast show stool burden. Per son, patient has diarrhea at home so he stop the stool softening. Will restart colace and miralax. Discharge planning. This medical document was created using an electronic medical record system with [employer] direct computerized dictation system. Although this document has been carefully reviewed, there may still be some phonetic and typographical errors. These areas are purely typographical due to imperfections of the software programs, and do not reflect any compromise in the patient's medical care. Plan discussed with: Patient, Son My Orders Orders - GRETCHEN SCHNEIDER MD Procedure Category Date Status Time Ct Ab Pel Wo Con-No CT 09/09/25 Resulted Oral Or Iv 12:09 Ketorolac Injection PHA 09/09/25 In Process (Toradol Injection) 15:45 Ipratropium Medneb PHA 09/09/25 In Process (Atrovent Medneb) 15:45 Albuterol Medneb PHA 09/09/25 In Process (Ventolin Medneb) 15:45 Date of Service: Sep 10, 2025 Billing Provider: GRETCHEN SCHNEIDER MD Common Visit Codes: [id number] INP/OBS CARE(HIGH) GRETCHEN SCHNEIDER MD Sep 10, 2025 10:02
[2025-09-10] MEDS ORDERED: POLYETHYLENE GLYCOL 17 GM PWDR PO PRN (10:30)
[2025-09-10 12:26] LABS: Potassium 4.0 mmol/L (3.5-5.1); Sodium 141 mmol/L (136-145)
[2025-09-10 12:27] LABS: Anion Gap 9 (5-15); Calcium 8.8 mg/dL (8.7-10.4); Carbon Dioxide 24 mmol/L (20-31)
[2025-09-10 12:32] LABS: BUN/Creatinine Ratio 9.8 (10.0-20.0); Glucose 86 mg/dL (74-106); Hematocrit 35.0 % (36.0-46.0); Hemoglobin 10.4 g/dL (12.2-16.2); Mean Corpuscular Hemoglobin 22.8 pg (28.0-32.0); Mean Corpuscular Volume 76.7 fL (80.0-100.0); Nucleated Red Blood Cells % 0.1 %
[2025-09-10 12:49] LABS: Blood Urea Nitrogen 9 mg/dL (9-23); Chloride 108 mmol/L (98-107)
--- NOTE | 2025-09-10 13:16 | DVHPN2 ---
Progress Note - Dictate Date Seen: Sep 10, 2025 Medical Necessity Reason Pt with a Central, PICC or Fol: Yes The following are medically ne: Central Line, [place] Catheter Subjective PT WITH UGI BLEED HEMATEMESIS MELENA NAUSEA VOMITING AMS METABOLIC ENCEPHALOPATHY DIARRHEA HYPOTENSION HYPOVOLEMIA SECONDARY TO DIARRHEA AND POOR PO INTAKE ACUTE RENAL FAILURE CHRONIC RENAL DISEASE CXR MILD LLL ATELECTASIS PMH: LE DOPPLER CONSISTENT WITH ADVANCE PAD HX OF DM VASCULOPATHY NEUROPATHY HX OF RENAL CELL CARCINOMA WITH LEFT PARTIAL NEPHRECTOMY BUT RENAL US SHOWS RIGHT kidney measures 12.7 cm in length. No hydronephrosis. LEFT kidney measures 9.9 cm in length. No hydronephrosis. COPD HX OF TOBACCO USE HTN ORGANIC HD NL EF DIASTOLIC DYSFUNCTION ECHO MILD GLOBAL HYPOKINESIS EF 40% vital signs Vital Sign Date Time Temp Pulse Resp B/P (MAP) Pulse Ox O2 Delivery O2 Flow Rate FiO2 09/10/25 09:53 148/70 09/10/25 09:00 98.0 88 18 99 98.0 09/10/25 08:00 Nasal Cannula* 2 28 Total Intake and Output 09/09/25 09/09/25 09/10/25 15:00 23:00 07:00 Intake Total 500 ml 430 ml Output Total 600 ml 325 ml Balance -100 ml 105 ml medications Current Medications Medications Dose Ordered Sig/Audrey Route Start Time Stop Time Status Last Admin Dose Admin Acetaminophen 325 mg Q4HP PRN PO 09/04/25 20:45 Ondansetron HCl 4 mg Q4HP PRN IV 09/04/25 20:45 09/10/25 00:40 4 MG Sodium Chloride 1,000 ml @ 75 mls/hr [id number] IV 09/04/25 20:45 09/10/25 09:53 75 MLS/HR Ceftriaxone Sodium 50 ml @ 100 mls/hr DAILY@09 IV 09/05/25 09:00 09/10/25 09:51 100 MLS/HR Pantoprazole Sodium 40 mg BID IV 09/04/25 22:00 09/10/25 09:52 40 MG Diagnostic Test (Pha) 1 strip Q6HR 09/05/25 00:00 09/10/25 12:22 1 STRIP Insulin Human Regular Q6HR SC 09/05/25 00:00 Dextrose 50 ml UD PRN IV 09/04/25 22:00 Ergocalciferol 50,000 unit Q7D PO 09/05/25 10:00 09/05/25 10:56 50,000 UNIT Metronidazole 100 ml @ 100 mls/hr Q8HR IV 09/05/25 14:00 09/10/25 06:45 100 MLS/HR Atorvastatin Calcium 40 mg HS PO 09/05/25 22:00 09/09/25 21:42 40 MG Levothyroxine Sodium 100 mcg QAM PO 09/06/25 07:00 09/10/25 06:02 100 MCG Alprazolam 0.5 mg BID PO 09/05/25 22:00 09/10/25 09:52 0.5 MG Acetaminophen/ Hydrocodone Bitart 1 tab Q4HPRN PRN PO 09/05/25 16:45 09/09/25 06:31 1 TAB Lisinopril 20 mg DAILY PO 09/08/25 10:00 09/10/25 09:53 20 MG Hydralazine HCl 10 mg Q6HP PRN IV 09/09/25 09:30 09/09/25 23:35 10 MG Ketorolac Tromethamine 30 mg Q6HPRN PRN IV 09/09/25 15:45 09/14/25 15:44 09/09/25 17:49 30 MG Ipratropium [place] 0.5 mg Q6HPRN PRN NEB 09/09/25 15:45 09/10/25 06:15 0.5 MG Albuterol 1.25 mg Q6HPRN PRN NEB 09/09/25 15:45 09/10/25 06:15 1.25 MG Docusate Sodium 100 mg BID PO 09/10/25 22:00 Polyethylene Glycol 17 gm DAILYPRN PRN PO 09/10/25 10:30 laboratory and microbiology Laboratory Tests 09/10/25 11:52 Test 09/10/25 11:52 Range/Units Serum Glucose 86 74-106 mg/dL Problem List UGI BLEED HEMATEMESIS MELENA NAUSEA VOMITING AMS METABOLIC ENCEPHALOPATHY DIARRHEA HYPOTENSION HYPOVOLEMIA SECONDARY TO DIARRHEA AND POOR PO INTAKE ACUTE RENAL FAILURE CHRONIC RENAL DISEASE CXR MILD LLL ATELECTASIS PMH: LE DOPPLER CONSISTENT WITH ADVANCE PAD HX OF DM VASCULOPATHY NEUROPATHY HX OF RENAL CELL CARCINOMA WITH LEFT PARTIAL NEPHRECTOMY BUT RENAL US SHOWS RIGHT kidney measures 12.7 cm in length. No hydronephrosis. LEFT kidney measures 9.9 cm in length. No hydronephrosis. COPD HX OF TOBACCO USE HTN ORGANIC HD EF 40% DIASTOLIC DYSFUNCTION/ SYSTOLIC DYSFUNCTION Assessment/Plan PROTON INHIBITOR SERIAL CBC GI CONSULT CBC STABLE CT ABD PELVIS 1. Moderate circumferential wall thickening of the rectum with perirectal stranding which could be infectious or inflammatory proctitis. 2. Moderate retained stool in the colon suggesting constipation. 3. No significant change in tiny nodular and tree-in-bud opacities in the bilateral lung bases which could be chronic atypical infection. 4. Mild nodular contour liver which could be fibrosis or cirrhosis. Correlate with liver function tests and clinical history. 5. Mild splenomegaly. NO FURTHER MELENIC STOOL NO HEMATEMESIS CONSIDER DC WITH HOME HEALTH/ VALDE UTI ADEQUATELY TREATED CHECK UA Plan discussed with: Patient HUNG IVAN MD Sep 10, 2025 13:16
[2025-09-10] MEDS: DOCUSATE SOD 100 MG CAP PO SCH (22:00)
[2025-09-11] VITALS (11 sets, daily range): BP systolic 124–163; BP diastolic 62–103; PULSE 72–96; RESP 16–18; TEMP 37.2; O2SAT 98–100
[2025-09-11 07:40] LABS: Hematocrit 30.5 % (36.0-46.0); Hemoglobin 9.4 g/dL (12.2-16.2); Mean Corpuscular Hemoglobin 23.1 pg (28.0-32.0); Mean Corpuscular Volume 75.1 fL (80.0-100.0); Nucleated Red Blood Cells % 0.1 %
--- NOTE | 2025-09-11 08:16 | DVHPN2 ---
Progress Note - Dictate Date Seen: Sep 11, 2025 Medical Necessity Reason Pt with a Central, PICC or Fol: Yes The following are medically ne: Central Line, [place] Catheter Subjective PT WITH UGI BLEED HEMATEMESIS MELENA NAUSEA VOMITING AMS METABOLIC ENCEPHALOPATHY DIARRHEA HYPOTENSION HYPOVOLEMIA SECONDARY TO DIARRHEA AND POOR PO INTAKE ACUTE RENAL FAILURE CHRONIC RENAL DISEASE CXR MILD LLL ATELECTASIS PMH: LE DOPPLER CONSISTENT WITH ADVANCE PAD HX OF DM VASCULOPATHY NEUROPATHY HX OF RENAL CELL CARCINOMA WITH LEFT PARTIAL NEPHRECTOMY BUT RENAL US SHOWS RIGHT kidney measures 12.7 cm in length. No hydronephrosis. LEFT kidney measures 9.9 cm in length. No hydronephrosis. COPD HX OF TOBACCO USE HTN ORGANIC HD NL EF DIASTOLIC DYSFUNCTION ECHO MILD GLOBAL HYPOKINESIS EF 40% vital signs Vital Sign Date Time Temp Pulse Resp B/P (MAP) Pulse Ox O2 Delivery O2 Flow Rate FiO2 09/11/25 05:00 97.3 89 18 124/66 (85) 98 97.3 09/10/25 20:00 Nasal Cannula* 2 28 Total Intake and Output 09/10/25 09/10/25 09/11/25 15:00 23:00 07:00 Intake Total 610 ml 800 ml 854 ml Output Total 400 ml 750 ml Balance 610 ml 400 ml 104 ml medications Current Medications Medications Dose Ordered Sig/Audrey Route Start Time Stop Time Status Last Admin Dose Admin Acetaminophen 325 mg Q4HP PRN PO 09/04/25 20:45 Ondansetron HCl 4 mg Q4HP PRN IV 09/04/25 20:45 09/10/25 00:40 4 MG Sodium Chloride 1,000 ml @ 75 mls/hr [id number] IV 09/04/25 20:45 09/11/25 03:12 75 MLS/HR Ceftriaxone Sodium 50 ml @ 100 mls/hr DAILY@09 IV 09/05/25 09:00 09/10/25 09:51 100 MLS/HR Pantoprazole Sodium 40 mg BID IV 09/04/25 22:00 09/10/25 22:20 40 MG Diagnostic Test (Pha) 1 strip Q6HR 09/05/25 00:00 09/11/25 05:24 1 STRIP Insulin Human Regular Q6HR SC 09/05/25 00:00 Dextrose 50 ml UD PRN IV 09/04/25 22:00 Ergocalciferol 50,000 unit Q7D PO 09/05/25 10:00 09/05/25 10:56 50,000 UNIT Metronidazole 100 ml @ 100 mls/hr Q8HR IV 09/05/25 14:00 09/11/25 05:12 100 MLS/HR Atorvastatin Calcium 40 mg HS PO 09/05/25 22:00 09/10/25 22:20 40 MG Levothyroxine Sodium 100 mcg QAM PO 09/06/25 07:00 09/11/25 06:03 100 MCG Alprazolam 0.5 mg BID PO 09/05/25 22:00 09/10/25 22:20 0.5 MG Acetaminophen/ Hydrocodone Bitart 1 tab Q4HPRN PRN PO 09/05/25 16:45 09/10/25 15:46 1 TAB Lisinopril 20 mg DAILY PO 09/08/25 10:00 09/10/25 09:53 20 MG Hydralazine HCl 10 mg Q6HP PRN IV 09/09/25 09:30 09/10/25 18:01 10 MG Ketorolac Tromethamine 30 mg Q6HPRN PRN IV 09/09/25 15:45 09/14/25 15:44 09/09/25 17:49 30 MG Ipratropium [place] 0.5 mg Q6HPRN PRN NEB 09/09/25 15:45 09/10/25 06:15 0.5 MG Albuterol 1.25 mg Q6HPRN PRN NEB 09/09/25 15:45 09/10/25 06:15 1.25 MG Docusate Sodium 100 mg BID PO 09/10/25 22:00 Polyethylene Glycol 17 gm DAILYPRN PRN PO 09/10/25 10:30 laboratory and microbiology Laboratory Tests 09/11/25 06:55 Test 09/11/25 06:55 Range/Units Serum Glucose Pending Problem List UGI BLEED HEMATEMESIS MELENA NAUSEA VOMITING AMS METABOLIC ENCEPHALOPATHY DIARRHEA HYPOTENSION HYPOVOLEMIA SECONDARY TO DIARRHEA AND POOR PO INTAKE ACUTE RENAL FAILURE CHRONIC RENAL DISEASE CXR MILD LLL ATELECTASIS PMH: LE DOPPLER CONSISTENT WITH ADVANCE PAD HX OF DM VASCULOPATHY NEUROPATHY HX OF RENAL CELL CARCINOMA WITH LEFT PARTIAL NEPHRECTOMY BUT RENAL US SHOWS RIGHT kidney measures 12.7 cm in length. No hydronephrosis. LEFT kidney measures 9.9 cm in length. No hydronephrosis. COPD HX OF TOBACCO USE HTN ORGANIC HD EF 40% DIASTOLIC DYSFUNCTION/ SYSTOLIC DYSFUNCTION Assessment/Plan PROTON INHIBITOR SERIAL CBC GI CONSULT CBC STABLE CT ABD PELVIS 1. Moderate circumferential wall thickening of the rectum with perirectal stranding which could be infectious or inflammatory proctitis. 2. Moderate retained stool in the colon suggesting constipation. 3. No significant change in tiny nodular and tree-in-bud opacities in the bilateral lung bases which could be chronic atypical infection. 4. Mild nodular contour liver which could be fibrosis or cirrhosis. Correlate with liver function tests and clinical history. 5. Mild splenomegaly. NO FURTHER MELENIC STOOL NO HEMATEMESIS CONSIDER DC WITH HOME HEALTH/ VALDE UTI ADEQUATELY TREATED CHECK UA HCT 30% UA STILL PENDING MAY DC HOME Dietary Evaluation Review Comments: CCHO-60 diet texture as tolerated Glucerna 240 ml PO supplementation BID if pt tolerates Consider TPN per pharmacy if EN route not feasible FU with lab values and consultations, reassess PRN Expected Outcomes/Goals: PO intake reach 75% Plan discussed with: Patient HUNG IVAN MD Sep 11, 2025 08:16
--- NOTE | 2025-09-11 11:07 | DVHDS2 ---
Discharge Summary Date of Admission Sep 04, 2025 at 20:44 Labs/Diagnostic Data: Laboratory Results Test 09/11/25 06:55 09/11/25 05:20 09/05/25 10:40 09/05/25 04:43 White Blood Count 5.3 10^3/uL (4.4-10.8) Red Blood Count 4.06 10^6/uL (4.0-5.20) Hemoglobin 9.4 g/dL (12.2-16.2) Hematocrit 30.5 % (36.0-46.0) Mean Corpuscular Volume 75.1 fL (80.0-100.0) Mean Corpuscular Hemoglobin 23.1 pg (28.0-32.0) Mean Corpuscular Hemoglobin Concent 30.8 g/dL (32.0-36.0) Red Cell Distribution Width 17.6 % (11.8-14.3) Platelet Count 317 10^3/uL (140-450) Mean Platelet Volume 6.5 fL (6.9-10.8) Neutrophils (%) (Auto) 71.0 % (37.0-80.0) Lymphocytes (%) (Auto) 13.9 % (10.0-50.0) Monocytes (%) (Auto) 11.8 % (0.0-12.0) Eosinophils (%) (Auto) 3.1 % (0.0-7.0) Basophils (%) (Auto) 0.2 % (0.0-2.0) Neutrophils # (Auto) 3.8 10 ^3/uL (1.6-8.6) Lymphocytes # (Auto) 0.7 10 ^3/uL (0.4-5.4) Monocytes # (Auto) 0.6 10 ^3/uL (0-1.3) Eosinophils # (Auto) 0.2 10 ^3/uL (0-0.8) Basophils # (Auto) 0 10 ^3/uL (0-0.2) Nucleated Red Blood Cells 0.1 % POC Glucose 94 mg/dl (70-106) Stool Occult Blood Negative (Negative) Stool Occult Blood Sample #3 (Negative) Stool for White Cells None seen Iron Level 18 ug/dL (50-170) Total Iron Binding Capacity 175 ug/dL (250-425) Percent Iron Saturation 10.3 % (15-50) Ferritin 56.7 ng/mL (10-291) Total Bilirubin < 0.2 mg/dL (0.2-1.0) Aspartate Amino Transferase (AST) < 8 U/L (13-40) Alanine Aminotransferase (ALT) < 9 U/L (7-40) Alkaline Phosphatase 73 U/L (46-116) Total Protein 6.0 g/dL (5.7-8.2) Albumin 3.2 g/dL (3.2-4.8) Free Thyroxine (T4) Calculated 0.56 ng/dL (0.89-1.76) Total Triiodothyronine (TT3) 0.58 ng/mL (0.60-1.81) Test 09/04/25 22:29 09/04/25 20:05 09/04/25 19:23 09/04/25 18:39 Hemoglobin A1c 5.6 % A1C (<5.7) Phosphorus Level 3.0 mg/dL (2.4-5.1) Magnesium Level 2.0 mg/dL (1.6-2.6) Direct Bilirubin < 0.1 mg/dL (<0.3) Ammonia 11 umol/L (11-32) Triglycerides Level 123 mg/dL (< 150) Cholesterol Level 118 mg/dL (< 200) LDL Cholesterol 62 mg/dL (< 100) HDL Cholesterol 35 mg/dL (40-59) Lipase 21 U/L (12-53) Vitamin B12 Level 526 pg/mL (211-911) Vitamin D 25-Hydroxy 9.7 ng/mL (30.0-100) Thyroid Stimulating Hormone (TSH) 26.35 uIU/mL (0.55-4.78) Lactic Acid Level 1.1 mmol/L (0.4-2.0) Urine Color Yellow (Yellow) Urine Clarity Turbid (Clear) Urine pH 6.5 (5.0-9.0) Urine Specific [place] 1.020 (1.001-1.035) Urine Protein 2+ (Negative) Urine Ketones Negative (Negative) Urine Blood 2+ /uL (Negative) Urine Nitrite Negative (Negative) Urine Bilirubin Negative (Negative) Urine Urobilinogen Normal mg/dL (Negative) Urine Leukocyte Esterase 3+ /uL (Negative) Urine RBC 127 /hpf (0 - 4) Urine Microscopic WBC 244 /HPF (0-5) Urine Squamous Epithelial Cells Few /hpf (<5) Urine Bacteria Mod /hpf (None Seen) Urine Hyaline Casts Mod /lpf (0 - 2) Urine Mucus Few (None Seen) Urine Yeast (Budding) Few /hpf (None Seen) Urine Glucose Normal mg/dL (Normal) Urine Opiates Screen Neg (NEGATIVE) Urine Fentanyl Screen Neg (NEGATIVE) Urine Barbiturates Screen Neg (NEGATIVE) Urine Phencyclidine Screen Neg (NEGATIVE) Urine Amphetamines Screen Neg (NEGATIVE) Urine Benzodiazepines Screen Neg (NEGATIVE) Urine Cocaine Screen Neg (NEGATIVE) Urine Cannabinoids Screen Neg (NEGATIVE) Prothrombin Time 11.6 sec (9.3-11.8) Prothrombin Time INR 1.11 (0.9-1.15) Activated Partial Thromboplast Time 24.8 SEC (24.5-34.5) Test 09/04/25 05:25 Influenza Type A Antigen Negative (Negative) Influenza Type B Antigen Negative (Negative) SARS-CoV-2 Antigen (Rapid) Negative (NEGATIVE) Other Laboratory Tests 09/11/25 06:55 Discharge Instruct/Medications Scheduled Amoxicillin & Pot Clavulanate (Augmentin Tablet), 875 MG PO BID Aspirin (Aspirin Low Dose), 81 MG PO DAILY Atorvastatin Calcium (Atorvastatin Calcium), 40 MG PO HS Digoxin (Digoxin), 125 MCG PO DAILY, (Reported) Empagliflozin (Jardiance), 10 MG PO DAILY Fluconazole (Diflucan), 200 MG PO DAILY Furosemide (Furosemide), 40 MG PO DAILY Gabapentin (Gabapentin), 1 CAP PO TID, (Reported) Insulin Glargine (Lantus), 15 UNIT SC QPM Levothyroxine Sodium (Synthroid Tablet), 100 MCG PO QAM Levothyroxine Sodium (Levothyroxine Sodium), 200 MCG PO QAM, (Reported) Lisinopril (Lisinopril), 20 MG PO DAILY Lorazepam (Ativan), 1 MG PO BID, (Reported) Metformin Hydrochloride (Metformin Hcl), 500 MG PO BID Nifedipine (Nifedipine Er), 1 TAB PO DAILY, (Reported) Pantoprazole Sodium Sesquihydr (Pantoprazole Sodium), 40 MG PO DAILY@0600 Spironolactone (Aldactone), 25 MG PO DAILY Vericiguat (Verquvo), 5 MG PO BID, (Reported) Scheduled PRN Albuterol Sulfate (Albuterol Sulfate), 1.25 MG IN TIDP PRN Ipratropium [place] (Ipratropium [place]), 0.5 % HHN TIDP PRN Miscellaneous Medications Nivolumab (Opdivo), 240 MG IV, (Reported) Discontinued Medications Doxycycline (Monohydrate) (Doxycycline), 100 MG PO BID Discharge Statement: "Patient was advised to return to the ER or call 911 if any headaches, dizziness, shortness of breath, chest pain, abdominal pain, bleeding, fevers, or worsening of medical condition. Patient was counseled about treatment plan, medications, possible side effects, patientverbalized understanding. All questions were answered to the best of my ability. This discharge took greater then 30 minutes in planning, reviewing documentation, counseling the patient, and discussing with other team members." ASSESSMENT ASSESSMENT Assessment GRETCHEN SCHNEIDER MD Sep 11, 2025 11:07
[2025-09-11 12:30] LABS: Anion Gap 13 (5-15); Carbon Dioxide 22 mmol/L (20-31)
[2025-09-11 12:31] LABS: Calcium 8.8 mg/dL (8.7-10.4)
[2025-09-11 12:35] LABS: Glucose 85 mg/dL (74-106)
[2025-09-11 12:36] LABS: BUN/Creatinine Ratio 11.1 (10.0-20.0)
[2025-09-11 13:25] LABS: Blood Urea Nitrogen 9 mg/dL (9-23); Chloride 111 mmol/L (98-107); Potassium 3.4 mmol/L (3.5-5.1); Sodium 146 mmol/L (136-145)
[2025-09-11] MEDS ORDERED: AUG875T PO (15:59)
--- NOTE | 2025-09-11 23:29 | DVHPN2 ---
Subjective The patient seen and examined at bedside. No complaint today Reviewed: Care Plan, H&P, Labs, Medications, Previous Orders, Radiology Changes from previous H/P or p: No Changes Objective Vitals Vital Signs Date Time Temp Pulse Resp B/P (MAP) Pulse Ox O2 Delivery O2 Flow Rate FiO2 09/11/25 21:00 97.9 83 18 163/103 (123) 100 97.9 09/11/25 10:00 Nasal Cannula 2.0 09/11/25 10:00 28 Intake/Output Intake and Output 09/11/25 07:00 Intake Total 2264 ml Output Total 1150 ml Balance 1114 ml Intake Oral 1914 ml IV Total 350 ml Output Urine Total 1150 ml # Bowel Movements 7 General Appearance: Alert, Oriented X3, Cooperative, No acute distress HEENT: Atraumatic, PERRLA, EOMI, Mucous membr. moist/pink Neck: Supple Lungs: Clear to auscultation, Normal air movement Cardiovascular: Regular rate, Normal S1, Normal S2, No murmurs, Gallops, Rubs Abdomen: Normal bowel sounds, Soft, No tenderness Neuro: Cranial nerves 3-12 NL Psych/Mental Status: Mental status NL Medications Current Medications Medications Dose Ordered Sig/Audrey Route Start Time Stop Time Status Last Admin Dose Admin Acetaminophen 325 mg Q4HP PRN PO 09/04/25 20:45 Ondansetron HCl 4 mg Q4HP PRN IV 09/04/25 20:45 09/11/25 08:55 4 MG Sodium Chloride 1,000 ml @ 75 mls/hr [id number] IV 09/04/25 20:45 09/11/25 03:12 75 MLS/HR Ceftriaxone Sodium 50 ml @ 100 mls/hr DAILY@09 IV 09/05/25 09:00 09/11/25 08:55 100 MLS/HR Pantoprazole Sodium 40 mg BID IV 09/04/25 22:00 09/11/25 08:55 40 MG Diagnostic Test (Pha) 1 strip Q6HR 09/05/25 00:00 09/11/25 18:22 1 STRIP Insulin Human Regular Q6HR SC 09/05/25 00:00 Dextrose 50 ml UD PRN IV 09/04/25 22:00 Ergocalciferol 50,000 unit Q7D PO 09/05/25 10:00 09/05/25 10:56 50,000 UNIT Metronidazole 100 ml @ 100 mls/hr Q8HR IV 09/05/25 14:00 09/11/25 14:39 100 MLS/HR Atorvastatin Calcium 40 mg HS PO 09/05/25 22:00 09/11/25 22:20 40 MG Levothyroxine Sodium 100 mcg QAM PO 09/06/25 07:00 09/11/25 06:03 100 MCG Alprazolam 0.5 mg BID PO 09/05/25 22:00 09/11/25 22:20 0.5 MG Acetaminophen/ Hydrocodone Bitart 1 tab Q4HPRN PRN PO 09/05/25 16:45 09/10/25 15:46 1 TAB Lisinopril 20 mg DAILY PO 09/08/25 10:00 09/11/25 08:56 20 MG Hydralazine HCl 10 mg Q6HP PRN IV 09/09/25 09:30 09/10/25 18:01 10 MG Ketorolac Tromethamine 30 mg Q6HPRN PRN IV 09/09/25 15:45 09/14/25 15:44 09/09/25 17:49 30 MG Ipratropium [place] 0.5 mg Q6HPRN PRN NEB 09/09/25 15:45 09/10/25 06:15 0.5 MG Albuterol 1.25 mg Q6HPRN PRN NEB 09/09/25 15:45 09/10/25 06:15 1.25 MG Docusate Sodium 100 mg BID PO 09/10/25 22:00 09/11/25 22:20 100 MG Polyethylene Glycol 17 gm DAILYPRN PRN PO 09/10/25 10:30 Laboratory Results Laboratory Tests 09/11/25 06:55 Chemistry Test 09/11/25 06:55 Calcium Level 8.8 mg/dL (8.7-10.4) Urinalysis Test 09/04/25 19:23 Urine Color Yellow (Yellow) Urine Clarity Turbid (Clear) H Urine pH 6.5 (5.0-9.0) Urine Specific [place] 1.020 (1.001-1.035) Urine Protein 2+ (Negative) H Urine Ketones Negative (Negative) Urine Blood 2+ /uL (Negative) H Urine Nitrite Negative (Negative) Urine Bilirubin Negative (Negative) Urine Urobilinogen Normal mg/dL (Negative) Urine Leukocyte Esterase 3+ /uL (Negative) Urine RBC 127 /hpf (0 - 4) Urine Microscopic WBC 244 /HPF (0-5) H Urine Squamous Epithelial Cells Few /hpf (<5) Urine Bacteria Mod /hpf (None Seen) H Urine Hyaline Casts Mod /lpf (0 - 2) Urine Mucus Few (None Seen) Urine Yeast (Budding) Few /hpf (None Seen) Urine Glucose Normal mg/dL (Normal) Microbiology Microbiology Date/Time Source Procedure Growth Status 09/06/25 13:45 Stool Stool Culture - Final Complete 09/06/25 13:45 Stool Shiga Toxin I & II - Final Complete 09/05/25 05:25 Nose MRSA Screen - Final Complete 09/04/25 20:05 Blood Blood Culture - Final NO GROWTH AFTER 5 DAYS OF INCUBATION. Complete 09/04/25 19:23 Voided Urine Urine Culture - Final Complete Labs and/or images reviewed: Labs reviewed by me Assessment/Plan Assessment/Plan Metabolic encephalopathy Probable upper GI bleed Complicated UTI KELLY hemodynamically mediated (VMN) Microcytic anemia Diabetic foot Thallic ulcer decubitus wound present on admission Diabetes type 2 Hypertension Dyslipidemia History of CVA currently bed-bound Hypothyroidism Chronic systolic congestive heart failure (HFrEF, LVEF 35-45%) PLAN Continue current management Continue IV antibiotic Rocephin. Continue IV fluid Will follow culture Will follow Thyroid function. Continue wound care. Will restart lisinopril. PT evaluation. No more episode of hematemesis. Hb is stable. will continue to follow up. I will give patient Hydralazine 10mg IV q 6hPRN for SBP greater than 160 and DBP greater than 100. I will give toradol 30mg IV bid PRN for pain CT abdomen and pelvis without contrast show stool burden. Per son, patient has diarrhea at home so he stop the stool softening. Will restart colace and miralax. 09/11: Patient had bowel movement today. The patient did not complain of any abdominal pain. I will resume her home health and discharge her home today. Addendum: Per RN, can not reach shoe caser for home health to see if set up for the patient to go home. The patient already had a home health we just need to resume it. Discharge was hold today due to no resume home health done yet. This medical document was created using an electronic medical record system with M*M [employer]rency direct computerized dictation system. Although this document has been carefully reviewed, there may still be some phonetic and typographical errors. These areas are purely typographical due to imperfections of the software programs, and do not reflect any compromise in the patient's medical care. Plan discussed with: Patient, Son My Orders Orders - GRETCHEN SCHNEIDER MD Procedure Category Date Status Time * Mandrel Cleaner CONS 09/11/25 Transmitted Consult Discharge DISCHARGE 09/11/25 Transmitted 15:59 Date of Service: Sep 11, 2025 Billing Provider: GRETCHEN SCHNEIDER MD Common Visit Codes: [id number] INP/OBS CARE(HIGH) GRETCHEN SCHNEIDER MD Sep 11, 2025 23:29
[2025-09-12] MEDS: metroNIDAZOLE 500 MG TAB PO SCH (00:15)
[2025-09-12] MEDS: PANTOPRAZOLE 40 MG TAB PO SCH (00:15)
[2025-09-12 05:00] VITALS: BP 172/79; PULSE 83; RESP 18; TEMP 97.9; O2SAT 97
[2025-09-12 07:30] LABS: Hematocrit 30.3 % (36.0-46.0); Hemoglobin 9.3 g/dL (12.2-16.2); Mean Corpuscular Hemoglobin 23.1 pg (28.0-32.0); Mean Corpuscular Volume 75.2 fL (80.0-100.0); Nucleated Red Blood Cells % 0.0 %
[2025-09-12 07:49] LABS: Sodium 142 mmol/L (136-145)
[2025-09-12 07:50] LABS: Anion Gap 7 (5-15); Carbon Dioxide 27 mmol/L (20-31)
[2025-09-12 07:56] LABS: BUN/Creatinine Ratio 10.0 (10.0-20.0); Blood Urea Nitrogen 8 mg/dL (9-23); Calcium 8.5 mg/dL (8.7-10.4); Chloride 108 mmol/L (98-107); Glucose 107 mg/dL (74-106); Potassium 3.2 mmol/L (3.5-5.1)
[2025-09-12 08:28] VITALS: PULSE 96
[2025-09-12 09:00] VITALS: BP 153/79; PULSE 83; RESP 20; TEMP 97.3; O2SAT 98
[2025-09-12 10:03] VITALS: O2SAT 97
[2025-09-12] MEDS: POTASSIUM CHL 20 Meq TABLET PO ONE (12:26)
--- NOTE | 2025-09-12 12:48 | DVHPN2 ---
Subjective The patient seen and examined at bedside. No complaint today Reviewed: Care Plan, H&P, Labs, Medications, Previous Orders, Radiology Objective Vitals Vital Signs Date Time Temp Pulse Resp B/P (MAP) Pulse Ox O2 Delivery O2 Flow Rate FiO2 09/12/25 10:03 97 Nasal Cannula 2.0 09/12/25 10:03 28 09/12/25 09:09 153/79 09/12/25 08:28 96 09/12/25 05:00 97.9 18 97.9 Intake/Output Intake and Output 09/12/25 07:00 Intake Total 1200 ml Output Total 1450 ml Balance -250 ml Intake Oral 1200 ml Output Urine Total 1450 ml # Bowel Movements 5 General Appearance: Alert, Oriented X3, Cooperative, No acute distress HEENT: Atraumatic, PERRLA, EOMI, Mucous membr. moist/pink Neck: Supple Lungs: Clear to auscultation, Normal air movement Cardiovascular: Regular rate, Normal S1, Normal S2, No murmurs, Gallops, Rubs Abdomen: Normal bowel sounds, Soft, No tenderness Neuro: Cranial nerves 3-12 NL Psych/Mental Status: Mental status NL Medications Current Medications Medications Dose Ordered Sig/Audrey Route Start Time Stop Time Status Last Admin Dose Admin Acetaminophen 325 mg Q4HP PRN PO 09/04/25 20:45 Ondansetron HCl 4 mg Q4HP PRN IV 09/04/25 20:45 09/11/25 08:55 4 MG Sodium Chloride 1,000 ml @ 75 mls/hr [id number] IV 09/04/25 20:45 09/11/25 03:12 75 MLS/HR Ceftriaxone Sodium 50 ml @ 100 mls/hr DAILY@09 IV 09/05/25 09:00 09/11/25 08:55 100 MLS/HR Diagnostic Test (Pha) 1 strip Q6HR 09/05/25 00:00 09/12/25 11:45 1 STRIP Insulin Human Regular Q6HR SC 09/05/25 00:00 Dextrose 50 ml UD PRN IV 09/04/25 22:00 Ergocalciferol 50,000 unit Q7D PO 09/05/25 10:00 09/12/25 09:10 50,000 UNIT Metronidazole 100 ml @ 100 mls/hr Q8HR IV 09/05/25 14:00 09/11/25 14:39 100 MLS/HR Atorvastatin Calcium 40 mg HS PO 09/05/25 22:00 09/11/25 22:20 40 MG Levothyroxine Sodium 100 mcg QAM PO 09/06/25 07:00 09/12/25 06:02 100 MCG Alprazolam 0.5 mg BID PO 09/05/25 22:00 09/11/25 22:20 0.5 MG Acetaminophen/ Hydrocodone Bitart 1 tab Q4HPRN PRN PO 09/05/25 16:45 09/10/25 15:46 1 TAB Lisinopril 20 mg DAILY PO 09/08/25 10:00 09/12/25 09:09 20 MG Hydralazine HCl 10 mg Q6HP PRN IV 09/09/25 09:30 09/10/25 18:01 10 MG Ketorolac Tromethamine 30 mg Q6HPRN PRN IV 09/09/25 15:45 09/14/25 15:44 09/09/25 17:49 30 MG Ipratropium [place] 0.5 mg Q6HPRN PRN NEB 09/09/25 15:45 09/10/25 06:15 0.5 MG Albuterol 1.25 mg Q6HPRN PRN NEB 09/09/25 15:45 09/10/25 06:15 1.25 MG Docusate Sodium 100 mg BID PO 09/10/25 22:00 09/11/25 22:20 100 MG Polyethylene Glycol 17 gm DAILYPRN PRN PO 09/10/25 10:30 Metronidazole 500 mg Q8HR PO 09/12/25 00:15 09/12/25 05:57 500 MG Pantoprazole Sodium 40 mg BID@0600,1700 PO 09/12/25 00:15 09/12/25 05:56 40 MG Laboratory Results Laboratory Tests 09/12/25 07:04 Chemistry Test 09/12/25 07:04 Calcium Level 8.5 mg/dL (8.7-10.4) L Urinalysis Test 09/04/25 19:23 Urine Color Yellow (Yellow) Urine Clarity Turbid (Clear) H Urine pH 6.5 (5.0-9.0) Urine Specific [place] 1.020 (1.001-1.035) Urine Protein 2+ (Negative) H Urine Ketones Negative (Negative) Urine Blood 2+ /uL (Negative) H Urine Nitrite Negative (Negative) Urine Bilirubin Negative (Negative) Urine Urobilinogen Normal mg/dL (Negative) Urine Leukocyte Esterase 3+ /uL (Negative) Urine RBC 127 /hpf (0 - 4) Urine Microscopic WBC 244 /HPF (0-5) H Urine Squamous Epithelial Cells Few /hpf (<5) Urine Bacteria Mod /hpf (None Seen) H Urine Hyaline Casts Mod /lpf (0 - 2) Urine Mucus Few (None Seen) Urine Yeast (Budding) Few /hpf (None Seen) Urine Glucose Normal mg/dL (Normal) Microbiology Microbiology Date/Time Source Procedure Growth Status 09/06/25 13:45 Stool Stool Culture - Final Complete 09/06/25 13:45 Stool Shiga Toxin I & II - Final Complete 09/05/25 05:25 Nose MRSA Screen - Final Complete 09/04/25 20:05 Blood Blood Culture - Final NO GROWTH AFTER 5 DAYS OF INCUBATION. Complete 09/04/25 19:23 Voided Urine Urine Culture - Final Complete Assessment/Plan Assessment/Plan Metabolic encephalopathy Probable upper GI bleed Complicated UTI KELLY hemodynamically mediated (VMN) Microcytic anemia Diabetic foot Thallic ulcer decubitus wound present on admission Diabetes type 2 Hypertension Dyslipidemia History of CVA currently bed-bound Hypothyroidism Chronic systolic congestive heart failure (HFrEF, LVEF 35-45%) PLAN Continue current management Continue IV antibiotic Rocephin. Continue IV fluid Will follow culture Will follow Thyroid function. Continue wound care. Will restart lisinopril. PT evaluation. No more episode of hematemesis. Hb is stable. will continue to follow up. I will give patient Hydralazine 10mg IV q 6hPRN for SBP greater than 160 and DBP greater than 100. I will give toradol 30mg IV bid PRN for pain CT abdomen and pelvis without contrast show stool burden. Per son, patient has diarrhea at home so he stop the stool softening. Will restart colace and miralax. 09/11: Patient had bowel movement today. The patient did not complain of any abdominal pain. I will resume her home health and discharge her home today. Addendum: Per RN, can not reach patient case manager for home health to see if set up for the patient to go home. The patient already had a home health we just need to resume it. Discharge was hold today due to no resume home health done yet. This medical document was created using an electronic medical record system with M*M [employer]rency direct computerized dictation system. Although this document has been carefully reviewed, there may still be some phonetic and typographical errors. These areas are purely typographical due to imperfections of the software programs, and do not reflect any compromise in the patient's medical care. My Orders Orders - GRETCHEN SCHNEIDER MD Procedure Category Date Status Time * Driveway Sealer CONS 09/11/25 Transmitted Consult Discharge DISCHARGE 09/11/25 Transmitted 15:59 D/C [place] ANDREW 09/12/25 In Process 11:42 GRETCHEN SCHNEIDER MD Sep 12, 2025 12:48
--- NOTE | 2025-09-12 14:28 | DVHPN2 ---
Progress Note - Dictate Date Seen: Sep 12, 2025 Medical Necessity Reason Pt with a Central, PICC or Fol: Yes The following are medically ne: Central Line, [place] Catheter Subjective PT WITH UGI BLEED HEMATEMESIS MELENA NAUSEA VOMITING AMS METABOLIC ENCEPHALOPATHY DIARRHEA HYPOTENSION HYPOVOLEMIA SECONDARY TO DIARRHEA AND POOR PO INTAKE ACUTE RENAL FAILURE CHRONIC RENAL DISEASE CXR MILD LLL ATELECTASIS PMH: LE DOPPLER CONSISTENT WITH ADVANCE PAD HX OF DM VASCULOPATHY NEUROPATHY HX OF RENAL CELL CARCINOMA WITH LEFT PARTIAL NEPHRECTOMY BUT RENAL US SHOWS RIGHT kidney measures 12.7 cm in length. No hydronephrosis. LEFT kidney measures 9.9 cm in length. No hydronephrosis. COPD HX OF TOBACCO USE HTN ORGANIC HD NL EF DIASTOLIC DYSFUNCTION ECHO MILD GLOBAL HYPOKINESIS EF 40% vital signs Vital Sign Date Time Temp Pulse Resp B/P (MAP) Pulse Ox O2 Delivery O2 Flow Rate FiO2 09/12/25 10:03 97 Nasal Cannula 2.0 09/12/25 10:03 28 09/12/25 09:09 153/79 09/12/25 08:28 96 09/12/25 05:00 97.9 18 97.9 Total Intake and Output 09/11/25 09/11/25 09/12/25 15:00 23:00 07:00 Intake Total 640 ml 560 ml Output Total 600 ml 850 ml Balance 40 ml -290 ml medications Current Medications Medications Dose Ordered Sig/Audrey Route Start Time Stop Time Status Last Admin Dose Admin Acetaminophen 325 mg Q4HP PRN PO 09/04/25 20:45 Ondansetron HCl 4 mg Q4HP PRN IV 09/04/25 20:45 09/11/25 08:55 4 MG Sodium Chloride 1,000 ml @ 75 mls/hr [id number] IV 09/04/25 20:45 09/11/25 03:12 75 MLS/HR Ceftriaxone Sodium 50 ml @ 100 mls/hr DAILY@09 IV 09/05/25 09:00 09/11/25 08:55 100 MLS/HR Diagnostic Test (Pha) 1 strip Q6HR 09/05/25 00:00 09/12/25 11:45 1 STRIP Insulin Human Regular Q6HR SC 09/05/25 00:00 Dextrose 50 ml UD PRN IV 09/04/25 22:00 Ergocalciferol 50,000 unit Q7D PO 09/05/25 10:00 09/12/25 09:10 50,000 UNIT Metronidazole 100 ml @ 100 mls/hr Q8HR IV 09/05/25 14:00 09/11/25 14:39 100 MLS/HR Atorvastatin Calcium 40 mg HS PO 09/05/25 22:00 09/11/25 22:20 40 MG Levothyroxine Sodium 100 mcg QAM PO 09/06/25 07:00 09/12/25 06:02 100 MCG Alprazolam 0.5 mg BID PO 09/05/25 22:00 09/11/25 22:20 0.5 MG Acetaminophen/ Hydrocodone Bitart 1 tab Q4HPRN PRN PO 09/05/25 16:45 09/10/25 15:46 1 TAB Lisinopril 20 mg DAILY PO 09/08/25 10:00 09/12/25 09:09 20 MG Hydralazine HCl 10 mg Q6HP PRN IV 09/09/25 09:30 09/10/25 18:01 10 MG Ketorolac Tromethamine 30 mg Q6HPRN PRN IV 09/09/25 15:45 09/14/25 15:44 09/09/25 17:49 30 MG Ipratropium [place] 0.5 mg Q6HPRN PRN NEB 09/09/25 15:45 09/10/25 06:15 0.5 MG Albuterol 1.25 mg Q6HPRN PRN NEB 09/09/25 15:45 09/10/25 06:15 1.25 MG Docusate Sodium 100 mg BID PO 09/10/25 22:00 09/11/25 22:20 100 MG Polyethylene Glycol 17 gm DAILYPRN PRN PO 09/10/25 10:30 Metronidazole 500 mg Q8HR PO 09/12/25 00:15 09/12/25 13:46 500 MG Pantoprazole Sodium 40 mg BID@0600,1700 PO 09/12/25 00:15 09/12/25 05:56 40 MG laboratory and microbiology Laboratory Tests 09/12/25 07:04 Test 09/12/25 07:04 Range/Units Serum Glucose 107 H 74-106 mg/dL Problem List UGI BLEED HEMATEMESIS MELENA NAUSEA VOMITING AMS METABOLIC ENCEPHALOPATHY DIARRHEA HYPOTENSION HYPOVOLEMIA SECONDARY TO DIARRHEA AND POOR PO INTAKE ACUTE RENAL FAILURE CHRONIC RENAL DISEASE CXR MILD LLL ATELECTASIS PMH: LE DOPPLER CONSISTENT WITH ADVANCE PAD HX OF DM VASCULOPATHY NEUROPATHY HX OF RENAL CELL CARCINOMA WITH LEFT PARTIAL NEPHRECTOMY BUT RENAL US SHOWS RIGHT kidney measures 12.7 cm in length. No hydronephrosis. LEFT kidney measures 9.9 cm in length. No hydronephrosis. COPD HX OF TOBACCO USE HTN ORGANIC HD EF 40% DIASTOLIC DYSFUNCTION/ SYSTOLIC DYSFUNCTION Assessment/Plan PROTON INHIBITOR SERIAL CBC GI CONSULT CBC STABLE HYPOKALEMIA Dietary Evaluation Review Comments: CCHO-60 diet texture as tolerated Glucerna 240 ml PO supplementation BID if pt tolerates Consider TPN per pharmacy if EN route not feasible FU with lab values and consultations, reassess PRN Expected Outcomes/Goals: PO intake reach 75% Plan discussed with: Patient HUNG IVAN MD Sep 12, 2025 14:28
--- NOTE | 2025-09-13 22:18 | DVHDS2 ---
Discharge Summary Date of Admission Sep 04, 2025 at 20:44 Date of Discharge: Sep 12, 2025 Admitting Diagnosis Metabolic encephalopathy Probable upper GI bleed Complicated UTI KELLY hemodynamically mediated (VMN) Microcytic anemia Diabetic foot Chronic ulcer decubitus wound present on admission Diabetes type 2 Hypertension Dyslipidemia History of CVA currently bed-bound Hypothyroidism Chronic systolic congestive heart failure (HFrEF, LVEF 35-45%) Labs/Diagnostic Data: Laboratory Results Test 09/12/25 11:23 09/12/25 07:04 09/05/25 10:40 09/05/25 04:43 POC Glucose 88 mg/dl (70-106) White Blood Count 4.5 10^3/uL (4.4-10.8) Red Blood Count 4.03 10^6/uL (4.0-5.20) Hemoglobin 9.3 g/dL (12.2-16.2) Hematocrit 30.3 % (36.0-46.0) Mean Corpuscular Volume 75.2 fL (80.0-100.0) Mean Corpuscular Hemoglobin 23.1 pg (28.0-32.0) Mean Corpuscular Hemoglobin Concent 30.8 g/dL (32.0-36.0) Red Cell Distribution Width 17.9 % (11.8-14.3) Platelet Count 289 10^3/uL (140-450) Mean Platelet Volume 6.3 fL (6.9-10.8) Neutrophils (%) (Auto) 68.2 % (37.0-80.0) Lymphocytes (%) (Auto) 16.4 % (10.0-50.0) Monocytes (%) (Auto) 11.7 % (0.0-12.0) Eosinophils (%) (Auto) 3.4 % (0.0-7.0) Basophils (%) (Auto) 0.3 % (0.0-2.0) Neutrophils # (Auto) 3.1 10 ^3/uL (1.6-8.6) Lymphocytes # (Auto) 0.7 10 ^3/uL (0.4-5.4) Monocytes # (Auto) 0.5 10 ^3/uL (0-1.3) Eosinophils # (Auto) 0.2 10 ^3/uL (0-0.8) Basophils # (Auto) 0 10 ^3/uL (0-0.2) Nucleated Red Blood Cells 0.0 % Sodium Level 142 mmol/L (136-145) Potassium Level 3.2 mmol/L (3.5-5.1) Chloride Level 108 mmol/L (98-107) Carbon Dioxide Level 27 mmol/L (20-31) Anion Gap 7 (5-15) Blood Urea Nitrogen 8 mg/dL (9-23) Creatinine 0.80 mg/dL (0.550-1.02) Glomerular Filtration Rate Calc 82 mL/min (>90) BUN/Creatinine Ratio 10.0 (10.0-20.0) Serum Glucose 107 mg/dL (74-106) Calcium Level 8.5 mg/dL (8.7-10.4) Stool Occult Blood Negative (Negative) Stool Occult Blood Sample #3 (Negative) Stool for White Cells None seen Iron Level 18 ug/dL (50-170) Total Iron Binding Capacity 175 ug/dL (250-425) Percent Iron Saturation 10.3 % (15-50) Ferritin 56.7 ng/mL (10-291) Total Bilirubin < 0.2 mg/dL (0.2-1.0) Aspartate Amino Transferase (AST) < 8 U/L (13-40) Alanine Aminotransferase (ALT) < 9 U/L (7-40) Alkaline Phosphatase 73 U/L (46-116) Total Protein 6.0 g/dL (5.7-8.2) Albumin 3.2 g/dL (3.2-4.8) Free Thyroxine (T4) Calculated 0.56 ng/dL (0.89-1.76) Total Triiodothyronine (TT3) 0.58 ng/mL (0.60-1.81) Test 09/04/25 22:29 09/04/25 20:05 09/04/25 19:23 09/04/25 18:39 Hemoglobin A1c 5.6 % A1C (<5.7) Phosphorus Level 3.0 mg/dL (2.4-5.1) Magnesium Level 2.0 mg/dL (1.6-2.6) Direct Bilirubin < 0.1 mg/dL (<0.3) Ammonia 11 umol/L (11-32) Triglycerides Level 123 mg/dL (< 150) Cholesterol Level 118 mg/dL (< 200) LDL Cholesterol 62 mg/dL (< 100) HDL Cholesterol 35 mg/dL (40-59) Lipase 21 U/L (12-53) Vitamin B12 Level 526 pg/mL (211-911) Vitamin D 25-Hydroxy 9.7 ng/mL (30.0-100) Thyroid Stimulating Hormone (TSH) 26.35 uIU/mL (0.55-4.78) Lactic Acid Level 1.1 mmol/L (0.4-2.0) Urine Color Yellow (Yellow) Urine Clarity Turbid (Clear) Urine pH 6.5 (5.0-9.0) Urine Specific [place] 1.020 (1.001-1.035) Urine Protein 2+ (Negative) Urine Ketones Negative (Negative) Urine Blood 2+ /uL (Negative) Urine Nitrite Negative (Negative) Urine Bilirubin Negative (Negative) Urine Urobilinogen Normal mg/dL (Negative) Urine Leukocyte Esterase 3+ /uL (Negative) Urine RBC 127 /hpf (0 - 4) Urine Microscopic WBC 244 /HPF (0-5) Urine Squamous Epithelial Cells Few /hpf (<5) Urine Bacteria Mod /hpf (None Seen) Urine Hyaline Casts Mod /lpf (0 - 2) Urine Mucus Few (None Seen) Urine Yeast (Budding) Few /hpf (None Seen) Urine Glucose Normal mg/dL (Normal) Urine Opiates Screen Neg (NEGATIVE) Urine Fentanyl Screen Neg (NEGATIVE) Urine Barbiturates Screen Neg (NEGATIVE) Urine Phencyclidine Screen Neg (NEGATIVE) Urine Amphetamines Screen Neg (NEGATIVE) Urine Benzodiazepines Screen Neg (NEGATIVE) Urine Cocaine Screen Neg (NEGATIVE) Urine Cannabinoids Screen Neg (NEGATIVE) Prothrombin Time 11.6 sec (9.3-11.8) Prothrombin Time INR 1.11 (0.9-1.15) Activated Partial Thromboplast Time 24.8 SEC (24.5-34.5) Test 09/04/25 05:25 Influenza Type A Antigen Negative (Negative) Influenza Type B Antigen Negative (Negative) SARS-CoV-2 Antigen (Rapid) Negative (NEGATIVE) Other Laboratory Tests 09/12/25 07:04 Brief Hx & Hospital Course: This is a 65-year-old female patient who is brought to ED via EMS with chief complaint of nausea/vomiting with hematemesis associated with altered mental status which worsened three days before her admission. Due to clinical status could not obtain review of systems, obtained past medical history from EMR. Patient has been bed ridden for approximately one year. The patient was found to have UTI The patient also has chronic decubitus ulcer due to bedbound. The patient was admitted. The patient was put on IV antibiotic with Rocephin 1gm IV qday and flagyl 500mg tid. The patient also was having wound care consult. The patient will be discharge home with resume home health for wound care. Activity as tolerate. Diet Low salt low cholesterol diet. Follow up with PCP 1-2 weeks. Physical examination: General Appearance: Alert, Oriented X3, Cooperative, No acute distress HEENT: Atraumatic, PERRLA, EOMI, Mucous membr. moist/pink Neck: Supple Lungs: Clear to auscultation, Normal air movement Cardiovascular: Regular rate, Normal S1, Normal S2, No murmurs, Gallops, Rubs Abdomen: Normal bowel sounds, Soft, No tenderness Neuro: Cranial nerves 3-12 NL Psych/Mental Status: Mental status NL Condition at Discharge: Stable Final Diagnosis/Problems List Metabolic encephalopathy Probable upper GI bleed Complicated UTI KELLY hemodynamically mediated (VMN) Microcytic anemia Diabetic foot Chornic ulcer decubitus wound present on admission Diabetes type 2 Hypertension Dyslipidemia History of CVA currently bed-bound Hypothyroidism Chronic systolic congestive heart failure (HFrEF, LVEF 35-45%) Discharge Disposition: Home with Health Services Discharge Instruct/Medications Diet: Cardiac 2g Na,low cholest Activity: No Restrictions, As Tolerated Follow Up/Referral: PCP 1-2 weeks Medications: See med list Scheduled Amoxicillin & Pot Clavulanate (Augmentin Tablet), 875 MG PO BID Aspirin (Aspirin Low Dose), 81 MG PO DAILY Atorvastatin Calcium (Atorvastatin Calcium), 40 MG PO HS Digoxin (Digoxin), 125 MCG PO DAILY, (Reported) Empagliflozin (Jardiance), 10 MG PO DAILY Fluconazole (Diflucan), 200 MG PO DAILY Furosemide (Furosemide), 40 MG PO DAILY Gabapentin (Gabapentin), 1 CAP PO TID, (Reported) Insulin Glargine (Lantus), 15 UNIT SC QPM Levothyroxine Sodium (Synthroid Tablet), 100 MCG PO QAM Levothyroxine Sodium (Levothyroxine Sodium), 200 MCG PO QAM, (Reported) Lisinopril (Lisinopril), 20 MG PO DAILY Lorazepam (Ativan), 1 MG PO BID, (Reported) Metformin Hydrochloride (Metformin Hcl), 500 MG PO BID Nifedipine (Nifedipine Er), 1 TAB PO DAILY, (Reported) Pantoprazole Sodium Sesquihydr (Pantoprazole Sodium), 40 MG PO DAILY@0600 Spironolactone (Aldactone), 25 MG PO DAILY Vericiguat (Verquvo), 5 MG PO BID, (Reported) Scheduled PRN Albuterol Sulfate (Albuterol Sulfate), 1.25 MG IN TIDP PRN Ipratropium [place] (Ipratropium [place]), 0.5 % HHN TIDP PRN Miscellaneous Medications Nivolumab (Opdivo), 240 MG IV, (Reported) Discontinued Medications Doxycycline (Monohydrate) (Doxycycline), 100 MG PO BID Discharge Statement: "Patient was advised to return to the ER or call 911 if any headaches, dizziness, shortness of breath, chest pain, abdominal pain, bleeding, fevers, or worsening of medical condition. Patient was counseled about treatment plan, medications, possible side effects, patientverbalized understanding. All questions were answered to the best of my ability. This discharge took greater then 30 minutes in planning, reviewing documentation, counseling the patient, and discussing with other team members." ASSESSMENT ASSESSMENT Assessment sepsis Date of Service: Sep 12, 2025 Billing Provider: GRETCHEN SCHNEIDER MD Common Visit Codes: [id number] DISCH DAY >30min GRETCHEN SCHNEIDER MD Sep 13, 2025 22:18
--- NOTE | 2025-09-16 14:25 | DVHPN2 ---
Progress Note - Dictate Date Seen: Sep 13, 2024 Medical Necessity Reason Pt with a Central, PICC or Fol: Yes The following are medically ne: Central Line, [place] Catheter Subjective PT WITH UGI BLEED HEMATEMESIS MELENA NAUSEA VOMITING AMS METABOLIC ENCEPHALOPATHY DIARRHEA HYPOTENSION HYPOVOLEMIA SECONDARY TO DIARRHEA AND POOR PO INTAKE ACUTE RENAL FAILURE CHRONIC RENAL DISEASE CXR MILD LLL ATELECTASIS PMH: LE DOPPLER CONSISTENT WITH ADVANCE PAD HX OF DM VASCULOPATHY NEUROPATHY HX OF RENAL CELL CARCINOMA WITH LEFT PARTIAL NEPHRECTOMY BUT RENAL US SHOWS RIGHT kidney measures 12.7 cm in length. No hydronephrosis. LEFT kidney measures 9.9 cm in length. No hydronephrosis. COPD HX OF TOBACCO USE HTN ORGANIC HD NL EF DIASTOLIC DYSFUNCTION ECHO MILD GLOBAL HYPOKINESIS EF 40% laboratory and microbiology Laboratory Tests 09/12/25 07:04 Test 09/12/25 07:04 Range/Units Serum Glucose 107 H 74-106 mg/dL Problem List UGI BLEED HEMATEMESIS MELENA NAUSEA VOMITING AMS METABOLIC ENCEPHALOPATHY DIARRHEA HYPOTENSION HYPOVOLEMIA SECONDARY TO DIARRHEA AND POOR PO INTAKE ACUTE RENAL FAILURE CHRONIC RENAL DISEASE CXR MILD LLL ATELECTASIS PMH: LE DOPPLER CONSISTENT WITH ADVANCE PAD HX OF DM VASCULOPATHY NEUROPATHY HX OF RENAL CELL CARCINOMA WITH LEFT PARTIAL NEPHRECTOMY BUT RENAL US SHOWS RIGHT kidney measures 12.7 cm in length. No hydronephrosis. LEFT kidney measures 9.9 cm in length. No hydronephrosis. COPD HX OF TOBACCO USE HTN ORGANIC HD EF 40% DIASTOLIC DYSFUNCTION/ SYSTOLIC DYSFUNCTION Assessment/Plan PROTON INHIBITOR SERIAL CBC GI CONSULT CBC STABLE HYPOKALEMIA Dietary Evaluation Review Comments: CCHO-60 diet texture as tolerated Glucerna 240 ml PO supplementation BID if pt tolerates Consider TPN per pharmacy if EN route not feasible FU with lab values and consultations, reassess PRN Expected Outcomes/Goals: PO intake reach 75% Plan discussed with: Patient HUNG IVAN MD Sep 16, 2025 14:25
== END 2025-09-12 14:30 | disposition home health service (06) | DRG 377 ==
LOC: EDBD 17:35 → EDSEX 17:35 → ER 17:35 → OVERFLOW 20:44 → TELE-WESTW 22:39
PROVIDERS: ADMIT Internal Medicine; ATTEND Internal Medicine
DX: K92.2 Gastrointestinal hemorrhage, unspecified (principal); G93.41 Metabolic encephalopathy; N17.0 Acute kidney failure with tubular necrosis; I50.22 Chronic systolic (congestive) heart failure; I13.0 Hypertensive heart and chronic kidney disease with heart failure and stage 1 through stage 4 chronic kidney disease, or unspecified chronic kidney disease; N39.0 Urinary tract infection, site not specified; N18.9 Chronic kidney disease, unspecified; J44.9 Chronic obstructive pulmonary disease, unspecified; E86.1 Hypovolemia; E11.40 Type 2 diabetes mellitus with diabetic neuropathy, unspecified; E11.22 Type 2 diabetes mellitus with diabetic chronic kidney disease; E78.5 Hyperlipidemia, unspecified; E03.9 Hypothyroidism, unspecified; D50.9 Iron deficiency anemia, unspecified; E87.6 Hypokalemia; Z79.2 Long term (current) use of antibiotics; Z79.84 Long term (current) use of oral hypoglycemic drugs; Z79.4 Long term (current) use of insulin; Z79.82 Long term (current) use of aspirin; Z90.49 Acquired absence of other specified parts of digestive tract; Z87.891 Personal history of nicotine dependence; L89.301 Pressure ulcer of unspecified buttock, stage 1; Z90.5 Acquired absence of kidney; L89.151 Pressure ulcer of sacral region, stage 1; Z86.73 Personal history of transient ischemic attack (TIA), and cerebral infarction without residual deficits; Z85.528 Personal history of other malignant neoplasm of kidney; Z74.01 Bed confinement status
CPT/HCPCS: 36415; 70450; 71045; 74176; 80048; 80053; 80061; 80076; 80307; 81001; 82140; 82270; 82306; 82607; 82728; 82962; 83036; 83540; 83550; 83605; 83690; 83735; 84100; 84439; 84443; 84480; 85025; 85048; 85610; 85730; 86850; 86900; 86901; 87040; 87045; 87081; 87086; 87426; 87427; 87804; 92610; 93005; 94640; 96374; 96375; 97110; 97163; 97530; 99291; G0378; J1885; J2405; J2470; J3490

== ENCOUNTER 2025-10-07 09:06 | Inpatient (IN) | payer MEDICARE, OTHER ==
[~2025-10-07] VITALS: Ht 165.1 cm; Wt 76.7 kg
[~2025-10-07 09:06] MED LIST changes: -DOXY1CAP58 PO
--- NOTE | 2025-10-07 09:16 | ECG ---
[facility] [place] Test Date: 2025-10-07 Test Time: 09:14:23 Pat Name: DYLAN NELSON Department: ED Room: [address] [place] [address] Gender: F Superintendent Division: jennifer : 1960 Requested By: JOEY ESPARZA Order Number: [id number] Reading MD: Maycol Ryan Measurements Intervals [place] Rate: 97 P: 77 [place]: 157 QRS: -82 QRSD: 135 T: 83 QT: 394 QTc: 501 Interpretive Statements Sinus rhythm RBBB and LAFB ST elevation, consider inferior injury Baseline wander in lead(s) V5 Electronically Signed On 10-07-2025 18:02:00 PST by Maycol Ryan Please click the below link to view image of tracing.
--- NOTE | 2025-10-07 09:25 | ED.PDOC ---
HPI Comments 65 year old female with PMHx COPD, CHF, HTN, DM, Kidney cancer presents to the ED via EMS with a chief complaint of chest pain onset last night. Per EMS, patient's son was concerned due to patient experiencing RT sided chest pain radiating to RT shoulder as well as dizziness, diarrhea, currently patient rates pain 3/10. Per EMS, son stated patient was also experiencing hematemesis, chronic condition, has been hospitalized several times, 09/13/25 she was discharged from [facility]. BG was 146. Patient states pain has improved. Denies shortness of breath, fall injury, fever, chills, headache, blurred vision, numbness/tingling, dysuria, hematuria. No other symptoms or modifying factors present at this time. Chief Complaint: Chest Pain Time Seen by MD: 09:15 Primary Care Provider: UNKNOWN Reviewed Notes: Medications, Allergies Allergies: Coded Allergies: Codeine (Verified Adverse Reaction, Unknown, vomiting, 06/06/25) patient states when she was young codeine syrup made her vomit. Home Meds Active Scripts Amoxicillin & Pot Clavulanate (AUGMENTIN TABLET) 875 Mg Tb, 875 MG PO BID for 7 Days, #14 TAB Prov:GRETCHEN SCHNEIDER MD 09/11/25 Fluconazole (Diflucan) 200 Mg Tab, 200 MG PO DAILY for 14 Days, #14 TAB Prov:BRIT ULRICH 06/10/25 Ipratropium [place] (Ipratropium [place]) 0.02 % Iram, 0.5 % HHN TIDP PRN for 30 Days, #90 ML 3 Refills Prov:PINA RIVERO MD 04/17/24 Albuterol Sulfate (Albuterol Sulfate) 1.25 Mg/3 Ml Neb, 1.25 MG IN TIDP PRN for 30 Days, #90 INH 3 Refills Prov:PINA RIVERO MD 04/17/24 Metformin Hydrochloride (Metformin Hcl) 500 Mg Tab, 500 MG PO BID for 30 Days, #60 TAB 3 Refills Prov:PINA RIVERO MD 04/17/24 Insulin Glargine (Lantus) 100 Unit/Ml Inj, 15 UNIT SC QPM for 30 Days, #1 INJ 3 Refills Prov:PINA RIVERO MD 04/17/24 Spironolactone (Aldactone) 25 Mg Tab, 25 MG PO DAILY for 30 Days, #30 TAB 3 Refills Prov:PINA RIVERO MD 04/17/24 Pantoprazole Sodium Sesquihydr (Pantoprazole Sodium) 40 Mg Tab, 40 MG PO DAILY@0600 for 30 Days, #30 TAB 3 Refills Prov:PINA RIVERO MD 04/17/24 Lisinopril (Lisinopril) 20 Mg Tab, 20 MG PO DAILY for 30 Days, #30 TAB 3 Refills Prov:PINA RIVERO MD 04/17/24 Levothyroxine Sodium (SYNTHROID TABLET) 100 Mcg Tb, 100 MCG PO QAM for 30 Days, #30 TAB 3 Refills Prov:PINA RIVERO MD 04/17/24 Furosemide (Furosemide) 40 Mg Tab, 40 MG PO DAILY for 30 Days, #30 TAB 3 Refills Prov:PINA RIVERO MD 04/17/24 Empagliflozin (Jardiance) 10 Mg Tab, 10 MG PO DAILY for 30 Days, #30 TAB 3 Refills Prov:PINA RIVERO MD 04/17/24 Atorvastatin Calcium (ATORVASTATIN CALCIUM) 20 Mg Tab, 40 MG PO HS for 30 Days, #60 TAB Prov:JAS VICTORIA MD 03/22/24 Aspirin (Aspirin Low Dose) 81 Mg Tab, 81 MG PO DAILY for 30 Days, #30 TAB Prov:JAS VICTORIA MD 03/22/24 Reported Medications Vericiguat (Verquvo) 5 Mg Tab, 5 MG PO BID, TAB 06/06/25 Lorazepam (Ativan) 0.5 Mg Tab, 1 MG PO BID, TAB 06/06/25 Levothyroxine Sodium (Levothyroxine Sodium) 200 Mcg Tab, 200 MCG PO QAM for 30 Days, MCG 06/06/25 Gabapentin (Gabapentin) 300 Mg Cap, 1 CAP PO TID, #90 CAP 1 Refill 05/22/24 Digoxin (Digoxin) 125 Mcg Tab, 125 MCG PO DAILY, TAB 03/20/24 Nifedipine (Nifedipine Er) 30 Mg Tab, 1 TAB PO DAILY, #90 TAB 1 Refill 08/25/18 Nivolumab (Opdivo) 240 Mg/24 Ml Inj, 240 MG IV, INJ 08/25/18 Information Source: Patient, Emergency Med Personnel Mode of Arrival: EMS Severity: Moderate Timing: Days Duration: Since onset Prehospital treatment: None Onset: At Rest Cardiac Risk Factors: Smoker, HTN, Diabetes, None PE Risk Factors: None History of: None Modifying Factors: Nothing Past Medical History PAST MEDICAL HISTORY: Cancer, CHF, COPD, DM, HTN Surgical History: Cholecystectomy, Tonsillectomy 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 WELDER Hx, Other Family History Family History: Reviewed,noncontributory to illness Social History Smoker: Quit Greater Than 1 Year, Cigarettes Alcohol: Denies ETOH Use Drugs: Denies Drug Use Lives In: Home Constitutional: denies: chills, diaphoresis, fatigue, fever, malaise, sweats, weakness, others EENTM: denies: blurred vision, double vision, ear bleeding, ear discharge, ear drainage, ear pain, ear ringing, eye pain, eye redness, hearing loss, mouth pain, mouth swelling, nasal discharge, nose bleeding, nose congestion, nose pain, photophobia, tearing, throat pain, throat swelling, voice changes, others Respiratory: denies: cough, hemoptysis, orthopnea, SOB at rest, shortness of breath, SOB with excertion, stridor, wheezing, others Cardiovascular: reports: chest pain; denies: dizzy spells, diaphoresis, Dyspnea on exertion, edema, irregular heart beat, left arm pain, lightheadedness, palpitations, PND, syncope, others Gastrointestinal: reports: diarrhea, hematemesis; denies: abdomen distended, abdominal pain, blood streaked bowels, constipated, dysphagia, difficulty swallowing, melena, nausea, poor appetite, poor fluid intake, rectal bleeding, rectal pain, vomiting, others Genitourinary: denies: abnormal vagina bleeding, burning, dyspareunia, dysuria, flank pain, frequency, hematuria, incontinence, pain, , vagina discharge, urgency, others Neurological: reports: dizziness; denies: fainting, headache, left sided numbness, left sided weakness, numbness, paresthesia, pre-existing deficit, right sided numbness, right sided weakness, seizure, speech problems, tingling, tremors, weakness, others Musculoskeletal: reports: others (RT shoulder); denies: back pain, gout, joint pain, joint swelling, muscle pain, muscle stiffness, neck pain Integumetry: denies: bruises, change in color, change in hair/nails, dryness, laceration, lesions, lumps, rash, wounds, others Allergic/Immunocompromised: denies: Difficulty Healing, Frequent Infections, Hives, Itching, others Hematologic/Lymphatic: denies: anemia, blood clots, easy bleeding, easy bruising, swollen glands, others Endocrine: denies: excessive hunger, excessive sweating, excessive thirst, excessive urination, flushing, intolerance to cold, intolerance to heat, unexplained weight gain, unexplained weight loss, others Psychiatric: denies: anxiety, bipolar disorder, depression, hopeless, panic disorder, schizophrenia, sleepless, suicidal, others All Other Systems: Reviewed and Negative Physical Exam General Appearance: Moderate Distress HEENT: Normal ENT Inspection, Pharynx Normal, TMs Normal Neck: Full Range of Motion, Non-Tender, Normal, Normal Inspection Respiratory: Chest Non-Tender, Lungs Clear, No Accessory Muscle Use, No Respiratory Distress, Normal Breath Sounds Cardiovascular: No Edema, No JVD, No Murmur, No Gallop, Normal Peripheral Pulses, Regular Rate/Rhythm Breast Exam: Deferred Gastrointestinal: No Organomegaly, Non Tender, No Pulsatile Mass, Normal Bowel Sounds, Soft Genitalia: Deferred Pelvic: Deferred Rectal: Deferred Extremities: No calf tenderness, Normal capillary refill, Normal inspection, Normal range of motion, Non-tender, No pedal edema Musculoskeletal : Apperance: Normal Neurologic: Alert, health services director II-XII nml as Tested, Motor Weakness, Normal Affect, Normal Mood, No Sensory Deficits Cerebellar Function: Normal Reflexes: Normal Skin: Dry, Normal Color, Warm Lymphatic: No Adenopathy EKG EKG : Pulse Rate (adult): 97 Block: RBBB Was a procedure done? Was a procedure done?: No CP Differential Dx Differential Diagnosis: A-fib, Angina, NH, Other (ACS) X-Ray, Labs, Meds, VS Vital Signs Date Time Temp Pulse Resp B/P (MAP) Pulse Ox O2 Delivery O2 Flow Rate FiO2 10/07/25 09:25 97 10/07/25 09:06 98.8 92 18 131/55 95 98.8 Lab Test 10/07/25 09:30 Range/Units White Blood Count 5.6 4.4-10.8 10^3/uL Red Blood Count 4.30 4.0-5.20 10^6/uL Hemoglobin 10.2 L 12.2-16.2 g/dL Hematocrit 34.4 L 36.0-46.0 % Mean Corpuscular Volume 80.1 80.0-100.0 fL Mean Corpuscular Hemoglobin 23.8 L 28.0-32.0 pg Mean Corpuscular Hemoglobin Concent 29.7 L 32.0-36.0 g/dL Red Cell Distribution Width 18.0 H 11.8-14.3 % Platelet Count 313 140-450 10^3/uL Mean Platelet Volume 6.3 L 6.9-10.8 fL Neutrophils (%) (Auto) 72.7 37.0-80.0 % Lymphocytes (%) (Auto) 16.0 10.0-50.0 % Monocytes (%) (Auto) 8.3 0.0-12.0 % Eosinophils (%) (Auto) 2.7 0.0-7.0 % Basophils (%) (Auto) 0.3 0.0-2.0 % Neutrophils # (Auto) 4.1 1.6-8.6 10 ^3/uL Lymphocytes # (Auto) 0.9 0.4-5.4 10 ^3/uL Monocytes # (Auto) 0.5 0-1.3 10 ^3/uL Eosinophils # (Auto) 0.2 0-0.8 10 ^3/uL Basophils # (Auto) 0 0-0.2 10 ^3/uL Nucleated Red Blood Cells 0.1 % Sodium Level 142 136-145 mmol/L Potassium Level 4.2 3.5-5.1 mmol/L Chloride Level 110 H 98-107 mmol/L Carbon Dioxide Level 24 20-31 mmol/L Anion Gap 8 5-15 Blood Urea Nitrogen 27 H 9-23 mg/dL Creatinine 1.04 H 0.550-1.02 mg/dL Glomerular Filtration Rate Calc 60 >90 mL/min BUN/Creatinine Ratio 26.0 H 10.0-20.0 Serum Glucose 134 H 74-106 mg/dL Calcium Level 9.5 8.7-10.4 mg/dL Total Bilirubin < 0.2 L 0.2-1.0 mg/dL Aspartate Amino Transferase (AST) < 8 L 13-40 U/L Alanine Aminotransferase (ALT) < 9 7-40 U/L Alkaline Phosphatase 66 46-116 U/L Troponin I High Sensitivity 3 L </=34 ng/L Total Protein 6.5 5.7-8.2 g/dL Albumin 3.5 3.2-4.8 g/dL Current Medications Medications (Trade) Dose Ordered Sig/Audrey Route Start Time Stop Time Status Last Admin Aspirin 162 mg ONCE ONCE PO 10/07/25 09:30 10/07/25 09:31 DC 10/07/25 09:54 IMPRESSION: Increased interstital prominence. This may represent pulmonary vascular congestion and/or viral pneumonia. Clinical correlation advised. The patient was given Lasix 40 mg IV push The patient was given aspirin 162 mg by mouth The patient's CBC is shows anemia with a hemoglobin of 10.2 The chemistry panel is within normal limits The total bilirubin is negative At this time, an IV Hep-Lock was established The patient is being admitted to the hospitalist Images Reviewed?: Images reviewed and evaluated by me Time of 1ST Reevaluation: 09:45 Reevaluation 1ST: Unchanged Patient Education/Counseling: Diagnosis, Treatment, Prognosis Family Education/Counseling: No Family Present SEPSIS Sepsis Screen Physician Orders Chest Portable (10/07/25 09:14) Troponin-I Hs (10/07/25 10:14) Troponin-I Hs (10/07/25 12:14) Electrocardigram (10/07/25 10:14) Electrocardigram (10/07/25 12:14) Urinalysis (10/07/25 09:23) Heplock Iv (10/07/25 09:23) Manager Foreign (10/07/25 09:23) Blood Pressure (10/07/25 09:23) Pulse Oximetry (10/07/25 09:23) Vital Signs Date Time Temp Pulse Resp B/P (MAP) Pulse Ox O2 Delivery O2 Flow Rate FiO2 10/07/25 09:25 97 10/07/25 09:06 98.8 92 18 131/55 95 98.8 Laboratory Tests Test 10/07/25 09:30 White Blood Count 5.6 10^3/uL (4.4-10.8) Medications Medications Dose Ordered Sig/Audrey Route Start Time Stop Time Status Last Admin Dose Admin Aspirin 162 mg ONCE ONCE PO 10/07/25 09:30 10/07/25 09:31 DC 10/07/25 09:54 Departure 1 Departure Time of Disposition: 10:33 Impression: Primary Impression: Acute chest pain Additional Impression: Acute coronary syndrome Disposition: ADMITTED INPATIENT Admit to: Tele Condition: Fair Critical Care Note Critical Care Time?: Yes (35 min-critical care time only) Stability Stability form required: Yes Unstable for transfer: Telemetry monitoring (Telemetry monitoring required), ED Physician Assesment (Clinical assesment) Heart Score Heart Score: Heart Score Response (Comments) Value History Moderate Suspicious 1 EKG Repolarization Disturb 1 Age >65 2 Risk Factors >3 or Hx ASHD 2 Troponin Normal limit 0 Total 6 I personally scribed for JOEY ESPARZA MD ([email or web address]) on 10/07/25 at 09:25. Electronically submitted by Marika De La Rosa ([email or web address]). I personally scribed for JOEY ESPARZA MD ([email or web address]) on 10/07/25 at 10:22. Electronically submitted by Marika De La Rosa ([email or web address]). JOEY ESPARZA MD Oct 07, 2025 09:25
[2025-10-07 09:30] VITALS: PULSE 94; RESP 20; O2SAT 100
--- NOTE | 2025-10-07 09:46 | DVH ---
CHEST RADIOGRAPH Indication: CP Technique: Single frontal view of the chest was obtained COMPARISON: XY CHEST PORTABLE on DOS: 09/04/25, XY CHEST PORTABLE on DOS: 06/05/25, XY CHEST TWO VIEWS ROUTINE on DOS: 12/03/24, XY CHEST XRAY 1 VIEW on DOS: 07/22/24, XY CHEST PORTABLE on DOS: 05/22/24 FINDINGS: Lines and Tubes: None Lungs: Congestion Pleura: No effusion. No pneumothorax. Cardiomediastinal contours: Unremarkable Bones: Unremarkable IMPRESSION: Increased interstital prominence. This may represent pulmonary vascular congestion and/or viral pneumonia. Clinical correlation advised.
[2025-10-07 09:51] LABS: Hematocrit 34.4 % (36.0-46.0); Hemoglobin 10.2 g/dL (12.2-16.2); Mean Corpuscular Hemoglobin 23.8 pg (28.0-32.0); Mean Corpuscular Volume 80.1 fL (80.0-100.0); Nucleated Red Blood Cells % 0.1 %
[2025-10-07 09:53] LABS: Albumin 3.5 g/dL (3.2-4.8); Alkaline Phosphatase 66 U/L (46-116); Anion Gap 8 (5-15); BUN/Creatinine Ratio 26.0 (10.0-20.0); Calcium 9.5 mg/dL (8.7-10.4); Carbon Dioxide 24 mmol/L (20-31); Potassium 4.2 mmol/L (3.5-5.1); Sodium 142 mmol/L (136-145); Total Protein 6.5 g/dL (5.7-8.2)
[2025-10-07 09:54] LABS: Alanine Aminotransferase < 9 U/L (7-40); Bilirubin, Total < 0.2 mg/dL (0.2-1.0); Blood Urea Nitrogen 27 mg/dL (9-23); Chloride 110 mmol/L (98-107); Glucose 134 mg/dL (74-106)
--- NOTE | 2025-10-07 10:34 | ECG ---
[facility] Test Date: 2025-10-07 Test Time: 10:31:02 Pat Name: DYLAN NELSON Department: ED Room: [address] [place] [address] Gender: F Front Office Secretary: jennifer : 1960 Requested By: JOEY ESPARZA Order Number: [id number] Reading MD: Maycol Ryan Measurements Intervals [place] Rate: 95 P: 74 [place]: 178 QRS: -84 QRSD: 140 T: 80 QT: 403 QTc: 507 Interpretive Statements Sinus rhythm RBBB and LAFB Probable lateral infarct, old Electronically Signed On 10-07-2025 18:02:04 PST by Maycol Ryan Please click the below link to view image of tracing.
[2025-10-07] MEDS: FUROSEMIDE 40 MG/4 ML VIAL IV ONE (10:45)
--- NOTE | 2025-10-07 12:16 | ECG ---
[facility] Test Date: 2025-10-07 Test Time: 12:14:46 Pat Name: DYLAN NELSON Department: ED Room: [address] [place] [address] Gender: F Dice Table Person: jennifer : 1960 Requested By: JOEY ESPARZA Order Number: [id number] Reading MD: Maycol Ryan Measurements Intervals [place] Rate: 99 P: 78 [place]: 152 QRS: -79 QRSD: 133 T: 78 QT: 378 QTc: 486 Interpretive Statements Sinus tachycardia Ventricular premature complex RBBB and LAFB Probable left ventricular hypertrophy ST elevation, consider inferior injury Electronically Signed On 10-07-2025 18:02:13 PST by Maycol Ryan Please click the below link to view image of tracing.
[2025-10-07 14:30] VITALS: BP 125/75; PULSE 94; RESP 20; TEMP 98.4; O2SAT 98
[2025-10-07] MEDS ORDERED: ONDANSETRON HCL 4 MG/2 ML VIAL IV PRN (14:30)
[2025-10-07] MEDS ORDERED: ACETAMINOPHEN 325 MG TAB PO PRN (14:30)
--- NOTE | 2025-10-07 14:31 | DVHHPRES ---
History of Present Illness Resident Creating Document: SAE GOMEZ History of Present Illness Chrissy Billings is a 65-year-old female patient who presents to the ED with chief complaint of burning right-sided chest pain which started on 10/06/2020 at 7:00 p.m. intensity 10/10 which lasted 10 minutes. Per patient pain initiated after she started eating a meal, and resolved spontaneously. Denies any other associated symptoms including dyspnea, syncope, diaphoresis, nausea, vomiting, abdominal pain and sick contacts. Past medical history: Diabetes, hypertension, COPD on home oxygen with 2 L/min, renal cell carcinoma status post partial nephrectomy with no recurrence, systolic congestive heart failure (HFrEF, LVEF 40%), PAD status post stent placement in 2021, diabetic retinopathy with bilateral amaurosis, hypothyroid ism. Surgical history: Peripheral angiography with stent placement in iliac artery, cholecystectomy Family history: Mother has thyroid cancer Social history: Lives in [place] with son (next of kin, Marty). Ex tobacco abuse (30 pack-year history of smoking), quit five years ago. Denies current tobacco, alcohol and other drug abuse. Allergy: Codeine Home medication: Albuterol, aspirin, atorvastatin, digoxin, empagliflozin, fluconazole, furosemide, gabapentin, insulin, ipratropium, levothyroxine, spi ronolactone, pantoprazole, nivolumab, Vericiguat, nifedipine, metformin , lisinopril Patient seen and examined at bedside. Currently has no new complaints. Patient admitted for further evaluation Past Medical History Per HPI Past Surgical History Per HPI Family History Per HPI Past Social History Per HPI Review of Systems Review of Systems Per HPI Allergies: Coded Allergies: NO KNOWN ALLERGIES (Unverified , 10/10/25) Exam Vital Signs Vital Signs Date Time Temp Pulse Resp B/P (MAP) Pulse Ox O2 Delivery O2 Flow Rate FiO2 10/07/25 10:45 125/71 10/07/25 10:31 95 10/07/25 09:30 20 100 Nasal Cannula* 2 28 10/07/25 09:30 98.4 98.4 Exam Patient lying in bed, in no acute distress General: Lucid, afebrile, mucosae are moist, reduced consult sp Cardiovascular: Normal S1 and S2. No murmurs, gallops or rubs Respiratory: Normal ventilation mechanics. Clear lung sounds on auscultation Abdomen: Soft, nontender, no organomegaly, normal bowel sounds MSK/skin: Mobilizes 4 limbs. Skin is dry and warm. Nonpurulent ulcer in both feet, no erythema signs of infection. Neurological: Oriented in 3 spheres. No motor no sensitive deficits. Pupils are isocoric and reactive Labs/Xrays Labs Test 10/07/25 12:10 10/07/25 10:56 10/07/25 09:30 Range/Units Troponin I High Sensitivity < 3 L </=34 ng/L White Blood Count 5.6 4.4-10.8 10^3/uL Red Blood Count 4.30 4.0-5.20 10^6/uL Hemoglobin 10.2 L 12.2-16.2 g/dL Hematocrit 34.4 L 36.0-46.0 % Mean Corpuscular Volume 80.1 80.0-100.0 fL Mean Corpuscular Hemoglobin 23.8 L 28.0-32.0 pg Mean Corpuscular Hemoglobin Concent 29.7 L 32.0-36.0 g/dL Red Cell Distribution Width 18.0 H 11.8-14.3 % Platelet Count 313 140-450 10^3/uL Mean Platelet Volume 6.3 L 6.9-10.8 fL Neutrophils (%) (Auto) 72.7 37.0-80.0 % Lymphocytes (%) (Auto) 16.0 10.0-50.0 % Monocytes (%) (Auto) 8.3 0.0-12.0 % Eosinophils (%) (Auto) 2.7 0.0-7.0 % Basophils (%) (Auto) 0.3 0.0-2.0 % Neutrophils # (Auto) 4.1 1.6-8.6 10 ^3/uL Lymphocytes # (Auto) 0.9 0.4-5.4 10 ^3/uL Monocytes # (Auto) 0.5 0-1.3 10 ^3/uL Eosinophils # (Auto) 0.2 0-0.8 10 ^3/uL Basophils # (Auto) 0 0-0.2 10 ^3/uL Nucleated Red Blood Cells 0.1 % Sodium Level 142 136-145 mmol/L Potassium Level 4.2 3.5-5.1 mmol/L Chloride Level 110 H 98-107 mmol/L Carbon Dioxide Level 24 20-31 mmol/L Anion Gap 8 5-15 Blood Urea Nitrogen 27 H 9-23 mg/dL Creatinine 1.04 H 0.550-1.02 mg/dL Glomerular Filtration Rate Calc 60 >90 mL/min BUN/Creatinine Ratio 26.0 H 10.0-20.0 Serum Glucose 134 H 74-106 mg/dL Calcium Level 9.5 8.7-10.4 mg/dL Total Bilirubin < 0.2 L 0.2-1.0 mg/dL Aspartate Amino Transferase (AST) < 8 L 13-40 U/L Alanine Aminotransferase (ALT) < 9 7-40 U/L Alkaline Phosphatase 66 46-116 U/L Total Protein 6.5 5.7-8.2 g/dL Albumin 3.5 3.2-4.8 g/dL SEPSIS Sepsis Screen Date sepsis recognized/suspect: Oct 07, 2025 Time Sepsis recognized/suspect: 929 Recent Procedure: No On Antibiotic Therapy: No Respiratory Rate >20: No Heart Rate >90: No Temp<36 C (96.8 F) or >38.3 C: No SBP <90 or MAP <65 mmHG: No New Acute Mental Status Change: No Is the patient on CPAP, BIPAP,: No Physician Orders Chest Portable (10/07/25 09:14) Urinalysis (10/07/25 09:23) Heplock Iv (10/07/25 09:23) Die Maker Stamping (10/07/25 09:23) Blood Pressure (10/07/25 09:23) Pulse Oximetry (10/07/25 09:23) Aspirin Enteric Coated Tablet (Ecotrin E (10/08/25 10:00) Atorvastatin (Lipitor) (10/07/25 22:00) Empagliflozin (Jardiance) (10/08/25 10:00) Furosemide Tablet (Lasix Tablet) (10/08/25 10:00) Gabapentin Capsule (Neurontin Capsule) (10/07/25 22:00) Ipratropium Medneb (Atrovent Medneb) (10/07/25 18:00) Levothyroxine Tablet (Synthroid Tablet) (10/08/25 07:00) Lisinopril Tablet (Zestril Tablet) (10/08/25 10:00) Pantoprazole Tablet (Protonix Tablet) (10/08/25 06:00) Spironolactone (Aldactone) (10/08/25 10:00) (Nf) Vericiguat (Verquvo) (10/07/25 22:00) Admit (10/07/25 14:28) Code Status (10/07/25 14:28) Acetaminophen Tablet (Tylenol Tablet) (10/07/25 14:30) Ondansetron Hcl (Zofran) (10/07/25 14:30) Complete Blood Count (10/08/25 04:00) Comprehensive Metabolic Panel (10/08/25 04:00) Cardiac Diet-2gna,Lofat,Lochol (10/07/25 Dinner) Morphine Sulfate Injection (10/07/25 14:30) Lovenox 40mg (10/08/25 10:00) Oxygen By Nasal Cannula (10/07/25 14:28) Stat Ekg For Chest Pain (10/07/25 14:28) Notify Of Changes From Base (10/07/25 14:28) Gambling Box Person For 24 Hours (10/07/25 14:28) Emergency Dysrhythmia Protocol (10/07/25 14:28) Rhythm Strips Once Every Shift (10/07/25 14:28) Vital Signs Date Time Temp Pulse Resp B/P (MAP) Pulse Ox O2 Delivery O2 Flow Rate FiO2 10/07/25 10:45 125/71 10/07/25 10:31 95 10/07/25 09:30 94 20 100 Nasal Cannula* 2 28 10/07/25 09:30 98.4 80 16 125/75 (92) 98 98.4 10/07/25 09:25 97 10/07/25 09:06 98.8 92 18 131/55 95 98.8 Laboratory Tests Test 10/07/25 09:30 White Blood Count 5.6 10^3/uL (4.4-10.8) Medications Medications Dose Ordered Sig/Audrey Route Start Time Stop Time Status Last Admin Dose Admin Aspirin 162 mg ONCE ONCE PO 10/07/25 09:30 10/07/25 09:31 DC 10/07/25 09:54 162 MG Furosemide 40 mg ONCE ONCE IV 10/07/25 10:45 10/07/25 11:08 DC 10/07/25 10:45 40 MG Assessment/Plan Assessment/Plan ASSESSMENT Rule out acute coronary syndrome KELLY hemodynamically mediated (VMN) Normocytic anemia Questionable upper GI bleed due to gastritis Chronic hypoxic respiratory failure on home oxygen COPD with home oxygen with no exacerbation Chronic Systolic congestive heart failure (HFrEF, LVEF 40%), no exacerbation History of renal cell carcinoma status post partial nephrectomy Hypertension Diabetes insulin dependent - (hemoglobin A1c pending) Diabetic retinopathy with bilateral amaurosis Diabetic foot Partially bed-bound History of PAD status post stent placement PLAN Troponin negative. EKG shows sinus tachycardia with five bundle-branch block. Chest pain seems noncardiac. Ordered echocardiogram Continue with home oxygen flowl (2 L/min) and bronchodilators Continue home medication HFrEF Hold aspirin and enoxaparin at this time. On SCDs Stool occult blood positive On IV pantoprazole Ordered wound consult for diabetic foot Ordered physical therapy evaluation Goals of care discussed with patient for over 18 minutes: Full code status Discussed plan with Dr. Reddy, patient and nurses: Patient admitted to telemetry. Ordered echocardiogram to evaluate acute coronary syndrome (unlikely). Chest pain described as burning sensation which lasted only 10 minutes and triggered by currently on IV pantoprazole. Patient has poor prognosis. Plan discussed with: Patient, Other (Nurses) My Orders Orders - SAE GOMEZ RESIDENT Procedure Category Date Status Time Aspirin Enteric PHA 10/08/25 Logged Coated Tablet 10:00 Atorvastatin (Lipitor) PHA 10/07/25 Logged 22:00 Empagliflozin PHA 10/08/25 Logged (Jardiance) 10:00 Furosemide Tablet PHA 10/08/25 Logged (Lasix Tablet) 10:00 Gabapentin Capsule PHA 10/07/25 Logged (Neurontin Capsule) 22:00 Ipratropium Medneb PHA 10/07/25 Logged (Atrovent Medneb) 18:00 Levothyroxine Tablet PHA 10/08/25 Logged (Synthroid Tablet) 07:00 Lisinopril Tablet PHA 10/08/25 Logged (Zestril Tablet) 10:00 Pantoprazole Tablet PHA 10/08/25 Logged (Protonix Tablet) 06:00 Spironolactone PHA 10/08/25 Logged (Aldactone) 10:00 (Nf) Vericiguat PHA 10/07/25 Logged (Verquvo) 22:00 Admit ADMIT 10/07/25 Transmitted 14:28 Code Status CODE 10/07/25 Transmitted 14:28 Acetaminophen Tablet [facility] 10/07/25 Transmitted (Tylenol Tablet) 14:30 Ondansetron Hcl [facility] 10/07/25 Transmitted (Zofran) 14:30 Complete Blood Count LAB 10/08/25 Verified 04:00 Comprehensive LAB 10/08/25 Verified Metabolic Panel 04:00 Cardiac DIET 10/07/25 Transmitted Diet-2gna,Lofat,Lochol Dinner Morphine Sulfate [facility] 10/07/25 Transmitted Injection 14:30 Lovenox 40mg [facility] 10/08/25 Verified 10:00 Oxygen By Nasal RT 10/07/25 Verified Cannula 14:28 Stat Ekg For Chest [facility] 10/07/25 Verified Pain 14:28 Notify Of Changes [facility] 10/07/25 Verified From Base 14:28 Gambling Box Person For [facility] 10/07/25 Verified 24 Hours 14:28 Emergency Dysrhythmia [facility] 10/07/25 Verified Protocol 14:28 Rhythm Strips Once [facility] 10/07/25 Verified Every Shift 14:28 Date of Service: Oct 07, 2025 Billing Provider: ADEEL REDDY DO Common Visit Codes: [id number] INP/OBS CARE (HIGH) Secondary Visit Codes: [id number] CARE PLAN 30 MINUTES SAE GOMEZ RESIDENT Oct 07, 2025 14:31 ADEEL REDDY DO Oct 11, 2025 20:53
[2025-10-07] MEDS: MORPHINE SULFATE INJ 2 MG/ml SYRG IV PRN (17:44)
[2025-10-07 19:00] VITALS: PULSE 95; RESP 17; O2SAT 98
[2025-10-07 19:05] VITALS: PULSE 106; RESP 21; O2SAT 100
[2025-10-07 19:30] VITALS: PULSE 106; RESP 21; O2SAT 100
[2025-10-07] MEDS: IPRATROPIUM BROM 0.5 MG/2.5ML INH SOL HHN SCH (19:46)
[2025-10-07] MEDS: GABAPENTIN 300 MG CAP PO SCH (22:54)
[2025-10-07] MEDS: ATORVASTATIN 20 MG TAB PO SCH (22:55)
[2025-10-07] MEDS: PANTOPRAZOLE 40 MG/10 ML VIAL INJ IV ONE (23:45)
[2025-10-08] VITALS (12 sets, daily range): BP systolic 128; BP diastolic 82; PULSE 84–107; RESP 16–20; TEMP 98.6; O2SAT 96–99
[2025-10-08 00:26] LABS: Magnesium 2.1 mg/dL (1.6-2.6); Triglycerides 65.0 mg/dL (< 150)
[2025-10-08 00:28] LABS: Cholesterol 95.0 mg/dL (< 200); HDL Cholesterol 47.0 mg/dL (40-59)
[2025-10-08] MEDS ORDERED: PANTOPRAZOLE 40 MG TAB PO SCH (06:00)
[2025-10-08] MEDS: LEVOTHYROXINE SODIUM 100 MCG TAB PO SCH (06:37)
[2025-10-08 06:52] LABS: Hematocrit 25.2 % (36.0-46.0); Hemoglobin 7.7 g/dL (12.2-16.2); Mean Corpuscular Hemoglobin 23.3 pg (28.0-32.0); Mean Corpuscular Volume 76.5 fL (80.0-100.0); Nucleated Red Blood Cells % 0.1 %
[2025-10-08 07:03] LABS: Alkaline Phosphatase 55 U/L (46-116); Anion Gap 9 (5-15); BUN/Creatinine Ratio 28.7 (10.0-20.0); Calcium 9.2 mg/dL (8.7-10.4); Carbon Dioxide 26 mmol/L (20-31); Glucose 78 mg/dL (74-106); Sodium 143 mmol/L (136-145)
[2025-10-08 07:04] LABS: Total Protein 5.8 g/dL (5.7-8.2)
[2025-10-08 07:05] LABS: Alanine Aminotransferase < 9 U/L (7-40); Albumin 3.1 g/dL (3.2-4.8); Blood Urea Nitrogen 25 mg/dL (9-23); Chloride 108 mmol/L (98-107); Potassium 3.4 mmol/L (3.5-5.1)
[2025-10-08 07:06] LABS: Bilirubin, Total < 0.2 mg/dL (0.2-1.0)
[2025-10-08 07:08] LABS: INR 1.14 (0.9-1.15); Partial Thromboplastin Time 30.2 SEC (24.5-34.5); Prothrombin Time 11.9 sec (9.3-11.8)
[2025-10-08] MEDS: LISINOPRIL 20 MG TAB PO SCH (10:00)
[2025-10-08] MEDS ORDERED: ENOXAPARIN SOD 40 MG/0.4 ML SYRINGE SC SCH (10:00)
[2025-10-08] MEDS ORDERED: ASPirin-EC 81 mg tab PO SCH (10:00)
[2025-10-08] MEDS: SPIRONOLACTONE 25 MG TAB PO SCH (10:37)
[2025-10-08] MEDS: PANTOPRAZOLE 40 MG/10 ML VIAL INJ IV SCH (10:37)
[2025-10-08] MEDS: EMPAGLIFLOZIN 10 MG TAB PO SCH (10:39)
[2025-10-08] MEDS: FUROSEMIDE 40 MG TAB PO SCH (10:43)
--- NOTE | 2025-10-08 13:50 | DVHPNRES ---
Progress Note Date Seen: Oct 08, 2025 Resident Creating Document: [facility] Medical Necessity Reason Pt with a Central, PICC or Fol: No Subjective Review of Systems Chrissy Billings is a 65-year-old female patient who presents to the ED with chief complaint of burning right-sided chest pain which started on 10/06/2020 at 7:00 p.m. intensity 10/10 which lasted 10 minutes. Per patient pain initiated after she started eating a meal, and resolved spontaneously. Denies any other associated symptoms including dyspnea, syncope, diaphoresis, nausea, vomiting, abdominal pain and sick contacts. Past medical history: Diabetes, hypertension, COPD on home oxygen with 2 L/min, renal cell carcinoma status post partial nephrectomy with no recurrence, systolic congestive heart failure (HFrEF, LVEF 40%), PAD status post stent placement in 2021, diabetic retinopathy with bilateral amaurosis, hypothyroidism. Surgical history: Peripheral angiography with stent placement in iliac artery, cholecystectomy Family history: Mother has thyroid cancer Social history: Lives in [place] with son (next of kin, Marty). Ex tobacco abuse (30 pack-year history of smoking), quit five years ago. Denies current tobacco, alcohol and other drug abuse. Allergy: Codeine Home medication: Albuterol, aspirin, atorvastatin, digoxin, empagliflozin, fluconazole, furosemide, gabapentin, insulin, ipratropium, levothyroxine, spironolactone, pantoprazole, nivolumab, Vericiguat, nifedipine, metformin , lisinopril Patient seen and examined at the bedside. Patient is feeling better since admission. But still complaining of generalized weakness. Objective vital signs Vital Sign Date Time Temp Pulse Resp B/P (MAP) Pulse Ox O2 Delivery O2 Flow Rate FiO2 10/08/25 12:00 97.3 85 12 137/65 (89) 100 97.3 10/08/25 06:49 Nasal Cannula* 2 28 medications Current Medications Medications Dose Ordered Sig/Audrey Route Start Time Stop Time Status Last Admin Dose Admin Aspirin 81 mg DAILY PO 10/08/25 10:00 Hold Atorvastatin Calcium 40 mg HS PO 10/07/25 22:00 10/07/25 22:55 40 MG Empaglifozin 10 mg DAILY PO 10/08/25 10:00 10/08/25 10:39 10 MG Furosemide 40 mg DAILY PO 10/08/25 10:00 10/08/25 10:43 40 MG Gabapentin 300 mg TID PO 10/07/25 22:00 10/08/25 06:36 300 MG Ipratropium [place] 0.5 mg Q6HR HHN 10/07/25 18:00 10/08/25 13:23 0.5 MG Levothyroxine Sodium 100 mcg QAM PO 10/08/25 07:00 10/08/25 06:37 100 MCG Lisinopril 20 mg DAILY PO 10/08/25 10:00 10/08/25 10:00 20 MG Spironolactone 25 mg DAILY PO 10/08/25 10:00 10/08/25 10:37 25 MG Patient Own Medication 5 mg BID PO 10/07/25 22:00 Acetaminophen 325 mg Q4HP PRN PO 10/07/25 14:30 Ondansetron HCl 4 mg Q4HP PRN IV 10/07/25 14:30 Morphine Sulfate 2 mg Q4HPRN PRN IV 10/07/25 14:30 10/07/25 17:44 2 MG Pantoprazole Sodium 40 mg BID IV 10/08/25 10:00 10/08/25 10:37 40 MG Hydralazine HCl 10 mg Q6HR IV 10/08/25 18:00 Examination General Appearance: Alert, Oriented X3, Cooperative, No acute distress HEENT: Atraumatic, PERRLA, EOMI, Mucous membrane moist/pink Respiratory: Clear to auscultation, Normal air movement Cardiovascular: Regular rate, Normal S1, Normal S2, No murmurs, no chest wall tenderness Abdominal: Normal bowel sounds, Soft, No tenderness, No hepatospenomegaly, No masses Extremities: No clubbing, No cyanosis, No edema, Normal pulses, No tenderness/swelling Skin: No rashes, No breakdown, No significant lesion Neuro: Normal gait, Normal speech, Strength at 5/5 X4 ext, Normal tone, Sensation intact, Cranial nerves 3-12 NL, Reflexes 2+ Psych/Mental Status: Mental status NL, Mood NL laboratory and microbiology Laboratory Tests 10/08/25 05:52 Test 10/08/25 05:52 Range/Units Serum Glucose 78 74-106 mg/dL Labs and/or images reviewed: Labs reviewed by me, Image(s) reviewed by me Problem List/Assessment/Plan Problem List/Assessment/Plan Chest pain, likely musculoskeletal Possible GI bleeding Severe anemia, due to above KELLY, likely VMN, due to above Diabetes type 2 COPD, on home oxygen 2 L through nasal cannula Hypertension History of renal cell carcinoma, status post partial nephrectomy Systolic heart failure, LVEF 40% History of peripheral artery disease, status post stent placement Diabetic retinopathy Hypothyroidism Hypokalemia * Stool occult blood is positive Plan/recommendation: * Consulted cardiology * Consulted GI, for possible GI bleeding * Pain management * Continue home meds * Hold on antiplatelet/anticoagulant, due to possible GI bleeding * Repleted electrolyte DIET: Cardiac diet DVT PROPHYLAXIS: SCD BOWEL REGIMEN: Colace CODE STATUS: Goal of care discussed for more than 18 minutes, full code DISPOSITION: Telemetry Patient's status and plan discussed with the patient. Case discussed with Dr. Hamm. Plan discussed with: Patient, Other (RN) My Orders My Orders Orders - MCKENZIE CHRISTENSEN RESDIENT Procedure Category Date Status Time * Gi Dvh Waxing Machine Operator Helper CONS 10/08/25 Transmitted 08:43 *Consult Dr. Kidd CONS 10/08/25 Transmitted [place] 10:04 Potassium Chloride PHA 10/08/25 In Process (Potassium Chloride). 12:00 Cardiac DIET 10/08/25 Transmitted Diet-2gna,Lofat,Lochol Lunch Date of Service: Oct 08, 2025 Billing Provider: YENNI PEARSON MD Common Visit Codes: [id number] INP/OBS CARE(HIGH) MCKENZIE CHRISTENSEN RESDIENT Oct 08, 2025 13:50 YENNI PEARSON MD Oct 10, 2025 16:57
[2025-10-08] MEDS: POTASSIUM CHLORIDE 40 MEQ, LIDOCAINE 1% (LOCAL ANESTH.) 4 ML in SODIUM CHL 0.9% 250 ML IV ONE (14:28)
--- NOTE | 2025-10-08 15:59 | DVHCONRES ---
Date Seen: Oct 08, 2025 Resident Creating Document: ANGEL KING History of Present Illness Chrissy Billings is a 65-year-old female patient who presents to the ED with chief complaint of burning right-sided chest pain which started on 10/06/2020 at 7:00 p.m. intensity 10/10 which lasted 10 minutes. Per patient pain initiated after she started eating a meal, and resolved spontaneously. Denies any other associated symptoms including dyspnea, syncope, diaphoresis, nausea, vomiting, abdominal pain and sick contacts. Past medical history: Diabetes, hypertension, COPD on home oxygen with 2 L/min, renal cell carcinoma status post partial nephrectomy with no recurrence, systolic congestive heart failure (HFrEF, LVEF 40%), PAD status post stent placement in 2021, diabetic retinopathy with bilateral amaurosis, hypothyroi dism. Surgical history: Peripheral angiography with stent placement in iliac artery, cholecystectomy Family history: Mother has thyroid cancer Social history: Lives in [place] with son (next of kin, Marty). Ex tobacco abuse (30 pack-year history of smoking), quit five years ago. Denies current tobacco, alcohol and other drug abuse. Allergy: Codeine Home medication: Albuterol, aspirin, atorvastatin, digoxin, empagliflozin, fluconazole, furosemide, gabapentin, insulin, ipratropium, levothyroxine, sp ironolactone, pantoprazole, nivolumab, Vericiguat, nifedipine, metformin , lisinopril Patient seen and examined. Reports pain well swollen. Ordered CT chest/abdomen/pelvis without contrast. Stool occult blood positive. Family History: Asthma G8 MOTHER FH: cancer G8 MOTHER G8 FATHER FH: cardiovascular disease FH: emphysema G8 MOTHER Allergies: Coded Allergies: Codeine (Verified Adverse Reaction, Unknown, vomiting, 06/06/25) patient states when she was young codeine syrup made her vomit. Home Meds Active Scripts Amoxicillin & Pot Clavulanate (AUGMENTIN TABLET) 875 Mg Tb, 875 MG PO BID for 7 Days, #14 TAB Prov:GRETCHEN SCHNEIDER MD 09/11/25 Fluconazole (Diflucan) 200 Mg Tab, 200 MG PO DAILY for 14 Days, #14 TAB Prov:BRIT ULRICH 06/10/25 Ipratropium [place] (Ipratropium [place]) 0.02 % Iram, 0.5 % HHN TIDP PRN for 30 Days, #90 ML 3 Refills Prov:PINA RIVERO MD 04/17/24 Albuterol Sulfate (Albuterol Sulfate) 1.25 Mg/3 Ml Neb, 1.25 MG IN TIDP PRN for 30 Days, #90 INH 3 Refills Prov:PINA RIVERO MD 04/17/24 Metformin Hydrochloride (Metformin Hcl) 500 Mg Tab, 500 MG PO BID for 30 Days, #60 TAB 3 Refills Prov:PINA RIVERO MD 04/17/24 Insulin Glargine (Lantus) 100 Unit/Ml Inj, 15 UNIT SC QPM for 30 Days, #1 INJ 3 Refills Prov:PINA RIVERO MD 04/17/24 Spironolactone (Aldactone) 25 Mg Tab, 25 MG PO DAILY for 30 Days, #30 TAB 3 Refills Prov:PINA RIVERO MD 04/17/24 Pantoprazole Sodium Sesquihydr (Pantoprazole Sodium) 40 Mg Tab, 40 MG PO DAILY@0600 for 30 Days, #30 TAB 3 Refills Prov:PINA RIVERO MD 04/17/24 Lisinopril (Lisinopril) 20 Mg Tab, 20 MG PO DAILY for 30 Days, #30 TAB 3 Refills Prov:PINA RIVERO MD 04/17/24 Levothyroxine Sodium (SYNTHROID TABLET) 100 Mcg Tb, 100 MCG PO QAM for 30 Days, #30 TAB 3 Refills Prov:PINA RIVERO MD 04/17/24 Furosemide (Furosemide) 40 Mg Tab, 40 MG PO DAILY for 30 Days, #30 TAB 3 Refills Prov:PINA RIVERO MD 04/17/24 Empagliflozin (Jardiance) 10 Mg Tab, 10 MG PO DAILY for 30 Days, #30 TAB 3 Refills Prov:PINA RIVERO MD 04/17/24 Atorvastatin Calcium (ATORVASTATIN CALCIUM) 20 Mg Tab, 40 MG PO HS for 30 Days, #60 TAB Prov:JAS VICTORIA MD 03/22/24 Aspirin (Aspirin Low Dose) 81 Mg Tab, 81 MG PO DAILY for 30 Days, #30 TAB Prov:JAS VICTORIA MD 03/22/24 Reported Medications Vericiguat (Verquvo) 5 Mg Tab, 5 MG PO BID, TAB 06/06/25 Lorazepam (Ativan) 0.5 Mg Tab, 1 MG PO BID, TAB 06/06/25 Levothyroxine Sodium (Levothyroxine Sodium) 200 Mcg Tab, 200 MCG PO QAM for 30 Days, MCG 06/06/25 Gabapentin (Gabapentin) 300 Mg Cap, 1 CAP PO TID, #90 CAP 1 Refill 05/22/24 Digoxin (Digoxin) 125 Mcg Tab, 125 MCG PO DAILY, TAB 03/20/24 Nifedipine (Nifedipine Er) 30 Mg Tab, 1 TAB PO DAILY, #90 TAB 1 Refill 08/25/18 Nivolumab (Opdivo) 240 Mg/24 Ml Inj, 240 MG IV, INJ 08/25/18 Current Medications Current Medications Medications (Trade) Dose Ordered Sig/Audrey Route PRN Reason Start Time Stop Time Status Last Admin Aspirin (Ecotrin Enteric Coated Tablet) 81 mg DAILY PO 10/08/25 10:00 10/08/25 13:49 DC Atorvastatin Calcium (Lipitor) 40 mg HS PO 10/07/25 22:00 10/07/25 22:55 Empaglifozin (Jardiance) 10 mg DAILY PO 10/08/25 10:00 10/08/25 10:39 Furosemide (Lasix Tablet) 40 mg DAILY PO 10/08/25 10:00 10/08/25 10:43 Gabapentin (Neurontin Capsule) 300 mg TID PO 10/07/25 22:00 10/08/25 06:36 Ipratropium [place] (Atrovent [place]) 0.5 mg Q6HR N 10/07/25 18:00 10/08/25 13:23 Levothyroxine Sodium (Synthroid Tablet) 100 mcg QAM PO 10/08/25 07:00 10/08/25 06:37 Lisinopril (Zestril Tablet) 20 mg DAILY PO 10/08/25 10:00 10/08/25 10:00 Pantoprazole Sodium (Protonix Tablet) 40 mg DAILY@0600 PO 10/08/25 06:00 10/07/25 23:41 DC Spironolactone (Aldactone) 25 mg DAILY PO 10/08/25 10:00 10/08/25 10:37 Patient Own Medication 5 mg BID PO 10/07/25 22:00 Enoxaparin Sodium (Lovenox) 40 mg DAILY SC 10/08/25 10:00 10/07/25 23:37 DC Pantoprazole Sodium (Protonix) 40 mg BID IV 10/08/25 10:00 10/08/25 10:37 Hydralazine HCl (Apresoline Injection) 10 mg Q6HR IV 10/08/25 18:00 Lorazepam (Ativan Inj) 0.5 mg Q12HP PRN IV ANXIETY 10/08/25 14:15 Vital Signs Vital Signs Date Time Temp Pulse Resp B/P (MAP) Pulse Ox O2 Delivery O2 Flow Rate FiO2 10/08/25 14:40 98 18 112/67 (82) 99 10/08/25 13:23 Nasal Cannula* 2 28 10/08/25 12:00 97.3 97.3 Physical Exam Patient lying in bed, in no acute distress General: Obese, afebrile, palor, mucosae are moist Cardiovascular: Regular S1 and S2. No murmurs, gallops or rubs. No JVD elevation. No pedal edema Respiratory: Normal B/L air entry on room air. Clear lung sounds on auscultation Abdomen: Soft, nontender, nondistended, normoactive bowel sounds, no rebound tenderness, no organomegaly, no masses Genitourinary: Deferred Labs/Diagnostic Data Labs Test 10/08/25 05:52 10/07/25 12:10 10/07/25 10:56 10/07/25 09:30 Range/Units White Blood Count 3.8 #L 4.4-10.8 10^3/uL Red Blood Count 3.30 L 4.0-5.20 10^6/uL Hemoglobin 7.7 #L 12.2-16.2 g/dL Hematocrit 25.2 #L 36.0-46.0 % Mean Corpuscular Volume 76.5 #L 80.0-100.0 fL Mean Corpuscular Hemoglobin 23.3 L 28.0-32.0 pg Mean Corpuscular Hemoglobin Concent 30.5 L 32.0-36.0 g/dL Red Cell Distribution Width 17.7 H 11.8-14.3 % Platelet Count 288 140-450 10^3/uL Mean Platelet Volume 6.5 L 6.9-10.8 fL Neutrophils (%) (Auto) 61.5 37.0-80.0 % Lymphocytes (%) (Auto) 24.7 10.0-50.0 % Monocytes (%) (Auto) 9.4 0.0-12.0 % Eosinophils (%) (Auto) 4.1 0.0-7.0 % Basophils (%) (Auto) 0.3 0.0-2.0 % Neutrophils # (Auto) 2.3 1.6-8.6 10 ^3/uL Lymphocytes # (Auto) 0.9 0.4-5.4 10 ^3/uL Monocytes # (Auto) 0.4 0-1.3 10 ^3/uL Eosinophils # (Auto) 0.2 0-0.8 10 ^3/uL Basophils # (Auto) 0 0-0.2 10 ^3/uL Nucleated Red Blood Cells 0.1 % Prothrombin Time 11.9 H 9.3-11.8 sec Prothrombin Time INR 1.14 0.9-1.15 Activated Partial Thromboplast Time 30.2 24.5-34.5 SEC Sodium Level 143 136-145 mmol/L Potassium Level 3.4 L 3.5-5.1 mmol/L Chloride Level 108 H 98-107 mmol/L Carbon Dioxide Level 26 20-31 mmol/L Anion Gap 9 5-15 Blood Urea Nitrogen 25 H 9-23 mg/dL Creatinine 0.87 0.550-1.02 mg/dL Glomerular Filtration Rate Calc 74 >90 mL/min BUN/Creatinine Ratio 28.7 H 10.0-20.0 Serum Glucose 78 74-106 mg/dL Calcium Level 9.2 8.7-10.4 mg/dL Total Bilirubin < 0.2 L 0.2-1.0 mg/dL Aspartate Amino Transferase (AST) < 8 L 13-40 U/L Alanine Aminotransferase (ALT) < 9 7-40 U/L Alkaline Phosphatase 55 46-116 U/L B-Type Natriuretic Peptide 10.06 0-100 pg/mL Total Protein 5.8 5.7-8.2 g/dL Albumin 3.1 L 3.2-4.8 g/dL Stool Occult Blood Positive Negative Stool Occult Blood Sample #3 Negative Troponin I High Sensitivity < 3 L </=34 ng/L Hemoglobin A1c 5.2 <5.7 % A1C Phosphorus Level 2.5 2.4-5.1 mg/dL Magnesium Level 2.1 1.6-2.6 mg/dL Triglycerides Level 65 < 150 mg/dL Cholesterol Level 95 < 200 mg/dL LDL Cholesterol 30 < 100 mg/dL HDL Cholesterol 47 40-59 mg/dL Vitamin B12 Level 591 211-911 pg/mL Vitamin D 25-Hydroxy 49.9 30.0-100 ng/mL Thyroid Stimulating Hormone (TSH) 20.43 H 0.55-4.78 uIU/mL Assessment Right-sided chest pain likely esophagitis/GERD Rule out ACS Hypertension Acute kidney injury Anemia likely normocytic History of COPD HFrEF no exacerbation History of renal cell carcinoma status post nephrectomy Diabetes mellitus Hypokalemia Uncontrolled hypothyroidism Plan: Dr. Mckeon: Recommendation Given the dysphagia, chest pain, patient will benefit from upper EGD. Patient will need cardiac clearance prior to the procedure. Follow up with CT chest/abdomen/pelvis without contrast Stool occult blood positive, continue Protonix 40 mg IV b.i.d., continue Carafa te TID Follow up with iron art preparator H&H Avoid NSAIDs/ibuprofen/Aleve/Motrin We will continue follow up Thank you for consulting GI Plan discussed with patient all questions have been answered Case discussed with Dr. Mckeon Plan discussed with: Patient ANGEL KING RESIDENT Oct 08, 2025 15:59
[2025-10-08] MEDS: LORazepam 2MG/ML-1ML VIAL IV PRN (16:19)
--- NOTE | 2025-10-08 17:02 | DVH ---
Indication: Chest pain, dysphagia Technique: CT axial images of the chest, abdomen and pelvis are obtained without contrast. Coronal and sagittal reformats were obtained. Radiation Dose Information: CTDI volume is 12.37 mGy. Dose-length product is 880.37 mGy*cm Comparison: CT CT AB PEL WO CON-NO ORAL OR IV on DOS: 09/09/25, FINDINGS: There is limited interpretation of the chest, abdomen and pelvis without administration of intravenous contrast. The trachea is patent. There is no pneumothorax. Extensive bilateral pulmonary reticulonodular pattern, tree-in-bud nodularity. There are multiple calcified nodules. There are also solid nodules some of which include right middle lobe nodule measuring 4 mm, right lower lobe nodule measuring 7 mm, left upper lobe nodule measuring 8 mm, left upper lobe nodule measuring 5 mm. Heart normal in size. Coronary artery calcification disease. Aortic atherosclerotic disease. No supraclavicular or axillary lymphadenopathy. Spleen enlarged measuring 13.5 cm AP. The pancreas is unremarkable in shape. Cholecystectomy. Liver capsule nodular morphology. The kidneys demonstrate no hydronephrosis. Prominent bilateral renal vascular calcifications. No hydronephrosis. Stomach partially distended. Small bowel loops moderately distended. There is Bowel wall thickening of the rectosigmoid colon. Presacral edema. Perirectal lymph nodes measuring up to 1.8 cm moderate to large volume stool within the more proximal colon. Abdominal aortic atherosclerotic disease. Bladder partially distended. No free pelvic fluid. No inguinal lymphadenopathy. [id number] bilateral sacroiliac degenerative joint disease. Moderate thoracolumbar degenerative disc disease. IMPRESSION: Limited evaluation without contrast. Extensive pulmonary tree-in-bud nodularity, reticulonodular pattern which can be secondary to atypical infection, bronchiolitis, chronic lung processes/interstitial disease. Numerous solid pulmonary nodules as described above up to 8 mm with differential considerations including sequela of infection, malignancy/ neoplastic / metastatic disease, infectious/ inflammatory etiology. Correlate clinically. A PET scan can also be considered for further evaluation. There is extensive rectosigmoid colon wall thickening with surrounding stranding and perirectal lymphadenopathy. Differential considerations include colitis, inflammatory bowel disease, neoplastic process. Recommend colonoscopy once acute symptoms resolve to exclude underlying colonic malignancy. Cirrhotic right morphology liver. Splenomegaly. Cholecystectomy. Other findings as described
[2025-10-08] MEDS: SUCRALFATE 1 GM/10 ML ORAL SUSP PO SCH (18:08)
[2025-10-08] MEDS: hydrALAZINE HCL 20 MG/ML VL IV SCH (18:09)
[2025-10-08] MEDS: HYDROcodone-ACET 5/325MG TAB PO ONE (20:30)
[2025-10-08] MEDS ORDERED: LORA-205 PO (21:40)
[2025-10-08] MEDS ORDERED: HYDR-4798 PO (21:40)
[2025-10-09] VITALS (14 sets, daily range): BP systolic 96–156; BP diastolic 64–91; PULSE 80–103; RESP 16–20; TEMP 97.4–98.1; O2SAT 90–100
[2025-10-09] MEDS: LOPERAMIDE HCL 2 MG CAP/TAB PO PRN (05:04)
[2025-10-09 06:57] LABS: Hematocrit 27.1 % (36.0-46.0)
[2025-10-09 07:00] LABS: Hemoglobin 8.4 g/dL (12.2-16.2); Mean Corpuscular Hemoglobin 23.5 pg (28.0-32.0); Mean Corpuscular Volume 76.3 fL (80.0-100.0); Nucleated Red Blood Cells % 0.0 %
[2025-10-09 07:11] LABS: Albumin 3.4 g/dL (3.2-4.8); Alkaline Phosphatase 55 U/L (46-116); Anion Gap 9 (5-15); BUN/Creatinine Ratio 31.5 (10.0-20.0); Calcium 9.3 mg/dL (8.7-10.4); Carbon Dioxide 24 mmol/L (20-31); Chloride 107 mmol/L (98-107); Glucose 101 mg/dL (74-106); Iron 34.0 ug/dL (50-170); Potassium 4.0 mmol/L (3.5-5.1); Sodium 140 mmol/L (136-145); Total Iron Binding Capacity 172.0 ug/dL (250-425); Total Protein 6.2 g/dL (5.7-8.2)
[2025-10-09 07:15] LABS: Alanine Aminotransferase < 9 U/L (7-40); Bilirubin, Total < 0.2 mg/dL (0.2-1.0); Blood Urea Nitrogen 23 mg/dL (9-23)
--- NOTE | 2025-10-09 07:45 | DVHPN2 ---
Progress Note - Dictate Date Seen: Oct 08, 2025 Medical Necessity Reason Pt with a Central, PICC or Fol: No Subjective iPT WELL KNOWN TO ME NOEW WITH RIGHT SIDED CHEST PAIN PMH DIABETES HTN COPD NEPHRECTOMY NEPHRECTOMY PAD WITH REVASCULARIZATION CAD HFrEF vital signs Vital Sign Date Time Temp Pulse Resp B/P (MAP) Pulse Ox O2 Delivery O2 Flow Rate FiO2 10/09/25 05:04 126/64 10/09/25 05:00 98.0 89 20 90 98.0 10/08/25 20:50 Nasal Cannula* 2 28 Total Intake and Output 10/08/25 10/08/25 10/09/25 15:00 23:00 07:00 Intake Total 274.0 ml 450 ml Balance 274.0 ml 450 ml medications Current Medications Medications Dose Ordered Sig/Audrey Route Start Time Stop Time Status Last Admin Dose Admin Atorvastatin Calcium 40 mg HS PO 10/07/25 22:00 10/08/25 22:19 40 MG Empaglifozin 10 mg DAILY PO 10/08/25 10:00 10/08/25 10:39 10 MG Furosemide 40 mg DAILY PO 10/08/25 10:00 10/08/25 10:43 40 MG Gabapentin 300 mg TID PO 10/07/25 22:00 10/09/25 05:04 300 MG Ipratropium [place] 0.5 mg Q6HR HHN 10/07/25 18:00 10/09/25 00:19 0.5 MG Levothyroxine Sodium 100 mcg QAM PO 10/08/25 07:00 10/09/25 06:07 100 MCG Lisinopril 20 mg DAILY PO 10/08/25 10:00 10/08/25 10:00 20 MG Spironolactone 25 mg DAILY PO 10/08/25 10:00 10/08/25 10:37 25 MG Patient Own Medication 5 mg BID PO 10/07/25 22:00 Acetaminophen 325 mg Q4HP PRN PO 10/07/25 14:30 Ondansetron HCl 4 mg Q4HP PRN IV 10/07/25 14:30 Pantoprazole Sodium 40 mg BID IV 10/08/25 10:00 10/08/25 22:19 40 MG Hydralazine HCl 10 mg Q6HR IV 10/08/25 18:00 10/09/25 05:04 10 MG Lorazepam 0.5 mg Q12HP PRN IV 10/08/25 14:15 10/08/25 16:19 0.5 MG Sucralfate 1 gm TID@0600,1130,2200 PO 10/08/25 16:00 10/09/25 05:03 1 GM Loperamide HCl 2 mg PRN PRN PO 10/08/25 23:00 10/09/25 05:04 2 MG laboratory and microbiology Laboratory Tests 10/09/25 05:45 Test 10/09/25 05:45 Range/Units Serum Glucose 101 74-106 mg/dL Problem List RIGHT SIDED CHEST PAIN PMH DIABETES HTN COPD NEPHRECTOMY NEPHRECTOMY PAD WITH REVASCULARIZATION CAD HFrEF BNP NL TROPONIN NL UGI BLEED HEMATEMESIS MELENA NAUSEA VOMITING AMS HX METABOLIC ENCEPHALOPATHY DIARRHEA HYPOTENSION HYPOVOLEMIA SECONDARY TO DIARRHEA AND POOR PO INTAKE ACUTE RENAL FAILURE CHRONIC RENAL DISEASE CXR MILD LLL ATELECTASIS PMH: LE DOPPLER CONSISTENT WITH ADVANCE PAD HX OF DM VASCULOPATHY NEUROPATHY HX OF RENAL CELL CARCINOMA WITH LEFT PARTIAL NEPHRECTOMY BUT RENAL US SHOWS RIGHT kidney measures 12.7 cm in length. No hydronephrosis. LEFT kidney measures 9.9 cm in length. No hydronephrosis. COPD HX OF TOBACCO USE HTN ORGANIC HD NL EF DIASTOLIC DYSFUNCTION ECHO MILD GLOBAL HYPOKINESIS Assessment/Plan SEVERE ANEMIA GI WORKUP ABX SINCE X RAY CONSISTENT WITH PNA CARDIAC STATUS STABLE Plan discussed with: Patient HUNG IVAN MD Oct 09, 2025 07:45
[2025-10-09] MEDS: HYDROcodone-ACET 7.5/325MG TAB PO PRN (12:13)
--- NOTE | 2025-10-09 12:18 | DVHPN2 ---
Progress Note Date Seen: Oct 09, 2025 Resident Creating Document: ANGEL KING RESIDENT Medical Necessity Reason Pt with a Central, PICC or Fol: No Subjective Review of Systems Chrissy Billings is a 65-year-old female patient who presents to the ED with chief complaint of burning right-sided chest pain which started on 10/06/2020 at 7:00 p.m. intensity 10/10 which lasted 10 minutes. Per patient pain initiated after she started eating a meal, and resolved spontaneously. Denies any other associated symptoms including dyspnea, syncope, diaphoresis, nausea, vomiting, abdominal pain and sick contacts. Past medical history: Diabetes, hypertension, COPD on home oxygen with 2 L/min, renal cell carcinoma status post partial nephrectomy with no recurrence, systolic congestive heart failure (HFrEF, LVEF 40%), PAD status post stent placement in 2021, diabetic retinopathy with bilateral amaurosis, hypothyroidism. Surgical history: Peripheral angiography with stent placement in iliac artery, cholecystectomy Family history: Mother has thyroid cancer Social history: Lives in [place] with son (next of kin, Marty). Ex tobacco abuse (30 pack-year history of smoking), quit five years ago. Denies current tobacco, alcohol and other drug abuse. Allergy: Codeine Home medication: Albuterol, aspirin, atorvastatin, digoxin, empagliflozin, fluconazole, furosemide, gabapentin, insulin, ipratropium, levothyroxine, spironolactone, pantoprazole, nivolumab, Vericiguat, nifedipine, metformin , lisinopril 10/08-Patient seen and examined. Reports pain well swollen. Ordered CT chest/abdomen/pelvis without contrast. Stool occult blood positive. 10/09-patient seen and examined. No overnight events. H&H stable. Objective vital signs Vital Sign Date Time Temp Pulse Resp B/P (MAP) Pulse Ox O2 Delivery O2 Flow Rate FiO2 10/09/25 09:51 129/72 10/09/25 08:40 98.0 91 17 99 98.0 10/08/25 20:50 Nasal Cannula* 2 28 Total Intake and Output 10/08/25 10/08/25 10/09/25 15:00 23:00 07:00 Intake Total 274.0 ml 450 ml Balance 274.0 ml 450 ml medications Current Medications Medications Dose Ordered Sig/Audrey Route Start Time Stop Time Status Last Admin Dose Admin Atorvastatin Calcium 40 mg HS PO 10/07/25 22:00 10/08/25 22:19 40 MG Empaglifozin 10 mg DAILY PO 10/08/25 10:00 10/09/25 09:50 10 MG Furosemide 40 mg DAILY PO 10/08/25 10:00 10/09/25 09:51 40 MG Gabapentin 300 mg TID PO 10/07/25 22:00 10/09/25 05:04 300 MG Ipratropium [place] 0.5 mg Q6HR HHN 10/07/25 18:00 10/09/25 11:28 0.5 MG Levothyroxine Sodium 100 mcg QAM PO 10/08/25 07:00 10/09/25 06:07 100 MCG Lisinopril 20 mg DAILY PO 10/08/25 10:00 10/09/25 09:51 20 MG Spironolactone 25 mg DAILY PO 10/08/25 10:00 10/09/25 09:49 25 MG Patient Own Medication 5 mg BID PO 10/07/25 22:00 10/09/25 10:00 5 MG Acetaminophen 325 mg Q4HP PRN PO 10/07/25 14:30 Ondansetron HCl 4 mg Q4HP PRN IV 10/07/25 14:30 Pantoprazole Sodium 40 mg BID IV 10/08/25 10:00 10/09/25 09:49 40 MG Hydralazine HCl 10 mg Q6HR IV 10/08/25 18:00 10/09/25 05:04 10 MG Lorazepam 0.5 mg Q12HP PRN IV 10/08/25 14:15 10/08/25 16:19 0.5 MG Sucralfate 1 gm TID@0600,1130,2200 PO 10/08/25 16:00 10/09/25 05:03 1 GM Loperamide HCl 2 mg PRN PRN PO 10/08/25 23:00 10/09/25 05:04 2 MG Acetaminophen/ Hydrocodone Bitart 1 tab Q6HP PRN PO 10/09/25 10:30 Examination Patient lying in bed, in no acute distress General: Obese, afebrile, palor, mucosae are moist Cardiovascular: Regular S1 and S2. No murmurs, gallops or rubs. No JVD elevation. No pedal edema Respiratory: Normal B/L air entry on room air. Clear lung sounds on auscultation Abdomen: Soft, nontender, nondistended, normoactive bowel sounds, no rebound tenderness, no organomegaly, no masses Genitourinary: Deferred laboratory and microbiology Laboratory Tests 10/09/25 05:45 Test 10/09/25 05:45 Range/Units Serum Glucose 101 74-106 mg/dL Labs and/or images reviewed: Labs reviewed by me, Image(s) reviewed by me Problem List/Assessment/Plan Problem List/Assessment/Plan CT chest/abdomen/pelvis shows numerous solid pulmonary nodules. Extensive pulmonary tree in bud nodularity. There is extensive rectosigmoid colon wall thickening with surrounding stranding and perirectal lymphadenopathy. Differential considerations include colitis, inflammatory bowel disease, neoplastic process. Recommend colonoscopy once acute symptoms resolve to exclude underlying colonic malignancy. Cirrhotic right morphology liver. Splenomegaly. Cholecystectomy. Right-sided chest pain likely esophagitis/GERD Rule out ACS Hypertension Acute kidney injury Anemia likely normocytic History of COPD HFrEF no exacerbation History of renal cell carcinoma status post nephrectomy Diabetes mellitus Hypokalemia Uncontrolled hypothyroidism Plan: Dr. Mckeon: Recommendation Given the dysphagia, chest pain, patient will benefit from upper EGD. Patient will be scheduled for upper EGD 10/10. NPO after midnight. Continue. Diet/full liquid diet for now. Patient will need cardiac clearance prior to the procedure. Extensive rectosigmoid colon wall thickening with a surrounding stranding and perirectal lymphadenopathy seen on CT abdomen. Outpatient colonoscopy advised. Stool occult blood positive, continue Protonix 40 mg IV b.i.d., continue Carafate TID Monitor H&H Avoid NSAIDs/ibuprofen/Aleve/Motrin We will continue follow up Thank you for consulting GI Plan discussed with patient all questions have been answered Case discussed with Dr. Mckeon Plan discussed with: Patient My Orders My Orders Orders - ANGEL KING Procedure Category Date Status Time Chst Ab Pel Wo Con-No CT 10/08/25 Resulted Iv/Oral 15:57 Sucralfate Susp PHA 10/08/25 In Process (Carafate Susp) 16:00 ANGEL KING Oct 09, 2025 12:18
--- NOTE | 2025-10-09 12:32 | DVHPNRES ---
Progress Note Date Seen: Oct 09, 2025 Resident Creating Document: MCKENZIE CHRISTENSEN RESDIENT Medical Necessity Reason Pt with a Central, PICC or Fol: No Subjective Review of Systems Chrissy Billings is a 65-year-old female patient who presents to the ED with chief complaint of burning right-sided chest pain which started on 10/06/2020 at 7:00 p.m. intensity 10/10 which lasted 10 minutes. Per patient pain initiated after she started eating a meal, and resolved spontaneously. Denies any other associated symptoms including dyspnea, syncope, diaphoresis, nausea, vomiting, abdominal pain and sick contacts. Past medical history: Diabetes, hypertension, COPD on home oxygen with 2 L/min, renal cell carcinoma status post partial nephrectomy with no recurrence, systolic congestive heart failure (HFrEF, LVEF 40%), PAD status post stent placement in 2021, diabetic retinopathy with bilateral amaurosis, hypothyroidism. Surgical history: Peripheral angiography with stent placement in iliac artery, cholecystectomy Family history: Mother has thyroid cancer Social history: Lives in [place] with son (next of kin, Marty). Ex tobacco abuse (30 pack-year history of smoking), quit five years ago. Denies current tobacco, alcohol and other drug abuse. Allergy: Codeine Home medication: Albuterol, aspirin, atorvastatin, digoxin, empagliflozin, fluconazole, furosemide, gabapentin, insulin, ipratropium, levothyroxine, spironolactone, pantoprazole, nivolumab, Vericiguat, nifedipine, metformin , lisinopril on 10/09, Patient seen and examined at the bedside. Patient is still complaining of generalized weakness. Objective vital signs Vital Sign Date Time Temp Pulse Resp B/P (MAP) Pulse Ox O2 Delivery O2 Flow Rate FiO2 10/09/25 12:21 140/76 10/09/25 08:40 98.0 91 17 99 98.0 10/08/25 20:50 Nasal Cannula* 2 28 Total Intake and Output 10/08/25 10/08/25 10/09/25 15:00 23:00 07:00 Intake Total 274.0 ml 450 ml Balance 274.0 ml 450 ml medications Current Medications Medications Dose Ordered Sig/Audrey Route Start Time Stop Time Status Last Admin Dose Admin Atorvastatin Calcium 40 mg HS PO 10/07/25 22:00 10/08/25 22:19 40 MG Empaglifozin 10 mg DAILY PO 10/08/25 10:00 10/09/25 09:50 10 MG Furosemide 40 mg DAILY PO 10/08/25 10:00 10/09/25 09:51 40 MG Gabapentin 300 mg TID PO 10/07/25 22:00 10/09/25 05:04 300 MG Ipratropium [place] 0.5 mg Q6HR HHN 10/07/25 18:00 10/09/25 11:28 0.5 MG Levothyroxine Sodium 100 mcg QAM PO 10/08/25 07:00 10/09/25 06:07 100 MCG Lisinopril 20 mg DAILY PO 10/08/25 10:00 10/09/25 09:51 20 MG Spironolactone 25 mg DAILY PO 10/08/25 10:00 10/09/25 09:49 25 MG Patient Own Medication 5 mg BID PO 10/07/25 22:00 10/09/25 10:00 5 MG Acetaminophen 325 mg Q4HP PRN PO 10/07/25 14:30 Ondansetron HCl 4 mg Q4HP PRN IV 10/07/25 14:30 Pantoprazole Sodium 40 mg BID IV 10/08/25 10:00 10/09/25 09:49 40 MG Hydralazine HCl 10 mg Q6HR IV 10/08/25 18:00 10/09/25 12:21 10 MG Lorazepam 0.5 mg Q12HP PRN IV 10/08/25 14:15 10/08/25 16:19 0.5 MG Sucralfate 1 gm TID@0600,1130,2200 PO 10/08/25 16:00 10/09/25 12:11 1 GM Loperamide HCl 2 mg PRN PRN PO 10/08/25 23:00 10/09/25 05:04 2 MG Acetaminophen/ Hydrocodone Bitart 1 tab Q6HP PRN PO 10/09/25 10:30 10/09/25 12:13 1 TAB Examination General Appearance: Alert, Oriented X3, Cooperative, No acute distress HEENT: Atraumatic, PERRLA, EOMI, Mucous membrane moist/pink Respiratory: Clear to auscultation, Normal air movement Cardiovascular: Regular rate, Normal S1, Normal S2, No murmurs, no chest wall tenderness Abdominal: Normal bowel sounds, Soft, No tenderness, No hepatospenomegaly, No masses Extremities: No clubbing, No cyanosis, No edema, Normal pulses, No tenderness/swelling Skin: No rashes, No breakdown, No significant lesion Neuro: Normal gait, Normal speech, Strength at 5/5 X4 ext, Normal tone, Sensation intact, Cranial nerves 3-12 NL, Reflexes 2+ Psych/Mental Status: Mental status NL, Mood NL laboratory and microbiology Laboratory Tests 10/09/25 05:45 Test 10/09/25 05:45 Range/Units Serum Glucose 101 74-106 mg/dL Labs and/or images reviewed: Labs reviewed by me, Image(s) reviewed by me Problem List/Assessment/Plan Problem List/Assessment/Plan Chest pain, likely musculoskeletal Possible GI bleeding Severe anemia, due to above KELLY, likely VMN, due to above Diabetes type 2 COPD, on home oxygen 2 L through nasal cannula Hypertension History of renal cell carcinoma, status post partial nephrectomy Systolic heart failure, LVEF 40% History of peripheral artery disease, status post stent placement Diabetic retinopathy Hypothyroidism Hypokalemia * Stool occult blood is positive * CT scan shows, extensive rectosigmoid colon wall thickening with surrounding stranding and perirectal lymphadenopathy Plan/recommendation: * Consulted cardiology, recommended medical management * Consulted GI, planned for colonoscopy * Pain management * Continue home meds * Hold on antiplatelet/anticoagulant, due to possible GI bleeding * Repleted electrolyte DIET: Cardiac diet DVT PROPHYLAXIS: SCD BOWEL REGIMEN: Colace CODE STATUS: Goal of care discussed for more than 18 minutes, full code DISPOSITION: Telemetry Patient's status and plan discussed with the patient. Case discussed with Dr. Hamm. Plan discussed with: Patient, Son, Other (RN) My Orders My Orders Orders - MCKENZIE CHRISTENSEN RESDIJOSE ROBERTO Procedure Category Date Status Time Hydrocodone-Acet PHA 10/09/25 In Process 7.5/325mg Tab ([place] 10:30 Mechanical Soft Diet DIET 10/09/25 Transmitted Lunch Npo After Midnight ANDREW 10/09/25 In Process 11:29 Date of Service: Oct 09, 2025 Billing Provider: YENNI PEARSON MD Common Visit Codes: [id number] INP/OBS CARE(HIGH) MCKENZIE CHRISTENSEN RESDIENT Oct 09, 2025 12:31 YENNI PEARSON MD Oct 10, 2025 16:58
[2025-10-10] VITALS (15 sets, daily range): BP systolic 99–117; BP diastolic 43–64; PULSE 81–108; RESP 10–20; TEMP 97–98.1; O2SAT 89–100
[2025-10-10] MEDS ORDERED: GLYCOPYRROLATE 0.2 MG/ML 1ML VIAL ONE (09:53)
[2025-10-10] MEDS ORDERED: PROPOFOL 10 MG/ML 20 ML IV ONE (09:53)
[2025-10-10] MEDS ORDERED: fentaNYL CITRATE 100 MCG/2 ML VL ONE (09:53)
[2025-10-10] MEDS ORDERED: ONDANSETRON HCL 4 MG/2 ML VIAL ONE (09:53)
[2025-10-10] MEDS ORDERED: MIDAZOLAM HCL 2MG/2ML 2ml VIAL (1mg/ml) ONE (09:53)
[2025-10-10] MEDS ORDERED: LIDOCAINE 2% (LOCAL ANESTH.) PF 5ml SDV ONE (09:53)
--- NOTE | 2025-10-10 10:45 | DVHOP2 ---
Operative Report DATE OF OPERATION: 10/10/25 PROCEDURE: Upper Endoscopy with biopsy. PREOPERATIVE INDICATION: The patient is a 65 -year-old female undergoing endoscopy for atypical chest pain, anemia and Hemoccult-positive stools POSTOPERATIVE DIAGNOSES: 1. 2-3 cm sliding-type hiatal hernia with the acute severe linear erosive esophagitis with linear ulcers extending into the distal 10 cm of the esophagus with suspected underlying Barretts from which biopsies were obtained 2. Mild antral gastritis otherwise essentially completely normal endoscopic examination up to the 2nd and 3rd part of the duodenum with no fresh or old blood in the upper GI tract at this time PROCEDURE PERFORMED BY: Bladimir Mckeon GI NURSE: Katelyn SCOPE: Olympus videoendoscope. ASA CLASS: 3 PREOPERATIVE MEDICATIONS: Mac sedation, Dr. Olivas PROCEDURE IN DETAIL: After obtaining an informed consent, the patient was placed on left lateral decubitus position. The patient was then sedated with the above medications. A bite block was placed between her teeth. The endoscope was then passed through the oropharynx, into the esophagus, and through the stomach and pylorus up to the second and third part of the duodenum. The endoscope was then withdrawn. The 2nd and 3rd part of the duodenal and the duodenal bulb were normal. There was good bile drainage. Duodenal biopsies were obtained The pre-pyloric area antrum and body showed mild antral gastritis. On retroflexion the fundus and cardia were normal. Gastric biopsies were obtained The endoscope was then withdrawn into the distal esophagus where the patient had a 2-3 cm sliding-type hiatal hernia with the acute linear erosive esophagitis There were linear esophageal ulcers extending into the distal 10 cm of the esophagus and there was underlying suspected Barretts. Esophageal biopsies were obtained. The remaining proximal esophagus and oropharynx were unremarkable The patient tolerated the procedure well without difficulty. COMPLICATIONS : None SPECIMENS: Duodenal biopsies Gastric biopsies Esophageal biopsies DISPOSITION: Stable Transfer to floor PLAN: 1. Await for biopsy result 2. Will place pt on Protonix 40 mg bid IV 3. Carafate suspension 1 g p.o. 4 times a day 4. Start with full liquid diet advance to soft mechanical 5. Long-term maintenance on PPI is recommended and lifestyle modifications for GERD 6. Outpatient follow up with me in 4-6 weeks to review results and discuss further management BLADIMIR MCKEON MD Oct 10, 2025 10:45
[2025-10-10 10:52] LABS: Hepatitis B Surface Antigen Negative (Negative)
[2025-10-10 11:15] LABS: Hepatitis C Antibody Negative (Negative)
[2025-10-10 13:53] LABS: Hemoglobin 8.2 g/dL (12.2-16.2); Nucleated Red Blood Cells % 0.0 %
[2025-10-10 13:56] LABS: Hematocrit 26.5 % (36.0-46.0); Mean Corpuscular Hemoglobin 23.9 pg (28.0-32.0); Mean Corpuscular Volume 77.1 fL (80.0-100.0)
[2025-10-10 14:02] LABS: Alkaline Phosphatase 55 U/L (46-116); Anion Gap 6 (5-15); BUN/Creatinine Ratio 29.2 (10.0-20.0); Calcium 9.2 mg/dL (8.7-10.4); Carbon Dioxide 26 mmol/L (20-31); Chloride 105 mmol/L (98-107); Potassium 4.4 mmol/L (3.5-5.1); Sodium 137 mmol/L (136-145)
[2025-10-10 14:05] LABS: Alanine Aminotransferase < 9 U/L (7-40); Albumin 3.2 g/dL (3.2-4.8); Bilirubin, Total < 0.2 mg/dL (0.2-1.0); Blood Urea Nitrogen 31 mg/dL (9-23); Glucose 127 mg/dL (74-106); Total Protein 5.7 g/dL (5.7-8.2)
--- NOTE | 2025-10-10 15:38 | DVHPNRES ---
Progress Note Date Seen: Oct 10, 2025 Resident Creating Document: MCKENZIE CHRISTENSEN RESDIENT Medical Necessity Reason Pt with a Central, PICC or Fol: No Subjective Review of Systems Patient seen and examined at the bedside. Patient is still complaining of abdominal pain. Objective vital signs Vital Sign Date Time Temp Pulse Resp B/P (MAP) Pulse Ox O2 Delivery O2 Flow Rate FiO2 10/10/25 12:33 98.1 98 16 99/56 (70) 100 98.1 10/10/25 12:08 Nasal Cannula* 2 28 Total Intake and Output 10/09/25 10/09/25 10/10/25 15:00 23:00 07:00 Intake Total 0 ml Output Total 0 ml Balance 0 ml medications Current Medications Medications Dose Ordered Sig/Audrey Route Start Time Stop Time Status Last Admin Dose Admin Atorvastatin Calcium 40 mg HS PO 10/07/25 22:00 10/09/25 22:02 40 MG Empaglifozin 10 mg DAILY PO 10/08/25 10:00 10/10/25 12:14 10 MG Furosemide 40 mg DAILY PO 10/08/25 10:00 10/10/25 12:26 40 MG Gabapentin 300 mg TID PO 10/07/25 22:00 10/10/25 14:58 300 MG Ipratropium [place] 0.5 mg Q6HR HHN 10/07/25 18:00 10/10/25 07:16 0.5 MG Levothyroxine Sodium 100 mcg QAM PO 10/08/25 07:00 10/10/25 05:55 100 MCG Lisinopril 20 mg DAILY PO 10/08/25 10:00 10/10/25 12:27 20 MG Spironolactone 25 mg DAILY PO 10/08/25 10:00 10/10/25 12:14 25 MG Patient Own Medication 5 mg BID PO 10/07/25 22:00 10/10/25 10:00 5 MG Acetaminophen 325 mg Q4HP PRN PO 10/07/25 14:30 Ondansetron HCl 4 mg Q4HP PRN IV 10/07/25 14:30 Pantoprazole Sodium 40 mg BID IV 10/08/25 10:00 10/10/25 09:14 40 MG Hydralazine HCl 10 mg Q6HR IV 10/08/25 18:00 10/10/25 12:32 10 MG Lorazepam 0.5 mg Q12HP PRN IV 10/08/25 14:15 10/08/25 16:19 0.5 MG Sucralfate 1 gm TID@0600,1130,2200 PO 10/08/25 16:00 10/10/25 12:13 1 GM Loperamide HCl 2 mg PRN PRN PO 10/08/25 23:00 10/09/25 20:54 2 MG Acetaminophen/ Hydrocodone Bitart 1 tab Q6HP PRN PO 10/09/25 10:30 10/10/25 12:14 1 TAB Examination General Appearance: Alert, Oriented X3, Cooperative, No acute distress HEENT: Atraumatic, PERRLA, EOMI, Mucous membrane moist/pink Respiratory: Clear to auscultation, Normal air movement Cardiovascular: Regular rate, Normal S1, Normal S2, No murmurs, no chest wall tenderness Abdominal: Normal bowel sounds, Soft, No tenderness, No hepatospenomegaly, No masses Extremities: No clubbing, No cyanosis, No edema, Normal pulses, No tenderness/swelling Skin: No rashes, No breakdown, No significant lesion Neuro: Normal gait, Normal speech, Strength at 5/5 X4 ext, Normal tone, Sensation intact, Cranial nerves 3-12 NL, Reflexes 2+ Psych/Mental Status: Mental status NL, Mood NL laboratory and microbiology Laboratory Tests 10/10/25 13:26 Test 10/10/25 13:26 Range/Units Serum Glucose 127 H 74-106 mg/dL Microbiology Date/Time Source Procedure Growth Status 10/09/25 04:10 Stool Stool Culture - Preliminary Resulted 10/09/25 04:10 Stool Shiga Toxin I & II - Final Resulted 10/08/25 22:15 Nose MRSA Screen - Final Complete Labs and/or images reviewed: Labs reviewed by me, Image(s) reviewed by me Problem List/Assessment/Plan Problem List/Assessment/Plan Chest pain, likely musculoskeletal Possible GI bleeding Severe anemia, due to above KELLY, likely VMN, due to above Diabetes type 2 COPD, on home oxygen 2 L through nasal cannula Hypertension History of renal cell carcinoma, status post partial nephrectomy Systolic heart failure, LVEF 40% History of peripheral artery disease, status post stent placement Diabetic retinopathy Hypothyroidism Hypokalemia * Stool occult blood is positive * CT scan shows, extensive rectosigmoid colon wall thickening with surrounding stranding and perirectal lymphadenopathy * EGD on 10/10 shows, 2-3 cm sliding-type hiatal hernia with the acute severe linear erosive esophagitis with linear ulcers extending into the distal 10 cm of the esophagus with suspected underlying Barretts from which biopsies were obtained and mild antral gastritis otherwise essentially completely normal endoscopic examination up to the 2nd and 3rd part of the duodenum with no fresh or old blood in the upper GI tract at this time Plan/recommendation: * Consulted cardiology, recommended medical management * Consulted GI, performed upper GI endoscopy on 09/09, planned for colonoscopy * Pain management * Continue home meds * Hold on antiplatelet/anticoagulant, due to possible GI bleeding * Repleted electrolyte DIET: Cardiac diet DVT PROPHYLAXIS: SCD BOWEL REGIMEN: Colace CODE STATUS: Goal of care discussed for more than 18 minutes, full code DISPOSITION: Telemetry Patient's status and plan discussed with the patient. Case discussed with Dr. Hamm. Plan discussed with: Patient, Other (RN) My Orders My Orders Orders - MCKENZIE CHRISTENSEN Procedure Category Date Status Time Apply [facility] 10/09/25 In Process 13:40 Date of Service: Oct 10, 2025 Billing Provider: YENNI PEARSON MD Common Visit Codes: [id number] INP/OBS CARE(HIGH) MCKENZIE CHRISTENSEN Oct 10, 2025 15:38 YENNI PEARSON MD Oct 10, 2025 17:02
[2025-10-11] VITALS (11 sets, daily range): BP systolic 95–114; BP diastolic 48–91; PULSE 77–106; RESP 16–20; TEMP 97–98.1; O2SAT 91–100
[2025-10-11 09:36] LABS: Hemoglobin 8.1 g/dL (12.2-16.2); Mean Corpuscular Volume 78.5 fL (80.0-100.0); Nucleated Red Blood Cells % 0.0 %
[2025-10-11 09:38] LABS: Hematocrit 27.2 % (36.0-46.0); Mean Corpuscular Hemoglobin 23.3 pg (28.0-32.0)
[2025-10-11 09:55] LABS: Albumin 3.5 g/dL (3.2-4.8); Alkaline Phosphatase 58 U/L (46-116); Anion Gap 7 (5-15); BUN/Creatinine Ratio 24.6 (10.0-20.0); Calcium 9.8 mg/dL (8.7-10.4); Carbon Dioxide 25 mmol/L (20-31); Chloride 106 mmol/L (98-107); Potassium 4.9 mmol/L (3.5-5.1); Sodium 138 mmol/L (136-145); Total Protein 6.2 g/dL (5.7-8.2)
[2025-10-11 10:04] LABS: Alanine Aminotransferase < 9 U/L (7-40); Bilirubin, Total < 0.2 mg/dL (0.2-1.0); Blood Urea Nitrogen 31 mg/dL (9-23); Glucose 146 mg/dL (74-106)
[2025-10-11] MEDS ORDERED: hydrALAZINE HCL 20 MG/ML VL IV PRN (13:15)
--- NOTE | 2025-10-11 15:38 | DVHPNRES ---
Progress Note Date Seen: Oct 11, 2025 Resident Creating Document: AKILA CLEARY Medical Necessity Reason Pt with a Central, PICC or Fol: No Subjective Review of Systems Patient seen at bedside. Complains of left knee pain, chronic. Ordered for PT eval. Pending colonoscopy. Chrissy Billings is a 65-year-old female patient who presents to the ED with chief complaint of burning right-sided chest pain which started on 10/06/2020 at 7:00 p.m. intensity 10/10 which lasted 10 minutes. Per patient pain initiated after she started eating a meal, and resolved spontaneously. Denies any other associated symptoms including dyspnea, syncope, diaphoresis, nausea, vomiting, abdominal pain and sick contacts. Past medical history: Diabetes, hypertension, COPD on home oxygen with 2 L/min, renal cell carcinoma status post partial nephrectomy with no recurrence, systolic congestive heart failure (HFrEF, LVEF 40%), PAD status post stent placement in 2021, diabetic retinopathy with bilateral amaurosis, hypothyroidism. Surgical history: Peripheral angiography with stent placement in iliac artery, cholecystectomy Family history: Mother has thyroid cancer Social history: Lives in [place] with son (next of kin, Marty). Ex tobacco abuse (30 pack-year history of smoking), quit five years ago. Denies current tobacco, alcohol and other drug abuse. Allergy: Codeine Home medication: Albuterol, aspirin, atorvastatin, digoxin, empagliflozin, fluconazole, furosemide, gabapentin, insulin, ipratropium, levothyroxine, spironolactone, pantoprazole, nivolumab, Vericiguat, nifedipine, metformin , lisinopril Objective vital signs Vital Sign Date Time Temp Pulse Resp B/P (MAP) Pulse Ox O2 Delivery O2 Flow Rate FiO2 10/11/25 13:00 97.9 104 20 95/62 (73) 97 97.9 10/11/25 11:39 Nasal Cannula 3.0 10/11/25 11:39 32 Total Intake and Output 10/10/25 10/10/25 10/11/25 15:00 23:00 07:00 Intake Total 100 ml Balance 100 ml medications Current Medications Medications Dose Ordered Sig/Audrey Route Start Time Stop Time Status Last Admin Dose Admin Atorvastatin Calcium 40 mg HS PO 10/07/25 22:00 10/10/25 21:47 40 MG Empaglifozin 10 mg DAILY PO 10/08/25 10:00 10/11/25 09:12 10 MG Furosemide 40 mg DAILY PO 10/08/25 10:00 10/11/25 09:11 40 MG Gabapentin 300 mg TID PO 10/07/25 22:00 10/11/25 13:33 300 MG Ipratropium [place] 0.5 mg Q6HR HHN 10/07/25 18:00 10/11/25 11:39 0.5 MG Levothyroxine Sodium 100 mcg QAM PO 10/08/25 07:00 10/11/25 06:14 100 MCG Lisinopril 20 mg DAILY PO 10/08/25 10:00 10/11/25 09:12 20 MG Spironolactone 25 mg DAILY PO 10/08/25 10:00 10/11/25 09:12 25 MG Patient Own Medication 5 mg BID PO 10/07/25 22:00 10/11/25 09:17 5 MG Acetaminophen 325 mg Q4HP PRN PO 10/07/25 14:30 Ondansetron HCl 4 mg Q4HP PRN IV 10/07/25 14:30 Pantoprazole Sodium 40 mg BID IV 10/08/25 10:00 10/11/25 09:12 40 MG Lorazepam 0.5 mg Q12HP PRN IV 10/08/25 14:15 10/11/25 11:29 0.5 MG Sucralfate 1 gm TID@0600,1130,2200 PO 10/08/25 16:00 10/11/25 11:10 1 GM Loperamide HCl 2 mg PRN PRN PO 10/08/25 23:00 10/09/25 20:54 2 MG Acetaminophen/ Hydrocodone Bitart 1 tab Q6HP PRN PO 10/09/25 10:30 10/11/25 13:33 1 TAB Hydralazine HCl 10 mg Q6HR PRN IV 10/11/25 13:15 Examination General Appearance: Alert, Oriented X3, Cooperative, No acute distress HEENT: Atraumatic, PERRLA, EOMI, Mucous membrane moist/pink Respiratory: Clear to auscultation, Normal air movement Cardiovascular: Regular rate, Normal S1, Normal S2, No murmurs, no chest wall tenderness Abdominal: Normal bowel sounds, Soft, No tenderness, No hepatospenomegaly, No masses Extremities: No clubbing, No cyanosis, No edema, Normal pulses, No tenderness/swelling Skin: No rashes, No breakdown, No significant lesion Neuro: Normal gait, Normal speech, Strength at 5/5 X4 ext, Normal tone, Sensation intact, Cranial nerves 3-12 NL, Reflexes 2+ Psych/Mental Status: Mental status NL, Mood NL laboratory and microbiology Laboratory Tests 10/11/25 08:59 Test 10/11/25 08:59 Range/Units Serum Glucose 146 H 74-106 mg/dL Microbiology Date/Time Source Procedure Growth Status 10/09/25 04:10 Stool Stool Culture - Preliminary Resulted 10/09/25 04:10 Stool Shiga Toxin I & II - Final Resulted 10/08/25 22:15 Nose MRSA Screen - Final Complete Problem List/Assessment/Plan Problem List/Assessment/Plan Assessment and plan Chest pain, likely musculoskeletal Possible GI bleeding Severe anemia, due to above KELLY, likely VMN, due to above Diabetes type 2 COPD, on home oxygen 2 L through nasal cannula Hypertension History of renal cell carcinoma, status post partial nephrectomy Systolic heart failure, LVEF 40% History of peripheral artery disease, status post stent placement Diabetic retinopathy Hypothyroidism Hypokalemia Stool occult blood is positive CT scan shows, extensive rectosigmoid colon wall thickening with surrounding stranding and perirectal lymphadenopathy EGD on 10/10 shows, 2-3 cm sliding-type hiatal hernia with the acute severe linear erosive esophagitis with linear ulcers extending into the distal 10 cm of the esophagus with suspected underlying Barretts from which biopsies were obtained and mild antral gastritis otherwise essentially completely normal endoscopic examination up to the 2nd and 3rd part of the duodenum with no fresh or old blood in the upper GI tract at this time Plan/recommendation: Consulted cardiology, recommended medical management Consulted GI, performed upper GI endoscopy on 09/09, planned for colonoscopy Pain management Continue home meds Hold on antiplatelet/anticoagulant, due to possible GI bleeding Repleted electrolyte PT eval DIET: Cardiac diet DVT PROPHYLAXIS: SCD BOWEL REGIMEN: Colace CODE STATUS: Goal of care discussed for more than 18 minutes, full code DISPOSITION: Telemetry Patient's status and plan discussed with the patient. Case discussed with Dr. Hamm. Plan discussed with: Patient My Orders My Orders Orders - AKILA CLEARY Procedure Category Date Status Time Pt Request For Service PT 10/11/25 Logged 12:20 Complete Blood Count LAB 10/12/25 Verified 04:00 Comprehensive LAB 10/12/25 Verified Metabolic Panel 04:00 Hydralazine Injection PHA 10/11/25 In Process (Apresoline Inject 13:15 Date of Service: Oct 11, 2025 Billing Provider: YENNI PEARSON MD Common Visit Codes: [id number] INP/OBS CARE(HIGH) AKILA CLEARY RESIDENT Oct 11, 2025 15:38
--- NOTE | 2025-10-11 19:58 | DVHPN2 ---
Progress Note - Dictate Date Seen: Oct 11, 2025 Medical Necessity Reason Pt with a Central, PICC or Fol: No Subjective No new complaints, patient resting comfortably EGD had shown moderate severe esophagitis CT scan is showing rectal thickening with stranding Patient has pulmonary nodules vital signs Vital Sign Date Time Temp Pulse Resp B/P (MAP) Pulse Ox O2 Delivery O2 Flow Rate FiO2 10/11/25 17:18 97.7 87 16 102/58 (73) 91 97.7 10/11/25 11:39 Nasal Cannula 3.0 10/11/25 11:39 32 Total Intake and Output 10/10/25 10/10/25 10/11/25 15:00 23:00 07:00 Intake Total 100 ml Balance 100 ml medications Current Medications Medications Dose Ordered Sig/Audrey Route Start Time Stop Time Status Last Admin Dose Admin Atorvastatin Calcium 40 mg HS PO 10/07/25 22:00 10/10/25 21:47 40 MG Empaglifozin 10 mg DAILY PO 10/08/25 10:00 10/11/25 09:12 10 MG Furosemide 40 mg DAILY PO 10/08/25 10:00 10/11/25 09:11 40 MG Gabapentin 300 mg TID PO 10/07/25 22:00 10/11/25 13:33 300 MG Ipratropium [place] 0.5 mg Q6HR HHN 10/07/25 18:00 10/11/25 11:39 0.5 MG Levothyroxine Sodium 100 mcg QAM PO 10/08/25 07:00 10/11/25 06:14 100 MCG Lisinopril 20 mg DAILY PO 10/08/25 10:00 10/11/25 09:12 20 MG Spironolactone 25 mg DAILY PO 10/08/25 10:00 10/11/25 09:12 25 MG Patient Own Medication 5 mg BID PO 10/07/25 22:00 10/11/25 09:17 5 MG Acetaminophen 325 mg Q4HP PRN PO 10/07/25 14:30 Ondansetron HCl 4 mg Q4HP PRN IV 10/07/25 14:30 Pantoprazole Sodium 40 mg BID IV 10/08/25 10:00 10/11/25 09:12 40 MG Lorazepam 0.5 mg Q12HP PRN IV 10/08/25 14:15 10/11/25 11:29 0.5 MG Sucralfate 1 gm TID@0600,1130,2200 PO 10/08/25 16:00 10/11/25 11:10 1 GM Loperamide HCl 2 mg PRN PRN PO 10/08/25 23:00 10/09/25 20:54 2 MG Acetaminophen/ Hydrocodone Bitart 1 tab Q6HP PRN PO 10/09/25 10:30 10/11/25 13:33 1 TAB Hydralazine HCl 10 mg Q6HR PRN IV 10/11/25 13:15 objective General: Obese, afebrile, palor, mucosae are moist Cardiovascular: Regular S1 and S2. No murmurs, gallops or rubs. No JVD elevation. No pedal edema Respiratory: Normal B/L air entry on room air. Clear lung sounds on auscultation Abdomen: Soft, nontender, nondistended, normoactive bowel sounds, no rebound tenderness, no organomegaly, no masses laboratory and microbiology Laboratory Tests 10/11/25 08:59 Test 10/11/25 08:59 Range/Units Serum Glucose 146 H 74-106 mg/dL Problems(with codes): (1) Abnormal finding on GI tract imaging (2) Hiatal hernia with GERD and esophagitis (3) Acute chest pain (4) Altered mental status (5) Multifocal pneumonia Prognosis Plan Change to clear liquid diet tomorrow I will give her a gentle bowel prep with two bottles of Mag citrate She will get a fleets enema on 10/13/2025 Tentatively scheduled for a sigmoidoscopy/colonoscopy on 10/13/2025 Risks and ulcer were explained Plan discussed with: Other (Nurse) BLADIMIR PITTS MD Oct 11, 2025 19:58
[2025-10-12] VITALS (15 sets, daily range): BP systolic 94–139; BP diastolic 48–99; PULSE 68–108; RESP 16–20; TEMP 97.4–99; O2SAT 94–100
[2025-10-12] MEDS: LEVOTHYROXINE SODIUM 100 MCG TAB ONE (05:08)
[2025-10-12 06:00] LABS: Hemoglobin 7.3 g/dL (12.2-16.2)
[2025-10-12 06:04] LABS: Hematocrit 23.8 % (36.0-46.0); Mean Corpuscular Hemoglobin 23.8 pg (28.0-32.0); Mean Corpuscular Volume 77.6 fL (80.0-100.0); Nucleated Red Blood Cells % 0.0 %
[2025-10-12 06:18] LABS: Alkaline Phosphatase 54 U/L (46-116); Anion Gap 6 (5-15); BUN/Creatinine Ratio 28.9 (10.0-20.0); Calcium 9.5 mg/dL (8.7-10.4); Carbon Dioxide 27 mmol/L (20-31); Chloride 105 mmol/L (98-107); Potassium 4.7 mmol/L (3.5-5.1); Sodium 138 mmol/L (136-145); Total Protein 5.7 g/dL (5.7-8.2)
[2025-10-12 06:34] LABS: Alanine Aminotransferase < 9 U/L (7-40); Albumin 3.1 g/dL (3.2-4.8); Bilirubin, Total < 0.2 mg/dL (0.2-1.0); Blood Urea Nitrogen 39 mg/dL (9-23); Glucose 131 mg/dL (74-106)
--- NOTE | 2025-10-12 13:57 | DVHPNRES ---
Progress Note Date Seen: Oct 12, 2025 Resident Creating Document: MCKENZIE CHRISTENSEN RESDIENT Medical Necessity Reason Pt with a Central, PICC or Fol: No Subjective Review of Systems Chrissy Billings is a 65-year-old female patient who presents to the ED with chief complaint of burning right-sided chest pain which started on 10/06/2020 at 7:00 p.m. intensity 10/10 which lasted 10 minutes. Per patient pain initiated after she started eating a meal, and resolved spontaneously. Denies any other associated symptoms including dyspnea, syncope, diaphoresis, nausea, vomiting, abdominal pain and sick contacts. Past medical history: Diabetes, hypertension, COPD on home oxygen with 2 L/min, renal cell carcinoma status post partial nephrectomy with no recurrence, systolic congestive heart failure (HFrEF, LVEF 40%), PAD status post stent placement in 2021, diabetic retinopathy with bilateral amaurosis, hypothyroidism. Surgical history: Peripheral angiography with stent placement in iliac artery, cholecystectomy Family history: Mother has thyroid cancer Social history: Lives in [place] with son (next of kin, Marty). Ex tobacco abuse (30 pack-year history of smoking), quit five years ago. Denies current tobacco, alcohol and other drug abuse. Allergy: Codeine Home medication: Albuterol, aspirin, atorvastatin, digoxin, empagliflozin, fluconazole, furosemide, gabapentin, insulin, ipratropium, levothyroxine, spironolactone, pantoprazole, nivolumab, Vericiguat, nifedipine, metformin , lisinopril 10/12, the patient seen and examined at the bedside. Patient is feeling better, but still complaining of abdominal pain. GI planned for tentative colonoscopy on 10/13. Objective vital signs Vital Sign Date Time Temp Pulse Resp B/P (MAP) Pulse Ox O2 Delivery O2 Flow Rate FiO2 10/12/25 13:00 97.6 96 16 97/48 (64) 98 97.6 10/12/25 08:00 Nasal Cannula* 3 32 medications Current Medications Medications Dose Ordered Sig/Audrey Route Start Time Stop Time Status Last Admin Dose Admin Atorvastatin Calcium 40 mg HS PO 10/07/25 22:00 10/11/25 22:37 40 MG Empaglifozin 10 mg DAILY PO 10/08/25 10:00 10/12/25 10:57 10 MG Gabapentin 300 mg TID PO 10/07/25 22:00 10/12/25 13:41 300 MG Ipratropium [place] 0.5 mg Q6HR HHN 10/07/25 18:00 10/12/25 11:23 0.5 MG Levothyroxine Sodium 100 mcg QAM PO 10/08/25 07:00 10/12/25 05:56 100 MCG Spironolactone 25 mg DAILY PO 10/08/25 10:00 10/12/25 10:57 25 MG Patient Own Medication 5 mg BID PO 10/07/25 22:00 10/12/25 10:59 5 MG Acetaminophen 325 mg Q4HP PRN PO 10/07/25 14:30 Ondansetron HCl 4 mg Q4HP PRN IV 10/07/25 14:30 Pantoprazole Sodium 40 mg BID IV 10/08/25 10:00 10/11/25 09:12 40 MG Lorazepam 0.5 mg Q12HP PRN IV 10/08/25 14:15 10/12/25 04:41 0.5 MG Sucralfate 1 gm TID@0600,1130,2200 PO 10/08/25 16:00 10/11/25 22:37 1 GM Loperamide HCl 2 mg PRN PRN PO 10/08/25 23:00 10/09/25 20:54 2 MG Acetaminophen/ Hydrocodone Bitart 1 tab Q6HP PRN PO 10/09/25 10:30 10/12/25 03:49 1 TAB Hydralazine HCl 10 mg Q6HR PRN IV 10/11/25 13:15 Lisinopril 10 mg DAILY PO 10/13/25 10:00 Examination General Appearance: Alert, Oriented X3, Cooperative, No acute distress HEENT: Atraumatic, PERRLA, EOMI, Mucous membrane moist/pink Respiratory: Clear to auscultation, Normal air movement Cardiovascular: Regular rate, Normal S1, Normal S2, No murmurs, no chest wall tenderness Abdominal: Normal bowel sounds, Soft, No tenderness, No hepatospenomegaly, No masses Extremities: No clubbing, No cyanosis, No edema, Normal pulses, No tenderness/swelling Skin: No rashes, No breakdown, No significant lesion Neuro: Normal gait, Normal speech, Strength at 5/5 X4 ext, Normal tone, Sensation intact, Cranial nerves 3-12 NL, Reflexes 2+ Psych/Mental Status: Mental status NL, Mood NL laboratory and microbiology Laboratory Tests 10/12/25 05:12 Test 10/12/25 05:12 Range/Units Serum Glucose 131 H 74-106 mg/dL Microbiology Date/Time Source Procedure Growth Status 10/09/25 04:10 Stool Stool Culture - Final Complete 10/09/25 04:10 Stool Shiga Toxin I & II - Final Complete 10/08/25 22:15 Nose MRSA Screen - Final Complete Labs and/or images reviewed: Image(s) reviewed by me Problem List/Assessment/Plan Problem List/Assessment/Plan Chest pain, likely musculoskeletal Possible GI bleeding Severe anemia, due to above KELLY, likely VMN, due to above Diabetes type 2 COPD, on home oxygen 2 L through nasal cannula Hypertension History of renal cell carcinoma, status post partial nephrectomy Systolic heart failure, LVEF 40% History of peripheral artery disease, status post stent placement Diabetic retinopathy Hypothyroidism Hypokalemia * Stool occult blood is positive * CT scan shows, extensive rectosigmoid colon wall thickening with surrounding stranding and perirectal lymphadenopathy * EGD on 10/10 shows, 2-3 cm sliding-type hiatal hernia with the acute severe linear erosive esophagitis with linear ulcers extending into the distal 10 cm of the esophagus with suspected underlying Barretts from which biopsies were obtained and mild antral gastritis otherwise essentially completely normal endoscopic examination up to the 2nd and 3rd part of the duodenum with no fresh or old blood in the upper GI tract at this time Plan/recommendation: * Consulted cardiology, recommended medical management * Consulted GI, performed upper GI endoscopy on 09/09, planned for colonoscopy on 10/13 * Pain management * Continue home meds * Hold on antiplatelet/anticoagulant, due to possible GI bleeding * Repleted electrolyte * PT eval DIET: Cardiac diet DVT PROPHYLAXIS: SCD CODE STATUS: Goal of care discussed for more than 18 minutes, full code DISPOSITION: Telemetry Patient's status and plan discussed with the patient. Case discussed with Dr. Hamm. Plan discussed with: Patient, Other (RN) My Orders My Orders Orders - MCKENZIE CHRISTENSEN Procedure Category Date Status Time Lisinopril Tablet PHA 10/13/25 In Process (Zestril Tablet) 10:00 Date of Service: Oct 12, 2025 Billing Provider: MCKENZIE CHRISTENSEN Common Visit Codes: [id number] INP/OBS CARE(HIGH) MCKENZIE CHRISTENSEN Oct 12, 2025 13:57
[2025-10-12] MEDS: SODIUM CHLORIDE 0.9% 500 ML IV ONE (14:00)
[2025-10-12] MEDS: IPRATROPIUM BROM 0.5 MG/2.5ML INH SOL NEB SCH (18:03)
[2025-10-12] MEDS: SODIUM CHLORIDE 0.9% 250 ML IV ONE (18:17)
--- NOTE | 2025-10-12 20:49 | DVHPN2 ---
Progress Note - Dictate Date Seen: Oct 12, 2025 Medical Necessity Reason Pt with a Central, PICC or Fol: No Subjective No new complaints, patient resting comfortably ; EGD had shown moderate severe esophagitis CT scan is showing rectal thickening with stranding Patient has pulmonary nodules Two bowel movements recorded vital signs Vital Sign Date Time Temp Pulse Resp B/P (MAP) Pulse Ox O2 Delivery O2 Flow Rate FiO2 10/12/25 18:13 100 18 100 10/12/25 18:04 Nasal Cannula 2.0 10/12/25 18:04 28 10/12/25 16:29 97.4 112/73 (86) 97.4 medications Current Medications Medications Dose Ordered Sig/Audrey Route Start Time Stop Time Status Last Admin Dose Admin Atorvastatin Calcium 40 mg HS PO 10/07/25 22:00 10/11/25 22:37 40 MG Empaglifozin 10 mg DAILY PO 10/08/25 10:00 10/12/25 10:57 10 MG Gabapentin 300 mg TID PO 10/07/25 22:00 10/12/25 13:41 300 MG Levothyroxine Sodium 100 mcg QAM PO 10/08/25 07:00 10/12/25 05:56 100 MCG Spironolactone 25 mg DAILY PO 10/08/25 10:00 10/12/25 10:57 25 MG Patient Own Medication 5 mg BID PO 10/07/25 22:00 10/12/25 10:59 5 MG Acetaminophen 325 mg Q4HP PRN PO 10/07/25 14:30 Ondansetron HCl 4 mg Q4HP PRN IV 10/07/25 14:30 Pantoprazole Sodium 40 mg BID IV 10/08/25 10:00 10/11/25 09:12 40 MG Lorazepam 0.5 mg Q12HP PRN IV 10/08/25 14:15 10/12/25 04:41 0.5 MG Sucralfate 1 gm TID@0600,1130,2200 PO 10/08/25 16:00 10/11/25 22:37 1 GM Loperamide HCl 2 mg PRN PRN PO 10/08/25 23:00 10/09/25 20:54 2 MG Acetaminophen/ Hydrocodone Bitart 1 tab Q6HP PRN PO 10/09/25 10:30 10/12/25 16:31 1 TAB Hydralazine HCl 10 mg Q6HR PRN IV 10/11/25 13:15 Lisinopril 10 mg DAILY PO 10/13/25 10:00 Ipratropium [place] 0.5 mg Q6HWA NEB 10/12/25 18:00 10/12/25 18:03 0.5 MG objective General: Obese, afebrile, palor, mucosae are moist Cardiovascular: Regular S1 and S2. No murmurs, gallops or rubs. No JVD elevation. No pedal edema Respiratory: Normal B/L air entry on room air. Clear lung sounds on auscultation Abdomen: Soft, nontender, nondistended, normoactive bowel sounds, no rebound tenderness, no organomegaly, no masses laboratory and microbiology Laboratory Tests 10/12/25 05:12 Test 10/12/25 05:12 Range/Units Serum Glucose 131 H 74-106 mg/dL Problems(with codes): (1) Multifocal pneumonia (2) Hiatal hernia with GERD and esophagitis (3) Abnormal finding on GI tract imaging (4) Altered mental status Prognosis Plan Patient will be given a gentle bowel prep with magnesium citrate bottle tonight and tomorrow morning Patient will be given fleets enema in the morning Get consent for sigmoidoscopy possible colonoscopy possible biopsy possible polypectomy I will plan the procedure for tomorrow afternoon Plan discussed with: Other (Nurse) BLADIMIR PITTS MD Oct 12, 2025 20:49
[2025-10-12] MEDS: MAGNESIUM CITRATE SOLUTION 300 ML BTL PO ONE (21:13)
[2025-10-13] VITALS (10 sets, daily range): BP systolic 79–119; BP diastolic 40–66; PULSE 86–103; RESP 16–20; TEMP 97.6–98.5; O2SAT 92–100
[2025-10-13] MEDS: fentaNYL Drip 2500mCg/250mlNS 250 ML IV ONE (02:45)
[2025-10-13] MEDS: MAGNESIUM CITRATE SOLUTION 300 ML BTL PO ONE (06:40)
[2025-10-13 07:24] LABS: Hemoglobin 7.6 g/dL (12.2-16.2)
[2025-10-13 07:26] LABS: Hematocrit 24.8 % (36.0-46.0); Mean Corpuscular Hemoglobin 23.5 pg (28.0-32.0); Mean Corpuscular Volume 77.2 fL (80.0-100.0); Nucleated Red Blood Cells % 0.0 %
[2025-10-13 07:49] LABS: Alkaline Phosphatase 53 U/L (46-116); Calcium 9.5 mg/dL (8.7-10.4); Carbon Dioxide 28 mmol/L (20-31); Chloride 106 mmol/L (98-107); Glucose 99 mg/dL (74-106)
[2025-10-13 07:50] LABS: Alanine Aminotransferase < 9 U/L (7-40); Albumin 3.4 g/dL (3.2-4.8); Anion Gap 6 (5-15); BUN/Creatinine Ratio 30.7 (10.0-20.0); Bilirubin, Total < 0.2 mg/dL (0.2-1.0); Blood Urea Nitrogen 43 mg/dL (9-23); Potassium 5.4 mmol/L (3.5-5.1); Sodium 140 mmol/L (136-145); Total Protein 6.1 g/dL (5.7-8.2)
[2025-10-13] MEDS: LISINOPRIL 20 MG TAB PO SCH (09:21)
--- NOTE | 2025-10-13 11:29 | DVHPN2 ---
Progress Note - Dictate Date Seen: Oct 10, 2025 Medical Necessity Reason Pt with a Central, PICC or Fol: No Subjective iPT WELL KNOWN TO ME NOEW WITH RIGHT SIDED CHEST PAIN PMH DIABETES HTN COPD NEPHRECTOMY NEPHRECTOMY PAD WITH REVASCULARIZATION CAD HFrEF vital signs Vital Sign Date Time Temp Pulse Resp B/P (MAP) Pulse Ox O2 Delivery O2 Flow Rate FiO2 10/13/25 10:08 86 18 100 10/13/25 10:02 Nasal Cannula* 2 28 10/13/25 09:21 99/39 10/13/25 09:00 98.3 98.3 Total Intake and Output 10/12/25 10/12/25 10/13/25 15:00 23:00 07:00 Intake Total 480 ml 699 ml Balance 480 ml 699 ml medications Current Medications Medications Dose Ordered Sig/Audrey Route Start Time Stop Time Status Last Admin Dose Admin Atorvastatin Calcium 40 mg HS PO 10/07/25 22:00 10/12/25 21:30 40 MG Empaglifozin 10 mg DAILY PO 10/08/25 10:00 10/13/25 09:20 10 MG Gabapentin 300 mg TID PO 10/07/25 22:00 10/13/25 06:36 300 MG Levothyroxine Sodium 100 mcg QAM PO 10/08/25 07:00 10/13/25 06:36 100 MCG Spironolactone 25 mg DAILY PO 10/08/25 10:00 10/13/25 09:20 25 MG Patient Own Medication 5 mg BID PO 10/07/25 22:00 10/13/25 09:19 5 MG Acetaminophen 325 mg Q4HP PRN PO 10/07/25 14:30 Ondansetron HCl 4 mg Q4HP PRN IV 10/07/25 14:30 Pantoprazole Sodium 40 mg BID IV 10/08/25 10:00 10/13/25 09:19 40 MG Lorazepam 0.5 mg Q12HP PRN IV 10/08/25 14:15 10/12/25 21:30 0.5 MG Sucralfate 1 gm TID@0600,1130,2200 PO 10/08/25 16:00 10/13/25 09:22 1 GM Loperamide HCl 2 mg PRN PRN PO 10/08/25 23:00 10/09/25 20:54 2 MG Acetaminophen/ Hydrocodone Bitart 1 tab Q6HP PRN PO 10/09/25 10:30 10/13/25 09:22 1 TAB Hydralazine HCl 10 mg Q6HR PRN IV 10/11/25 13:15 Lisinopril 10 mg DAILY PO 10/13/25 10:00 laboratory and microbiology Laboratory Tests 10/13/25 06:40 Test 10/13/25 06:40 Range/Units Serum Glucose 99 74-106 mg/dL Problem List RIGHT SIDED CHEST PAIN PMH DIABETES HTN COPD NEPHRECTOMY NEPHRECTOMY PAD WITH REVASCULARIZATION CAD HFrEF BNP NL TROPONIN NL UGI BLEED HEMATEMESIS MELENA NAUSEA VOMITING AMS HX METABOLIC ENCEPHALOPATHY DIARRHEA HYPOTENSION HYPOVOLEMIA SECONDARY TO DIARRHEA AND POOR PO INTAKE ACUTE RENAL FAILURE CHRONIC RENAL DISEASE CXR MILD LLL ATELECTASIS PMH: LE DOPPLER CONSISTENT WITH ADVANCE PAD HX OF DM VASCULOPATHY NEUROPATHY HX OF RENAL CELL CARCINOMA WITH LEFT PARTIAL NEPHRECTOMY BUT RENAL US SHOWS RIGHT kidney measures 12.7 cm in length. No hydronephrosis. LEFT kidney measures 9.9 cm in length. No hydronephrosis. COPD HX OF TOBACCO USE HTN ORGANIC HD NL EF DIASTOLIC DYSFUNCTION ECHO MILD GLOBAL HYPOKINESIS Assessment/Plan SEVERE ANEMIA GI WORKUP ABX SINCE X RAY CONSISTENT WITH PNA CARDIAC STATUS STABLE EGD SEVERE EROSIVE ESOPHAGITIS CORRECT ANEMIA Plan discussed with: Patient HUNG IVAN MD Oct 13, 2025 11:29
--- NOTE | 2025-10-13 12:31 | DVHPN2 ---
Progress Note Date Seen: Oct 13, 2025 Resident Creating Document: ANGEL KING RESIDENT Medical Necessity Reason Pt with a Central, PICC or Fol: No Subjective Review of Systems Chrissy Billings is a 65-year-old female patient who presents to the ED with chief complaint of burning right-sided chest pain which started on 10/06/2020 at 7:00 p.m. intensity 10/10 which lasted 10 minutes. Per patient pain initiated after she started eating a meal, and resolved spontaneously. Denies any other associated symptoms including dyspnea, syncope, diaphoresis, nausea, vomiting, abdominal pain and sick contacts. Past medical history: Diabetes, hypertension, COPD on home oxygen with 2 L/min, renal cell carcinoma status post partial nephrectomy with no recurrence, systolic congestive heart failure (HFrEF, LVEF 40%), PAD status post stent placement in 2021, diabetic retinopathy with bilateral amaurosis, hypothyroidism. Surgical history: Peripheral angiography with stent placement in iliac artery, cholecystectomy Family history: Mother has thyroid cancer Social history: Lives in [place] with son (next of kin, Marty). Ex tobacco abuse (30 pack-year history of smoking), quit five years ago. Denies current tobacco, alcohol and other drug abuse. Allergy: Codeine Home medication: Albuterol, aspirin, atorvastatin, digoxin, empagliflozin, fluconazole, furosemide, gabapentin, insulin, ipratropium, levothyroxine, spironolactone, pantoprazole, nivolumab, Vericiguat, nifedipine, metformin , lisinopril 10/08-Patient seen and examined. Reports pain well swollen. Ordered CT chest/abdomen/pelvis without contrast. Stool occult blood positive. 10/09-patient seen and examined. No overnight events. H&H stable. 10/13-patient seen and examined. Patient had breakfast this morning. Colonoscopy scheduled for tomorrow. Objective vital signs Vital Sign Date Time Temp Pulse Resp B/P (MAP) Pulse Ox O2 Delivery O2 Flow Rate FiO2 10/13/25 10:08 86 18 100 10/13/25 10:02 Nasal Cannula* 2 28 10/13/25 09:21 99/39 10/13/25 09:00 98.3 98.3 Total Intake and Output 10/12/25 10/12/25 10/13/25 15:00 23:00 07:00 Intake Total 480 ml 699 ml Balance 480 ml 699 ml medications Current Medications Medications Dose Ordered Sig/Audrey Route Start Time Stop Time Status Last Admin Dose Admin Atorvastatin Calcium 40 mg HS PO 10/07/25 22:00 10/12/25 21:30 40 MG Empaglifozin 10 mg DAILY PO 10/08/25 10:00 10/13/25 09:20 10 MG Gabapentin 300 mg TID PO 10/07/25 22:00 10/13/25 06:36 300 MG Levothyroxine Sodium 100 mcg QAM PO 10/08/25 07:00 10/13/25 06:36 100 MCG Spironolactone 25 mg DAILY PO 10/08/25 10:00 10/13/25 09:20 25 MG Patient Own Medication 5 mg BID PO 10/07/25 22:00 10/13/25 09:19 5 MG Acetaminophen 325 mg Q4HP PRN PO 10/07/25 14:30 Ondansetron HCl 4 mg Q4HP PRN IV 10/07/25 14:30 Pantoprazole Sodium 40 mg BID IV 10/08/25 10:00 10/13/25 09:19 40 MG Lorazepam 0.5 mg Q12HP PRN IV 10/08/25 14:15 10/12/25 21:30 0.5 MG Sucralfate 1 gm TID@0600,1130,2200 PO 10/08/25 16:00 10/13/25 09:22 1 GM Loperamide HCl 2 mg PRN PRN PO 10/08/25 23:00 10/09/25 20:54 2 MG Acetaminophen/ Hydrocodone Bitart 1 tab Q6HP PRN PO 10/09/25 10:30 10/13/25 09:22 1 TAB Hydralazine HCl 10 mg Q6HR PRN IV 10/11/25 13:15 Lisinopril 10 mg DAILY PO 10/13/25 10:00 Iron Sucrose 110 ml @ 110 mls/hr DAILY@1200 IV 10/13/25 12:00 10/17/25 11:59 Examination Patient lying in bed, in no acute distress General: Obese, afebrile, palor, mucosae are moist Cardiovascular: Regular S1 and S2. No murmurs, gallops or rubs. No JVD elevation. No pedal edema Respiratory: Normal B/L air entry on room air. Clear lung sounds on auscultation Abdomen: Soft, nontender, nondistended, normoactive bowel sounds, no rebound tenderness, no organomegaly, no masses Genitourinary: Deferred laboratory and microbiology Laboratory Tests 10/13/25 06:40 Test 10/13/25 06:40 Range/Units Serum Glucose 99 74-106 mg/dL Microbiology Date/Time Source Procedure Growth Status 10/09/25 04:10 Stool Stool Culture - Final Complete 10/09/25 04:10 Stool Shiga Toxin I & II - Final Complete 10/08/25 22:15 Nose MRSA Screen - Final Complete Labs and/or images reviewed: Labs reviewed by me, Image(s) reviewed by me Problem List/Assessment/Plan Problem List/Assessment/Plan CT chest/abdomen/pelvis shows numerous solid pulmonary nodules. Extensive pulmonary tree in bud nodularity. There is extensive rectosigmoid colon wall thickening with surrounding stranding and perirectal lymphadenopathy. Differential considerations include colitis, inflammatory bowel disease, neoplastic process. Recommend colonoscopy once acute symptoms resolve to exclude underlying colonic malignancy. Cirrhotic right morphology liver. Splenomegaly. Cholecystectomy. Right-sided chest pain likely esophagitis/GERD Rule out ACS Hypertension Acute kidney injury Anemia likely normocytic History of COPD HFrEF no exacerbation History of renal cell carcinoma status post nephrectomy Diabetes mellitus Hypokalemia Uncontrolled hypothyroidism Plan: Dr. Mckeon: Recommendation Given the extensive rectosigmoid wall thickening with surrounding stranding and perirectal lymphadenopathy, patient will be scheduled for colonoscopy as inpatient 10/14. Continue clear liquid diet. Continue Mag citrate. Continue enema. Colonoscopy scheduled from 10/12 to 10/13 as the patient had breakfast. Extensive rectosigmoid colon wall thickening with a surrounding stranding and perirectal lymphadenopathy seen on CT abdomen. Outpatient colonoscopy advised. Stool occult blood positive, continue Protonix 40 mg IV b.i.d., continue Carafate TID Monitor H&H Avoid NSAIDs/ibuprofen/Aleve/Motrin We will continue follow up Thank you for consulting GI Plan discussed with patient all questions have been answered Case discussed with Dr. Mckeon Plan discussed with: Patient ANGEL KING RESIDENT Oct 13, 2025 12:30
[2025-10-13] MEDS: IRON SUCROSE COMPLEX 110 ML IV SCH (13:41)
[2025-10-13] MEDS: EPOETIN ALFA-EPBX 10,000 UNIT/1ML VIAL SC ONE (13:53)
--- NOTE | 2025-10-13 15:16 | DVHPNRES ---
Progress Note Date Seen: Oct 13, 2025 Resident Creating Document: MCKENZIE CHRISTENSEN RESDIJOSE ROBERTO Medical Necessity Reason Pt with a Central, PICC or Fol: No Subjective Review of Systems Chrissy Billings is a 65-year-old female patient who presents to the ED with chief complaint of burning right-sided chest pain which started on 10/06/2020 at 7:00 p.m. intensity 10/10 which lasted 10 minutes. Per patient pain initiated after she started eating a meal, and resolved spontaneously. Denies any other associated symptoms including dyspnea, syncope, diaphoresis, nausea, vomiting, abdominal pain and sick contacts. Past medical history: Diabetes, hypertension, COPD on home oxygen with 2 L/min, renal cell carcinoma status post partial nephrectomy with no recurrence, systolic congestive heart failure (HFrEF, LVEF 40%), PAD status post stent placement in 2021, diabetic retinopathy with bilateral amaurosis, hypothyroidism. Surgical history: Peripheral angiography with stent placement in iliac artery, cholecystectomy Family history: Mother has thyroid cancer Social history: Lives in [place] with son (next of kin, Marty). Ex tobacco abuse (30 pack-year history of smoking), quit five years ago. Denies current tobacco, alcohol and other drug abuse. Allergy: Codeine Home medication: Albuterol, aspirin, atorvastatin, digoxin, empagliflozin, fluconazole, furosemide, gabapentin, insulin, ipratropium, levothyroxine, spironolactone, pantoprazole, nivolumab, Vericiguat, nifedipine, metformin , lisinopril 10/12, the patient seen and examined at the bedside. Patient is feeling better, but still complaining of abdominal pain. 10/13, the patient seen and examined at the bedside. Patient is still complaining of generalized weakness. Objective vital signs Vital Sign Date Time Temp Pulse Resp B/P (MAP) Pulse Ox O2 Delivery O2 Flow Rate FiO2 10/13/25 10:08 86 18 100 10/13/25 10:02 Nasal Cannula* 2 28 10/13/25 09:21 99/39 10/13/25 09:00 98.3 98.3 Total Intake and Output 10/12/25 10/12/25 10/13/25 15:00 23:00 07:00 Intake Total 480 ml 699 ml Balance 480 ml 699 ml medications Current Medications Medications Dose Ordered Sig/Audrey Route Start Time Stop Time Status Last Admin Dose Admin Atorvastatin Calcium 40 mg HS PO 10/07/25 22:00 10/12/25 21:30 40 MG Empaglifozin 10 mg DAILY PO 10/08/25 10:00 10/13/25 09:20 10 MG Gabapentin 300 mg TID PO 10/07/25 22:00 10/13/25 13:41 300 MG Levothyroxine Sodium 100 mcg QAM PO 10/08/25 07:00 10/13/25 06:36 100 MCG Spironolactone 25 mg DAILY PO 10/08/25 10:00 10/13/25 09:20 25 MG Patient Own Medication 5 mg BID PO 10/07/25 22:00 10/13/25 09:19 5 MG Acetaminophen 325 mg Q4HP PRN PO 10/07/25 14:30 Ondansetron HCl 4 mg Q4HP PRN IV 10/07/25 14:30 Pantoprazole Sodium 40 mg BID IV 10/08/25 10:00 10/13/25 09:19 40 MG Lorazepam 0.5 mg Q12HP PRN IV 10/08/25 14:15 10/12/25 21:30 0.5 MG Sucralfate 1 gm TID@0600,1130,2200 PO 10/08/25 16:00 10/13/25 09:22 1 GM Loperamide HCl 2 mg PRN PRN PO 10/08/25 23:00 10/09/25 20:54 2 MG Acetaminophen/ Hydrocodone Bitart 1 tab Q6HP PRN PO 10/09/25 10:30 10/13/25 09:22 1 TAB Hydralazine HCl 10 mg Q6HR PRN IV 10/11/25 13:15 Lisinopril 10 mg DAILY PO 10/13/25 10:00 Iron Sucrose 110 ml @ 110 mls/hr DAILY@1200 IV 10/13/25 12:00 10/17/25 11:59 10/13/25 13:41 110 MLS/HR Examination General Appearance: Alert, Oriented X3, Cooperative, No acute distress HEENT: Atraumatic, PERRLA, EOMI, Mucous membrane moist/pink Respiratory: Clear to auscultation, Normal air movement Cardiovascular: Regular rate, Normal S1, Normal S2, No murmurs, no chest wall tenderness Abdominal: Normal bowel sounds, Soft, No tenderness, No hepatospenomegaly, No masses Extremities: No clubbing, No cyanosis, No edema, Normal pulses, No tenderness/swelling Skin: No rashes, No breakdown, No significant lesion Neuro: Normal gait, Normal speech, Strength at 5/5 X4 ext, Normal tone, Sensation intact, Cranial nerves 3-12 NL, Reflexes 2+ Psych/Mental Status: Mental status NL, Mood NL laboratory and microbiology Laboratory Tests 10/13/25 06:40 Test 10/13/25 06:40 Range/Units Serum Glucose 99 74-106 mg/dL Microbiology Date/Time Source Procedure Growth Status 10/09/25 04:10 Stool Stool Culture - Final Complete 10/09/25 04:10 Stool Shiga Toxin I & II - Final Complete 10/08/25 22:15 Nose MRSA Screen - Final Complete Labs and/or images reviewed: Labs reviewed by me, Image(s) reviewed by me Problem List/Assessment/Plan Problem List/Assessment/Plan Chest pain, likely musculoskeletal Possible GI bleeding Severe anemia, due to above KELLY, likely VMN, due to above Diabetes type 2 COPD, on home oxygen 2 L through nasal cannula Hypertension History of renal cell carcinoma, status post partial nephrectomy Systolic heart failure, LVEF 40% History of peripheral artery disease, status post stent placement Diabetic retinopathy Hypothyroidism Hypokalemia * Stool occult blood is positive * CT scan shows, extensive rectosigmoid colon wall thickening with surrounding stranding and perirectal lymphadenopathy * EGD on 10/10 shows, 2-3 cm sliding-type hiatal hernia with the acute severe linear erosive esophagitis with linear ulcers extending into the distal 10 cm of the esophagus with suspected underlying Barretts from which biopsies were obtained and mild antral gastritis otherwise essentially completely normal endoscopic examination up to the 2nd and 3rd part of the duodenum with no fresh or old blood in the upper GI tract at this time Plan/recommendation: * Consulted cardiology, recommended medical management * Consulted GI, performed upper GI endoscopy on 09/09, planned for colonoscopy on 10/14 * Pain management * Continue home meds * Hold on antiplatelet/anticoagulant, due to possible GI bleeding * Repleted electrolyte * PT eval DIET: Cardiac diet DVT PROPHYLAXIS: SCD CODE STATUS: Goal of care discussed for more than 18 minutes, full code DISPOSITION: Telemetry Patient's status and plan discussed with the patient. Case discussed with Dr. Hamm. Plan discussed with: Patient, Other (RN) My Orders My Orders Orders - MCKENZIE CHRISTENSEN RESDIJOSE ROBERTO Procedure Category Date Status Time Sodium Chloride 0.9% PHA 10/13/25 In Process 13:45 Date of Service: Oct 13, 2025 Billing Provider: YENNI PEARSON MD Common Visit Codes: [id number] INP/OBS CARE(HIGH) MCKENZIE CHRISTENSEN RESDIENT Oct 13, 2025 15:16 YENNI PEARSON MD Oct 13, 2025 16:41
[2025-10-13] MEDS: SODIUM CHLORIDE 0.9% 1,000 ML IV ONE (15:48)
[2025-10-13] MEDS ORDERED: MAGNESIUM CITRATE SOLUTION 300 ML BTL PO ONE (18:00)
[2025-10-14] VITALS (43 sets, daily range): BP systolic 73–122; BP diastolic 26–65; PULSE 93–121; RESP 12–25; TEMP 97.6–99.7; O2SAT 91–100
[2025-10-14] MEDS: MAGNESIUM CITRATE SOLUTION 300 ML BTL PO ONE (05:34)
[2025-10-14 07:39] LABS: Hematocrit 25.8 % (36.0-46.0); Hemoglobin 7.8 g/dL (12.2-16.2); Mean Corpuscular Hemoglobin 23.7 pg (28.0-32.0); Mean Corpuscular Volume 78.2 fL (80.0-100.0); Nucleated Red Blood Cells % 0.0 %
[2025-10-14 08:07] LABS: Albumin 3.6 g/dL (3.2-4.8); Alkaline Phosphatase 63 U/L (46-116); Anion Gap 6 (5-15); BUN/Creatinine Ratio 34.2 (10.0-20.0); Calcium 9.4 mg/dL (8.7-10.4); Carbon Dioxide 28 mmol/L (20-31); Chloride 106 mmol/L (98-107); Glucose 95 mg/dL (74-106); Sodium 140 mmol/L (136-145); Total Protein 6.4 g/dL (5.7-8.2)
[2025-10-14 08:09] LABS: Alanine Aminotransferase < 9 U/L (7-40); Bilirubin, Total 0.2 mg/dL (0.2-1.0); Blood Urea Nitrogen 39 mg/dL (9-23); Potassium 5.5 mmol/L (3.5-5.1)
[2025-10-14] MEDS: SODIUM CHLORIDE 0.9% 250 ML IV ONE ×2 (10:35→10:40)
[2025-10-14] MEDS: CALCIUM GLUC 1,000mg/50ml-NS 50 ML IV ONE (11:04)
--- NOTE | 2025-10-14 11:04 | DVH ---
CHEST RADIOGRAPH Indication: SOB Technique: Single frontal view of the chest was obtained. Comparison: XY CHEST PORTABLE on DOS: 10/07/25 Findings: Bilateral interstitial opacities. No significant pleural effusion. No pneumothorax. Stable cardiomediastinal silhouette. IMPRESSION: Diffuse bilateral interstitial opacities are again seen.
[2025-10-14] MEDS: SODIUM CHLORIDE 0.9% 1,000 ML IV ONE ×2 (11:15→13:30)
[2025-10-14] MEDS: ALBUTEROL SULF 2.5 MG/0.5ML(0.5%) NEB SOLN NEB ONE (11:29)
[2025-10-14 11:33] LABS: Base Excess -2.4 mmol/L (-2.0-3.0)
[2025-10-14 12:17] LABS: Hemoglobin 7.4 g/dL (12.2-16.2)
[2025-10-14 12:19] LABS: Hematocrit 24.9 % (36.0-46.0); Mean Corpuscular Hemoglobin 23.4 pg (28.0-32.0); Mean Corpuscular Volume 79.4 fL (80.0-100.0); Nucleated Red Blood Cells % 0.1 %
[2025-10-14 12:30] LABS: INR 1.36 (0.9-1.15); Prothrombin Time 14.0 sec (9.3-11.8)
[2025-10-14 12:31] LABS: Albumin 3.2 g/dL (3.2-4.8); Alkaline Phosphatase 63 U/L (46-116); Anion Gap 8 (5-15); BUN/Creatinine Ratio 34.5 (10.0-20.0); Calcium 9.1 mg/dL (8.7-10.4); Carbon Dioxide 24 mmol/L (20-31); Potassium 4.8 mmol/L (3.5-5.1); Sodium 141 mmol/L (136-145); Total Protein 5.8 g/dL (5.7-8.2)
[2025-10-14 12:33] LABS: Alanine Aminotransferase < 9 U/L (7-40); Bilirubin, Total 0.2 mg/dL (0.2-1.0); Blood Urea Nitrogen 39 mg/dL (9-23); Chloride 109 mmol/L (98-107); Glucose 124 mg/dL (74-106)
[2025-10-14] MEDS: NOREPINEPHRINE 8 MG/250ML KIT 250 ML IV ONE (12:51)
--- NOTE | 2025-10-14 13:16 | DVHPN2 ---
Progress Note - Dictate Date Seen: Oct 14, 2025 Medical Necessity Reason Pt with a Central, PICC or Fol: No Subjective iPT WELL KNOWN TO ME NOEW WITH RIGHT SIDED CHEST PAIN PMH DIABETES HTN COPD NEPHRECTOMY NEPHRECTOMY PAD WITH REVASCULARIZATION CAD HFrEF vital signs Vital Sign Date Time Temp Pulse Resp B/P (MAP) Pulse Ox O2 Delivery O2 Flow Rate FiO2 10/14/25 13:00 98.4 103 20 88/52 (64) 100 98.4 10/14/25 11:25 Nasal Cannula* 2 28 Total Intake and Output 10/13/25 10/13/25 10/14/25 15:00 23:00 07:00 Intake Total 110 ml 1075 ml Balance 110 ml 1075 ml medications Current Medications Medications Dose Ordered Sig/Audrey Route Start Time Stop Time Status Last Admin Dose Admin Atorvastatin Calcium 40 mg HS PO 10/07/25 22:00 10/13/25 21:49 40 MG Empaglifozin 10 mg DAILY PO 10/08/25 10:00 10/14/25 09:38 10 MG Gabapentin 300 mg TID PO 10/07/25 22:00 10/14/25 05:35 300 MG Levothyroxine Sodium 100 mcg QAM PO 10/08/25 07:00 10/14/25 05:34 100 MCG Patient Own Medication 5 mg BID PO 10/07/25 22:00 10/13/25 21:49 5 MG Acetaminophen 325 mg Q4HP PRN PO 10/07/25 14:30 Ondansetron HCl 4 mg Q4HP PRN IV 10/07/25 14:30 Pantoprazole Sodium 40 mg BID IV 10/08/25 10:00 10/14/25 09:48 40 MG Lorazepam 0.5 mg Q12HP PRN IV 10/08/25 14:15 10/13/25 15:46 0.5 MG Sucralfate 1 gm TID@0600,1130,2200 PO 10/08/25 16:00 10/14/25 05:35 1 GM Loperamide HCl 2 mg PRN PRN PO 10/08/25 23:00 10/09/25 20:54 2 MG Acetaminophen/ Hydrocodone Bitart 1 tab Q6HP PRN PO 10/09/25 10:30 10/13/25 17:08 1 TAB Hydralazine HCl 10 mg Q6HR PRN IV 10/11/25 13:15 Iron Sucrose 110 ml @ 110 mls/hr DAILY@1200 IV 10/13/25 12:00 10/17/25 11:59 10/13/25 13:41 110 MLS/HR laboratory and microbiology Laboratory Tests 10/14/25 11:49 Test 10/14/25 11:49 Range/Units Serum Glucose 124 H 74-106 mg/dL Problem List RIGHT SIDED CHEST PAIN PMH DIABETES HTN COPD NEPHRECTOMY NEPHRECTOMY PAD WITH REVASCULARIZATION CAD HFrEF BNP NL TROPONIN NL UGI BLEED HEMATEMESIS MELENA NAUSEA VOMITING AMS HX METABOLIC ENCEPHALOPATHY DIARRHEA HYPOTENSION HYPOVOLEMIA SECONDARY TO DIARRHEA AND POOR PO INTAKE ACUTE RENAL FAILURE CHRONIC RENAL DISEASE CXR MILD LLL ATELECTASIS PMH: LE DOPPLER CONSISTENT WITH ADVANCE PAD HX OF DM VASCULOPATHY NEUROPATHY HX OF RENAL CELL CARCINOMA WITH LEFT PARTIAL NEPHRECTOMY BUT RENAL US SHOWS RIGHT kidney measures 12.7 cm in length. No hydronephrosis. LEFT kidney measures 9.9 cm in length. No hydronephrosis. COPD HX OF TOBACCO USE HTN ORGANIC HD NL EF DIASTOLIC DYSFUNCTION ECHO MILD GLOBAL HYPOKINESIS Assessment/Plan SEVERE ANEMIA GI WORKUP ABX SINCE X RAY CONSISTENT WITH PNA CARDIAC STATUS STABLE EGD SEVERE EROSIVE ESOPHAGITIS CORRECT ANEMIA CT OF CHEST AND ABD MULTIPLE LUNG NODULES CIRRHOSIS OF LIVER Plan discussed with: HUNG Wright MD Oct 14, 2025 13:16
[2025-10-14] MEDS: LORazepam 2MG/ML-1ML VIAL IV ONE (13:30)
[2025-10-14] MEDS: NOREPINEPHRINE 8 MG/250ML KIT 250 ML IV SCH (13:30)
[2025-10-14 14:02] LABS: Urine Budding Yeast LOADED /hpf (None Seen); Urine Protein, UAD 1+ (Negative); Urine WBC Clumps PRESENT /hpf (None Seen)
[2025-10-14] MEDS ORDERED: SODIUM CHLORIDE LOCK 10 ML ONE (15:01)
[2025-10-14] MEDS ORDERED: diphenhydrAMINE HCL 50 MG/1 ML VL ONE (15:02)
[2025-10-14] MEDS ORDERED: MIDAZOLAM HCL 5 MG/ML-1ML VIAL ONE (15:02)
[2025-10-14] MEDS ORDERED: fentaNYL CITRATE 100 MCG/2 ML VL ONE (15:02)
--- NOTE | 2025-10-14 15:05 | DVH ---
CHEST RADIOGRAPH Indication: CENTRAL LINE PLACEMENT Technique: Single frontal view of the chest was obtained Comparison: XY CHEST XRAY 1 VIEW on DOS: 10/14/25, XY CHEST PORTABLE on DOS: 10/07/25, XY CHEST PORTABLE on DOS: 09/04/25 FINDINGS: Lines and Tubes: Interval placement of a right internal jugular catheter. Tip appears to be in the right atrium. Small right pleural effusion. Lungs: No focal consolidation. Pleura: No effusion. No pneumothorax. Cardiomediastinal contours: Unremarkable Bones: No acute osseous abnormality. IMPRESSION: 1. Interval placement of a internal jugular catheter from the right internal jugular vein. 2. Tip of the catheter appears to be in the right atrium. 3. Mildly prominent bronchovascular markings are noted diffusely throughout both lung churchill with a small right pleural effusion.
[2025-10-14] MEDS: VASOPRESSIN 20 UNITS in SODIUM CHL 0.9% 99 ML IV SCH (16:30)
--- NOTE | 2025-10-14 16:53 | DVHOP2 ---
Operative Report DATE OF OPERATION: 10/14/25 PROCEDURE: Incomplete Colonoscopy/ flexible sigmoidoscopy. PREOPERATIVE INDICATION: The patient is a 65 -year-old female undergoing colonoscopy for evaluation of abnormal finding GI tract imaging with rectosigmoid thickening POSTOPERATIVE DIAGNOSES: 1. Patient had a very poor prep with a large amount of chunks of brown stool in the rectosigmoid and some liquid stool that was draining around it 2. I suspect the abnormal finding CT scan was related to fecal impaction with stercoral colitis and no clear-cut mass was seen (however study was limited) PROCEDURE PERFORMED BY: Bladimir Mckeon M.D. SCOPE: Olympus videocolonoscope. ASA CLASS: 3 PREOPERATIVE MEDICATIONS: No sedation was given PROCEDURE IN DETAIL: After obtaining an informed consent, the patient was placed on left lateral decubitus position. She was then sedated with the above medications. A rectal examination was performed that was normal. The colonoscope was then passed through the anus into the rectosigmoid. The patient had large amount of check so brown stool and some liquid stool draining around it The visualized portion of the rectosigmoid mucosa appeared to be normal without any mass however study was limited The colonoscope was then withdrawn .The patient tolerated the procedure well without difficulty. WITHDRAWAL TIME: Not applicable QUALITY OF THE PREP: Welling Bowel Prep score: Not applicable very poor prep COMPLICATIONS : None SPECIMENS: None DISPOSITION: Stable Continue to monitor in ICU PLAN: 1. Continue conservative management at this time 2. MiraLax 17 g p.o. daily 3. Replace her electrolytes 4. Advance diet as tolerated 5. Defer colonoscopy at this time and continue conservative observation because of poor medical condition and status BLADIMIR MCKEON MD Oct 14, 2025 16:53
[2025-10-14] MEDS: PIPERACILLIN-TAZOB 3.375GM 100 ML IV SCH (17:02)
[2025-10-14 18:04] LABS: Hematocrit 25.7 % (36.0-46.0); Hemoglobin 7.5 g/dL (12.2-16.2); Mean Corpuscular Hemoglobin 23.0 pg (28.0-32.0); Mean Corpuscular Volume 78.9 fL (80.0-100.0); Nucleated Red Blood Cells % 0.0 %
--- NOTE | 2025-10-14 18:24 | DVHPNRES ---
Progress Note Date Seen: Oct 14, 2025 Resident Creating Document: [facility] Medical Necessity Reason Pt with a Central, PICC or Fol: No Subjective Review of Systems Chrissy Billings is a 65-year-old female patient who presents to the ED with chief complaint of burning right-sided chest pain which started on 10/06/2020 at 7:00 p.m. intensity 10/10 which lasted 10 minutes. Per patient pain initiated after she started eating a meal, and resolved spontaneously. Denies any other associated symptoms including dyspnea, syncope, diaphoresis, nausea, vomiting, abdominal pain and sick contacts. Past medical history: Diabetes, hypertension, COPD on home oxygen with 2 L/min, renal cell carcinoma status post partial nephrectomy with no recurrence, systolic congestive heart failure (HFrEF, LVEF 40%), PAD status post stent placement in 2021, diabetic retinopathy with bilateral amaurosis, hypothyroidism. Surgical history: Peripheral angiography with stent placement in iliac artery, cholecystectomy Family history: Mother has thyroid cancer Social history: Lives in [place] with son (next of kin, Marty). Ex tobacco abuse (30 pack-year history of smoking), quit five years ago. Denies current tobacco, alcohol and other drug abuse. Allergy: Codeine Home medication: Albuterol, aspirin, atorvastatin, digoxin, empagliflozin, fluconazole, furosemide, gabapentin, insulin, ipratropium, levothyroxine, spironolactone, pantoprazole, nivolumab, Vericiguat, nifedipine, metformin , lisinopril 10/12, the patient seen and examined at the bedside. Patient is feeling better, but still complaining of abdominal pain. 10/13, the patient seen and examined at the bedside. Patient is still complaining of generalized weakness. On 10/14, the patient is seen and examined at the bedside. Patient Is more altered, and weak. Blood pressure, normal saline bolus given, but could not improved. Central line placed, the patient was started on vasopressor. Colonoscopy performed by GI, but due to high volume of stool, had limited visualization otherwise no significant finding. Objective vital signs Vital Sign Date Time Temp Pulse Resp B/P (MAP) Pulse Ox O2 Delivery O2 Flow Rate FiO2 10/14/25 17:45 115 16 98 10/14/25 16:25 Nasal Cannula 6.0 100 10/14/25 16:00 98.9 98.9 Total Intake and Output 10/13/25 10/13/25 10/14/25 15:00 23:00 07:00 Intake Total 110 ml 1075 ml Balance 110 ml 1075 ml medications Current Medications Medications Dose Ordered Sig/Audrey Route Start Time Stop Time Status Last Admin Dose Admin Atorvastatin Calcium 40 mg HS PO 10/07/25 22:00 10/13/25 21:49 40 MG Gabapentin 300 mg TID PO 10/07/25 22:00 10/14/25 05:35 300 MG Levothyroxine Sodium 100 mcg QAM PO 10/08/25 07:00 10/14/25 05:34 100 MCG Acetaminophen 325 mg Q4HP PRN PO 10/07/25 14:30 Pantoprazole Sodium 40 mg BID IV 10/08/25 10:00 10/14/25 09:48 40 MG Lorazepam 0.5 mg Q12HP PRN IV 10/08/25 14:15 10/13/25 15:46 0.5 MG Sucralfate 1 gm TID@0600,1130,2200 PO 10/08/25 16:00 10/14/25 05:35 1 GM Loperamide HCl 2 mg PRN PRN PO 10/08/25 23:00 10/09/25 20:54 2 MG Acetaminophen/ Hydrocodone Bitart 1 tab Q6HP PRN PO 10/09/25 10:30 10/13/25 17:08 1 TAB Hydralazine HCl 10 mg Q6HR PRN IV 10/11/25 13:15 Iron Sucrose 110 ml @ 110 mls/hr DAILY@1200 IV 10/13/25 12:00 10/17/25 11:59 10/14/25 15:38 110 MLS/HR Piperacillin Sod/ Tazobactam Sod 100 ml @ 25 mls/hr Q8HR IV 10/14/25 14:00 10/14/25 17:02 25 MLS/HR Linezolid 300 ml @ 150 mls/hr Q12HR IV 10/14/25 22:00 Norepinephrine Bitartrate 250 ml @ 3.75 mls/hr Q24H IV 10/14/25 13:30 10/14/25 13:30 3.75 MLS/HR Vasopressin 20 units/Sodium Chloride 100 ml @ 9 mls/hr Q11H7M IV 10/14/25 16:30 Ondansetron HCl 4 mg Q6HPRN PRN IV 10/14/25 16:45 Examination General Appearance: Alert, Oriented X3, Cooperative, No acute distress HEENT: Atraumatic, PERRLA, EOMI, Mucous membrane moist/pink Respiratory: Clear to auscultation, Normal air movement Cardiovascular: Regular rate, Normal S1, Normal S2, No murmurs, no chest wall tenderness Abdominal: Normal bowel sounds, Soft, No tenderness, No hepatospenomegaly, No masses Extremities: No clubbing, No cyanosis, No edema, Normal pulses, No tenderness/swelling Skin: No rashes, No breakdown, No significant lesion Neuro: Normal gait, Normal speech, Strength at 5/5 X4 ext, Normal tone, Sensation intact, Cranial nerves 3-12 NL, Reflexes 2+ Psych/Mental Status: Mental status NL, Mood NL laboratory and microbiology Laboratory Tests 10/14/25 11:49 Test 10/14/25 11:49 Range/Units Serum Glucose 124 H 74-106 mg/dL Microbiology Date/Time Source Procedure Growth Status 10/09/25 04:10 Stool Stool Culture - Final Complete 10/09/25 04:10 Stool Shiga Toxin I & II - Final Complete 10/08/25 22:15 Nose MRSA Screen - Final Complete Problem List/Assessment/Plan Problem List/Assessment/Plan Chest pain, likely musculoskeletal Possible GI bleeding Severe anemia, due to above KELLY, likely VMN, due to above Diabetes type 2 COPD, on home oxygen 2 L through nasal cannula Hypertension History of renal cell carcinoma, status post partial nephrectomy Systolic heart failure, LVEF 40% History of peripheral artery disease, status post stent placement Diabetic retinopathy Hypothyroidism Hypokalemia * Stool occult blood is positive * CT scan shows, extensive rectosigmoid colon wall thickening with surrounding stranding and perirectal lymphadenopathy * EGD on 10/10 shows, 2-3 cm sliding-type hiatal hernia with the acute severe linear erosive esophagitis with linear ulcers extending into the distal 10 cm of the esophagus with suspected underlying Barretts from which biopsies were obtained and mild antral gastritis otherwise essentially completely normal endoscopic examination up to the 2nd and 3rd part of the duodenum with no fresh or old blood in the upper GI tract at this time Plan/recommendation: * Consulted cardiology, recommended medical management * Consulted GI, performed upper GI endoscopy on 09/09 * Colonoscopy performed on 10/14, due to high volume of stool, could not perform could study, otherwise no significant finding * Pain management * Vasopressor * Continue home meds * Hold on antiplatelet/anticoagulant, due to possible GI bleeding * Repleted electrolyte * PT eval DIET: Cardiac diet DVT PROPHYLAXIS: SCD CODE STATUS: Goal of care discussed for more than 18 minutes, full code DISPOSITION: ICU status On 10/14, the patient is seen and examined at the bedside. Patient Is more altered, and weak. Blood pressure, normal saline bolus given, but could not improved. Central line placed, the patient was started on vasopressor. Colonoscopy performed by GI, but due to high volume of stool, had limited visualization otherwise no significant finding. Critical care time more than 81 minutes Patient's status and plan discussed with the patient, patient's son's and patient's brother at the bedside. Case discussed with Dr. Hamm. Plan discussed with: Patient, Other (RN) My Orders My Orders Orders - MCKENZIE CHRISTENSEN Procedure Category Date Status Time Chest Xray 1 View XY 10/14/25 Resulted 10:21 Change Midline ANDREW 10/14/25 In Process Dressing Q7 Day 13:27 Insert Midline ORDERS 10/14/25 Transmitted 13:27 * Wound Consult CONS 10/14/25 Transmitted Complete Blood Count LAB 10/14/25 In Process 15:52 Lactic Acid W/ Reflex LAB 10/14/25 In Process Order 15:52 Sodium Chl 0.9% PHA 10/14/25 In Process (So... W/Vasopressin 16:30 Date of Service: Nov 13, 2025 Billing Provider: YENNI PEARSON MD Common Visit Codes: 18564-HABTDOILLQ INP/OBS CARE(HIGH) MCKENZIE CHRISTENSEN RESDIENT Oct 14, 2025 18:24 YENNI PEARSON MD Oct 20, 2025 09:58
--- NOTE | 2025-10-14 18:32 | DVHNC2 ---
Central Line Recorder of insertion practice: Director Data Processing Occupation of sales promotion representative: Other (resident) Indication: Hypotension Room prepared for procedure: Yes Director Data Processing performed hand hygien: Yes Maximal sterile barrier precau: Mask/Eye shield, Sterile gown, Cap, Sterlie gloves, Large sterlie drape Skin Preparation: Chlorhexidine gluconate Skin preparation completely dr: Yes Insertion site: Right, Internal jugular Central line catheter type: [id number] dialysis Number of lumens: 3 Post Assessment: Chest X-Ray, Proper placement, No Pneumothorax Informed consent obtained: Yes Risks/benefits/alt described: Yes Date of Service: Oct 14, 2025 Billing Provider: YENNI PEARSON MD Common Visit Codes: PROCEDURE ONLY Procedure Codes: [id number] NON-TUNNEL CV CATH ANGEL KING RESIDENT Oct 14, 2025 18:32 YENNI PEARSON MD Oct 20, 2025 10:03
[2025-10-14] MEDS: LINEZOLID 600MG/300ML 300 ML IV SCH (21:03)
[2025-10-15] VITALS (90 sets, daily range): BP systolic 70–167; BP diastolic 29–139; PULSE 77–105; RESP 8–22; TEMP 97.5–101.2; O2SAT 90–100
[2025-10-15 03:36] LABS: Nucleated Red Blood Cells % 0.0 %
[2025-10-15 03:39] LABS: Hematocrit 22.9 % (36.0-46.0); Hemoglobin 7.3 g/dL (12.2-16.2); Mean Corpuscular Hemoglobin 24.7 pg (28.0-32.0); Mean Corpuscular Volume 78.0 fL (80.0-100.0)
[2025-10-15 04:03] LABS: Alkaline Phosphatase 65 U/L (46-116); Carbon Dioxide 23 mmol/L (20-31)
[2025-10-15 04:04] LABS: Anion Gap 9 (5-15); BUN/Creatinine Ratio 35.0 (10.0-20.0); Potassium 4.6 mmol/L (3.5-5.1); Sodium 139 mmol/L (136-145)
[2025-10-15 04:17] LABS: Alanine Aminotransferase < 9 U/L (7-40); Albumin 3.0 g/dL (3.2-4.8); Bilirubin, Total 0.2 mg/dL (0.2-1.0); Blood Urea Nitrogen 36 mg/dL (9-23); Calcium 8.5 mg/dL (8.7-10.4); Chloride 107 mmol/L (98-107); Glucose 160 mg/dL (74-106); Total Protein 5.5 g/dL (5.7-8.2)
--- NOTE | 2025-10-15 13:51 | DVHPN2 ---
Progress Note Date Seen: Oct 15, 2025 Resident Creating Document: ANGEL KING RESIDENT Medical Necessity Reason Pt with a Central, PICC or Fol: No Subjective Review of Systems Chrissy Billings is a 65-year-old female patient who presents to the ED with chief complaint of burning right-sided chest pain which started on 10/06/2020 at 7:00 p.m. intensity 10/10 which lasted 10 minutes. Per patient pain initiated after she started eating a meal, and resolved spontaneously. Denies any other associated symptoms including dyspnea, syncope, diaphoresis, nausea, vomiting, abdominal pain and sick contacts. Past medical history: Diabetes, hypertension, COPD on home oxygen with 2 L/min, renal cell carcinoma status post partial nephrectomy with no recurrence, systolic congestive heart failure (HFrEF, LVEF 40%), PAD status post stent placement in 2021, diabetic retinopathy with bilateral amaurosis, hypothyroidism. Surgical history: Peripheral angiography with stent placement in iliac artery, cholecystectomy Family history: Mother has thyroid cancer Social history: Lives in [place] with son (next of kin, Marty). Ex tobacco abuse (30 pack-year history of smoking), quit five years ago. Denies current tobacco, alcohol and other drug abuse. Allergy: Codeine Home medication: Albuterol, aspirin, atorvastatin, digoxin, empagliflozin, fluconazole, furosemide, gabapentin, insulin, ipratropium, levothyroxine, spironolactone, pantoprazole, nivolumab, Vericiguat, nifedipine, metformin , lisinopril 10/08-Patient seen and examined. Reports pain well swollen. Ordered CT chest/abdomen/pelvis without contrast. Stool occult blood positive. 10/09-patient seen and examined. No overnight events. H&H stable. 10/13-patient seen and examined. Patient had breakfast this morning. Colonoscopy scheduled for tomorrow. 10/15-patient seen and examined. Having multiple bowel movements overnight. Liquid in consistency. On Levophed. Objective vital signs Vital Sign Date Time Temp Pulse Resp B/P (MAP) Pulse Ox O2 Delivery O2 Flow Rate FiO2 10/15/25 09:16 101/50 10/15/25 08:00 101 10/15/25 08:00 Nasal Cannula* 3 32 10/15/25 06:00 13 100 10/15/25 04:00 97.5 97.5 Total Intake and Output 10/14/25 10/14/25 10/15/25 15:00 23:00 07:00 Intake Total 138.75 ml 153.75 ml Output Total 600 ml Balance -461.25 ml 153.75 ml medications Current Medications Medications Dose Ordered Sig/Audrey Route Start Time Stop Time Status Last Admin Dose Admin Atorvastatin Calcium 40 mg HS PO 10/07/25 22:00 10/14/25 21:56 40 MG Gabapentin 300 mg TID PO 10/07/25 22:00 10/15/25 05:57 300 MG Levothyroxine Sodium 100 mcg QAM PO 10/08/25 07:00 10/15/25 06:01 100 MCG Acetaminophen 325 mg Q4HP PRN PO 10/07/25 14:30 Pantoprazole Sodium 40 mg BID IV 10/08/25 10:00 10/15/25 09:37 40 MG Lorazepam 0.5 mg Q12HP PRN IV 10/08/25 14:15 10/14/25 18:29 0.5 MG Sucralfate 1 gm TID@0600,1130,2200 PO 10/08/25 16:00 10/15/25 05:57 1 GM Loperamide HCl 2 mg PRN PRN PO 10/08/25 23:00 10/09/25 20:54 2 MG Acetaminophen/ Hydrocodone Bitart 1 tab Q6HP PRN PO 10/09/25 10:30 10/14/25 23:29 1 TAB Hydralazine HCl 10 mg Q6HR PRN IV 10/11/25 13:15 Iron Sucrose 110 ml @ 110 mls/hr DAILY@1200 IV 10/13/25 12:00 10/17/25 11:59 10/15/25 13:17 110 MLS/HR Piperacillin Sod/ Tazobactam Sod 100 ml @ 25 mls/hr Q8HR IV 10/14/25 14:00 10/15/25 05:57 25 MLS/HR Linezolid 300 ml @ 150 mls/hr Q12HR IV 10/14/25 22:00 10/15/25 09:38 150 MLS/HR Norepinephrine Bitartrate 250 ml @ 3.75 mls/hr Q24H IV 10/14/25 13:30 10/15/25 09:16 30 MLS/HR Vasopressin 20 units/Sodium Chloride 100 ml @ 9 mls/hr Q11H7M IV 10/14/25 16:30 Ondansetron HCl 4 mg Q6HPRN PRN IV 10/14/25 16:45 Examination Patient lying in bed, in no acute distress General: Obese, afebrile, palor, mucosae are moist Cardiovascular: Regular S1 and S2. No murmurs, gallops or rubs. No JVD elevation. No pedal edema Respiratory: Normal B/L air entry on room air. Clear lung sounds on auscultation Abdomen: Soft, nontender, nondistended, normoactive bowel sounds, no rebound tenderness, no organomegaly, no masses Genitourinary: Deferred laboratory and microbiology Laboratory Tests 10/15/25 02:58 Test 10/15/25 02:58 Range/Units Serum Glucose 160 H 74-106 mg/dL Microbiology Date/Time Source Procedure Growth Status 10/09/25 04:10 Stool Stool Culture - Final Complete 10/09/25 04:10 Stool Shiga Toxin I & II - Final Complete 10/08/25 22:15 Nose MRSA Screen - Final Complete Labs and/or images reviewed: Labs reviewed by me, Image(s) reviewed by me Problem List/Assessment/Plan Problem List/Assessment/Plan CT chest/abdomen/pelvis shows numerous solid pulmonary nodules. Extensive pulmonary tree in bud nodularity. There is extensive rectosigmoid colon wall thickening with surrounding stranding and perirectal lymphadenopathy. Differential considerations include colitis, inflammatory bowel disease, neoplastic process. Recommend colonoscopy once acute symptoms resolve to exclude underlying colonic malignancy. Cirrhotic right morphology liver. Splenomegaly. Cholecystectomy. Right-sided chest pain likely esophagitis/GERD Rule out ACS Hypertension Acute kidney injury Anemia likely normocytic History of COPD HFrEF no exacerbation History of renal cell carcinoma status post nephrectomy Diabetes mellitus Hypokalemia Uncontrolled hypothyroidism Plan: Dr. Mckeon: Recommendation Given the extensive rectosigmoid wall thickening with surrounding stranding and perirectal lymphadenopathy, patient will be scheduled for colonoscopy as inpatient 10/14. Colonoscopy could not be completed given very poor prep with large amount of chunks of brown stool. Continue MiraLax 17 g p.o. daily, follow up with the stool WBC, stool occult stool culture Replenish electrolytes Extensive rectosigmoid colon wall thickening with a surrounding stranding and perirectal lymphadenopathy seen on CT abdomen. Outpatient colonoscopy advised. Stool occult blood positive, continue Protonix 40 mg IV b.i.d., continue Carafate TID Monitor H&H Avoid NSAIDs/ibuprofen/Aleve/Motrin Advanced diet as tolerated Defer colonoscopy at this time and continue conservative observation because of poor medical condition and status We will continue follow up Thank you for consulting GI Plan discussed with patient all questions have been answered Case discussed with Dr. Mckeon Plan discussed with: Patient My Orders My Orders Orders - ANGEL KING Procedure Category Date Status Time Chest Portable XY 10/14/25 Resulted 14:27 Dietary Evaluation Review Comments: Nutrition Recommendation: 1) Avdnace to soft diet as medically feasible 2) Monitor PO intake, lab values, weight trend, and I/O Expected Outcomes/Goals: GI symptoms to improve Intake to meet >75% estimated needs FU 2-3 days ANGEL KING Oct 15, 2025 13:51
--- NOTE | 2025-10-15 15:31 | DVHPNRES ---
Progress Note Date Seen: Oct 15, 2025 Resident Creating Document: [facility] Medical Necessity Reason Pt with a Central, PICC or Fol: No Subjective Review of Systems Chrissy Billings is a 65-year-old female patient who presents to the ED with chief complaint of burning right-sided chest pain which started on 10/06/2020 at 7:00 p.m. intensity 10/10 which lasted 10 minutes. Per patient pain initiated after she started eating a meal, and resolved spontaneously. Denies any other associated symptoms including dyspnea, syncope, diaphoresis, nausea, vomiting, abdominal pain and sick contacts. Past medical history: Diabetes, hypertension, COPD on home oxygen with 2 L/min, renal cell carcinoma status post partial nephrectomy with no recurrence, systolic congestive heart failure (HFrEF, LVEF 40%), PAD status post stent placement in 2021, diabetic retinopathy with bilateral amaurosis, hypothyroidism. Surgical history: Peripheral angiography with stent placement in iliac artery, cholecystectomy Family history: Mother has thyroid cancer Social history: Lives in [place] with son (next of kin, Marty). Ex tobacco abuse (30 pack-year history of smoking), quit five years ago. Denies current tobacco, alcohol and other drug abuse. Allergy: Codeine Home medication: Albuterol, aspirin, atorvastatin, digoxin, empagliflozin, fluconazole, furosemide, gabapentin, insulin, ipratropium, levothyroxine, spironolactone, pantoprazole, nivolumab, Vericiguat, nifedipine, metformin , lisinopril 10/12, the patient seen and examined at the bedside. Patient is feeling better, but still complaining of abdominal pain. 10/13, the patient seen and examined at the bedside. Patient is still complaining of generalized weakness. On 10/14, the patient is seen and examined at the bedside. Patient Is more altered, and weak. Blood pressure, normal saline bolus given, but could not improved. Central line placed, the patient was started on vasopressor. Colonoscopy performed by GI, but due to high volume of stool, had limited visualization otherwise no significant finding On 10/15, the patient seen and examined at the bedside. Patient is altered, and can not provide proper history. Objective vital signs Vital Sign Date Time Temp Pulse Resp B/P (MAP) Pulse Ox O2 Delivery O2 Flow Rate FiO2 10/15/25 13:45 92 17 112/58 (76) 95 10/15/25 12:00 99.9 99.9 10/15/25 08:00 Nasal Cannula* 3 32 Total Intake and Output 10/14/25 10/14/25 10/15/25 15:00 23:00 07:00 Intake Total 138.75 ml 153.75 ml Output Total 600 ml Balance -461.25 ml 153.75 ml medications Current Medications Medications Dose Ordered Sig/Audrey Route Start Time Stop Time Status Last Admin Dose Admin Atorvastatin Calcium 40 mg HS PO 10/07/25 22:00 10/14/25 21:56 40 MG Gabapentin 300 mg TID PO 10/07/25 22:00 10/15/25 14:38 300 MG Levothyroxine Sodium 100 mcg QAM PO 10/08/25 07:00 10/15/25 06:01 100 MCG Acetaminophen 325 mg Q4HP PRN PO 10/07/25 14:30 Pantoprazole Sodium 40 mg BID IV 10/08/25 10:00 10/15/25 09:37 40 MG Lorazepam 0.5 mg Q12HP PRN IV 10/08/25 14:15 10/14/25 18:29 0.5 MG Sucralfate 1 gm TID@0600,1130,2200 PO 10/08/25 16:00 10/15/25 05:57 1 GM Loperamide HCl 2 mg PRN PRN PO 10/08/25 23:00 10/09/25 20:54 2 MG Acetaminophen/ Hydrocodone Bitart 1 tab Q6HP PRN PO 10/09/25 10:30 10/14/25 23:29 1 TAB Hydralazine HCl 10 mg Q6HR PRN IV 10/11/25 13:15 Iron Sucrose 110 ml @ 110 mls/hr DAILY@1200 IV 10/13/25 12:00 10/17/25 11:59 10/15/25 13:17 110 MLS/HR Piperacillin Sod/ Tazobactam Sod 100 ml @ 25 mls/hr Q8HR IV 10/14/25 14:00 10/15/25 14:38 25 MLS/HR Linezolid 300 ml @ 150 mls/hr Q12HR IV 10/14/25 22:00 10/15/25 09:38 150 MLS/HR Norepinephrine Bitartrate 250 ml @ 3.75 mls/hr Q24H IV 10/14/25 13:30 10/15/25 09:16 30 MLS/HR Vasopressin 20 units/Sodium Chloride 100 ml @ 9 mls/hr Q11H7M IV 10/14/25 16:30 Ondansetron HCl 4 mg Q6HPRN PRN IV 10/14/25 16:45 Examination General: RASS -1, afebrile, mucosae are moist Cardiovascular: Normal S1 and S2. No murmurs, gallops or rubs Respiratory: Mechanically assisted ventilation, equal bilateral airway entree. Clear lung sounds on auscultation Mechanical ventilation setting: GI: Soft, nontender, no organomegaly, normal bowel sounds : Salamanca catheter n place, clear yellow urine in collection bag MSK/skin: Mobilization of limbs cannot be evaluated. Skin is dry and warm. IV accesses: Neurological: Orientation cannot be assessed. No apparent motor no sensitive deficits. Pupils are isocoric and reactive laboratory and microbiology Laboratory Tests 10/15/25 02:58 Test 10/15/25 02:58 Range/Units Serum Glucose 160 H 74-106 mg/dL Microbiology Date/Time Source Procedure Growth Status 10/14/25 15:00 Blood Blood Culture - Preliminary NO GROWTH AFTER 24 HOURS OF INCUBATION. Resulted 10/14/25 13:15 Voided Urine Urine Culture - Preliminary Resulted 10/09/25 04:10 Stool Stool Culture - Final Complete 10/09/25 04:10 Stool Shiga Toxin I & II - Final Complete 10/08/25 22:15 Nose MRSA Screen - Final Complete Labs and/or images reviewed: Labs reviewed by me, Image(s) reviewed by me Problem List/Assessment/Plan Problem List/Assessment/Plan Chest pain, likely musculoskeletal Possible GI bleeding Severe anemia, due to above KELLY, likely VMN, due to above Diabetes type 2 COPD, on home oxygen 2 L through nasal cannula Hypertension History of renal cell carcinoma, status post partial nephrectomy Systolic heart failure, LVEF 40% History of peripheral artery disease, status post stent placement Diabetic retinopathy Severe hypothyroidism Hypokalemia * Stool occult blood is positive * CT scan shows, extensive rectosigmoid colon wall thickening with surrounding stranding and perirectal lymphadenopathy * EGD on 10/10 shows, 2-3 cm sliding-type hiatal hernia with the acute severe linear erosive esophagitis with linear ulcers extending into the distal 10 cm of the esophagus with suspected underlying Barretts from which biopsies were obtained and mild antral gastritis otherwise essentially completely normal endoscopic examination up to the 2nd and 3rd part of the duodenum with no fresh or old blood in the upper GI tract at this time Plan/recommendation: * Consulted cardiology, recommended medical management * Consulted GI, performed upper GI endoscopy on 09/09 * Colonoscopy performed on 10/14, due to high volume of stool, could not perform could study, otherwise no significant finding * Pain management * Vasopressor * Continue home meds * Given 50 units of IV levothyroxine * Hydrocortisone 50 mg b.i.d. * Hold on antiplatelet/anticoagulant, due to possible GI bleeding * Repleted electrolyte DIET: Cardiac diet DVT PROPHYLAXIS: SCD CODE STATUS: Goal of care discussed for more than 18 minutes, full code DISPOSITION: ICU status On 10/14, the patient is seen and examined at the bedside. Patient Is more altered, and weak. Blood pressure, normal saline bolus given, but could not improved. Central line placed, the patient was started on vasopressor. Colonoscopy performed by GI, but due to high volume of stool, had limited visualization otherwise no significant finding. Critical care time more than 81 minutes Patient's status and plan discussed with the patient, patient's son's and patient's brother at the bedside. Case discussed with Dr. Hamm. Plan discussed with: Patient, Son, Other (RN) My Orders My Orders Orders - MCKENZIE CHRISTENSEN RESDIJOSE ROBERTO Procedure Category Date Status Time Sodium Chl 0.9% PHA 10/14/25 In Process (So... W/Vasopressin 16:30 Mrsa Screen MATT 10/14/25 In Process 20:55 Dietary Evaluation Review Comments: Nutrition Recommendation: 1) Avdnace to soft diet as medically feasible 2) Monitor PO intake, lab values, weight trend, and I/O Expected Outcomes/Goals: GI symptoms to improve Intake to meet >75% estimated needs FU 2-3 days Date of Service: Oct 15, 2025 Billing Provider: YENNI PEARSON MD Common Visit Codes: [id number] INP/OBS CARE(HIGH) Date of Service: Oct 15, 2025 Billing Provider: YENNI PEARSON MD Common Visit Codes: NOT BILLABLE MCKENZIE CHRISTENSEN RESDIJOSE ROBERTO Oct 15, 2025 15:31 YENNI PEARSON MD Oct 20, 2025 10:01
--- NOTE | 2025-10-15 15:33 | DVHPN2 ---
Progress Note - Dictate Date Seen: Oct 15, 2025 Medical Necessity Reason Pt with a Central, PICC or Fol: No Subjective iPT WELL KNOWN TO ME NOEW WITH RIGHT SIDED CHEST PAIN PMH DIABETES HTN COPD NEPHRECTOMY NEPHRECTOMY PAD WITH REVASCULARIZATION CAD HFrEF vital signs Vital Sign Date Time Temp Pulse Resp B/P (MAP) Pulse Ox O2 Delivery O2 Flow Rate FiO2 10/15/25 13:45 92 17 112/58 (76) 95 10/15/25 12:00 99.9 99.9 10/15/25 08:00 Nasal Cannula* 3 32 Total Intake and Output 10/14/25 10/14/25 10/15/25 15:00 23:00 07:00 Intake Total 138.75 ml 153.75 ml Output Total 600 ml Balance -461.25 ml 153.75 ml medications Current Medications Medications Dose Ordered Sig/Audrey Route Start Time Stop Time Status Last Admin Dose Admin Atorvastatin Calcium 40 mg HS PO 10/07/25 22:00 10/14/25 21:56 40 MG Gabapentin 300 mg TID PO 10/07/25 22:00 10/15/25 14:38 300 MG Levothyroxine Sodium 100 mcg QAM PO 10/08/25 07:00 10/15/25 06:01 100 MCG Acetaminophen 325 mg Q4HP PRN PO 10/07/25 14:30 Pantoprazole Sodium 40 mg BID IV 10/08/25 10:00 10/15/25 09:37 40 MG Lorazepam 0.5 mg Q12HP PRN IV 10/08/25 14:15 10/14/25 18:29 0.5 MG Sucralfate 1 gm TID@0600,1130,2200 PO 10/08/25 16:00 10/15/25 05:57 1 GM Loperamide HCl 2 mg PRN PRN PO 10/08/25 23:00 10/09/25 20:54 2 MG Acetaminophen/ Hydrocodone Bitart 1 tab Q6HP PRN PO 10/09/25 10:30 10/14/25 23:29 1 TAB Hydralazine HCl 10 mg Q6HR PRN IV 10/11/25 13:15 Iron Sucrose 110 ml @ 110 mls/hr DAILY@1200 IV 10/13/25 12:00 10/17/25 11:59 10/15/25 13:17 110 MLS/HR Piperacillin Sod/ Tazobactam Sod 100 ml @ 25 mls/hr Q8HR IV 10/14/25 14:00 10/15/25 14:38 25 MLS/HR Linezolid 300 ml @ 150 mls/hr Q12HR IV 10/14/25 22:00 10/15/25 09:38 150 MLS/HR Norepinephrine Bitartrate 250 ml @ 3.75 mls/hr Q24H IV 10/14/25 13:30 10/15/25 09:16 30 MLS/HR Vasopressin 20 units/Sodium Chloride 100 ml @ 9 mls/hr Q11H7M IV 10/14/25 16:30 Ondansetron HCl 4 mg Q6HPRN PRN IV 10/14/25 16:45 laboratory and microbiology Laboratory Tests 10/15/25 02:58 Test 10/15/25 02:58 Range/Units Serum Glucose 160 H 74-106 mg/dL Problem List RIGHT SIDED CHEST PAIN PMH DIABETES HTN COPD NEPHRECTOMY NEPHRECTOMY PAD WITH REVASCULARIZATION CAD HFrEF BNP NL TROPONIN NL UGI BLEED HEMATEMESIS MELENA NAUSEA VOMITING AMS HX METABOLIC ENCEPHALOPATHY DIARRHEA HYPOTENSION HYPOVOLEMIA SECONDARY TO DIARRHEA AND POOR PO INTAKE ACUTE RENAL FAILURE CHRONIC RENAL DISEASE CXR MILD LLL ATELECTASIS PMH: LE DOPPLER CONSISTENT WITH ADVANCE PAD HX OF DM VASCULOPATHY NEUROPATHY HX OF RENAL CELL CARCINOMA WITH LEFT PARTIAL NEPHRECTOMY BUT RENAL US SHOWS RIGHT kidney measures 12.7 cm in length. No hydronephrosis. LEFT kidney measures 9.9 cm in length. No hydronephrosis. COPD HX OF TOBACCO USE HTN ORGANIC HD NL EF DIASTOLIC DYSFUNCTION ECHO MILD GLOBAL HYPOKINESIS Assessment/Plan SEVERE ANEMIA GI WORKUP ABX SINCE X RAY CONSISTENT WITH PNA CARDIAC STATUS STABLE EGD SEVERE EROSIVE ESOPHAGITIS CORRECT ANEMIA CT OF CHEST AND ABD MULTIPLE LUNG NODULES CIRRHOSIS OF LIVER TRANSFUSE 1 UNIT PRBC IRON EPOGEN Dietary Evaluation Review Comments: Nutrition Recommendation: 1) Avdnace to soft diet as medically feasible 2) Monitor PO intake, lab values, weight trend, and I/O Expected Outcomes/Goals: GI symptoms to improve Intake to meet >75% estimated needs FU 2-3 days Plan discussed with: Patient, Son HUNG IVAN MD Oct 15, 2025 15:33
[2025-10-15] MEDS ORDERED: PATIENTS OWN MEDICATION (EPOGEN 10,000 UNITS) SUBCUT ONE (15:45)
[2025-10-15 16:00] LABS: Base Excess -2.4 mmol/L (-2.0-3.0)
[2025-10-15] MEDS: HYDROCORTISONE SOD SUCC 100 MG/2ML INJ VIAL IV ONE (16:37)
[2025-10-15] MEDS: LEVOTHYROXINE SODIUM 100 MCG/5 ML INJ IV ONE (16:39)
[2025-10-15 17:03] LABS: Iron 137.0 ug/dL (50-170)
[2025-10-15 17:11] LABS: Total Iron Binding Capacity 152.0 ug/dL (250-425)
[2025-10-15] MEDS: EPOETIN ALFA-EPBX 10,000 UNIT/1ML VIAL SC ONE (21:00)
[2025-10-15] MEDS: HYDROCORTISONE SOD SUCC 100 MG/2ML INJ VIAL IV SCH (21:01)
[2025-10-16] VITALS (96 sets, daily range): BP systolic 82–154; BP diastolic 38–99; PULSE 61–86; RESP 10–24; TEMP 97.6–98.6; O2SAT 96–100
[2025-10-16 03:48] LABS: Hematocrit 29.8 % (36.0-46.0); Hemoglobin 9.3 g/dL (12.2-16.2); Mean Corpuscular Hemoglobin 23.8 pg (28.0-32.0); Mean Corpuscular Volume 76.0 fL (80.0-100.0); Nucleated Red Blood Cells % 0.1 %
[2025-10-16 04:03] LABS: Total Protein 5.8 g/dL (5.7-8.2)
[2025-10-16 04:04] LABS: Bilirubin, Total 0.4 mg/dL (0.2-1.0)
[2025-10-16 04:06] LABS: Anion Gap 9 (5-15)
[2025-10-16 04:11] LABS: BUN/Creatinine Ratio 27.6 (10.0-20.0)
[2025-10-16 04:16] LABS: Alanine Aminotransferase < 9 U/L (7-40); Albumin 3.2 g/dL (3.2-4.8); Alkaline Phosphatase 84 U/L (46-116); Blood Urea Nitrogen 27 mg/dL (9-23); Calcium 9.0 mg/dL (8.7-10.4); Carbon Dioxide 24 mmol/L (20-31); Chloride 106 mmol/L (98-107); Glucose 168 mg/dL (74-106); Potassium 4.4 mmol/L (3.5-5.1); Sodium 139 mmol/L (136-145)
[2025-10-16] MEDS: LEVOTHYROXINE SODIUM 100 MCG TAB PO SCH (06:00)
[2025-10-16] MEDS ORDERED: MORPHINE SULFATE INJ 2 MG/ml SYRG IV PRN (10:00)
--- NOTE | 2025-10-16 10:09 | DVHPNRES ---
Progress Note Date Seen: Oct 16, 2025 Resident Creating Document: MCKEZNIE CHRISTENSEN NATALIE Medical Necessity Reason Pt with a Central, PICC or Fol: Yes The following are medically ne: Central Line, [place]anca Catheter Subjective Review of Systems Chrissy Billings is a 65-year-old female patient who presents to the ED with chief complaint of burning right-sided chest pain which started on 10/06/2020 at 7:00 p.m. intensity 10/10 which lasted 10 minutes. Per patient pain initiated after she started eating a meal, and resolved spontaneously. Denies any other associated symptoms including dyspnea, syncope, diaphoresis, nausea, vomiting, abdominal pain and sick contacts. Past medical history: Diabetes, hypertension, COPD on home oxygen with 2 L/min, renal cell carcinoma status post partial nephrectomy with no recurrence, systolic congestive heart failure (HFrEF, LVEF 40%), PAD status post stent placement in 2021, diabetic retinopathy with bilateral amaurosis, hypothyroidism. Surgical history: Peripheral angiography with stent placement in iliac artery, cholecystectomy Family history: Mother has thyroid cancer Social history: Lives in [place] with son (next of kin, Marty). Ex tobacco abuse (30 pack-year history of smoking), quit five years ago. Denies current tobacco, alcohol and other drug abuse. Allergy: Codeine Home medication: Albuterol, aspirin, atorvastatin, digoxin, empagliflozin, fluconazole, furosemide, gabapentin, insulin, ipratropium, levothyroxine, spironolactone, pantoprazole, nivolumab, Vericiguat, nifedipine, metformin , lisinopril 10/12, the patient seen and examined at the bedside. Patient is feeling better, but still complaining of abdominal pain. 10/13, the patient seen and examined at the bedside. Patient is still complaining of generalized weakness. On 10/14, the patient is seen and examined at the bedside. Patient Is more altered, and weak. Blood pressure, normal saline bolus given, but could not improved. Central line placed, the patient was started on vasopressor. Colonoscopy performed by GI, but due to high volume of stool, had limited visualization otherwise no significant finding On 10/15, the patient seen and examined at the bedside. Patient is altered, and can not provide proper history. On 10/16, the patient seen and examined at the bedside. Patient is feeling better since admission, can tolerate oral intake, oriented to place, person and time. Patient's blood pressure is improving, tapering down the Levophed. Free T4 level checked, within normal limits. Stool occult blood rechecked, positive. Objective vital signs Vital Sign Date Time Temp Pulse Resp B/P (MAP) Pulse Ox O2 Delivery O2 Flow Rate FiO2 10/16/25 08:45 70 16 121/52 (75) 99 10/16/25 04:01 98.2 98.2 10/15/25 20:00 Nasal Cannula* 2 28 Total Intake and Output 10/15/25 10/15/25 10/16/25 15:00 23:00 07:00 Intake Total 671.25 ml 915.0 ml 503.75 ml Output Total 1100 ml Balance 671.25 ml -185.0 ml 503.75 ml medications Current Medications Medications Dose Ordered Sig/Audrey Route Start Time Stop Time Status Last Admin Dose Admin Atorvastatin Calcium 40 mg HS PO 10/07/25 22:00 10/15/25 21:01 40 MG Gabapentin 300 mg TID PO 10/07/25 22:00 10/16/25 05:07 300 MG Acetaminophen 325 mg Q4HP PRN PO 10/07/25 14:30 Pantoprazole Sodium 40 mg BID IV 10/08/25 10:00 10/15/25 21:01 40 MG Lorazepam 0.5 mg Q12HP PRN IV 10/08/25 14:15 10/14/25 18:29 0.5 MG Sucralfate 1 gm TID@0600,1130,2200 PO 10/08/25 16:00 10/16/25 05:07 1 GM Loperamide HCl 2 mg PRN PRN PO 10/08/25 23:00 10/09/25 20:54 2 MG Acetaminophen/ Hydrocodone Bitart 1 tab Q6HP PRN PO 10/09/25 10:30 10/16/25 04:04 1 TAB Hydralazine HCl 10 mg Q6HR PRN IV 10/11/25 13:15 Iron Sucrose 110 ml @ 110 mls/hr DAILY@1200 IV 10/13/25 12:00 10/17/25 11:59 10/15/25 13:17 110 MLS/HR Piperacillin Sod/ Tazobactam Sod 100 ml @ 25 mls/hr Q8HR IV 10/14/25 14:00 10/16/25 05:07 25 MLS/HR Linezolid 300 ml @ 150 mls/hr Q12HR IV 10/14/25 22:00 10/15/25 21:01 150 MLS/HR Norepinephrine Bitartrate 250 ml @ 3.75 mls/hr Q24H IV 10/14/25 13:30 10/16/25 06:24 7.5 MLS/HR Vasopressin 20 units/Sodium Chloride 100 ml @ 9 mls/hr Q11H7M IV 10/14/25 16:30 Ondansetron HCl 4 mg Q6HPRN PRN IV 10/14/25 16:45 Iron Sucrose 110 ml @ 110 mls/hr DAILY@1200 IV 10/16/25 12:00 10/20/25 11:59 Hydrocortisone Sodium Succinate 50 mg Q12HR IV 10/15/25 22:00 10/15/25 21:01 50 MG Levothyroxine Sodium 100 mcg QAM PO 10/17/25 07:00 UNV Morphine Sulfate 1 mg Q4HP PRN IV 10/16/25 10:00 UNV Examination General: RASS +1, afebrile, mucosae are moist Cardiovascular: Normal S1 and S2. No murmurs, gallops or rubs Respiratory: Mechanically assisted ventilation, equal bilateral airway entree. Clear lung sounds on auscultation Mechanical ventilation setting: GI: Soft, nontender, no organomegaly, normal bowel sounds : Salamanca catheter n place, clear yellow urine in collection bag MSK/skin: Mobilization of limbs cannot be evaluated. Skin is dry and warm. IV accesses: Neurological: Orientation cannot be assessed. No apparent motor no sensitive deficits. Pupils are isocoric and reactive laboratory and microbiology Laboratory Tests 10/16/25 03:20 Test 10/16/25 03:20 Range/Units Serum Glucose 168 H 74-106 mg/dL Microbiology Date/Time Source Procedure Growth Status 10/14/25 16:10 Blood Blood Culture - Preliminary NO GROWTH AFTER 24 HOURS OF INCUBATION. Resulted 10/14/25 13:20 Nose MRSA Screen - Final Complete 10/14/25 13:15 Voided Urine Urine Culture - Preliminary Resulted 10/09/25 04:10 Stool Stool Culture - Final Complete 10/09/25 04:10 Stool Shiga Toxin I & II - Final Complete Labs and/or images reviewed: Labs reviewed by me, Image(s) reviewed by me Problem List/Assessment/Plan Problem List/Assessment/Plan Chest pain, likely musculoskeletal Suspected GI bleeding Severe anemia, due to above KELLY, likely VMN, due to above Diabetes type 2 COPD, on home oxygen 2 L through nasal cannula Hypertension History of renal cell carcinoma, status post partial nephrectomy Systolic heart failure, LVEF 40% History of peripheral artery disease, status post stent placement Diabetic retinopathy Severe hypothyroidism Hypokalemia * Stool occult blood is positive * CT scan shows, extensive rectosigmoid colon wall thickening with surrounding stranding and perirectal lymphadenopathy * EGD on 10/10 shows, 2-3 cm sliding-type hiatal hernia with the acute severe linear erosive esophagitis with linear ulcers extending into the distal 10 cm of the esophagus with suspected underlying Barretts from which biopsies were obtained and mild antral gastritis otherwise essentially completely normal endoscopic examination up to the 2nd and 3rd part of the duodenum with no fresh or old blood in the upper GI tract at this time * Colonoscopy performed on 10/14, due to high volume of stool, could not complete the study, otherwise no significant finding Plan/recommendation: * Empiric antibiotic, Zosyn and linezolid * Consulted cardiology, recommended medical management * Consulted GI, performed upper GI endoscopy on 09/09, colonoscopy on 10/14, * Pain management * Vasopressor (Levophed), taper down * Continue home meds * Levothyroxine 100 units daily * Continue Hydrocortisone 50 mg b.i.d. * Hold on antiplatelet/anticoagulant, due to possible GI bleeding * Repleted electrolyte DIET: Cardiac diet DVT PROPHYLAXIS: SCDs in the setting of suspected GI bleed CODE STATUS: Full code after discussing goals of care with the patient and her son for 20 minutes DISPOSITION: ICU status Critical care time of 99 minutes Patient's status and plan discussed with the patient, patient's son's and patient's brother at the bedside. Case discussed with Dr. Cortez. Plan discussed with: Patient, Son, Other (RN) My Orders My Orders Orders - MCKENZIE CHRISTENSEN RESDIJOSE ROBERTO Procedure Category Date Status Time Strict I & O ANDREW 10/15/25 In Process 15:31 Abg W/ Co-Ox RT 10/15/25 Logged 15:31 Hydrocortisone PHA 10/15/25 In Process Succinate Inj 22:00 Mechanical Soft Diet DIET 10/15/25 Transmitted Dinner Levothyroxine Tablet PHA 10/17/25 Logged (Synthroid Tablet) 07:00 Pt Request For Service PT 10/16/25 Logged 09:50 Dietary Evaluation Review Comments: Nutrition Recommendation: 1) Avdnace to soft diet as medically feasible 2) Monitor PO intake, lab values, weight trend, and I/O Expected Outcomes/Goals: GI symptoms to improve Intake to meet >75% estimated needs FU 2-3 days Date of Service: Oct 16, 2025 Billing Provider: NABEEL CORTEZ MD Common Visit Codes: [id number] CARE 30-74 MIN (99 minutes), [id number] CARE-EACH +30MIN Secondary Visit Codes: [id number] CARE PLAN 30 MINUTES (20 minutes) MCKENZIE CHRISTENSEN Oct 16, 2025 10:09 NABEEL CORTEZ MD Oct 19, 2025 13:38
[2025-10-16] MEDS: MORPHINE SULFATE INJ 2 MG/ml SYRG IV PRN (10:38)
[2025-10-16] MEDS: ACETAMINOPHEN 325 MG TAB PO SCH (12:00)
[2025-10-16] MEDS ORDERED: IRON SUCROSE COMPLEX 110 ML IV SCH (12:00)
--- NOTE | 2025-10-16 13:56 | DVHPN2 ---
Progress Note Date Seen: Oct 16, 2025 Resident Creating Document: ANGEL KING RESIDENT Medical Necessity Reason Pt with a Central, PICC or Fol: No Subjective Review of Systems Chrissy Billings is a 65-year-old female patient who presents to the ED with chief complaint of burning right-sided chest pain which started on 10/06/2020 at 7:00 p.m. intensity 10/10 which lasted 10 minutes. Per patient pain initiated after she started eating a meal, and resolved spontaneously. Denies any other associated symptoms including dyspnea, syncope, diaphoresis, nausea, vomiting, abdominal pain and sick contacts. Past medical history: Diabetes, hypertension, COPD on home oxygen with 2 L/min, renal cell carcinoma status post partial nephrectomy with no recurrence, systolic congestive heart failure (HFrEF, LVEF 40%), PAD status post stent placement in 2021, diabetic retinopathy with bilateral amaurosis, hypothyroidism. Surgical history: Peripheral angiography with stent placement in iliac artery, cholecystectomy Family history: Mother has thyroid cancer Social history: Lives in [place] with son (next of kin, Marty). Ex tobacco abuse (30 pack-year history of smoking), quit five years ago. Denies current tobacco, alcohol and other drug abuse. Allergy: Codeine Home medication: Albuterol, aspirin, atorvastatin, digoxin, empagliflozin, fluconazole, furosemide, gabapentin, insulin, ipratropium, levothyroxine, spironolactone, pantoprazole, nivolumab, Vericiguat, nifedipine, metformin , lisinopril 10/08-Patient seen and examined. Reports pain well swollen. Ordered CT chest/abdomen/pelvis without contrast. Stool occult blood positive. 10/09-patient seen and examined. No overnight events. H&H stable. 10/13-patient seen and examined. Patient had breakfast this morning. Colonoscopy scheduled for tomorrow. 10/15-patient seen and examined. Having multiple bowel movements overnight. Liquid in consistency. On Levophed. 10/16 - BM today, passing gas, no abd tenderness Objective vital signs Vital Sign Date Time Temp Pulse Resp B/P (MAP) Pulse Ox O2 Delivery O2 Flow Rate FiO2 10/16/25 11:08 73 24 116/55 10/16/25 08:45 99 10/16/25 04:01 98.2 98.2 10/15/25 20:00 Nasal Cannula* 2 28 Total Intake and Output 10/15/25 10/15/25 10/16/25 15:00 23:00 07:00 Intake Total 671.25 ml 915.0 ml 503.75 ml Output Total 1100 ml Balance 671.25 ml -185.0 ml 503.75 ml medications Current Medications Medications Dose Ordered Sig/Audrey Route Start Time Stop Time Status Last Admin Dose Admin Atorvastatin Calcium 40 mg HS PO 10/07/25 22:00 10/15/25 21:01 40 MG Gabapentin 300 mg TID PO 10/07/25 22:00 10/16/25 05:07 300 MG Pantoprazole Sodium 40 mg BID IV 10/08/25 10:00 10/16/25 10:17 40 MG Sucralfate 1 gm TID@0600,1130,2200 PO 10/08/25 16:00 10/16/25 12:12 1 GM Acetaminophen/ Hydrocodone Bitart 1 tab Q6HP PRN PO 10/09/25 10:30 10/16/25 04:04 1 TAB Hydralazine HCl 10 mg Q6HR PRN IV 10/11/25 13:15 Iron Sucrose 110 ml @ 110 mls/hr DAILY@1200 IV 10/13/25 12:00 10/17/25 11:59 10/16/25 13:16 110 MLS/HR Piperacillin Sod/ Tazobactam Sod 100 ml @ 25 mls/hr Q8HR IV 10/14/25 14:00 10/16/25 05:07 25 MLS/HR Linezolid 300 ml @ 150 mls/hr Q12HR IV 10/14/25 22:00 10/16/25 10:18 150 MLS/HR Norepinephrine Bitartrate 250 ml @ 3.75 mls/hr Q24H IV 10/14/25 13:30 10/16/25 06:24 7.5 MLS/HR Vasopressin 20 units/Sodium Chloride 100 ml @ 9 mls/hr Q11H7M IV 10/14/25 16:30 Ondansetron HCl 4 mg Q6HPRN PRN IV 10/14/25 16:45 Hydrocortisone Sodium Succinate 50 mg Q12HR IV 10/15/25 22:00 10/16/25 10:17 50 MG Levothyroxine Sodium 100 mcg QAM PO 10/17/25 07:00 Morphine Sulfate 2 mg Q4HP PRN IV 10/16/25 10:30 10/16/25 10:38 2 MG Acetaminophen 325 mg Q6HR PO 10/16/25 12:00 Examination Patient lying in bed, in no acute distress General: Obese, afebrile, palor, mucosae are moist Cardiovascular: Regular S1 and S2. No murmurs, gallops or rubs. No JVD elevation. No pedal edema Respiratory: Normal B/L air entry on room air. Clear lung sounds on auscultation Abdomen: Soft, nontender, nondistended, normoactive bowel sounds, no rebound tenderness, no organomegaly, no masses Genitourinary: Deferred laboratory and microbiology Laboratory Tests 10/16/25 03:20 Test 10/16/25 03:20 Range/Units Serum Glucose 168 H 74-106 mg/dL Microbiology Date/Time Source Procedure Growth Status 10/14/25 16:10 Blood Blood Culture - Preliminary NO GROWTH AFTER 24 HOURS OF INCUBATION. Resulted 10/14/25 13:20 Nose MRSA Screen - Final Complete 10/14/25 13:15 Voided Urine Urine Culture - Final Complete 10/09/25 04:10 Stool Stool Culture - Final Complete 10/09/25 04:10 Stool Shiga Toxin I & II - Final Complete Labs and/or images reviewed: Labs reviewed by me, Image(s) reviewed by me Problem List/Assessment/Plan Problem List/Assessment/Plan CT chest/abdomen/pelvis shows numerous solid pulmonary nodules. Extensive pulmonary tree in bud nodularity. There is extensive rectosigmoid colon wall thickening with surrounding stranding and perirectal lymphadenopathy. Differential considerations include colitis, inflammatory bowel disease, neoplastic process. Recommend colonoscopy once acute symptoms resolve to exclude underlying colonic malignancy. Cirrhotic right morphology liver. Splenomegaly. Cholecystectomy. Right-sided chest pain likely esophagitis/GERD Rule out ACS Hypertension Acute kidney injury Anemia likely normocytic History of COPD HFrEF no exacerbation History of renal cell carcinoma status post nephrectomy Diabetes mellitus Hypokalemia Uncontrolled hypothyroidism Plan: Dr. Mckeon: Recommendation Given the extensive rectosigmoid wall thickening with surrounding stranding and perirectal lymphadenopathy, patient will be scheduled for colonoscopy as inpatient 10/14. Colonoscopy could not be completed given very poor prep with large amount of chunks of brown stool. Few stool WBC, stool occult positive Replenish electrolytes Stool occult blood positive, continue Protonix 40 mg IV b.i.d., continue Carafate TID Monitor H&H Avoid NSAIDs/ibuprofen/Aleve/Motrin Advanced diet as tolerated Defer colonoscopy at this time and continue conservative observation because of poor medical condition and status We will continue follow up Thank you for consulting GI Plan discussed with patient all questions have been answered Case discussed with Dr. Mckeon Plan discussed with: Patient My Orders My Orders Orders - ANGEL KING Procedure Category Date Status Time Stool Bacterial MATT 10/15/25 In Process Culture 16:48 Dietary Evaluation Review Comments: Nutrition Recommendation: 1) Avdnace to soft diet as medically feasible 2) Monitor PO intake, lab values, weight trend, and I/O Expected Outcomes/Goals: GI symptoms to improve Intake to meet >75% estimated needs FU 2-3 days ANGEL KING Oct 16, 2025 13:56
[2025-10-16] MEDS: NOREPINEPHRINE 8 MG/250ML KIT 250 ML IV SCH (17:11)
[2025-10-17] VITALS (99 sets, daily range): BP systolic 82–152; BP diastolic 29–104; PULSE 56–79; RESP 6–23; TEMP 97–97.9; O2SAT 90–100
[2025-10-17 04:24] LABS: Hematocrit 28.2 % (36.0-46.0); Hemoglobin 9.1 g/dL (12.2-16.2); Mean Corpuscular Hemoglobin 24.7 pg (28.0-32.0); Mean Corpuscular Volume 76.5 fL (80.0-100.0); Nucleated Red Blood Cells % 0.1 %
[2025-10-17 04:41] LABS: Alkaline Phosphatase 81 U/L (46-116); Anion Gap 8 (5-15); BUN/Creatinine Ratio 25.0 (10.0-20.0); Blood Urea Nitrogen 21 mg/dL (9-23); Calcium 8.9 mg/dL (8.7-10.4); Carbon Dioxide 26 mmol/L (20-31); Chloride 104 mmol/L (98-107); Potassium 3.7 mmol/L (3.5-5.1); Sodium 138 mmol/L (136-145)
[2025-10-17 04:46] LABS: Alanine Aminotransferase < 9 U/L (7-40); Albumin 3.1 g/dL (3.2-4.8); Bilirubin, Total 0.2 mg/dL (0.2-1.0); Glucose 172 mg/dL (74-106); Total Protein 5.6 g/dL (5.7-8.2)
[2025-10-17] MEDS: LEVOTHYROXINE SODIUM 100 MCG TAB PO SCH (06:00)
--- NOTE | 2025-10-17 10:56 | DVHPNRES ---
Progress Note Date Seen: Oct 17, 2025 Resident Creating Document: MCKENZIE CHRISTENSEN NATALIE Medical Necessity Reason Pt with a Central, PICC or Fol: Yes The following are medically ne: Central Line, [place] Catheter Subjective Review of Systems Chrissy Billings is a 65-year-old female patient who presents to the ED with chief complaint of burning right-sided chest pain which started on 10/06/2020 at 7:00 p.m. intensity 10/10 which lasted 10 minutes. Per patient pain initiated after she started eating a meal, and resolved spontaneously. Denies any other associated symptoms including dyspnea, syncope, diaphoresis, nausea, vomiting, abdominal pain and sick contacts. Past medical history: Diabetes, hypertension, COPD on home oxygen with 2 L/min, renal cell carcinoma status post partial nephrectomy with no recurrence, systolic congestive heart failure (HFrEF, LVEF 40%), PAD status post stent placement in 2021, diabetic retinopathy with bilateral amaurosis, hypothyroidism. Surgical history: Peripheral angiography with stent placement in iliac artery, cholecystectomy Family history: Mother has thyroid cancer Social history: Lives in [place] with son (next of kin, Marty). Ex tobacco abuse (30 pack-year history of smoking), quit five years ago. Denies current tobacco, alcohol and other drug abuse. Allergy: Codeine Home medication: Albuterol, aspirin, atorvastatin, digoxin, empagliflozin, fluconazole, furosemide, gabapentin, insulin, ipratropium, levothyroxine, spironolactone, pantoprazole, nivolumab, Vericiguat, nifedipine, metformin , lisinopril 10/12, the patient seen and examined at the bedside. Patient is feeling better, but still complaining of abdominal pain. 10/13, the patient seen and examined at the bedside. Patient is still complaining of generalized weakness. On 10/14, the patient is seen and examined at the bedside. Patient Is more altered, and weak. Blood pressure, normal saline bolus given, but could not improved. Central line placed, the patient was started on vasopressor. Colonoscopy performed by GI, but due to high volume of stool, had limited visualization otherwise no significant finding On 10/15, the patient seen and examined at the bedside. Patient is altered, and can not provide proper history. On 10/16, the patient seen and examined at the bedside. Patient is feeling better since admission, can tolerate oral intake, oriented to place, person and time. Patient's blood pressure is improving, tapering down the Levophed. Free T4 level checked, within normal limits. Stool occult blood rechecked, positive. On 10/17, the patient seen and examined at bedside with the patient is feeling better but still complaining of generalized body pain, and weakness. GI is planning for colonoscopy. Objective vital signs Vital Sign Date Time Temp Pulse Resp B/P (MAP) Pulse Ox O2 Delivery O2 Flow Rate FiO2 10/17/25 08:00 60 13 98 Nasal Cannula* 2 10/17/25 06:45 118/44 (68) 10/17/25 04:00 97.9 97.9 Total Intake and Output 10/16/25 10/16/25 10/17/25 15:00 23:00 07:00 Intake Total 566.25 ml 600 ml 640 ml Output Total 650 ml 850 ml Balance 566.25 ml -50 ml -210 ml medications Current Medications Medications Dose Ordered Sig/Audrey Route Start Time Stop Time Status Last Admin Dose Admin Atorvastatin Calcium 40 mg HS PO 10/07/25 22:00 10/16/25 21:11 40 MG Gabapentin 300 mg TID PO 10/07/25 22:00 10/17/25 06:00 300 MG Pantoprazole Sodium 40 mg BID IV 10/08/25 10:00 10/17/25 09:29 40 MG Sucralfate 1 gm TID@0600,1130,2200 PO 10/08/25 16:00 10/17/25 05:59 1 GM Acetaminophen/ Hydrocodone Bitart 1 tab Q6HP PRN PO 10/09/25 10:30 10/17/25 09:26 1 TAB Hydralazine HCl 10 mg Q6HR PRN IV 10/11/25 13:15 Iron Sucrose 110 ml @ 110 mls/hr DAILY@1200 IV 10/13/25 12:00 10/17/25 11:59 10/16/25 13:16 110 MLS/HR Piperacillin Sod/ Tazobactam Sod 100 ml @ 25 mls/hr Q8HR IV 10/14/25 14:00 10/17/25 06:00 25 MLS/HR Linezolid 300 ml @ 150 mls/hr Q12HR IV 10/14/25 22:00 10/17/25 09:29 150 MLS/HR Vasopressin 20 units/Sodium Chloride 100 ml @ 9 mls/hr Q11H7M IV 10/14/25 16:30 Ondansetron HCl 4 mg Q6HPRN PRN IV 10/14/25 16:45 Levothyroxine Sodium 100 mcg QAM PO 10/17/25 07:00 10/17/25 06:00 100 MCG Morphine Sulfate 2 mg Q4HP PRN IV 10/16/25 10:30 10/16/25 21:20 2 MG Acetaminophen 325 mg Q6HR PO 10/16/25 12:00 10/17/25 06:00 325 MG Norepinephrine Bitartrate 250 ml @ 3.75 mls/hr Q24H IV 10/16/25 16:45 10/16/25 17:11 5.625 MLS/HR Examination General: RASS +1, afebrile, mucosae are moist Cardiovascular: Normal S1 and S2. No murmurs, gallops or rubs Respiratory: Mechanically assisted ventilation, equal bilateral airway entree. Clear lung sounds on auscultation Mechanical ventilation setting: GI: Soft, nontender, no organomegaly, normal bowel sounds : Salamanca catheter n place, clear yellow urine in collection bag MSK/skin: Mobilization of limbs cannot be evaluated. Skin is dry and warm. IV accesses: Neurological: Orientation cannot be assessed. No apparent motor no sensitive deficits. Pupils are isocoric and reactive laboratory and microbiology Laboratory Tests 10/17/25 03:30 Test 10/17/25 03:30 Range/Units Serum Glucose 172 H 74-106 mg/dL Microbiology Date/Time Source Procedure Growth Status 10/16/25 03:00 Stool Stool Culture - Preliminary Resulted 10/16/25 03:00 Stool Shiga Toxin I & II - Final Resulted 10/14/25 16:10 Blood Blood Culture - Preliminary NO GROWTH AFTER 48 HOURS OF INCUBATION. Resulted 10/14/25 13:20 Nose MRSA Screen - Final Complete 10/14/25 13:15 Voided Urine Urine Culture - Final Complete Labs and/or images reviewed: Labs reviewed by me, Image(s) reviewed by me Problem List/Assessment/Plan Problem List/Assessment/Plan Chest pain, likely musculoskeletal Suspect GI bleeding Severe anemia, due to above KELLY, likely VMN, due to above Diabetes type 2 COPD, on home oxygen 2 L/min through nasal cannula Hypertension History of renal cell carcinoma, status post partial nephrectomy Systolic heart failure, LVEF 40% History of peripheral artery disease, status post stent placement Diabetic retinopathy Severe hypothyroidism Hypokalemia * Stool occult blood is positive * CT scan shows, extensive rectosigmoid colon wall thickening with surrounding stranding and perirectal lymphadenopathy * EGD on 10/10 shows, 2-3 cm sliding-type hiatal hernia with the acute severe linear erosive esophagitis with linear ulcers extending into the distal 10 cm of the esophagus with suspected underlying Barretts from which biopsies were obtained and mild antral gastritis otherwise essentially completely normal endoscopic examination up to the 2nd and 3rd part of the duodenum with no fresh or old blood in the upper GI tract at this time * Colonoscopy performed on 10/14, due to high volume of stool, could not complete the study, otherwise no significant finding Plan/recommendation: * Empiric antibiotic, Zosyn and linezolid * Consulted cardiology, recommended medical management * Consulted GI, performed upper GI endoscopy on 09/09, colonoscopy on 10/14, * Pain management * Vasopressor (Levophed), taper down * Continue home meds * Levothyroxine 100 units daily * Discontinue Hydrocortisone 50 mg b.i.d. * Hold on antiplatelet/anticoagulant, due to possible GI bleeding * Repleted electrolyte DIET: Cardiac diet DVT PROPHYLAXIS: SCDs due to suspected GI bleed CODE STATUS: Full code DISPOSITION: ICU status Critical care time of 60 minutes Patient's status and plan discussed with the patient, patient's son's and patient's brother at the bedside. Case discussed with Dr. Cortez. Plan discussed with: Patient, Other (RN) My Orders My Orders Orders - MCKENZIE CHRISTENSEN RESDIJOSE ROBERTO Procedure Category Date Status Time Norepinephrine 8 PHA 10/16/25 In Process Mg/250ml Kit 16:45 Dietary Evaluation Review Comments: Nutrition Recommendation: 1) Avdnace to soft diet as medically feasible 2) Monitor PO intake, lab values, weight trend, and I/O Expected Outcomes/Goals: GI symptoms to improve Intake to meet >75% estimated needs FU 2-3 days Date of Service: Oct 17, 2025 Billing Provider: NABEEL CORTEZ MD Common Visit Codes: 68847-YLQDZZNC CARE 30-74 MIN (60 minutes) MCKENZIE CHRISTENSEN RESDIJOSE ROBERTO Oct 17, 2025 10:56 NABEEL CORTEZ MD Oct 19, 2025 13:40
--- NOTE | 2025-10-17 14:08 | DVHPN2 ---
Progress Note Date Seen: Oct 17, 2025 Resident Creating Document: ANGEL KING RESIDENT Medical Necessity Reason Pt with a Central, PICC or Fol: No Subjective Review of Systems Chrissy Billings is a 65-year-old female patient who presents to the ED with chief complaint of burning right-sided chest pain which started on 10/06/2020 at 7:00 p.m. intensity 10/10 which lasted 10 minutes. Per patient pain initiated after she started eating a meal, and resolved spontaneously. Denies any other associated symptoms including dyspnea, syncope, diaphoresis, nausea, vomiting, abdominal pain and sick contacts. Past medical history: Diabetes, hypertension, COPD on home oxygen with 2 L/min, renal cell carcinoma status post partial nephrectomy with no recurrence, systolic congestive heart failure (HFrEF, LVEF 40%), PAD status post stent placement in 2021, diabetic retinopathy with bilateral amaurosis, hypothyroidism. Surgical history: Peripheral angiography with stent placement in iliac artery, cholecystectomy Family history: Mother has thyroid cancer Social history: Lives in [place] with son (next of kin, Marty). Ex tobacco abuse (30 pack-year history of smoking), quit five years ago. Denies current tobacco, alcohol and other drug abuse. Allergy: Codeine Home medication: Albuterol, aspirin, atorvastatin, digoxin, empagliflozin, fluconazole, furosemide, gabapentin, insulin, ipratropium, levothyroxine, spironolactone, pantoprazole, nivolumab, Vericiguat, nifedipine, metformin , lisinopril 10/08-Patient seen and examined. Reports pain well swollen. Ordered CT chest/abdomen/pelvis without contrast. Stool occult blood positive. 10/09-patient seen and examined. No overnight events. H&H stable. 10/13-patient seen and examined. Patient had breakfast this morning. Colonoscopy scheduled for tomorrow. 10/15-patient seen and examined. Having multiple bowel movements overnight. Liquid in consistency. On Levophed. 10/16 - BM today, passing gas, no abd tenderness 10/17-Two Bowel movements. Foul smelling. Abdomen tender but nondistended and soft. Passing gas. Objective vital signs Vital Sign Date Time Temp Pulse Resp B/P (MAP) Pulse Ox O2 Delivery O2 Flow Rate FiO2 10/17/25 13:54 69 12 105/48 10/17/25 10:00 98 Nasal Cannula* 2 10/17/25 04:00 97.9 97.9 Total Intake and Output 10/16/25 10/16/25 10/17/25 15:00 23:00 07:00 Intake Total 566.25 ml 600 ml 640 ml Output Total 650 ml 850 ml Balance 566.25 ml -50 ml -210 ml medications Current Medications Medications Dose Ordered Sig/Audrey Route Start Time Stop Time Status Last Admin Dose Admin Atorvastatin Calcium 40 mg HS PO 10/07/25 22:00 10/16/25 21:11 40 MG Gabapentin 300 mg TID PO 10/07/25 22:00 10/17/25 06:00 300 MG Pantoprazole Sodium 40 mg BID IV 10/08/25 10:00 10/17/25 09:29 40 MG Sucralfate 1 gm TID@0600,1130,2200 PO 10/08/25 16:00 10/17/25 13:52 1 GM Acetaminophen/ Hydrocodone Bitart 1 tab Q6HP PRN PO 10/09/25 10:30 10/17/25 09:26 1 TAB Hydralazine HCl 10 mg Q6HR PRN IV 10/11/25 13:15 Piperacillin Sod/ Tazobactam Sod 100 ml @ 25 mls/hr Q8HR IV 10/14/25 14:00 10/17/25 13:52 25 MLS/HR Linezolid 300 ml @ 150 mls/hr Q12HR IV 10/14/25 22:00 10/17/25 09:29 150 MLS/HR Vasopressin 20 units/Sodium Chloride 100 ml @ 9 mls/hr Q11H7M IV 10/14/25 16:30 Ondansetron HCl 4 mg Q6HPRN PRN IV 10/14/25 16:45 Levothyroxine Sodium 100 mcg QAM PO 10/17/25 07:00 10/17/25 06:00 100 MCG Morphine Sulfate 2 mg Q4HP PRN IV 10/16/25 10:30 10/17/25 13:54 2 MG Acetaminophen 325 mg Q6HR PO 10/16/25 12:00 10/17/25 06:00 325 MG Norepinephrine Bitartrate 250 ml @ 3.75 mls/hr Q24H IV 10/16/25 16:45 10/17/25 13:53 5.625 MLS/HR Examination Patient lying in bed, in no acute distress General: Obese, afebrile, palor, mucosae are moist Cardiovascular: Regular S1 and S2. No murmurs, gallops or rubs. No JVD elevation. No pedal edema Respiratory: Normal B/L air entry on room air. Clear lung sounds on auscultation Abdomen: Soft, nontender, nondistended, normoactive bowel sounds, no rebound tenderness, no organomegaly, no masses Genitourinary: Deferred laboratory and microbiology Laboratory Tests 10/17/25 03:30 Test 10/17/25 03:30 Range/Units Serum Glucose 172 H 74-106 mg/dL Microbiology Date/Time Source Procedure Growth Status 10/16/25 03:00 Stool Stool Culture - Preliminary Resulted 10/16/25 03:00 Stool Shiga Toxin I & II - Final Resulted 10/14/25 16:10 Blood Blood Culture - Preliminary NO GROWTH AFTER 48 HOURS OF INCUBATION. Resulted 10/14/25 13:20 Nose MRSA Screen - Final Complete 10/14/25 13:15 Voided Urine Urine Culture - Final Complete Labs and/or images reviewed: Labs reviewed by me, Image(s) reviewed by me Problem List/Assessment/Plan Problem List/Assessment/Plan CT chest/abdomen/pelvis shows numerous solid pulmonary nodules. Extensive pulmonary tree in bud nodularity. There is extensive rectosigmoid colon wall thickening with surrounding stranding and perirectal lymphadenopathy. Differential considerations include colitis, inflammatory bowel disease, neoplastic process. Recommend colonoscopy once acute symptoms resolve to exclude underlying colonic malignancy. Cirrhotic right morphology liver. Splenomegaly. Cholecystectomy. Right-sided chest pain likely esophagitis/GERD Rule out ACS Hypertension Acute kidney injury Anemia likely normocytic History of COPD HFrEF no exacerbation History of renal cell carcinoma status post nephrectomy Diabetes mellitus Hypokalemia Uncontrolled hypothyroidism Plan: Dr. Mckeon: Recommendation Given the extensive rectosigmoid wall thickening with surrounding stranding and perirectal lymphadenopathy, patient will be scheduled for colonoscopy as inpatient 10/14. Colonoscopy could not be completed given very poor prep with large amount of chunks of brown stool. Diet deescalated to full liquid. Avoid milk. Started Cholestyramine b.i.d. c diff ordered 10/17 Few stool WBC, stool occult positive. Stool culture preliminary negative. Blood culture negative. Replenish electrolytes Stool occult blood positive, continue Protonix 40 mg IV b.i.d., continue Carafate TID Monitor H&H Avoid NSAIDs/ibuprofen/Aleve/Motrin Defer colonoscopy at this time and continue conservative observation because of poor medical condition and status We will continue follow up Thank you for consulting GI Plan discussed with patient all questions have been answered Case discussed with Dr. Mckeon Plan discussed with: Patient, Son (At bedside) My Orders My Orders Orders - ANGEL KING Procedure Category Date Status Time Full Liq Diet DIET 10/17/25 Transmitted Lunch Dietary Evaluation Review Comments: Nutrition Recommendation: 1) Avdnace to soft diet as medically feasible 2) Monitor PO intake, lab values, weight trend, and I/O Expected Outcomes/Goals: GI symptoms to improve Intake to meet >75% estimated needs FU 2-3 days ANGEL KING Oct 17, 2025 14:08
[2025-10-17] MEDS: PSYLLIUM PWD 5.8GM PKG PO ONE (16:05)
[2025-10-17] MEDS: CHOLESTYRAMINE 4 GM POWDER PO ONE (16:06)
[2025-10-17] MEDS: SODIUM CHLORIDE 0.9% 250 ML IV ONE (16:11)
[2025-10-17] MEDS: MORPHINE SULFATE INJ 2 MG/ml SYRG IV PRN (21:11)
[2025-10-18] VITALS (99 sets, daily range): BP systolic 90–177; BP diastolic 37–83; PULSE 54–89; RESP 9–24; TEMP 97–98.4; O2SAT 97–100
[2025-10-18 04:21] LABS: Hematocrit 27.8 % (36.0-46.0); Hemoglobin 8.9 g/dL (12.2-16.2); Mean Corpuscular Hemoglobin 24.5 pg (28.0-32.0); Mean Corpuscular Volume 76.7 fL (80.0-100.0); Nucleated Red Blood Cells % 0.2 %
[2025-10-18 04:39] LABS: Alkaline Phosphatase 68 U/L (46-116); Anion Gap 8 (5-15); BUN/Creatinine Ratio 23.7 (10.0-20.0); Blood Urea Nitrogen 18 mg/dL (9-23); Calcium 8.7 mg/dL (8.7-10.4); Carbon Dioxide 27 mmol/L (20-31); Chloride 106 mmol/L (98-107); Glucose 80 mg/dL (74-106); Sodium 141 mmol/L (136-145)
[2025-10-18 04:42] LABS: Alanine Aminotransferase < 9 U/L (7-40); Albumin 2.8 g/dL (3.2-4.8); Bilirubin, Total < 0.2 mg/dL (0.2-1.0); Potassium 3.1 mmol/L (3.5-5.1); Total Protein 5.0 g/dL (5.7-8.2)
[2025-10-18] MEDS: POTASSIUM EFFERVESENT TAB 25 MEQ PO ONE (06:02)
[2025-10-18] MEDS: PSYLLIUM PWD 5.8GM PKG PO SCH (09:10)
[2025-10-18] MEDS: CHOLESTYRAMINE 4 GM POWDER PO SCH (10:53)
[2025-10-18] MEDS: HYDROCORTISONE SOD SUCC 100 MG/2ML INJ VIAL IV SCH (10:54)
--- NOTE | 2025-10-18 11:38 | DVHPNRES ---
Progress Note Date Seen: Oct 18, 2025 Resident Creating Document: MCKENZIE CHRISTENSEN NATALIE Medical Necessity Reason Pt with a Central, PICC or Fol: Yes The following are medically ne: Central Line, Salamanca Catheter Subjective Review of Systems Chrissy Billings is a 65-year-old female patient who presents to the ED with chief complaint of burning right-sided chest pain which started on 10/06/2020 at 7:00 p.m. intensity 10/10 which lasted 10 minutes. Per patient pain initiated after she started eating a meal, and resolved spontaneously. Denies any other associated symptoms including dyspnea, syncope, diaphoresis, nausea, vomiting, abdominal pain and sick contacts. Past medical history: Diabetes, hypertension, COPD on home oxygen with 2 L/min, renal cell carcinoma status post partial nephrectomy with no recurrence, systolic congestive heart failure (HFrEF, LVEF 40%), PAD status post stent placement in 2021, diabetic retinopathy with bilateral amaurosis, hypothyroidism. Surgical history: Peripheral angiography with stent placement in iliac artery, cholecystectomy Family history: Mother has thyroid cancer Social history: Lives in [place] with son (next of kin, Marty). Ex tobacco abuse (30 pack-year history of smoking), quit five years ago. Denies current tobacco, alcohol and other drug abuse. Allergy: Codeine Home medication: Albuterol, aspirin, atorvastatin, digoxin, empagliflozin, fluconazole, furosemide, gabapentin, insulin, ipratropium, levothyroxine, spironolactone, pantoprazole, nivolumab, Vericiguat, nifedipine, metformin , lisinopril 10/12, the patient seen and examined at the bedside. Patient is feeling better, but still complaining of abdominal pain. 10/13, the patient seen and examined at the bedside. Patient is still complaining of generalized weakness. On 10/14, the patient is seen and examined at the bedside. Patient Is more altered, and weak. Blood pressure, normal saline bolus given, but could not improved. Central line placed, the patient was started on vasopressor. Colonoscopy performed by GI, but due to high volume of stool, had limited visualization otherwise no significant finding On 10/15, the patient seen and examined at the bedside. Patient is altered, and can not provide proper history. On 10/16, the patient seen and examined at the bedside. Patient is feeling better since admission, can tolerate oral intake, oriented to place, person and time. Patient's blood pressure is improving, tapering down the Levophed. Free T4 level checked, within normal limits. Stool occult blood rechecked, positive. On 10/17, the patient seen and examined at bedside with the patient is feeling better but still complaining of generalized body pain, and weakness. GI is planning for colonoscopy. On 10/18, the patient seen and examined at bedside with the patient is feeling better but still complaining of generalized body pain, and weakness. GI is planning for colonoscopy. Objective vital signs Vital Sign Date Time Temp Pulse Resp B/P (MAP) Pulse Ox O2 Delivery O2 Flow Rate FiO2 10/18/25 11:01 98.1 10/18/25 11:00 78 12 141/60 (87) 99 10/18/25 10:00 Nasal Cannula* 2 28 Total Intake and Output 10/17/25 10/17/25 10/18/25 15:00 23:00 07:00 Intake Total 500 ml 850 ml 480 ml Output Total 600 ml 1100 ml Balance 500 ml 250 ml -620 ml medications Current Medications Medications Dose Ordered Sig/Audrey Route Start Time Stop Time Status Last Admin Dose Admin Atorvastatin Calcium 40 mg HS PO 10/07/25 22:00 10/17/25 21:09 40 MG Gabapentin 300 mg TID PO 10/07/25 22:00 10/18/25 06:02 300 MG Pantoprazole Sodium 40 mg BID IV 10/08/25 10:00 10/18/25 09:09 40 MG Sucralfate 1 gm TID@0600,1130,2200 PO 10/08/25 16:00 10/18/25 10:53 1 GM Acetaminophen/ Hydrocodone Bitart 1 tab Q6HP PRN PO 10/09/25 10:30 10/18/25 10:53 1 TAB Hydralazine HCl 10 mg Q6HR PRN IV 10/11/25 13:15 Vasopressin 20 units/Sodium Chloride 100 ml @ 9 mls/hr Q11H7M IV 10/14/25 16:30 Ondansetron HCl 4 mg Q6HPRN PRN IV 10/14/25 16:45 Levothyroxine Sodium 100 mcg QAM PO 10/17/25 07:00 10/18/25 06:03 100 MCG Acetaminophen 325 mg Q6HR PO 10/16/25 12:00 10/18/25 11:01 325 MG Norepinephrine Bitartrate 250 ml @ 3.75 mls/hr Q24H IV 10/16/25 16:45 10/17/25 13:53 5.625 MLS/HR Cholestyramine Resin 4 gm DAILY@11 PO 10/18/25 11:00 10/18/25 10:53 4 GM Morphine Sulfate 1 mg Q4HP PRN IV 10/17/25 20:00 10/17/25 21:11 1 MG Hydrocortisone Sodium Succinate 50 mg Q12HR IV 10/18/25 10:00 10/18/25 10:54 50 MG Examination General: RASS +1, afebrile, mucosae are moist Cardiovascular: Normal S1 and S2. No murmurs, gallops or rubs Respiratory: Mechanically assisted ventilation, equal bilateral airway entree. Clear lung sounds on auscultation Mechanical ventilation setting: GI: Soft, nontender, no organomegaly, normal bowel sounds : Salamanca catheter n place, clear yellow urine in collection bag MSK/skin: Mobilization of limbs cannot be evaluated. Skin is dry and warm. IV accesses: Neurological: Orientation cannot be assessed. No apparent motor no sensitive deficits. Pupils are isocoric and reactive laboratory and microbiology Laboratory Tests 10/18/25 03:36 Test 10/18/25 03:36 Range/Units Serum Glucose 80 74-106 mg/dL Microbiology Date/Time Source Procedure Growth Status 10/16/25 03:00 Stool Stool Culture - Final Complete 10/16/25 03:00 Stool Shiga Toxin I & II - Final Complete 10/14/25 16:10 Blood Blood Culture - Preliminary NO GROWTH AFTER 72 HOURS OF INCUBATION. Resulted 10/14/25 13:20 Nose MRSA Screen - Final Complete 10/14/25 13:15 Voided Urine Urine Culture - Final Complete Labs and/or images reviewed: Labs reviewed by me, Image(s) reviewed by me Problem List/Assessment/Plan Problem List/Assessment/Plan Chest pain, likely musculoskeletal Possible GI bleeding Severe anemia, due to above KELLY, likely VMN, due to above Diabetes type 2 COPD, on home oxygen 2 L/min through nasal cannula Hypertension History of renal cell carcinoma, status post partial nephrectomy Systolic heart failure, LVEF 40% History of peripheral artery disease, status post stent placement Diabetic retinopathy Severe hypothyroidism Hypokalemia * Stool occult blood is positive * CT scan shows, extensive rectosigmoid colon wall thickening with surrounding stranding and perirectal lymphadenopathy * EGD on 10/10 shows, 2-3 cm sliding-type hiatal hernia with the acute severe linear erosive esophagitis with linear ulcers extending into the distal 10 cm of the esophagus with suspected underlying Barretts from which biopsies were obtained and mild antral gastritis otherwise essentially completely normal endoscopic examination up to the 2nd and 3rd part of the duodenum with no fresh or old blood in the upper GI tract at this time * Colonoscopy performed on 10/14, due to high volume of stool, could not complete the study, otherwise no significant finding Plan/recommendation: * Empiric antibiotic, Zosyn and linezolid * Consulted cardiology, recommended medical management * Consulted GI, performed upper GI endoscopy on 09/09, colonoscopy on 10/14, * Pain management * Vasopressor (Levophed), taper down; started on midodrine * Continue home meds * Levothyroxine 100 units daily * Discontinue Hydrocortisone 50 mg b.i.d. * Hold on antiplatelet/anticoagulant, due to possible GI bleeding * Repleted electrolyte DIET: Cardiac diet DVT PROPHYLAXIS: SCD CODE STATUS: Full code DISPOSITION: ICU status Critical care time of 55 minutes Patient's status and plan discussed with the patient, patient's son's and patient's brother at the bedside. Case discussed with Dr. Cortez. Plan discussed with: Patient, Other (RN) My Orders My Orders Orders - MCKENZIE CHRISTENSEN Procedure Category Date Status Time Clostridium Difficile MATT 10/17/25 In Process Toxin 15:13 Hydrocortisone PHA 10/18/25 In Process Succinate Inj 10:00 Dietary Evaluation Review Comments: Nutrition Recommendation: 1) Avdnace to soft diet as medically feasible 2) Monitor PO intake, lab values, weight trend, and I/O Expected Outcomes/Goals: GI symptoms to improve Intake to meet >75% estimated needs FU 2-3 days Date of Service: Oct 18, 2025 Billing Provider: MCKENZIE CHRISTENSEN Common Visit Codes: [id number] CARE 30-74 MIN (55 minutes) MCKENZIE CHRISTENSEN Oct 18, 2025 11:38 NABEEL CORTEZ MD Oct 19, 2025 13:41
[2025-10-18] MEDS: MIDODRINE HCL 10 MG TAB PO ONE (13:07)
[2025-10-18] MEDS: MIDODRINE HCL 10 MG TAB PO SCH (17:20)
[2025-10-18] MEDS: LORazepam 0.5 MG TAB PO ONE (22:28)
[2025-10-19] VITALS (26 sets, daily range): BP systolic 107–175; BP diastolic 45–80; PULSE 53–85; RESP 12–18; TEMP 97.7–98.1; O2SAT 98–100
[2025-10-19 04:33] LABS: Hematocrit 25.9 % (36.0-46.0); Hemoglobin 8.0 g/dL (12.2-16.2); Mean Corpuscular Hemoglobin 23.8 pg (28.0-32.0); Mean Corpuscular Volume 77.1 fL (80.0-100.0); Nucleated Red Blood Cells % 0.1 %
[2025-10-19 04:52] LABS: Alkaline Phosphatase 70 U/L (46-116); Anion Gap 5 (5-15); BUN/Creatinine Ratio 28.1 (10.0-20.0); Blood Urea Nitrogen 18 mg/dL (9-23); Carbon Dioxide 29 mmol/L (20-31); Chloride 106 mmol/L (98-107); Glucose 81 mg/dL (74-106); Potassium 4.0 mmol/L (3.5-5.1); Sodium 140 mmol/L (136-145)
[2025-10-19 05:00] LABS: Alanine Aminotransferase < 9 U/L (7-40); Albumin 2.7 g/dL (3.2-4.8); Bilirubin, Total < 0.2 mg/dL (0.2-1.0); Calcium 8.6 mg/dL (8.7-10.4); Total Protein 4.8 g/dL (5.7-8.2)
--- NOTE | 2025-10-19 09:14 | DVHPN2 ---
Progress Note - Dictate Date Seen: Oct 19, 2025 Medical Necessity Reason Pt with a Central, PICC or Fol: No Subjective iPT WELL KNOWN TO ME NOEW WITH RIGHT SIDED CHEST PAIN PMH DIABETES HTN COPD NEPHRECTOMY NEPHRECTOMY PAD WITH REVASCULARIZATION CAD HFrEF vital signs Vital Sign Date Time Temp Pulse Resp B/P (MAP) Pulse Ox O2 Delivery O2 Flow Rate FiO2 10/19/25 09:00 73 15 160/64 (96) 99 10/19/25 08:00 Nasal Cannula* 2 28 10/19/25 08:00 97.8 97.8 Total Intake and Output 10/18/25 10/18/25 10/19/25 15:00 23:00 07:00 Intake Total 720 ml 720 ml Output Total 325 ml 6650 ml Balance 395 ml -5930 ml medications Current Medications Medications Dose Ordered Sig/Audrey Route Start Time Stop Time Status Last Admin Dose Admin Atorvastatin Calcium 40 mg HS PO 10/07/25 22:00 10/18/25 20:43 40 MG Gabapentin 300 mg TID PO 10/07/25 22:00 10/19/25 05:52 300 MG Pantoprazole Sodium 40 mg BID IV 10/08/25 10:00 10/18/25 20:42 40 MG Sucralfate 1 gm TID@0600,1130,2200 PO 10/08/25 16:00 10/19/25 05:52 1 GM Acetaminophen/ Hydrocodone Bitart 1 tab Q6HP PRN PO 10/09/25 10:30 10/19/25 04:55 1 TAB Hydralazine HCl 10 mg Q6HR PRN IV 10/11/25 13:15 Vasopressin 20 units/Sodium Chloride 100 ml @ 9 mls/hr Q11H7M IV 10/14/25 16:30 Ondansetron HCl 4 mg Q6HPRN PRN IV 10/14/25 16:45 Levothyroxine Sodium 100 mcg QAM PO 10/17/25 07:00 10/19/25 05:52 100 MCG Acetaminophen 325 mg Q6HR PO 10/16/25 12:00 10/19/25 05:52 325 MG Norepinephrine Bitartrate 250 ml @ 3.75 mls/hr Q24H IV 10/16/25 16:45 10/18/25 16:39 3.75 MLS/HR Cholestyramine Resin 4 gm DAILY@11 PO 10/18/25 11:00 10/18/25 10:53 4 GM Morphine Sulfate 1 mg Q4HP PRN IV 10/17/25 20:00 10/17/25 21:11 1 MG Hydrocortisone Sodium Succinate 50 mg Q12HR IV 10/18/25 10:00 10/18/25 20:43 50 MG Midodrine 10 mg TIDWM@0600,1200,1800 PO 10/18/25 18:00 10/19/25 05:52 10 MG laboratory and microbiology Laboratory Tests 10/19/25 04:00 Test 10/19/25 04:00 Range/Units Serum Glucose 81 74-106 mg/dL Problem List RIGHT SIDED CHEST PAIN PMH DIABETES HTN COPD NEPHRECTOMY NEPHRECTOMY PAD WITH REVASCULARIZATION CAD HFrEF BNP NL TROPONIN NL UGI BLEED HEMATEMESIS MELENA NAUSEA VOMITING AMS HX METABOLIC ENCEPHALOPATHY DIARRHEA HYPOTENSION HYPOVOLEMIA SECONDARY TO DIARRHEA AND POOR PO INTAKE ACUTE RENAL FAILURE CHRONIC RENAL DISEASE CXR MILD LLL ATELECTASIS PMH: LE DOPPLER CONSISTENT WITH ADVANCE PAD HX OF DM VASCULOPATHY NEUROPATHY HX OF RENAL CELL CARCINOMA WITH LEFT PARTIAL NEPHRECTOMY BUT RENAL US SHOWS RIGHT kidney measures 12.7 cm in length. No hydronephrosis. LEFT kidney measures 9.9 cm in length. No hydronephrosis. COPD HX OF TOBACCO USE HTN ORGANIC HD NL EF DIASTOLIC DYSFUNCTION ECHO MILD GLOBAL HYPOKINESIS Assessment/Plan SEVERE ANEMIA GI WORKUP ABX SINCE X RAY CONSISTENT WITH PNA CARDIAC STATUS STABLE EGD SEVERE EROSIVE ESOPHAGITIS CORRECT ANEMIA CT OF CHEST AND ABD MULTIPLE LUNG NODULES CIRRHOSIS OF LIVER TRANSFUSE 1 UNIT PRBC IRON EPOGEN START PT Dietary Evaluation Review Comments: Nutrition Recommendation: 1) Avdnace to soft diet as medically feasible 2) Monitor PO intake, lab values, weight trend, and I/O Expected Outcomes/Goals: GI symptoms to improve Intake to meet >75% estimated needs FU 2-3 days Plan discussed with: Patient, Son HUNG IVAN MD Oct 19, 2025 09:14
--- NOTE | 2025-10-19 09:16 | DVHPN2 ---
Progress Note - Dictate Date Seen: Oct 18, 2025 Medical Necessity Reason Pt with a Central, PICC or Fol: No Subjective iPT WELL KNOWN TO ME NOEW WITH RIGHT SIDED CHEST PAIN PMH DIABETES HTN COPD NEPHRECTOMY NEPHRECTOMY PAD WITH REVASCULARIZATION CAD HFrEF vital signs Vital Sign Date Time Temp Pulse Resp B/P (MAP) Pulse Ox O2 Delivery O2 Flow Rate FiO2 10/19/25 09:00 73 15 160/64 (96) 99 10/19/25 08:00 Nasal Cannula* 2 28 10/19/25 08:00 97.8 97.8 Total Intake and Output 10/18/25 10/18/25 10/19/25 15:00 23:00 07:00 Intake Total 720 ml 720 ml Output Total 325 ml 6650 ml Balance 395 ml -5930 ml medications Current Medications Medications Dose Ordered Sig/Audrey Route Start Time Stop Time Status Last Admin Dose Admin Atorvastatin Calcium 40 mg HS PO 10/07/25 22:00 10/18/25 20:43 40 MG Gabapentin 300 mg TID PO 10/07/25 22:00 10/19/25 05:52 300 MG Pantoprazole Sodium 40 mg BID IV 10/08/25 10:00 10/18/25 20:42 40 MG Sucralfate 1 gm TID@0600,1130,2200 PO 10/08/25 16:00 10/19/25 05:52 1 GM Acetaminophen/ Hydrocodone Bitart 1 tab Q6HP PRN PO 10/09/25 10:30 10/19/25 04:55 1 TAB Hydralazine HCl 10 mg Q6HR PRN IV 10/11/25 13:15 Vasopressin 20 units/Sodium Chloride 100 ml @ 9 mls/hr Q11H7M IV 10/14/25 16:30 Ondansetron HCl 4 mg Q6HPRN PRN IV 10/14/25 16:45 Levothyroxine Sodium 100 mcg QAM PO 10/17/25 07:00 10/19/25 05:52 100 MCG Acetaminophen 325 mg Q6HR PO 10/16/25 12:00 10/19/25 05:52 325 MG Norepinephrine Bitartrate 250 ml @ 3.75 mls/hr Q24H IV 10/16/25 16:45 10/18/25 16:39 3.75 MLS/HR Cholestyramine Resin 4 gm DAILY@11 PO 10/18/25 11:00 10/18/25 10:53 4 GM Morphine Sulfate 1 mg Q4HP PRN IV 10/17/25 20:00 10/17/25 21:11 1 MG Hydrocortisone Sodium Succinate 50 mg Q12HR IV 10/18/25 10:00 10/18/25 20:43 50 MG Midodrine 10 mg TIDWM@0600,1200,1800 PO 10/18/25 18:00 10/19/25 05:52 10 MG laboratory and microbiology Laboratory Tests 10/19/25 04:00 Test 10/19/25 04:00 Range/Units Serum Glucose 81 74-106 mg/dL Problem List RIGHT SIDED CHEST PAIN PMH DIABETES HTN COPD NEPHRECTOMY NEPHRECTOMY PAD WITH REVASCULARIZATION CAD HFrEF BNP NL TROPONIN NL UGI BLEED HEMATEMESIS MELENA NAUSEA VOMITING AMS HX METABOLIC ENCEPHALOPATHY DIARRHEA HYPOTENSION HYPOVOLEMIA SECONDARY TO DIARRHEA AND POOR PO INTAKE ACUTE RENAL FAILURE CHRONIC RENAL DISEASE CXR MILD LLL ATELECTASIS PMH: LE DOPPLER CONSISTENT WITH ADVANCE PAD HX OF DM VASCULOPATHY NEUROPATHY HX OF RENAL CELL CARCINOMA WITH LEFT PARTIAL NEPHRECTOMY BUT RENAL US SHOWS RIGHT kidney measures 12.7 cm in length. No hydronephrosis. LEFT kidney measures 9.9 cm in length. No hydronephrosis. COPD HX OF TOBACCO USE HTN ORGANIC HD NL EF DIASTOLIC DYSFUNCTION ECHO MILD GLOBAL HYPOKINESIS Assessment/Plan SEVERE ANEMIA GI WORKUP ABX SINCE X RAY CONSISTENT WITH PNA CARDIAC STATUS STABLE EGD SEVERE EROSIVE ESOPHAGITIS CORRECT ANEMIA CT OF CHEST AND ABD MULTIPLE LUNG NODULES CIRRHOSIS OF LIVER TRANSFUSE 1 UNIT PRBC IRON EPOGEN START PT CHECK UA POSITVE FOR UTI START ABX Dietary Evaluation Review Comments: Nutrition Recommendation: 1) Avdnace to soft diet as medically feasible 2) Monitor PO intake, lab values, weight trend, and I/O Expected Outcomes/Goals: GI symptoms to improve Intake to meet >75% estimated needs FU 2-3 days HUNG IVAN MD Oct 19, 2025 09:16
[2025-10-19] MEDS: IRON SUCROSE COMPLEX 110 ML IV SCH (11:37)
--- NOTE | 2025-10-19 11:51 | DVHPN2 ---
Subjective Feeling better today; requesting solid food Reviewed: Care Plan, H&P, Labs, Medications, Previous Orders, Radiology, Other (Consultations) Changes from previous H/P or p: Changes Objective Vitals Vital Signs Date Time Temp Pulse Resp B/P (MAP) Pulse Ox O2 Delivery O2 Flow Rate FiO2 10/19/25 11:00 59 18 143/47 (79) 100 10/19/25 10:00 Nasal Cannula* 2 28 10/19/25 08:00 97.8 97.8 Intake/Output Intake and Output 10/19/25 07:00 Intake Total 1440 ml Output Total 6975 ml Balance -5535 ml Intake Oral 1440 ml Output Urine Total 6975 ml # Bowel Movements 7 General Appearance: Alert, Oriented X3, Cooperative, No acute distress, Other (Obese) HEENT: Atraumatic, Other (Central catheter in place) Lungs: Other (Decreased air entry bilateral) Cardiovascular: Regular rate, Normal S1, Normal S2 Abdomen: Normal bowel sounds, Soft, No tenderness Genitourinary: Other (Salamanca's in place) Neuro: Normal speech, Cranial nerves 3-12 NL Psych/Mental Status: Mental status NL, Mood NL Medications Current Medications Medications Dose Ordered Sig/Audrey Route Start Time Stop Time Status Last Admin Dose Admin Atorvastatin Calcium 40 mg HS PO 10/07/25 22:00 10/18/25 20:43 40 MG Gabapentin 300 mg TID PO 10/07/25 22:00 10/19/25 05:52 300 MG Pantoprazole Sodium 40 mg BID IV 10/08/25 10:00 10/19/25 09:36 40 MG Sucralfate 1 gm TID@0600,1130,2200 PO 10/08/25 16:00 10/19/25 11:37 1 GM Acetaminophen/ Hydrocodone Bitart 1 tab Q6HP PRN PO 10/09/25 10:30 10/19/25 04:55 1 TAB Hydralazine HCl 10 mg Q6HR PRN IV 10/11/25 13:15 Vasopressin 20 units/Sodium Chloride 100 ml @ 9 mls/hr Q11H7M IV 10/14/25 16:30 Ondansetron HCl 4 mg Q6HPRN PRN IV 10/14/25 16:45 Levothyroxine Sodium 100 mcg QAM PO 10/17/25 07:00 10/19/25 05:52 100 MCG Acetaminophen 325 mg Q6HR PO 10/16/25 12:00 10/19/25 11:37 325 MG Norepinephrine Bitartrate 250 ml @ 3.75 mls/hr Q24H IV 10/16/25 16:45 10/18/25 16:39 3.75 MLS/HR Cholestyramine Resin 4 gm DAILY@11 PO 10/18/25 11:00 10/19/25 11:37 4 GM Morphine Sulfate 1 mg Q4HP PRN IV 10/17/25 20:00 10/17/25 21:11 1 MG Hydrocortisone Sodium Succinate 50 mg Q12HR IV 10/18/25 10:00 10/19/25 09:36 50 MG Midodrine 10 mg TIDWM@0600,1200,1800 PO 10/18/25 18:00 10/19/25 05:52 10 MG Iron Sucrose 110 ml @ 110 mls/hr DAILY@1200 IV 10/19/25 12:00 10/23/25 11:59 10/19/25 11:37 110 MLS/HR Ceftriaxone Sodium 50 ml @ 100 mls/hr DAILY@09 IV 10/20/25 09:00 Laboratory Results Laboratory Tests 10/19/25 04:00 Chemistry Test 10/19/25 04:00 Albumin 2.7 g/dL (3.2-4.8) L Calcium Level 8.6 mg/dL (8.7-10.4) L Total Protein 4.8 g/dL (5.7-8.2) L LFT Test 10/19/25 04:00 Alanine Aminotransferase (ALT) < 9 U/L (7-40) Alkaline Phosphatase 70 U/L (46-116) Aspartate Amino Transferase (AST) < 8 U/L (13-40) L Total Bilirubin < 0.2 mg/dL (0.2-1.0) L Urinalysis Test 10/14/25 13:15 Urine Color Light-brown (Yellow) Urine Clarity Ex.turbid (Clear) Urine pH 5.0 (5.0-9.0) Urine Specific Bevier 1.013 (1.001-1.035) Urine Protein 1+ (Negative) H Urine Ketones Negative (Negative) Urine Blood 1+ /uL (Negative) H Urine Nitrite Negative (Negative) Urine Bilirubin Negative (Negative) Urine Urobilinogen Normal mg/dL (Negative) Urine Leukocyte Esterase 3+ /uL (Negative) Urine RBC 61 /hpf (0 - 4) Urine WBC Clumps Present /hpf (None Seen) Urine Microscopic WBC 1451 /HPF (0-5) H Urine Squamous Epithelial Cells Few /hpf (<5) Urine Bacteria Many /hpf (None Seen) H Urine Granular Casts Mod /lpf (0) Urine Mucus Few (None Seen) Urine Yeast (Budding) Loaded /hpf (None Seen) Urine Glucose Normal mg/dL (Normal) Microbiology Microbiology Date/Time Source Procedure Growth Status 10/18/25 06:10 Stool Clostridium difficile Toxin Assay - Final Complete 10/14/25 16:10 Blood Blood Culture - Preliminary NO GROWTH AFTER 72 HOURS OF INCUBATION. Resulted 10/14/25 13:20 Nose MRSA Screen - Final Complete 10/14/25 13:15 Voided Urine Urine Culture - Final Complete Labs and/or images reviewed: Labs reviewed by me, Image(s) reviewed by me Assessment/Plan Assessment/Plan Covering Dr. Hamm: Chest pain, likely musculoskeletal Suspected GI bleeding Severe anemia, due to above KELLY, most likely vasomotor nephropathy Diabetes mellitus type 2 COPD, on home oxygen 2 L/min through nasal cannula Hypertensive heart disease with systolic heart failure; not in exacerbation History of renal cell carcinoma, status post partial nephrectomy Systolic heart failure; not in exacerbation History of peripheral artery disease, status post stent placement Diabetic retinopathy Severe hypothyroidism Hypokalemia Obesity Reviewed available lab work including cultures Reviewed the available imaging studies Off IV pressors since last night; will also stop midodrine Continue IV antibiotics GI and Cardiology are following To downgrade to telemetry if continues to be stable off IV vasopressors and midodrine Nurse will reach out to GI regarding advancing diet Continue pain management as indicated Continue iron replacement To replace electrolytes as indicated SCDs for DVT prophylaxis Continue IV pantoprazole Continue close monitoring 45 minutes of critical care time This medical document was created using an electronic medical record system with computerized dictation system. Although this document has been carefully reviewed, there might still be some phonetic and typographical errors. These areas are purely typographical due to imperfections of the software programs, and do not reflect any compromise in the patient's medical care. Plan discussed with: Patient, Son, Other (Nurse) My Orders Orders - NABEEL CORTEZ MD Procedure Category Date Status Time Transfer Orders XFER 10/19/25 Transmitted 11:46 Date of Service: Oct 19, 2025 Billing Provider: NABEEL CORTEZ MD Common Visit Codes: [id number] CARE 30-74 MIN (45 minutes) NABEEL CORTEZ MD Oct 19, 2025 11:51
[2025-10-19] MEDS: MORPHINE SULFATE 4 MG/ML SYR/VIAL IV PRN (18:55)
[2025-10-19] MEDS: LORazepam 0.5 MG TAB PO PRN (22:25)
[2025-10-19] MEDS: hydrALAZINE HCL 20 MG/ML VL IV PRN (22:30)
--- NOTE | 2025-10-19 22:34 | DVHPN2 ---
Progress Note - Dictate Date Seen: Oct 19, 2025 Medical Necessity Reason Pt with a Central, PICC or Fol: Yes The following are medically ne: Central Line, [place] Catheter Subjective No new complaints, patient resting comfortably ; EGD had shown moderate severe esophagitis CT scan is showing rectal thickening with stranding Patient has pulmonary nodules Multiple bowel movements recorded Downgraded to the floor Stool cultures negative, C diff negative, occult blood positive, few WBC vital signs Vital Sign Date Time Temp Pulse Resp B/P (MAP) Pulse Ox O2 Delivery O2 Flow Rate FiO2 10/19/25 22:30 173/75 10/19/25 21:00 98.1 76 18 98 98.1 10/19/25 20:00 Nasal Cannula* 2 28 Total Intake and Output 10/18/25 10/18/25 10/19/25 15:00 23:00 07:00 Intake Total 720 ml 720 ml Output Total 325 ml 6650 ml Balance 395 ml -5930 ml medications Current Medications Medications Dose Ordered Sig/Audrey Route Start Time Stop Time Status Last Admin Dose Admin Atorvastatin Calcium 40 mg HS PO 10/07/25 22:00 10/19/25 21:14 40 MG Gabapentin 300 mg TID PO 10/07/25 22:00 10/19/25 21:13 300 MG Pantoprazole Sodium 40 mg BID IV 10/08/25 10:00 10/19/25 21:13 40 MG Sucralfate 1 gm TID@0600,1130,2200 PO 10/08/25 16:00 10/19/25 11:37 1 GM Acetaminophen/ Hydrocodone Bitart 1 tab Q6HP PRN PO 10/09/25 10:30 10/19/25 21:14 1 TAB Ondansetron HCl 4 mg Q6HPRN PRN IV 10/14/25 16:45 Levothyroxine Sodium 100 mcg QAM PO 10/17/25 07:00 10/19/25 05:52 100 MCG Acetaminophen 325 mg Q6HR PO 10/16/25 12:00 10/19/25 11:37 325 MG Cholestyramine Resin 4 gm DAILY@11 PO 10/18/25 11:00 10/19/25 11:37 4 GM Hydrocortisone Sodium Succinate 50 mg Q12HR IV 10/18/25 10:00 10/19/25 21:12 50 MG Iron Sucrose 110 ml @ 110 mls/hr DAILY@1200 IV 10/19/25 12:00 10/23/25 11:59 10/19/25 11:37 110 MLS/HR Ceftriaxone Sodium 50 ml @ 100 mls/hr DAILY@09 IV 10/20/25 09:00 Hydralazine HCl 10 mg Q4HP PRN IV 10/19/25 12:30 10/19/25 22:30 10 MG Morphine Sulfate 1 mg Q4HP PRN IV 10/19/25 19:00 10/19/25 18:55 1 MG Lorazepam 0.5 mg Q8HP PRN PO 10/19/25 22:15 10/19/25 22:25 0.5 MG objective General: Obese, afebrile, palor, mucosae are moist Cardiovascular: Regular S1 and S2. No murmurs, gallops or rubs. No JVD elevation. No pedal edema Respiratory: Normal B/L air entry on room air. Clear lung sounds on auscultation Abdomen: Soft, nontender, nondistended, normoactive bowel sounds, no rebound tenderness, no organomegaly, no masses laboratory and microbiology Laboratory Tests 10/19/25 04:00 Test 10/19/25 04:00 Range/Units Serum Glucose 81 74-106 mg/dL Problems(with codes): (1) Fecal impaction (2) Obstipation (3) Multifocal pneumonia (4) Hiatal hernia with GERD and esophagitis (5) Abnormal finding on GI tract imaging (6) Generalized weakness Prognosis Plan Continue bowel regimen Patient likely had stercoral colitis related to obstipation Continue to monitor labs , check CEA level Once the patient is able to tolerate a full bowel prep and elective colonoscopy for colon cancer screening he will be considered Dietary Evaluation Review Comments: Nutrition Recommendation: 1) Avdnace to soft diet as medically feasible 2) Monitor PO intake, lab values, weight trend, and I/O Expected Outcomes/Goals: GI symptoms to improve Intake to meet >75% estimated needs FU 2-3 days Plan discussed with: Patient BLADIMIR PITTS MD Oct 19, 2025 22:34
[2025-10-20] VITALS (7 sets, daily range): BP systolic 155–176; BP diastolic 77–84; PULSE 71–82; RESP 15–18; TEMP 97.9–98.6; O2SAT 100
[2025-10-20 06:08] LABS: Hematocrit 31.4 % (36.0-46.0); Hemoglobin 9.6 g/dL (12.2-16.2); Mean Corpuscular Hemoglobin 23.8 pg (28.0-32.0); Mean Corpuscular Volume 77.9 fL (80.0-100.0); Nucleated Red Blood Cells % 0.1 %
[2025-10-20 06:20] LABS: Anion Gap 8 (5-15); Carbon Dioxide 25 mmol/L (20-31); Chloride 106 mmol/L (98-107); Potassium 4.1 mmol/L (3.5-5.1); Sodium 139 mmol/L (136-145)
[2025-10-20 06:22] LABS: Calcium 8.7 mg/dL (8.7-10.4)
[2025-10-20 06:26] LABS: Glucose 97 mg/dL (74-106)
[2025-10-20 06:27] LABS: BUN/Creatinine Ratio 24.3 (10.0-20.0); Blood Urea Nitrogen 17 mg/dL (9-23); Magnesium 2.1 mg/dL (1.6-2.6)
[2025-10-20] MEDS ORDERED: LEVO88TA2 PO (12:43)
--- NOTE | 2025-10-20 13:52 | DVHPN2 ---
Progress Note - Dictate Date Seen: Oct 20, 2025 Medical Necessity Reason Pt with a Central, PICC or Fol: Yes The following are medically ne: Central Line, [place] Catheter Subjective iPT WELL KNOWN TO ME NOEW WITH RIGHT SIDED CHEST PAIN PMH DIABETES HTN COPD NEPHRECTOMY NEPHRECTOMY PAD WITH REVASCULARIZATION CAD HFrEF vital signs Vital Sign Date Time Temp Pulse Resp B/P (MAP) Pulse Ox O2 Delivery O2 Flow Rate FiO2 10/20/25 09:00 98.2 78 15 157/77 (103) 100 98.2 10/20/25 08:00 Room Air* 0 21 Total Intake and Output 10/19/25 10/19/25 10/20/25 15:00 23:00 07:00 Intake Total 710 ml 350 ml Output Total 425 ml Balance 285 ml 350 ml medications Current Medications Medications Dose Ordered Sig/Audrey Route Start Time Stop Time Status Last Admin Dose Admin Atorvastatin Calcium 40 mg HS PO 10/07/25 22:00 10/19/25 21:14 40 MG Gabapentin 300 mg TID PO 10/07/25 22:00 10/20/25 05:48 300 MG Pantoprazole Sodium 40 mg BID IV 10/08/25 10:00 10/20/25 09:01 40 MG Sucralfate 1 gm TID@0600,1130,2200 PO 10/08/25 16:00 10/20/25 05:48 1 GM Acetaminophen/ Hydrocodone Bitart 1 tab Q6HP PRN PO 10/09/25 10:30 10/20/25 08:41 1 TAB Ondansetron HCl 4 mg Q6HPRN PRN IV 10/14/25 16:45 Levothyroxine Sodium 100 mcg QAM PO 10/17/25 07:00 10/20/25 06:47 100 MCG Acetaminophen 325 mg Q6HR PO 10/16/25 12:00 10/20/25 05:48 325 MG Cholestyramine Resin 4 gm DAILY@11 PO 10/18/25 11:00 10/20/25 11:00 4 GM Hydrocortisone Sodium Succinate 50 mg Q12HR IV 10/18/25 10:00 10/20/25 08:44 50 MG Iron Sucrose 110 ml @ 110 mls/hr DAILY@1200 IV 10/19/25 12:00 10/23/25 11:59 10/20/25 12:27 110 MLS/HR Ceftriaxone Sodium 50 ml @ 100 mls/hr DAILY@09 IV 10/20/25 09:00 10/20/25 08:44 100 MLS/HR Hydralazine HCl 10 mg Q4HP PRN IV 10/19/25 12:30 10/19/25 22:30 10 MG Morphine Sulfate 1 mg Q4HP PRN IV 10/19/25 19:00 10/20/25 05:48 1 MG Lorazepam 0.5 mg Q8HP PRN PO 10/19/25 22:15 10/20/25 08:41 0.5 MG laboratory and microbiology Laboratory Tests 10/20/25 05:17 Test 10/20/25 05:17 Range/Units Serum Glucose 97 74-106 mg/dL Problem List RIGHT SIDED CHEST PAIN PMH DIABETES HTN COPD NEPHRECTOMY NEPHRECTOMY PAD WITH REVASCULARIZATION CAD HFrEF BNP NL TROPONIN NL UGI BLEED HEMATEMESIS MELENA NAUSEA VOMITING AMS HX METABOLIC ENCEPHALOPATHY DIARRHEA HYPOTENSION HYPOVOLEMIA SECONDARY TO DIARRHEA AND POOR PO INTAKE ACUTE RENAL FAILURE CHRONIC RENAL DISEASE CXR MILD LLL ATELECTASIS PMH: LE DOPPLER CONSISTENT WITH ADVANCE PAD HX OF DM VASCULOPATHY NEUROPATHY HX OF RENAL CELL CARCINOMA WITH LEFT PARTIAL NEPHRECTOMY BUT RENAL US SHOWS RIGHT kidney measures 12.7 cm in length. No hydronephrosis. LEFT kidney measures 9.9 cm in length. No hydronephrosis. COPD HX OF TOBACCO USE HTN ORGANIC HD NL EF DIASTOLIC DYSFUNCTION ECHO MILD GLOBAL HYPOKINESIS Assessment/Plan SEVERE ANEMIA GI WORKUP ABX SINCE X RAY CONSISTENT WITH PNA CARDIAC STATUS STABLE EGD SEVERE EROSIVE ESOPHAGITIS CORRECT ANEMIA CT OF CHEST AND ABD MULTIPLE LUNG NODULES CIRRHOSIS OF LIVER TRANSFUSE 1 UNIT PRBC IRON EPOGEN START PT CHECK UA POSITVE FOR UTI START ABX ANEMIA STABLE LYTES WITHIN NL LIMITS CONSIDER DC IN AM WITH HOME HEALTH Dietary Evaluation Review Comments: Nutrition Recommendation: 1) Avdnace to soft diet as medically feasible 2) Monitor PO intake, lab values, weight trend, and I/O Expected Outcomes/Goals: GI symptoms to improve Intake to meet >75% estimated needs FU 2-3 days Plan discussed with: Patient HUNG IVAN MD Oct 20, 2025 13:52
--- NOTE | 2025-10-20 14:44 | DVHPNRES ---
Progress Note Date Seen: Oct 20, 2025 Resident Creating Document: MCKENZIE CHRISTENSEN NATALIE Medical Necessity Reason Pt with a Central, PICC or Fol: Yes The following are medically ne: Central Line, [place] Catheter Subjective Review of Systems Chrissy Billings is a 65-year-old female patient who presents to the ED with chief complaint of burning right-sided chest pain which started on 10/06/2020 at 7:00 p.m. intensity 10/10 which lasted 10 minutes. Per patient pain initiated after she started eating a meal, and resolved spontaneously. Denies any other associated symptoms including dyspnea, syncope, diaphoresis, nausea, vomiting, abdominal pain and sick contacts. Past medical history: Diabetes, hypertension, COPD on home oxygen with 2 L/min, renal cell carcinoma status post partial nephrectomy with no recurrence, systolic congestive heart failure (HFrEF, LVEF 40%), PAD status post stent placement in 2021, diabetic retinopathy with bilateral amaurosis, hypothyroidism. Surgical history: Peripheral angiography with stent placement in iliac artery, cholecystectomy Family history: Mother has thyroid cancer Social history: Lives in [place] with son (next of kin, Marty). Ex tobacco abuse (30 pack-year history of smoking), quit five years ago. Denies current tobacco, alcohol and other drug abuse. Allergy: Codeine Home medication: Albuterol, aspirin, atorvastatin, digoxin, empagliflozin, fluconazole, furosemide, gabapentin, insulin, ipratropium, levothyroxine, spironolactone, pantoprazole, nivolumab, Vericiguat, nifedipine, metformin , lisinopril 10/12, the patient seen and examined at the bedside. Patient is feeling better, but still complaining of abdominal pain. 10/13, the patient seen and examined at the bedside. Patient is still complaining of generalized weakness. On 10/14, the patient is seen and examined at the bedside. Patient Is more altered, and weak. Blood pressure, normal saline bolus given, but could not improved. Central line placed, the patient was started on vasopressor. Colonoscopy performed by GI, but due to high volume of stool, had limited visualization otherwise no significant finding On 10/15, the patient seen and examined at the bedside. Patient is altered, and can not provide proper history. On 10/16, the patient seen and examined at the bedside. Patient is feeling better since admission, can tolerate oral intake, oriented to place, person and time. Patient's blood pressure is improving, tapering down the Levophed. Free T4 level checked, within normal limits. Stool occult blood rechecked, positive. On 10/17, the patient seen and examined at bedside with the patient is feeling better but still complaining of generalized body pain, and weakness. GI is planning for colonoscopy. On 10/18, the patient seen and examined at bedside with the patient is feeling better but still complaining of generalized body pain, and weakness. GI is planning for colonoscopy. On 10/20, the patient seen and examined at bedside. Patient is feeling better since admission. Patient can tolerate oral intake, blood pressure has normalized. Objective vital signs Vital Sign Date Time Temp Pulse Resp B/P (MAP) Pulse Ox O2 Delivery O2 Flow Rate FiO2 10/20/25 09:00 98.2 78 15 157/77 (103) 100 98.2 10/20/25 08:00 Room Air* 0 21 Total Intake and Output 10/19/25 10/19/25 10/20/25 15:00 23:00 07:00 Intake Total 710 ml 350 ml Output Total 425 ml Balance 285 ml 350 ml medications Current Medications Medications Dose Ordered Sig/Audrey Route Start Time Stop Time Status Last Admin Dose Admin Atorvastatin Calcium 40 mg HS PO 10/07/25 22:00 10/19/25 21:14 40 MG Gabapentin 300 mg TID PO 10/07/25 22:00 10/20/25 14:33 300 MG Pantoprazole Sodium 40 mg BID IV 10/08/25 10:00 10/20/25 09:01 40 MG Sucralfate 1 gm TID@0600,1130,2200 PO 10/08/25 16:00 10/20/25 05:48 1 GM Acetaminophen/ Hydrocodone Bitart 1 tab Q6HP PRN PO 10/09/25 10:30 10/20/25 08:41 1 TAB Ondansetron HCl 4 mg Q6HPRN PRN IV 10/14/25 16:45 Levothyroxine Sodium 100 mcg QAM PO 10/17/25 07:00 10/20/25 06:47 100 MCG Acetaminophen 325 mg Q6HR PO 10/16/25 12:00 10/20/25 14:33 325 MG Cholestyramine Resin 4 gm DAILY@11 PO 10/18/25 11:00 10/20/25 11:00 4 GM Hydrocortisone Sodium Succinate 50 mg Q12HR IV 10/18/25 10:00 10/20/25 08:44 50 MG Iron Sucrose 110 ml @ 110 mls/hr DAILY@1200 IV 10/19/25 12:00 10/23/25 11:59 10/20/25 12:27 110 MLS/HR Ceftriaxone Sodium 50 ml @ 100 mls/hr DAILY@09 IV 10/20/25 09:00 10/20/25 08:44 100 MLS/HR Hydralazine HCl 10 mg Q4HP PRN IV 10/19/25 12:30 10/19/25 22:30 10 MG Morphine Sulfate 1 mg Q4HP PRN IV 10/19/25 19:00 10/20/25 05:48 1 MG Lorazepam 0.5 mg Q8HP PRN PO 10/19/25 22:15 10/20/25 08:41 0.5 MG Examination General: RASS +1, afebrile, mucosae are moist Cardiovascular: Normal S1 and S2. No murmurs, gallops or rubs Respiratory: Mechanically assisted ventilation, equal bilateral airway entree. Clear lung sounds on auscultation Mechanical ventilation setting: GI: Soft, nontender, no organomegaly, normal bowel sounds : Salamanca catheter n place, clear yellow urine in collection bag MSK/skin: Mobilization of limbs cannot be evaluated. Skin is dry and warm. IV accesses: Neurological: Orientation cannot be assessed. No apparent motor no sensitive deficits. Pupils are isocoric and reactive laboratory and microbiology Laboratory Tests 10/20/25 05:17 Test 10/20/25 05:17 Range/Units Serum Glucose 97 74-106 mg/dL Microbiology Date/Time Source Procedure Growth Status 10/18/25 06:10 Stool Clostridium difficile Toxin Assay - Final Complete 10/14/25 16:10 Blood Blood Culture - Final NO GROWTH AFTER 5 DAYS OF INCUBATION. Complete 10/14/25 13:20 Nose MRSA Screen - Final Complete 10/14/25 13:15 Voided Urine Urine Culture - Final Complete Labs and/or images reviewed: Labs reviewed by me, Image(s) reviewed by me Problem List/Assessment/Plan Problem List/Assessment/Plan Chest pain, likely musculoskeletal Possible GI bleeding Severe anemia, due to above KELLY, likely VMN, due to above Diabetes type 2 COPD, on home oxygen 2 L through nasal cannula Hypertension History of renal cell carcinoma, status post partial nephrectomy Systolic heart failure, LVEF 40% History of peripheral artery disease, status post stent placement Diabetic retinopathy Severe hypothyroidism Hypokalemia * Stool occult blood is positive * CT scan shows, extensive rectosigmoid colon wall thickening with surrounding stranding and perirectal lymphadenopathy * EGD on 10/10 shows, 2-3 cm sliding-type hiatal hernia with the acute severe linear erosive esophagitis with linear ulcers extending into the distal 10 cm of the esophagus with suspected underlying Barretts from which biopsies were obtained and mild antral gastritis otherwise essentially completely normal endoscopic examination up to the 2nd and 3rd part of the duodenum with no fresh or old blood in the upper GI tract at this time * Colonoscopy performed on 10/14, due to high volume of stool, could not complete the study, otherwise no significant finding Plan/recommendation: * Consulted cardiology, recommended medical management * Consulted GI, performed upper GI endoscopy on 09/09 * Pain management * Continue home meds * Levothyroxine 100 units daily * Discontinue Hydrocortisone 50 mg b.i.d. * Hold on antiplatelet/anticoagulant, due to possible GI bleeding * Repleted electrolyte DIET: Cardiac diet DVT PROPHYLAXIS: SCD CODE STATUS: Goal of care discussed for more than 18 minutes, full code DISPOSITION: Telemetry Patient's status and plan discussed with the patient, patient's son's and patient's brother at the bedside. Case discussed with Dr. Hamm. Plan discussed with: Patient, Son, Other (RN) My Orders My Orders Orders - LISAWATIFFANIE,HEWAD RESDIENT Procedure Category Date Status Time * Range Mechanic CONS 10/20/25 Transmitted Consult Discharge DISCHARGE 10/20/25 Transmitted 12:43 Dietary Evaluation Review Comments: Nutrition Recommendation: 1) Avdnace to soft diet as medically feasible 2) Monitor PO intake, lab values, weight trend, and I/O Expected Outcomes/Goals: GI symptoms to improve Intake to meet >75% estimated needs FU 2-3 days Date of Service: Oct 20, 2025 Billing Provider: YENNI PEARSON MD Common Visit Codes: 07857-[id number] INP/OBS CARE(HIGH) HEWADMAL,HEWAD RESDIENT Oct 20, 2025 14:44
[2025-10-21] VITALS (8 sets, daily range): BP systolic 149–178; BP diastolic 72–115; PULSE 58–89; RESP 18–20; TEMP 97.3–98.6; O2SAT 96–100
[2025-10-21 07:22] LABS: Hemoglobin 9.1 g/dL (12.2-16.2)
[2025-10-21 07:24] LABS: Hematocrit 29.5 % (36.0-46.0); Mean Corpuscular Hemoglobin 23.8 pg (28.0-32.0); Mean Corpuscular Volume 77.2 fL (80.0-100.0)
[2025-10-21 07:32] LABS: Alkaline Phosphatase 73 U/L (46-116); Anion Gap 7 (5-15); BUN/Creatinine Ratio 19.7 (10.0-20.0); Blood Urea Nitrogen 14 mg/dL (9-23); Calcium 8.9 mg/dL (8.7-10.4); Carbon Dioxide 29 mmol/L (20-31); Chloride 105 mmol/L (98-107); Glucose 93 mg/dL (74-106); Potassium 3.9 mmol/L (3.5-5.1); Sodium 141 mmol/L (136-145)
[2025-10-21 07:33] LABS: Alanine Aminotransferase < 9 U/L (7-40); Albumin 3.1 g/dL (3.2-4.8); Bilirubin, Total 0.2 mg/dL (0.2-1.0); Total Protein 5.6 g/dL (5.7-8.2)
[2025-10-21 07:55] LABS: Total Cells Counted 100.0 (100)
[2025-10-21] MEDS: GOLYTELY 4L KIT PO ONE (14:15)
--- NOTE | 2025-10-21 14:26 | DVHPN2 ---
Progress Note - Dictate Date Seen: Oct 21, 2025 Medical Necessity Reason Pt with a Central, PICC or Fol: Yes The following are medically ne: Central Line, [place] Catheter Subjective iPT WELL KNOWN TO ME NOEW WITH RIGHT SIDED CHEST PAIN PMH DIABETES HTN COPD NEPHRECTOMY NEPHRECTOMY PAD WITH REVASCULARIZATION CAD HFrEF vital signs Vital Sign Date Time Temp Pulse Resp B/P (MAP) Pulse Ox O2 Delivery O2 Flow Rate FiO2 10/21/25 14:17 77 14 176/108 10/21/25 13:06 98.2 10/21/25 09:00 100 10/21/25 07:58 Nasal Cannula* 3 32 Total Intake and Output 10/20/25 10/20/25 10/21/25 15:00 23:00 07:00 Intake Total 0 ml 500 ml Output Total 2303 ml Balance 0 ml -1803 ml medications Current Medications Medications Dose Ordered Sig/Audrey Route Start Time Stop Time Status Last Admin Dose Admin Atorvastatin Calcium 40 mg HS PO 10/07/25 22:00 10/20/25 21:31 40 MG Gabapentin 300 mg TID PO 10/07/25 22:00 10/21/25 14:16 300 MG Pantoprazole Sodium 40 mg BID IV 10/08/25 10:00 10/21/25 08:37 40 MG Sucralfate 1 gm TID@0600,1130,2200 PO 10/08/25 16:00 10/21/25 11:30 1 GM Acetaminophen/ Hydrocodone Bitart 1 tab Q6HP PRN PO 10/09/25 10:30 10/20/25 21:33 1 TAB Ondansetron HCl 4 mg Q6HPRN PRN IV 10/14/25 16:45 Levothyroxine Sodium 100 mcg QAM PO 10/17/25 07:00 10/21/25 05:08 100 MCG Acetaminophen 325 mg Q6HR PO 10/16/25 12:00 10/21/25 12:00 325 MG Cholestyramine Resin 4 gm DAILY@11 PO 10/18/25 11:00 10/21/25 08:37 4 GM Hydrocortisone Sodium Succinate 50 mg Q12HR IV 10/18/25 10:00 10/21/25 08:37 50 MG Iron Sucrose 110 ml @ 110 mls/hr DAILY@1200 IV 10/19/25 12:00 10/23/25 11:59 10/21/25 12:00 110 MLS/HR Ceftriaxone Sodium 50 ml @ 100 mls/hr DAILY@09 IV 10/20/25 09:00 10/21/25 08:37 100 MLS/HR Hydralazine HCl 10 mg Q4HP PRN IV 10/19/25 12:30 10/19/25 22:30 10 MG Morphine Sulfate 1 mg Q4HP PRN IV 10/19/25 19:00 10/21/25 14:17 1 MG Lorazepam 0.5 mg Q8HP PRN PO 10/19/25 22:15 10/20/25 21:31 0.5 MG laboratory and microbiology Laboratory Tests 10/21/25 05:50 Test 10/21/25 05:50 Range/Units Serum Glucose 93 74-106 mg/dL Problem List RIGHT SIDED CHEST PAIN PMH DIABETES HTN COPD NEPHRECTOMY NEPHRECTOMY PAD WITH REVASCULARIZATION CAD HFrEF BNP NL TROPONIN NL UGI BLEED HEMATEMESIS MELENA NAUSEA VOMITING AMS HX METABOLIC ENCEPHALOPATHY DIARRHEA HYPOTENSION HYPOVOLEMIA SECONDARY TO DIARRHEA AND POOR PO INTAKE ACUTE RENAL FAILURE CHRONIC RENAL DISEASE CXR MILD LLL ATELECTASIS PMH: LE DOPPLER CONSISTENT WITH ADVANCE PAD HX OF DM VASCULOPATHY NEUROPATHY HX OF RENAL CELL CARCINOMA WITH LEFT PARTIAL NEPHRECTOMY BUT RENAL US SHOWS RIGHT kidney measures 12.7 cm in length. No hydronephrosis. LEFT kidney measures 9.9 cm in length. No hydronephrosis. COPD HX OF TOBACCO USE HTN ORGANIC HD NL EF DIASTOLIC DYSFUNCTION ECHO MILD GLOBAL HYPOKINESIS Assessment/Plan SEVERE ANEMIA GI WORKUP ABX SINCE X RAY CONSISTENT WITH PNA CARDIAC STATUS STABLE EGD SEVERE EROSIVE ESOPHAGITIS CORRECT ANEMIA CT OF CHEST AND ABD MULTIPLE LUNG NODULES CIRRHOSIS OF LIVER TRANSFUSE 1 UNIT PRBC IRON EPOGEN START PT CHECK UA POSITVE FOR UTI START ABX ANEMIA STABLE LYTES WITHIN NL LIMITS CONSIDER DC IN AM WITH HOME HEALTH Dietary Evaluation Review Comments: Nutrition Recommendation: 1) Avdnace to soft diet as medically feasible 2) Monitor PO intake, lab values, weight trend, and I/O Expected Outcomes/Goals: GI symptoms to improve Intake to meet >75% estimated needs FU 2-3 days HUNG IVAN MD Oct 21, 2025 14:26
--- NOTE | 2025-10-21 14:51 | DVH ---
CHEST RADIOGRAPH Indication: NGTUBE PLACEMENT Technique: Single frontal view of the chest was obtained COMPARISON: XY CHEST PORTABLE on DOS: 10/14/25, XY CHEST XRAY 1 VIEW on DOS: 10/14/25, XY CHEST PORTABLE on DOS: 10/07/25, XY CHEST PORTABLE on DOS: 09/04/25, XY CHEST PORTABLE on DOS: 06/05/25 FINDINGS: Lines and Tubes: Right central venous catheter in satisfactory position. Enteric catheter in satisfactory position. Lungs: Increased interstitial prominence. This may represent pulmonary vascular congestion and/or viral pneumonia. Pleura: No effusion. No pneumothorax. Cardiomediastinal contours: Unremarkable Bones: Unremarkable IMPRESSION: Enteric catheter in satisfactory position.
--- NOTE | 2025-10-21 14:54 | DVHPNRES ---
Progress Note Date Seen: Oct 21, 2025 Resident Creating Document: MCKENZIE CHRISTENSEN NATALIE Medical Necessity Reason Pt with a Central, PICC or Fol: Yes The following are medically ne: Central Line, Salamanca Catheter Subjective Review of Systems Chrissy Billings is a 65-year-old female patient who presents to the ED with chief complaint of burning right-sided chest pain which started on 10/06/2020 at 7:00 p.m. intensity 10/10 which lasted 10 minutes. Per patient pain initiated after she started eating a meal, and resolved spontaneously. Denies any other associated symptoms including dyspnea, syncope, diaphoresis, nausea, vomiting, abdominal pain and sick contacts. Past medical history: Diabetes, hypertension, COPD on home oxygen with 2 L/min, renal cell carcinoma status post partial nephrectomy with no recurrence, systolic congestive heart failure (HFrEF, LVEF 40%), PAD status post stent placement in 2021, diabetic retinopathy with bilateral amaurosis, hypothyroidism. Surgical history: Peripheral angiography with stent placement in iliac artery, cholecystectomy Family history: Mother has thyroid cancer Social history: Lives in [place] with son (next of kin, Marty). Ex tobacco abuse (30 pack-year history of smoking), quit five years ago. Denies current tobacco, alcohol and other drug abuse. Allergy: Codeine Home medication: Albuterol, aspirin, atorvastatin, digoxin, empagliflozin, fluconazole, furosemide, gabapentin, insulin, ipratropium, levothyroxine, spironolactone, pantoprazole, nivolumab, Vericiguat, nifedipine, metformin , lisinopril 10/12, the patient seen and examined at the bedside. Patient is feeling better, but still complaining of abdominal pain. 10/13, the patient seen and examined at the bedside. Patient is still complaining of generalized weakness. On 10/14, the patient is seen and examined at the bedside. Patient Is more altered, and weak. Blood pressure, normal saline bolus given, but could not improved. Central line placed, the patient was started on vasopressor. Colonoscopy performed by GI, but due to high volume of stool, had limited visualization otherwise no significant finding On 10/15, the patient seen and examined at the bedside. Patient is altered, and can not provide proper history. On 10/16, the patient seen and examined at the bedside. Patient is feeling better since admission, can tolerate oral intake, oriented to place, person and time. Patient's blood pressure is improving, tapering down the Levophed. Free T4 level checked, within normal limits. Stool occult blood rechecked, positive. On 10/17, the patient seen and examined at bedside with the patient is feeling better but still complaining of generalized body pain, and weakness. GI is planning for colonoscopy. On 10/18, the patient seen and examined at bedside with the patient is feeling better but still complaining of generalized body pain, and weakness. GI is planning for colonoscopy. On 10/20, the patient seen and examined at bedside. Patient is feeling better since admission. Patient can tolerate oral intake, blood pressure has normalized. On 10/21, the patient seen and examined at bedside. Patient is does not have any active complaint. Colonoscopy plan for 10/22. Objective vital signs Vital Sign Date Time Temp Pulse Resp B/P (MAP) Pulse Ox O2 Delivery O2 Flow Rate FiO2 10/21/25 14:17 77 14 176/108 10/21/25 13:06 98.2 10/21/25 09:00 100 10/21/25 07:58 Nasal Cannula* 3 32 Total Intake and Output 10/20/25 10/20/25 10/21/25 15:00 23:00 07:00 Intake Total 0 ml 500 ml Output Total 2303 ml Balance 0 ml -1803 ml medications Current Medications Medications Dose Ordered Sig/Audrey Route Start Time Stop Time Status Last Admin Dose Admin Atorvastatin Calcium 40 mg HS PO 10/07/25 22:00 10/20/25 21:31 40 MG Gabapentin 300 mg TID PO 10/07/25 22:00 10/21/25 14:16 300 MG Pantoprazole Sodium 40 mg BID IV 10/08/25 10:00 10/21/25 08:37 40 MG Sucralfate 1 gm TID@0600,1130,2200 PO 10/08/25 16:00 10/21/25 11:30 1 GM Acetaminophen/ Hydrocodone Bitart 1 tab Q6HP PRN PO 10/09/25 10:30 10/20/25 21:33 1 TAB Ondansetron HCl 4 mg Q6HPRN PRN IV 10/14/25 16:45 Levothyroxine Sodium 100 mcg QAM PO 10/17/25 07:00 10/21/25 05:08 100 MCG Acetaminophen 325 mg Q6HR PO 10/16/25 12:00 10/21/25 12:00 325 MG Cholestyramine Resin 4 gm DAILY@11 PO 10/18/25 11:00 10/21/25 08:37 4 GM Hydrocortisone Sodium Succinate 50 mg Q12HR IV 10/18/25 10:00 10/21/25 08:37 50 MG Iron Sucrose 110 ml @ 110 mls/hr DAILY@1200 IV 10/19/25 12:00 10/23/25 11:59 10/21/25 12:00 110 MLS/HR Ceftriaxone Sodium 50 ml @ 100 mls/hr DAILY@09 IV 10/20/25 09:00 10/21/25 08:37 100 MLS/HR Hydralazine HCl 10 mg Q4HP PRN IV 10/19/25 12:30 10/19/25 22:30 10 MG Morphine Sulfate 1 mg Q4HP PRN IV 10/19/25 19:00 10/21/25 14:17 1 MG Lorazepam 0.5 mg Q8HP PRN PO 10/19/25 22:15 10/20/25 21:31 0.5 MG Examination General: RASS +1, afebrile, mucosae are moist Cardiovascular: Normal S1 and S2. No murmurs, gallops or rubs Respiratory: Mechanically assisted ventilation, equal bilateral airway entree. Clear lung sounds on auscultation Mechanical ventilation setting: GI: Soft, nontender, no organomegaly, normal bowel sounds : Salamanca catheter n place, clear yellow urine in collection bag MSK/skin: Mobilization of limbs cannot be evaluated. Skin is dry and warm. IV accesses: Neurological: Orientation cannot be assessed. No apparent motor no sensitive deficits. Pupils are isocoric and reactive laboratory and microbiology Laboratory Tests 10/21/25 05:50 Test 10/21/25 05:50 Range/Units Serum Glucose 93 74-106 mg/dL Microbiology Date/Time Source Procedure Growth Status 10/18/25 06:10 Stool Clostridium difficile Toxin Assay - Final Complete 10/14/25 16:10 Blood Blood Culture - Final NO GROWTH AFTER 5 DAYS OF INCUBATION. Complete 10/14/25 13:20 Nose MRSA Screen - Final Complete 10/14/25 13:15 Voided Urine Urine Culture - Final Complete Labs and/or images reviewed: Labs reviewed by me, Image(s) reviewed by me Problem List/Assessment/Plan Problem List/Assessment/Plan Chest pain, likely musculoskeletal Possible GI bleeding Severe anemia, due to above KELLY, likely VMN, due to above Diabetes type 2 COPD, on home oxygen 2 L through nasal cannula Hypertension History of renal cell carcinoma, status post partial nephrectomy Systolic heart failure, LVEF 40% History of peripheral artery disease, status post stent placement Diabetic retinopathy Severe hypothyroidism Hypokalemia * Stool occult blood is positive * CT scan shows, extensive rectosigmoid colon wall thickening with surrounding stranding and perirectal lymphadenopathy * EGD on 10/10 shows, 2-3 cm sliding-type hiatal hernia with the acute severe linear erosive esophagitis with linear ulcers extending into the distal 10 cm of the esophagus with suspected underlying Barretts from which biopsies were obtained and mild antral gastritis otherwise essentially completely normal endoscopic examination up to the 2nd and 3rd part of the duodenum with no fresh or old blood in the upper GI tract at this time * Colonoscopy performed on 10/14, due to high volume of stool, could not complete the study, otherwise no significant finding Plan/recommendation: * Consulted cardiology, recommended medical management * Consulted GI, performed upper GI endoscopy on 09/09 * Pain management * Continue home meds * Levothyroxine 100 units daily * Discontinue Hydrocortisone 50 mg b.i.d. * Hold on antiplatelet/anticoagulant, due to possible GI bleeding * Repleted electrolyte * Colonoscopy planned for 10/22 DIET: Cardiac diet DVT PROPHYLAXIS: SCD CODE STATUS: Goal of care discussed for more than 18 minutes, full code DISPOSITION: Telemetry Patient's status and plan discussed with the patient, patient's son's and patient's brother at the bedside. Case discussed with Dr. Hamm. Plan discussed with: Patient, Other My Orders My Orders Orders - MCKENZIE CHRISTENSEN RESDIENT Procedure Category Date Status Time Place Ng ORDERS 10/21/25 Transmitted 13:49 Chest Xray 1 View XY 10/21/25 Taken 14:12 Dietary Evaluation Review Comments: Nutrition Recommendation: 1) Avdnace to soft diet as medically feasible 2) Monitor PO intake, lab values, weight trend, and I/O Expected Outcomes/Goals: GI symptoms to improve Intake to meet >75% estimated needs FU 2-3 days Date of Service: Oct 21, 2025 Billing Provider: YENNI PEARSON MD Common Visit Codes: 08083-NPVCPQOAVF INP/OBS CARE(HIGH) MCKENZIE CHRISTENSEN RESEFREN Oct 21, 2025 14:54
[2025-10-21] MEDS ORDERED: LIDOCAINE VISCOUS 2% 15ML UD MT ONE (16:30)
--- NOTE | 2025-10-21 17:18 | DVHPN2 ---
Progress Note Date Seen: Oct 21, 2025 Resident Creating Document: ANGEL KING RESIDENT Medical Necessity Reason Pt with a Central, PICC or Fol: Yes The following are medically ne: Central Line, [place]anca Catheter Subjective Review of Systems Chrissy Billings is a 65-year-old female patient who presents to the ED with chief complaint of burning right-sided chest pain which started on 10/06/2020 at 7:00 p.m. intensity 10/10 which lasted 10 minutes. Per patient pain initiated after she started eating a meal, and resolved spontaneously. Denies any other associated symptoms including dyspnea, syncope, diaphoresis, nausea, vomiting, abdominal pain and sick contacts. Past medical history: Diabetes, hypertension, COPD on home oxygen with 2 L/min, renal cell carcinoma status post partial nephrectomy with no recurrence, systolic congestive heart failure (HFrEF, LVEF 40%), PAD status post stent placement in 2021, diabetic retinopathy with bilateral amaurosis, hypothyroidism. Surgical history: Peripheral angiography with stent placement in iliac artery, cholecystectomy Family history: Mother has thyroid cancer Social history: Lives in [place] with son (next of kin, Marty). Ex tobacco abuse (30 pack-year history of smoking), quit five years ago. Denies current tobacco, alcohol and other drug abuse. Allergy: Codeine Home medication: Albuterol, aspirin, atorvastatin, digoxin, empagliflozin, fluconazole, furosemide, gabapentin, insulin, ipratropium, levothyroxine, spironolactone, pantoprazole, nivolumab, Vericiguat, nifedipine, metformin , lisinopril 10/08-Patient seen and examined. Reports pain well swollen. Ordered CT chest/abdomen/pelvis without contrast. Stool occult blood positive. 10/09-patient seen and examined. No overnight events. H&H stable. 10/13-patient seen and examined. Patient had breakfast this morning. Colonoscopy scheduled for tomorrow. 10/15-patient seen and examined. Having multiple bowel movements overnight. Liquid in consistency. On Levophed. 10/16 - BM today, passing gas, no abd tenderness 10/17-Two Bowel movements. Foul smelling. Abdomen tender but nondistended and soft. Passing gas. 10/21-patient seen and examined. One bowel movement. C diff negative, stool studies negative. Colonoscopy tomorrow. Continue GoLYTELY. Objective vital signs Vital Sign Date Time Temp Pulse Resp B/P (MAP) Pulse Ox O2 Delivery O2 Flow Rate FiO2 10/21/25 14:17 77 14 176/108 10/21/25 13:06 98.2 10/21/25 13:00 100 10/21/25 07:58 Nasal Cannula* 3 32 Total Intake and Output 10/20/25 10/20/25 10/21/25 15:00 23:00 07:00 Intake Total 0 ml 500 ml Output Total 2303 ml Balance 0 ml -1803 ml medications Current Medications Medications Dose Ordered Sig/Audrey Route Start Time Stop Time Status Last Admin Dose Admin Atorvastatin Calcium 40 mg HS PO 10/07/25 22:00 10/20/25 21:31 40 MG Gabapentin 300 mg TID PO 10/07/25 22:00 10/21/25 14:16 300 MG Pantoprazole Sodium 40 mg BID IV 10/08/25 10:00 10/21/25 08:37 40 MG Sucralfate 1 gm TID@0600,1130,2200 PO 10/08/25 16:00 10/21/25 11:30 1 GM Acetaminophen/ Hydrocodone Bitart 1 tab Q6HP PRN PO 10/09/25 10:30 10/20/25 21:33 1 TAB Ondansetron HCl 4 mg Q6HPRN PRN IV 10/14/25 16:45 Levothyroxine Sodium 100 mcg QAM PO 10/17/25 07:00 10/21/25 05:08 100 MCG Acetaminophen 325 mg Q6HR PO 10/16/25 12:00 10/21/25 12:00 325 MG Cholestyramine Resin 4 gm DAILY@11 PO 10/18/25 11:00 10/21/25 08:37 4 GM Hydrocortisone Sodium Succinate 50 mg Q12HR IV 10/18/25 10:00 10/21/25 08:37 50 MG Iron Sucrose 110 ml @ 110 mls/hr DAILY@1200 IV 10/19/25 12:00 10/23/25 11:59 10/21/25 12:00 110 MLS/HR Ceftriaxone Sodium 50 ml @ 100 mls/hr DAILY@09 IV 10/20/25 09:00 10/21/25 08:37 100 MLS/HR Hydralazine HCl 10 mg Q4HP PRN IV 10/19/25 12:30 10/19/25 22:30 10 MG Morphine Sulfate 1 mg Q4HP PRN IV 10/19/25 19:00 10/21/25 14:17 1 MG Lorazepam 0.5 mg Q8HP PRN PO 10/19/25 22:15 10/20/25 21:31 0.5 MG Examination Patient lying in bed, in no acute distress General: Obese, afebrile, palor, mucosae are moist Cardiovascular: Regular S1 and S2. No murmurs, gallops or rubs. No JVD elevation. No pedal edema Respiratory: Normal B/L air entry on room air. Clear lung sounds on auscultation Abdomen: Soft, nontender, nondistended, normoactive bowel sounds, no rebound tenderness, no organomegaly, no masses Genitourinary: Deferred laboratory and microbiology Laboratory Tests 10/21/25 05:50 Test 10/21/25 05:50 Range/Units Serum Glucose 93 74-106 mg/dL Microbiology Date/Time Source Procedure Growth Status 10/18/25 06:10 Stool Clostridium difficile Toxin Assay - Final Complete 10/14/25 16:10 Blood Blood Culture - Final NO GROWTH AFTER 5 DAYS OF INCUBATION. Complete 10/14/25 13:20 Nose MRSA Screen - Final Complete 10/14/25 13:15 Voided Urine Urine Culture - Final Complete Labs and/or images reviewed: Labs reviewed by me, Image(s) reviewed by me Problem List/Assessment/Plan Problem List/Assessment/Plan CT chest/abdomen/pelvis shows numerous solid pulmonary nodules. Extensive pulmonary tree in bud nodularity. There is extensive rectosigmoid colon wall thickening with surrounding stranding and perirectal lymphadenopathy. Differential considerations include colitis, inflammatory bowel disease, neoplastic process. Recommend colonoscopy once acute symptoms resolve to exclude underlying colonic malignancy. Cirrhotic right morphology liver. Splenomegaly. Cholecystectomy. Right-sided chest pain likely esophagitis/GERD Rule out ACS Hypertension Acute kidney injury Anemia likely normocytic History of COPD HFrEF no exacerbation History of renal cell carcinoma status post nephrectomy Diabetes mellitus Hypokalemia Uncontrolled hypothyroidism Plan: Dr. Mckeon: Recommendation Given the extensive rectosigmoid wall thickening with surrounding stranding and perirectal lymphadenopathy, patient will be scheduled for colonoscopy as inpatient 10/22. NG placed. Continue GoLYTELY through NG tube 100-150 cc every hour, Mag citrate in a.m.. Clear liquid diet. Repeat C diff negative Few stool WBC, stool occult positive. Stool culture preliminary negative. Blood culture negative. Replenish electrolytes Stool occult blood positive, continue Protonix 40 mg IV b.i.d., continue Carafate TID Monitor H&H Avoid NSAIDs/ibuprofen/Aleve/Motrin Defer colonoscopy at this time and continue conservative observation because of poor medical condition and status We will continue follow up Thank you for consulting GI Plan discussed with patient all questions have been answered Case discussed with Dr. Mckeon Plan discussed with: Patient My Orders My Orders Orders - ANGEL KING Procedure Category Date Status Time Obtain Consent For: ORDERS 10/21/25 Transmitted 14:13 Clear Liq Diet DIET 10/21/25 Transmitted Dinner Peg [id number] PHA 10/22/25 In Process Bicarb-Sod Ch 06:00 Tap Water Enema ORDERS 10/21/25 Transmitted 14:13 Obtain Consent For ANDREW 10/21/25 In Process Anesthesia 14:13 Dietary Evaluation Review Comments: Nutrition Recommendation: 1) Avdnace to soft diet as medically feasible 2) Monitor PO intake, lab values, weight trend, and I/O Expected Outcomes/Goals: GI symptoms to improve Intake to meet >75% estimated needs FU 2-3 days ANGEL KING RESIDENT Oct 21, 2025 17:18
[2025-10-21] MEDS: ACETAMINOPHEN 650 mg PER 20.3 mL UD GT SCH (17:37)
[2025-10-22] VITALS (9 sets, daily range): BP systolic 98–197; BP diastolic 64–97; PULSE 74–88; RESP 15–19; TEMP 97.2–98.9; O2SAT 92–100
[2025-10-22] MEDS: MAGNESIUM CITRATE SOLUTION 300 ML BTL PO ONE (06:10)
[2025-10-22] MEDS: GOLYTELY 4L KIT PO ONE (06:10)
[2025-10-22 06:38] LABS: Chloride 104 mmol/L (98-107); Potassium 4.0 mmol/L (3.5-5.1); Sodium 141 mmol/L (136-145)
[2025-10-22 06:39] LABS: Anion Gap 9 (5-15); Carbon Dioxide 28 mmol/L (20-31)
[2025-10-22 06:44] LABS: BUN/Creatinine Ratio 17.6 (10.0-20.0); Blood Urea Nitrogen 12 mg/dL (9-23); Calcium 8.6 mg/dL (8.7-10.4); Glucose 91 mg/dL (74-106)
--- NOTE | 2025-10-22 14:12 | DVHPN2 ---
Progress Note - Dictate Date Seen: Oct 22, 2025 Medical Necessity Reason Pt with a Central, PICC or Fol: Yes The following are medically ne: Central Line, [place] Catheter Subjective iPT WELL KNOWN TO ME NOEW WITH RIGHT SIDED CHEST PAIN PMH DIABETES HTN COPD NEPHRECTOMY NEPHRECTOMY PAD WITH REVASCULARIZATION CAD HFrEF vital signs Vital Sign Date Time Temp Pulse Resp B/P (MAP) Pulse Ox O2 Delivery O2 Flow Rate FiO2 10/22/25 12:40 97.9 78 16 98/64 (75) 92 97.9 10/22/25 07:46 Nasal Cannula* 3 32 Total Intake and Output 10/21/25 10/21/25 10/22/25 15:00 23:00 07:00 Intake Total 600 ml 0 ml Output Total 500 ml 900 ml Balance 100 ml -900 ml medications Current Medications Medications Dose Ordered Sig/Audrey Route Start Time Stop Time Status Last Admin Dose Admin Atorvastatin Calcium 40 mg HS PO 10/07/25 22:00 10/21/25 22:01 40 MG Gabapentin 300 mg TID PO 10/07/25 22:00 10/22/25 06:09 300 MG Pantoprazole Sodium 40 mg BID IV 10/08/25 10:00 10/22/25 09:43 40 MG Sucralfate 1 gm TID@0600,1130,2200 PO 10/08/25 16:00 10/22/25 10:39 1 GM Acetaminophen/ Hydrocodone Bitart 1 tab Q6HP PRN PO 10/09/25 10:30 10/21/25 22:01 1 TAB Ondansetron HCl 4 mg Q6HPRN PRN IV 10/14/25 16:45 Levothyroxine Sodium 100 mcg QAM PO 10/17/25 07:00 10/22/25 06:09 100 MCG Cholestyramine Resin 4 gm DAILY@11 PO 10/18/25 11:00 10/21/25 08:37 4 GM Hydrocortisone Sodium Succinate 50 mg Q12HR IV 10/18/25 10:00 10/22/25 09:43 50 MG Iron Sucrose 110 ml @ 110 mls/hr DAILY@1200 IV 10/19/25 12:00 10/23/25 11:59 10/21/25 12:00 110 MLS/HR Ceftriaxone Sodium 50 ml @ 100 mls/hr DAILY@09 IV 10/20/25 09:00 10/22/25 09:00 100 MLS/HR Hydralazine HCl 10 mg Q4HP PRN IV 10/19/25 12:30 10/21/25 19:02 10 MG Morphine Sulfate 1 mg Q4HP PRN IV 10/19/25 19:00 10/21/25 17:37 1 MG Lorazepam 0.5 mg Q8HP PRN PO 10/19/25 22:15 10/21/25 20:46 0.5 MG Acetaminophen 325 mg Q6HR GT 10/21/25 18:00 10/22/25 10:39 325 MG laboratory and microbiology Laboratory Tests 10/22/25 05:50 10/21/25 05:50 Test 10/22/25 05:50 Range/Units Serum Glucose 91 74-106 mg/dL Problem List RIGHT SIDED CHEST PAIN PMH DIABETES HTN COPD NEPHRECTOMY NEPHRECTOMY PAD WITH REVASCULARIZATION CAD HFrEF BNP NL TROPONIN NL UGI BLEED HEMATEMESIS MELENA NAUSEA VOMITING AMS HX METABOLIC ENCEPHALOPATHY DIARRHEA HYPOTENSION HYPOVOLEMIA SECONDARY TO DIARRHEA AND POOR PO INTAKE ACUTE RENAL FAILURE CHRONIC RENAL DISEASE CXR MILD LLL ATELECTASIS PMH: LE DOPPLER CONSISTENT WITH ADVANCE PAD HX OF DM VASCULOPATHY NEUROPATHY HX OF RENAL CELL CARCINOMA WITH LEFT PARTIAL NEPHRECTOMY BUT RENAL US SHOWS RIGHT kidney measures 12.7 cm in length. No hydronephrosis. LEFT kidney measures 9.9 cm in length. No hydronephrosis. COPD HX OF TOBACCO USE HTN ORGANIC HD NL EF DIASTOLIC DYSFUNCTION ECHO MILD GLOBAL HYPOKINESIS Assessment/Plan SEVERE ANEMIA GI WORKUP ABX SINCE X RAY CONSISTENT WITH PNA CARDIAC STATUS STABLE EGD SEVERE EROSIVE ESOPHAGITIS CORRECT ANEMIA CT OF CHEST AND ABD MULTIPLE LUNG NODULES CIRRHOSIS OF LIVER TRANSFUSE 1 UNIT PRBC IRON EPOGEN START PT CHECK UA POSITVE FOR UTI START ABX ANEMIA STABLE LYTES WITHIN NL LIMITS CONSIDER DC IN AM WITH HOME HEALTH Dietary Evaluation Review Comments: Nutrition Recommendation: 1) Avdnace to soft diet as medically feasible 2) Monitor PO intake, lab values, weight trend, and I/O Expected Outcomes/Goals: GI symptoms to improve Intake to meet >75% estimated needs FU 2-3 days Plan discussed with: Patient, Daughter, Son HUNG IVAN MD Oct 22, 2025 14:11
[2025-10-22] MEDS ORDERED: PROPOFOL 10 MG/ML 20 ML IV ONE (14:22)
[2025-10-22] MEDS ORDERED: LIDOCAINE 1% INJ PF 5ML AMP ONE (14:22)
--- NOTE | 2025-10-22 14:36 | DVHPN2 ---
Progress Note - Dictate Date Seen: Oct 22, 2025 Medical Necessity Reason Pt with a Central, PICC or Fol: Yes The following are medically ne: Central Line, [place] Catheter Subjective Patient was brought down to the preop area for a tentative colonoscopy However patient had a large amount of semi-formed bowel movement in the preop area Patient's prep was inadequate EGD had shown moderate severe esophagitis CT scan is showing rectal thickening with stranding Patient has pulmonary nodules Stool cultures negative, C diff negative, occult blood positive, few WBC vital signs Vital Sign Date Time Temp Pulse Resp B/P (MAP) Pulse Ox O2 Delivery O2 Flow Rate FiO2 10/22/25 12:40 97.9 78 16 98/64 (75) 92 97.9 10/22/25 07:46 Nasal Cannula* 3 32 Total Intake and Output 10/21/25 10/21/25 10/22/25 15:00 23:00 07:00 Intake Total 600 ml 0 ml Output Total 500 ml 900 ml Balance 100 ml -900 ml medications Current Medications Medications Dose Ordered Sig/Audrey Route Start Time Stop Time Status Last Admin Dose Admin Atorvastatin Calcium 40 mg HS PO 10/07/25 22:00 10/21/25 22:01 40 MG Gabapentin 300 mg TID PO 10/07/25 22:00 10/22/25 06:09 300 MG Pantoprazole Sodium 40 mg BID IV 10/08/25 10:00 10/22/25 09:43 40 MG Sucralfate 1 gm TID@0600,1130,2200 PO 10/08/25 16:00 10/22/25 10:39 1 GM Acetaminophen/ Hydrocodone Bitart 1 tab Q6HP PRN PO 10/09/25 10:30 10/21/25 22:01 1 TAB Ondansetron HCl 4 mg Q6HPRN PRN IV 10/14/25 16:45 Levothyroxine Sodium 100 mcg QAM PO 10/17/25 07:00 10/22/25 06:09 100 MCG Cholestyramine Resin 4 gm DAILY@11 PO 10/18/25 11:00 10/21/25 08:37 4 GM Hydrocortisone Sodium Succinate 50 mg Q12HR IV 10/18/25 10:00 10/22/25 09:43 50 MG Iron Sucrose 110 ml @ 110 mls/hr DAILY@1200 IV 10/19/25 12:00 12/25 11:59 10/21/25 12:00 110 MLS/HR Ceftriaxone Sodium 50 ml @ 100 mls/hr DAILY@09 IV 10/20/25 09:00 10/22/25 09:00 100 MLS/HR Hydralazine HCl 10 mg Q4HP PRN IV 10/19/25 12:30 10/21/25 19:02 10 MG Morphine Sulfate 1 mg Q4HP PRN IV 10/19/25 19:00 10/21/25 17:37 1 MG Lorazepam 0.5 mg Q8HP PRN PO 10/19/25 22:15 10/21/25 20:46 0.5 MG Acetaminophen 325 mg Q6HR GT 10/21/25 18:00 10/22/25 10:39 325 MG objective General: Anxious afebrile, palor, mucosae are moist Cardiovascular: Regular S1 and S2. No murmurs, gallops or rubs. No JVD elevation. No pedal edema Respiratory: Normal B/L air entry on room air. Clear lung sounds on auscultation Abdomen: Soft, nontender, nondistended, normoactive bowel sounds, no rebound tenderness, no organomegaly, no masses laboratory and microbiology Laboratory Tests 10/22/25 05:50 10/21/25 05:50 Test 10/22/25 05:50 Range/Units Serum Glucose 91 74-106 mg/dL Problems(with codes): (1) Fecal impaction (2) Generalized weakness (3) Obstipation (4) Multifocal pneumonia (5) Hiatal hernia with GERD and esophagitis (6) Abnormal finding on GI tract imaging Prognosis Plan Continue clear liquid diet Complete bowel prep with the remaining GoLYTELY today Patient will be given another round of bowel prep on Patient will be rescheduled for colonoscopy on 10/24/2025 Dietary Evaluation Review Comments: Nutrition Recommendation: 1) Avdnace to soft diet as medically feasible 2) Monitor PO intake, lab values, weight trend, and I/O Expected Outcomes/Goals: GI symptoms to improve Intake to meet >75% estimated needs FU 2-3 days Plan discussed with: Patient, Other (Nurse) BLADIMIR PITTS MD Oct 22, 2025 14:36
--- NOTE | 2025-10-22 16:50 | DVHPNRES ---
Progress Note Date Seen: Oct 22, 2025 Resident Creating Document: MCKENZIE CHRISTENSEN NATALIE Medical Necessity Reason Pt with a Central, PICC or Fol: No The following are medically ne: Central Line, [place]anca Catheter Subjective Review of Systems Chrissy Billings is a 65-year-old female patient who presents to the ED with chief complaint of burning right-sided chest pain which started on 10/06/2020 at 7:00 p.m. intensity 10/10 which lasted 10 minutes. Per patient pain initiated after she started eating a meal, and resolved spontaneously. Denies any other associated symptoms including dyspnea, syncope, diaphoresis, nausea, vomiting, abdominal pain and sick contacts. Past medical history: Diabetes, hypertension, COPD on home oxygen with 2 L/min, renal cell carcinoma status post partial nephrectomy with no recurrence, systolic congestive heart failure (HFrEF, LVEF 40%), PAD status post stent placement in 2021, diabetic retinopathy with bilateral amaurosis, hypothyroidism. Surgical history: Peripheral angiography with stent placement in iliac artery, cholecystectomy Family history: Mother has thyroid cancer Social history: Lives in [place] with son (next of kin, Marty). Ex tobacco abuse (30 pack-year history of smoking), quit five years ago. Denies current tobacco, alcohol and other drug abuse. Allergy: Codeine Home medication: Albuterol, aspirin, atorvastatin, digoxin, empagliflozin, fluconazole, furosemide, gabapentin, insulin, ipratropium, levothyroxine, spironolactone, pantoprazole, nivolumab, Vericiguat, nifedipine, metformin , lisinopril 10/12, the patient seen and examined at the bedside. Patient is feeling better, but still complaining of abdominal pain. 10/13, the patient seen and examined at the bedside. Patient is still complaining of generalized weakness. On 10/14, the patient is seen and examined at the bedside. Patient Is more altered, and weak. Blood pressure, normal saline bolus given, but could not improved. Central line placed, the patient was started on vasopressor. Colonoscopy performed by GI, but due to high volume of stool, had limited visualization otherwise no significant finding On 10/15, the patient seen and examined at the bedside. Patient is altered, and can not provide proper history. On 10/16, the patient seen and examined at the bedside. Patient is feeling better since admission, can tolerate oral intake, oriented to place, person and time. Patient's blood pressure is improving, tapering down the Levophed. Free T4 level checked, within normal limits. Stool occult blood rechecked, positive. On 10/17, the patient seen and examined at bedside with the patient is feeling better but still complaining of generalized body pain, and weakness. GI is planning for colonoscopy. On 10/18, the patient seen and examined at bedside with the patient is feeling better but still complaining of generalized body pain, and weakness. GI is planning for colonoscopy. On 10/20, the patient seen and examined at bedside. Patient is feeling better since admission. Patient can tolerate oral intake, blood pressure has normalized. On 10/21, the patient seen and examined at bedside. Patient is does not have any active complaint. On 10/21, the patient seen and examined at bedside. Patient is does not have any active complaint. Colonoscopy plan for 10/24. Objective vital signs Vital Sign Date Time Temp Pulse Resp B/P (MAP) Pulse Ox O2 Delivery O2 Flow Rate FiO2 10/22/25 16:39 97.2 84 15 108/65 (79) 99 97.2 10/22/25 07:46 Nasal Cannula* 3 32 Total Intake and Output 10/21/25 10/21/25 10/22/25 15:00 23:00 07:00 Intake Total 600 ml 0 ml Output Total 500 ml 900 ml Balance 100 ml -900 ml medications Current Medications Medications Dose Ordered Sig/Audrey Route Start Time Stop Time Status Last Admin Dose Admin Atorvastatin Calcium 40 mg HS PO 10/07/25 22:00 10/21/25 22:01 40 MG Gabapentin 300 mg TID PO 10/07/25 22:00 10/22/25 06:09 300 MG Pantoprazole Sodium 40 mg BID IV 10/08/25 10:00 10/22/25 09:43 40 MG Sucralfate 1 gm TID@0600,1130,2200 PO 10/08/25 16:00 10/22/25 10:39 1 GM Acetaminophen/ Hydrocodone Bitart 1 tab Q6HP PRN PO 10/09/25 10:30 10/21/25 22:01 1 TAB Ondansetron HCl 4 mg Q6HPRN PRN IV 10/14/25 16:45 Levothyroxine Sodium 100 mcg QAM PO 10/17/25 07:00 10/22/25 06:09 100 MCG Cholestyramine Resin 4 gm DAILY@11 PO 10/18/25 11:00 10/21/25 08:37 4 GM Hydrocortisone Sodium Succinate 50 mg Q12HR IV 10/18/25 10:00 10/22/25 09:43 50 MG Iron Sucrose 110 ml @ 110 mls/hr DAILY@1200 IV 10/19/25 12:00 10/23/25 11:59 10/21/25 12:00 110 MLS/HR Ceftriaxone Sodium 50 ml @ 100 mls/hr DAILY@09 IV 10/20/25 09:00 10/22/25 09:00 100 MLS/HR Hydralazine HCl 10 mg Q4HP PRN IV 10/19/25 12:30 10/21/25 19:02 10 MG Morphine Sulfate 1 mg Q4HP PRN IV 10/19/25 19:00 10/21/25 17:37 1 MG Lorazepam 0.5 mg Q8HP PRN PO 10/19/25 22:15 10/21/25 20:46 0.5 MG Acetaminophen 325 mg Q6HR GT 10/21/25 18:00 10/22/25 10:39 325 MG Examination General: RASS +1, afebrile, mucosae are moist Cardiovascular: Normal S1 and S2. No murmurs, gallops or rubs Respiratory: Mechanically assisted ventilation, equal bilateral airway entree. Clear lung sounds on auscultation Mechanical ventilation setting: GI: Soft, nontender, no organomegaly, normal bowel sounds : Salamanca catheter n place, clear yellow urine in collection bag MSK/skin: Mobilization of limbs cannot be evaluated. Skin is dry and warm. IV accesses: Neurological: Orientation cannot be assessed. No apparent motor no sensitive deficits. Pupils are isocoric and reactive laboratory and microbiology Laboratory Tests 10/22/25 05:50 10/21/25 05:50 Test 10/22/25 05:50 Range/Units Serum Glucose 91 74-106 mg/dL Microbiology Date/Time Source Procedure Growth Status 10/18/25 06:10 Stool Clostridium difficile Toxin Assay - Final Complete 10/14/25 16:10 Blood Blood Culture - Final NO GROWTH AFTER 5 DAYS OF INCUBATION. Complete 10/14/25 13:20 Nose MRSA Screen - Final Complete 10/14/25 13:15 Voided Urine Urine Culture - Final Complete Labs and/or images reviewed: Labs reviewed by me, Image(s) reviewed by me Problem List/Assessment/Plan Problem List/Assessment/Plan Chest pain, likely musculoskeletal Possible GI bleeding Severe anemia, due to above KELLY, likely VMN, due to above Diabetes type 2 COPD, on home oxygen 2 L through nasal cannula Hypertension History of renal cell carcinoma, status post partial nephrectomy Systolic heart failure, LVEF 40% History of peripheral artery disease, status post stent placement Diabetic retinopathy Severe hypothyroidism Hypokalemia * Stool occult blood is positive * CT scan shows, extensive rectosigmoid colon wall thickening with surrounding stranding and perirectal lymphadenopathy * EGD on 10/10 shows, 2-3 cm sliding-type hiatal hernia with the acute severe linear erosive esophagitis with linear ulcers extending into the distal 10 cm of the esophagus with suspected underlying Barretts from which biopsies were obtained and mild antral gastritis otherwise essentially completely normal endoscopic examination up to the 2nd and 3rd part of the duodenum with no fresh or old blood in the upper GI tract at this time * Colonoscopy performed on 10/14, due to high volume of stool, could not complete the study, otherwise no significant finding Plan/recommendation: * Consulted cardiology, recommended medical management * Consulted GI, performed upper GI endoscopy on 09/09 * Pain management * Continue home meds * Levothyroxine 100 units daily * Discontinue Hydrocortisone 50 mg b.i.d. * Hold on antiplatelet/anticoagulant, due to possible GI bleeding * Repleted electrolyte * Colonoscopy planned for 10/22 DIET: Cardiac diet DVT PROPHYLAXIS: SCD CODE STATUS: Goal of care discussed for more than 18 minutes, full code DISPOSITION: Telemetry Patient's status and plan discussed with the patient, patient's son's and patient's brother at the bedside. Case discussed with Dr. Hamm. Plan discussed with: Patient, Other My Orders My Orders Orders - MCKENZIE CHRISTENSEN RESDIENT Procedure Category Date Status Time Acetaminophen PHA 10/21/25 In Process Solution Oral 18:00 Dietary Evaluation Review Comments: Nutrition Recommendation: 1) Avdnace to soft diet as medically feasible 2) Monitor PO intake, lab values, weight trend, and I/O Expected Outcomes/Goals: GI symptoms to improve Intake to meet >75% estimated needs FU 2-3 days Visit Coding STANDARD RES Billing Provider: YENNI PEARSON MD Date of Service if different f: Oct 22, 2025 Common Visit Codes: [id number] INP/OBS CARE(HIGH) MCKENZIE CHRISTENSEN RESEFREN Oct 22, 2025 16:50
[2025-10-23] VITALS (8 sets, daily range): BP systolic 134–168; BP diastolic 5–86; PULSE 79–90; RESP 14–19; TEMP 97.3–98.3; O2SAT 97–100
[2025-10-23] MEDS: ONDANSETRON HCL 4 MG/2 ML VIAL IV PRN (05:12)
[2025-10-23 07:16] LABS: Hemoglobin 10.4 g/dL (12.2-16.2)
[2025-10-23 07:17] LABS: Hematocrit 34.1 % (36.0-46.0); Mean Corpuscular Hemoglobin 24.2 pg (28.0-32.0); Mean Corpuscular Volume 79.4 fL (80.0-100.0); Nucleated Red Blood Cells % 0.6 %
[2025-10-23 07:24] LABS: Chloride 101 mmol/L (98-107); Sodium 143 mmol/L (136-145)
[2025-10-23 07:25] LABS: Anion Gap 10 (5-15)
[2025-10-23 07:27] LABS: Calcium 8.5 mg/dL (8.7-10.4); Carbon Dioxide 32 mmol/L (20-31); Potassium 3.4 mmol/L (3.5-5.1)
[2025-10-23 07:30] LABS: BUN/Creatinine Ratio 17.5 (10.0-20.0); Blood Urea Nitrogen 11 mg/dL (9-23)
[2025-10-23 07:43] LABS: Glucose 71 mg/dL (74-106)
[2025-10-23] MEDS: POTASSIUM CHLORIDE 40 MEQ, LIDOCAINE 1% (LOCAL ANESTH.) 4 ML in SODIUM CHL 0.9% 250 ML IV ONE (11:38)
[2025-10-23] MEDS: D5W/SOD CHL 0.45% 1,000 ML IV SCH (11:38)
--- NOTE | 2025-10-23 11:43 | DVHPN2 ---
Progress Note Date Seen: Oct 23, 2025 Resident Creating Document: ANGEL KING RESIDENT Medical Necessity Reason Pt with a Central, PICC or Fol: No The following are medically ne: Central Line, [place] Catheter Subjective Review of Systems Chrissy Billings is a 65-year-old female patient who presents to the ED with chief complaint of burning right-sided chest pain which started on 10/06/2020 at 7:00 p.m. intensity 10/10 which lasted 10 minutes. Per patient pain initiated after she started eating a meal, and resolved spontaneously. Denies any other associated symptoms including dyspnea, syncope, diaphoresis, nausea, vomiting, abdominal pain and sick contacts. Past medical history: Diabetes, hypertension, COPD on home oxygen with 2 L/min, renal cell carcinoma status post partial nephrectomy with no recurrence, systolic congestive heart failure (HFrEF, LVEF 40%), PAD status post stent placement in 2021, diabetic retinopathy with bilateral amaurosis, hypothyroidism. Surgical history: Peripheral angiography with stent placement in iliac artery, cholecystectomy Family history: Mother has thyroid cancer Social history: Lives in [place] with son (next of kin, Marty). Ex tobacco abuse (30 pack-year history of smoking), quit five years ago. Denies current tobacco, alcohol and other drug abuse. Allergy: Codeine Home medication: Albuterol, aspirin, atorvastatin, digoxin, empagliflozin, fluconazole, furosemide, gabapentin, insulin, ipratropium, levothyroxine, spironolactone, pantoprazole, nivolumab, Vericiguat, nifedipine, metformin , lisinopril 10/08-Patient seen and examined. Reports pain well swollen. Ordered CT chest/abdomen/pelvis without contrast. Stool occult blood positive. 10/09-patient seen and examined. No overnight events. H&H stable. 10/13-patient seen and examined. Patient had breakfast this morning. Colonoscopy scheduled for tomorrow. 10/15-patient seen and examined. Having multiple bowel movements overnight. Liquid in consistency. On Levophed. 10/16 - BM today, passing gas, no abd tenderness 10/17-Two Bowel movements. Foul smelling. Abdomen tender but nondistended and soft. Passing gas. 10/21-patient seen and examined. One bowel movement. C diff negative, stool studies negative. Colonoscopy tomorrow. Continue GoLYTELY. 10/23-patient seen and examined. Continuing GoLYTELY. Abdomen soft but tender. Colonoscopy tomorrow. Objective vital signs Vital Sign Date Time Temp Pulse Resp B/P (MAP) Pulse Ox O2 Delivery O2 Flow Rate FiO2 10/23/25 09:00 98.3 83 16 140/86 (104) 99 98.3 10/22/25 20:00 Nasal Cannula* 2 28 Total Intake and Output 10/22/25 10/22/25 10/23/25 15:00 23:00 07:00 Intake Total 50 ml 0 ml 800 ml Output Total 850 ml Balance 50 ml 0 ml -50 ml medications Current Medications Medications Dose Ordered Sig/Audrey Route Start Time Stop Time Status Last Admin Dose Admin Atorvastatin Calcium 40 mg HS PO 10/07/25 22:00 10/22/25 21:20 40 MG Gabapentin 300 mg TID PO 10/07/25 22:00 10/23/25 05:53 300 MG Pantoprazole Sodium 40 mg BID IV 10/08/25 10:00 10/23/25 10:01 40 MG Sucralfate 1 gm TID@0600,1130,2200 PO 10/08/25 16:00 10/23/25 05:53 1 GM Acetaminophen/ Hydrocodone Bitart 1 tab Q6HP PRN PO 10/09/25 10:30 10/23/25 10:02 1 TAB Ondansetron HCl 4 mg Q6HPRN PRN IV 10/14/25 16:45 10/23/25 05:12 4 MG Levothyroxine Sodium 100 mcg QAM PO 10/17/25 07:00 10/23/25 05:53 100 MCG Cholestyramine Resin 4 gm DAILY@11 PO 10/18/25 11:00 10/23/25 11:38 4 GM Hydrocortisone Sodium Succinate 50 mg Q12HR IV 10/18/25 10:00 10/23/25 10:00 50 MG Iron Sucrose 110 ml @ 110 mls/hr DAILY@1200 IV 10/19/25 12:00 10/23/25 11:59 10/21/25 12:00 110 MLS/HR Ceftriaxone Sodium 50 ml @ 100 mls/hr DAILY@09 IV 10/20/25 09:00 10/23/25 10:00 100 MLS/HR Hydralazine HCl 10 mg Q4HP PRN IV 10/19/25 12:30 10/22/25 20:22 10 MG Morphine Sulfate 1 mg Q4HP PRN IV 10/19/25 19:00 10/23/25 05:13 1 MG Lorazepam 0.5 mg Q8HP PRN PO 10/19/25 22:15 10/22/25 20:21 0.5 MG Acetaminophen 325 mg Q6HR GT 10/21/25 18:00 10/22/25 18:00 325 MG Dextrose/Sodium Chloride 1,000 ml @ 75 mls/hr [id number] IV 10/23/25 10:45 10/23/25 11:38 75 MLS/HR Examination Patient lying in bed, in no acute distress General: Obese, afebrile, palor, mucosae are moist Cardiovascular: Regular S1 and S2. No murmurs, gallops or rubs. No JVD elevation. No pedal edema Respiratory: Normal B/L air entry on room air. Clear lung sounds on auscultation Abdomen: Soft, nontender, nondistended, normoactive bowel sounds, no rebound tenderness, no organomegaly, no masses Genitourinary: Deferred laboratory and microbiology Laboratory Tests 10/23/25 06:55 Test 10/23/25 06:55 Range/Units Serum Glucose 71 L 74-106 mg/dL Microbiology Date/Time Source Procedure Growth Status 10/18/25 06:10 Stool Clostridium difficile Toxin Assay - Final Complete 10/14/25 16:10 Blood Blood Culture - Final NO GROWTH AFTER 5 DAYS OF INCUBATION. Complete 10/14/25 13:20 Nose MRSA Screen - Final Complete 10/14/25 13:15 Voided Urine Urine Culture - Final Complete Labs and/or images reviewed: Labs reviewed by me, Image(s) reviewed by me Problem List/Assessment/Plan Problem List/Assessment/Plan CT chest/abdomen/pelvis shows numerous solid pulmonary nodules. Extensive pulmonary tree in bud nodularity. There is extensive rectosigmoid colon wall thickening with surrounding stranding and perirectal lymphadenopathy. Differential considerations include colitis, inflammatory bowel disease, neoplastic process. Recommend colonoscopy once acute symptoms resolve to exclude underlying colonic malignancy. Cirrhotic right morphology liver. Splenomegaly. Cholecystectomy. Right-sided chest pain likely esophagitis/GERD Rule out ACS Hypertension Acute kidney injury Anemia likely normocytic History of COPD HFrEF no exacerbation History of renal cell carcinoma status post nephrectomy Diabetes mellitus Hypokalemia Uncontrolled hypothyroidism Plan: Dr. Mckeon: Recommendation Given the extensive rectosigmoid wall thickening with surrounding stranding and perirectal lymphadenopathy, patient will be scheduled for colonoscopy as inpatient 10/23 continue GoLYTELY through NG tube 100-150 cc every hour, Mag citrate once now in once in a.m.. Clear liquid diet. Repeat C diff negative Few stool WBC, stool occult positive. Stool culture preliminary negative. Blood culture negative. Replenish electrolytes Stool occult blood positive, continue Protonix 40 mg IV b.i.d., continue Carafate TID Monitor H&H Avoid NSAIDs/ibuprofen/Aleve/Motrin Defer colonoscopy at this time and continue conservative observation because of poor medical condition and status We will continue follow up Thank you for consulting GI Plan discussed with patient all questions have been answered Case discussed with Dr. Mckeon Plan discussed with: Patient Dietary Evaluation Review Comments: Nutrition Recommendation: 1) Avdnace to soft diet as medically feasible 2) Monitor PO intake, lab values, weight trend, and I/O Expected Outcomes/Goals: GI symptoms to improve Intake to meet >75% estimated needs FU 2-3 days ANGEL KING RESIDENT Oct 23, 2025 11:42
--- NOTE | 2025-10-23 11:48 | DVHPN2 ---
Progress Note - Dictate Date Seen: Oct 23, 2025 Medical Necessity Reason Pt with a Central, PICC or Fol: No The following are medically ne: Central Line, [place] Catheter Subjective iPT WELL KNOWN TO ME NOEW WITH RIGHT SIDED CHEST PAIN PMH DIABETES HTN COPD NEPHRECTOMY NEPHRECTOMY PAD WITH REVASCULARIZATION CAD HFrEF vital signs Vital Sign Date Time Temp Pulse Resp B/P (MAP) Pulse Ox O2 Delivery O2 Flow Rate FiO2 10/23/25 09:00 98.3 83 16 140/86 (104) 99 98.3 10/22/25 20:00 Nasal Cannula* 2 28 Total Intake and Output 10/22/25 10/22/25 10/23/25 15:00 23:00 07:00 Intake Total 50 ml 0 ml 800 ml Output Total 850 ml Balance 50 ml 0 ml -50 ml medications Current Medications Medications Dose Ordered Sig/Audrey Route Start Time Stop Time Status Last Admin Dose Admin Atorvastatin Calcium 40 mg HS PO 10/07/25 22:00 10/22/25 21:20 40 MG Gabapentin 300 mg TID PO 10/07/25 22:00 10/23/25 05:53 300 MG Pantoprazole Sodium 40 mg BID IV 10/08/25 10:00 10/23/25 10:01 40 MG Sucralfate 1 gm TID@0600,1130,2200 PO 10/08/25 16:00 10/23/25 05:53 1 GM Acetaminophen/ Hydrocodone Bitart 1 tab Q6HP PRN PO 10/09/25 10:30 10/23/25 10:02 1 TAB Ondansetron HCl 4 mg Q6HPRN PRN IV 10/14/25 16:45 10/23/25 05:12 4 MG Levothyroxine Sodium 100 mcg QAM PO 10/17/25 07:00 10/23/25 05:53 100 MCG Cholestyramine Resin 4 gm DAILY@11 PO 10/18/25 11:00 10/23/25 11:38 4 GM Hydrocortisone Sodium Succinate 50 mg Q12HR IV 10/18/25 10:00 10/23/25 10:00 50 MG Iron Sucrose 110 ml @ 110 mls/hr DAILY@1200 IV 10/19/25 12:00 10/23/25 11:59 10/21/25 12:00 110 MLS/HR Ceftriaxone Sodium 50 ml @ 100 mls/hr DAILY@09 IV 10/20/25 09:00 10/23/25 10:00 100 MLS/HR Hydralazine HCl 10 mg Q4HP PRN IV 10/19/25 12:30 10/22/25 20:22 10 MG Morphine Sulfate 1 mg Q4HP PRN IV 10/19/25 19:00 10/23/25 05:13 1 MG Lorazepam 0.5 mg Q8HP PRN PO 10/19/25 22:15 10/22/25 20:21 0.5 MG Acetaminophen 325 mg Q6HR GT 10/21/25 18:00 10/22/25 18:00 325 MG Dextrose/Sodium Chloride 1,000 ml @ 75 mls/hr [id number] IV 10/23/25 10:45 10/23/25 11:38 75 MLS/HR laboratory and microbiology Laboratory Tests 10/23/25 06:55 Test 10/23/25 06:55 Range/Units Serum Glucose 71 L 74-106 mg/dL Problem List RIGHT SIDED CHEST PAIN PMH DIABETES HTN COPD NEPHRECTOMY NEPHRECTOMY PAD WITH REVASCULARIZATION CAD HFrEF BNP NL TROPONIN NL UGI BLEED HEMATEMESIS MELENA NAUSEA VOMITING AMS HX METABOLIC ENCEPHALOPATHY DIARRHEA HYPOTENSION HYPOVOLEMIA SECONDARY TO DIARRHEA AND POOR PO INTAKE ACUTE RENAL FAILURE CHRONIC RENAL DISEASE CXR MILD LLL ATELECTASIS PMH: LE DOPPLER CONSISTENT WITH ADVANCE PAD HX OF DM VASCULOPATHY NEUROPATHY HX OF RENAL CELL CARCINOMA WITH LEFT PARTIAL NEPHRECTOMY BUT RENAL US SHOWS RIGHT kidney measures 12.7 cm in length. No hydronephrosis. LEFT kidney measures 9.9 cm in length. No hydronephrosis. COPD HX OF TOBACCO USE HTN ORGANIC HD NL EF DIASTOLIC DYSFUNCTION ECHO MILD GLOBAL HYPOKINESIS Assessment/Plan SEVERE ANEMIA GI WORKUP ABX SINCE X RAY CONSISTENT WITH PNA CARDIAC STATUS STABLE EGD SEVERE EROSIVE ESOPHAGITIS GASTRITIS CORRECT ANEMIA CT OF CHEST AND ABD MULTIPLE LUNG NODULES CIRRHOSIS OF LIVER PAD* Right lower extremity shows patent right iliac. * Distal right iliac had a 95% narrowing. * A 95% narrowing of the right common femoral. * Right superficial femoral artery was occluded ostially, reconstitutes at the level of the profunda just above the knee with 3-vessel distal runoff; anterior tibial, posterior tibial, and the peroneal artery. However, the right profunda at the ostium which was giving the collateral circulation to the popliteal, had a 95% narrowing as well, status post thrombectomy with shockwave treatment and drug-eluting balloon angioplasty with less than 10% residual stenosis and now brisk flow into the profunda and then to the collaterals to the popliteal with excellent imaging noted above the tibioperoneal tree. * Left lower extremity angiography reveals 95% narrowing of the entire length of the left common iliac, common femoral, and the proximal segment of the superficial femoral artery on the left side. Entire length was then balloon angioplastied and shockwave treated with less than 10% residual stenosis. The left superficial femoral artery is also occluded with collateral circulation provided by the profunda at the level of the popliteal just above the knee with 3-vessel distal runoff. At this time, the inflow in both lower extremities have been improved. The outflow has to improve if we can establish better flow through the occluded superficial femoral artery, may require fem-pop bypass surgery or may require retrograde angioplasty from the popliteal. We will reassess the patient's anatomy at a later date. ECHO 03/14 LEFT VENTRICLE The Ejection Fraction is 35-45%. PULMONIC VALVE The pulmonic valve is not well visualized. AORTIC VALVE The aortic valve opens well. No aortic regurgitation is present. GREAT VESSELS The aortic root is normal size. PERICARDIAL EFFUSION There is no pericardial effusion. Conclusion EF 40% TRANSFUSE 1 UNIT PRBC IRON EPOGEN START PT CHECK UA POSITVE FOR UTI START ABX ANEMIA STABLE LYTES WITHIN NL LIMITS H/H STABLE CONSIDER DC IN AM WITH HOME HEALTH Dietary Evaluation Review Comments: Nutrition Recommendation: 1) Avdnace to soft diet as medically feasible 2) Monitor PO intake, lab values, weight trend, and I/O Expected Outcomes/Goals: GI symptoms to improve Intake to meet >75% estimated needs FU 2-3 days Plan discussed with: Patient, Terell HUNG IVAN MD Oct 23, 2025 11:48
[2025-10-23] MEDS: GOLYTELY 4L KIT PO ONE (14:28)
--- NOTE | 2025-10-23 15:45 | DVH ---
CHEST RADIOGRAPH Indication: NG Tube Placement Technique: Single frontal view of the chest was obtained COMPARISON: XY CHEST XRAY 1 VIEW on DOS: 10/21/25, XY CHEST PORTABLE on DOS: 10/14/25, XY CHEST XRAY 1 VIEW on DOS: 10/14/25, XY CHEST PORTABLE on DOS: 10/07/25, XY CHEST PORTABLE on DOS: 09/04/25 FINDINGS: Lines and Tubes: Enteric catheter courses below the level of the diaphragm and terminates beyond the inferior margin of the image. Right internal jugular central venous catheter tip projects over the distal superior vena cava. Lungs: Diffuse bilateral Increased prominence of the pulmonary vasculature without evidence of focal consolidation. Pleura: No effusion. No pneumothorax. Cardiomediastinal contours: Unremarkable Bones: Unremarkable IMPRESSION: 1. Enteric catheter courses below the level of the diaphragm and terminates beyond the inferior margin of the image. hs:y
--- NOTE | 2025-10-23 16:24 | DVHPNRES ---
Progress Note Date Seen: Oct 23, 2025 Resident Creating Document: MCKENZIE CHRISTENSEN NATALIE Medical Necessity Reason Pt with a Central, PICC or Fol: No The following are medically ne: Central Line, [place]anca Catheter Subjective Review of Systems Chrissy Billings is a 65-year-old female patient who presents to the ED with chief complaint of burning right-sided chest pain which started on 10/06/2020 at 7:00 p.m. intensity 10/10 which lasted 10 minutes. Per patient pain initiated after she started eating a meal, and resolved spontaneously. Denies any other associated symptoms including dyspnea, syncope, diaphoresis, nausea, vomiting, abdominal pain and sick contacts. Past medical history: Diabetes, hypertension, COPD on home oxygen with 2 L/min, renal cell carcinoma status post partial nephrectomy with no recurrence, systolic congestive heart failure (HFrEF, LVEF 40%), PAD status post stent placement in 2021, diabetic retinopathy with bilateral amaurosis, hypothyroidism. Surgical history: Peripheral angiography with stent placement in iliac artery, cholecystectomy Family history: Mother has thyroid cancer Social history: Lives in [place] with son (next of kin, Marty). Ex tobacco abuse (30 pack-year history of smoking), quit five years ago. Denies current tobacco, alcohol and other drug abuse. Allergy: Codeine Home medication: Albuterol, aspirin, atorvastatin, digoxin, empagliflozin, fluconazole, furosemide, gabapentin, insulin, ipratropium, levothyroxine, spironolactone, pantoprazole, nivolumab, Vericiguat, nifedipine, metformin , lisinopril 10/12, the patient seen and examined at the bedside. Patient is feeling better, but still complaining of abdominal pain. 10/13, the patient seen and examined at the bedside. Patient is still complaining of generalized weakness. On 10/14, the patient is seen and examined at the bedside. Patient Is more altered, and weak. Blood pressure, normal saline bolus given, but could not improved. Central line placed, the patient was started on vasopressor. Colonoscopy performed by GI, but due to high volume of stool, had limited visualization otherwise no significant finding On 10/15, the patient seen and examined at the bedside. Patient is altered, and can not provide proper history. On 10/16, the patient seen and examined at the bedside. Patient is feeling better since admission, can tolerate oral intake, oriented to place, person and time. Patient's blood pressure is improving, tapering down the Levophed. Free T4 level checked, within normal limits. Stool occult blood rechecked, positive. On 10/17, the patient seen and examined at bedside with the patient is feeling better but still complaining of generalized body pain, and weakness. GI is planning for colonoscopy. On 10/18, the patient seen and examined at bedside with the patient is feeling better but still complaining of generalized body pain, and weakness. GI is planning for colonoscopy. On 10/20, the patient seen and examined at bedside. Patient is feeling better since admission. Patient can tolerate oral intake, blood pressure has normalized. On 10/21, the patient seen and examined at bedside. Patient is does not have any active complaint. On 10/21, the patient seen and examined at bedside. Patient is does not have any active complaint. Colonoscopy plan for 10/24. On 10/21, the patient seen and examined at bedside. Patient is does not have any active complaint. Colonoscopy plan for tomorrow. Objective vital signs Vital Sign Date Time Temp Pulse Resp B/P (MAP) Pulse Ox O2 Delivery O2 Flow Rate FiO2 10/23/25 13:24 134/51 (78) 10/23/25 09:00 98.3 83 16 99 98.3 10/23/25 08:00 Nasal Cannula* 2 28 Total Intake and Output 10/22/25 10/22/25 10/23/25 15:00 23:00 07:00 Intake Total 50 ml 0 ml 800 ml Output Total 850 ml Balance 50 ml 0 ml -50 ml medications Current Medications Medications Dose Ordered Sig/Audrey Route Start Time Stop Time Status Last Admin Dose Admin Atorvastatin Calcium 40 mg HS PO 10/07/25 22:00 10/22/25 21:20 40 MG Gabapentin 300 mg TID PO 10/07/25 22:00 10/23/25 14:28 300 MG Pantoprazole Sodium 40 mg BID IV 10/08/25 10:00 10/23/25 10:01 40 MG Sucralfate 1 gm TID@0600,1130,2200 PO 10/08/25 16:00 10/23/25 12:03 1 GM Acetaminophen/ Hydrocodone Bitart 1 tab Q6HP PRN PO 10/09/25 10:30 10/23/25 10:02 1 TAB Ondansetron HCl 4 mg Q6HPRN PRN IV 10/14/25 16:45 10/23/25 05:12 4 MG Levothyroxine Sodium 100 mcg QAM PO 10/17/25 07:00 10/23/25 05:53 100 MCG Cholestyramine Resin 4 gm DAILY@11 PO 10/18/25 11:00 10/23/25 11:38 4 GM Hydrocortisone Sodium Succinate 50 mg Q12HR IV 10/18/25 10:00 10/23/25 10:00 50 MG Ceftriaxone Sodium 50 ml @ 100 mls/hr DAILY@09 IV 10/20/25 09:00 10/23/25 10:00 100 MLS/HR Hydralazine HCl 10 mg Q4HP PRN IV 10/19/25 12:30 10/23/25 12:16 10 MG Morphine Sulfate 1 mg Q4HP PRN IV 10/19/25 19:00 10/23/25 05:13 1 MG Lorazepam 0.5 mg Q8HP PRN PO 10/19/25 22:15 10/22/25 20:21 0.5 MG Acetaminophen 325 mg Q6HR GT 10/21/25 18:00 10/22/25 18:00 325 MG Dextrose/Sodium Chloride 1,000 ml @ 75 mls/hr [id number] IV 10/23/25 10:45 10/23/25 11:38 75 MLS/HR Examination General: RASS +1, afebrile, mucosae are moist Cardiovascular: Normal S1 and S2. No murmurs, gallops or rubs Respiratory: Mechanically assisted ventilation, equal bilateral airway entree. Clear lung sounds on auscultation Mechanical ventilation setting: GI: Soft, nontender, no organomegaly, normal bowel sounds : Salamanca catheter n place, clear yellow urine in collection bag MSK/skin: Mobilization of limbs cannot be evaluated. Skin is dry and warm. IV accesses: Neurological: Orientation cannot be assessed. No apparent motor no sensitive deficits. Pupils are isocoric and reactive laboratory and microbiology Laboratory Tests 10/23/25 06:55 Test 10/23/25 06:55 Range/Units Serum Glucose 71 L 74-106 mg/dL Microbiology Date/Time Source Procedure Growth Status 10/18/25 06:10 Stool Clostridium difficile Toxin Assay - Final Complete 10/14/25 16:10 Blood Blood Culture - Final NO GROWTH AFTER 5 DAYS OF INCUBATION. Complete 10/14/25 13:20 Nose MRSA Screen - Final Complete 10/14/25 13:15 Voided Urine Urine Culture - Final Complete Labs and/or images reviewed: Labs reviewed by me, Image(s) reviewed by me Problem List/Assessment/Plan Problem List/Assessment/Plan Chest pain, likely musculoskeletal Possible GI bleeding Severe anemia, due to above KELLY, likely VMN, due to above Diabetes type 2 COPD, on home oxygen 2 L through nasal cannula Hypertension History of renal cell carcinoma, status post partial nephrectomy Systolic heart failure, LVEF 40% History of peripheral artery disease, status post stent placement Diabetic retinopathy Severe hypothyroidism Hypokalemia * Stool occult blood is positive * CT scan shows, extensive rectosigmoid colon wall thickening with surrounding stranding and perirectal lymphadenopathy * EGD on 10/10 shows, 2-3 cm sliding-type hiatal hernia with the acute severe linear erosive esophagitis with linear ulcers extending into the distal 10 cm of the esophagus with suspected underlying Barretts from which biopsies were obtained and mild antral gastritis otherwise essentially completely normal endoscopic examination up to the 2nd and 3rd part of the duodenum with no fresh or old blood in the upper GI tract at this time * Colonoscopy performed on 10/14, due to high volume of stool, could not complete the study, otherwise no significant finding Plan/recommendation: * Consulted cardiology, recommended medical management * Consulted GI, performed upper GI endoscopy on 09/09 * Pain management * Continue home meds * Levothyroxine 100 units daily * Discontinue Hydrocortisone 50 mg b.i.d. * Hold on antiplatelet/anticoagulant, due to possible GI bleeding * Repleted electrolyte * Colonoscopy planned for 10/22 DIET: Cardiac diet DVT PROPHYLAXIS: SCD CODE STATUS: Goal of care discussed for more than 18 minutes, full code DISPOSITION: Telemetry Patient's status and plan discussed with the patient, patient's son's and patient's brother at the bedside. Case discussed with Dr. Hamm. Plan discussed with: Patient, Other (RN) My Orders My Orders Orders - MCKENZIE CHRISTENSEN RESDIJOSE ROBERTO Procedure Category Date Status Time D5w/Sod Chl 0.45% PHA 10/23/25 In Process (D5w 1/2ns) 10:45 Chest Xray 1 View XY 10/23/25 Resulted 14:32 Dietary Evaluation Review Comments: Nutrition Recommendation: 1) Avdnace to soft diet as medically feasible 2) Monitor PO intake, lab values, weight trend, and I/O Expected Outcomes/Goals: GI symptoms to improve Intake to meet >75% estimated needs FU 2-3 days Visit Coding STANDARD RES Billing Provider: YENNI PEARSON MD Date of Service if different f: Oct 23, 2025 Common Visit Codes: [id number] INP/OBS CARE(HIGH) MCKENZIE CHRISTENSEN RESDIENT Oct 23, 2025 16:24
[2025-10-23] MEDS: methylPREDNISolone SOD SUCC 40 MG/ML VL IV ONE (17:56)
[2025-10-23] MEDS: diphenhydrAMINE HCL 50 MG/1 ML VL IM ONE (17:56)
--- NOTE | 2025-10-23 20:23 | DVH ---
EXAM: XY CHEST XRAY 1 VIEW HISTORY: NGT TECHNIQUE: 1 view of the lower chest upper abdomen COMPARISON: XY CHEST XRAY 1 VIEW on DOS: 10/23/25 FINDINGS/IMPRESSION: LUNGS: Partially visualized right internal jugular central venous catheter MEDIASTINUM: Partially visualized BONES: No acute osseous abnormality. OTHER: Enteric tube extends to the proximal stomach. Gallbladder is surgically absent.
[2025-10-24] VITALS (8 sets, daily range): BP systolic 137–183; BP diastolic 64–89; PULSE 66–91; RESP 16–19; TEMP 95.7–99; O2SAT 92–100
[2025-10-24] MEDS ORDERED: GOLYTELY 4L KIT PO ONE (06:00)
[2025-10-24] MEDS: MAGNESIUM CITRATE SOLUTION 300 ML BTL PO ONE (06:39)
[2025-10-24 07:49] LABS: Hematocrit 30.4 % (36.0-46.0); Hemoglobin 9.2 g/dL (12.2-16.2); Mean Corpuscular Hemoglobin 24.2 pg (28.0-32.0); Mean Corpuscular Volume 79.9 fL (80.0-100.0); Nucleated Red Blood Cells % 0.3 %
[2025-10-24 07:55] LABS: Alkaline Phosphatase 93 U/L (46-116); Anion Gap 9 (5-15); BUN/Creatinine Ratio 11.3 (10.0-20.0); Chloride 100 mmol/L (98-107); Glucose 105 mg/dL (74-106); Sodium 140 mmol/L (136-145)
[2025-10-24 08:05] LABS: Alanine Aminotransferase < 9 U/L (7-40); Albumin 3.0 g/dL (3.2-4.8); Bilirubin, Total 0.3 mg/dL (0.2-1.0); Blood Urea Nitrogen 7 mg/dL (9-23); Calcium 8.2 mg/dL (8.7-10.4); Carbon Dioxide 31 mmol/L (20-31); Potassium 3.1 mmol/L (3.5-5.1); Total Protein 5.3 g/dL (5.7-8.2)
[2025-10-24] MEDS ORDERED: fentaNYL CITRATE 100 MCG/2 ML VL ONE (12:02)
[2025-10-24] MEDS ORDERED: PROPOFOL 10 MG/ML 20 ML IV ONE (12:03)
--- NOTE | 2025-10-24 14:09 | DVHOP2 ---
Operative Report DATE OF OPERATION: 10/24/25 PROCEDURE: Colonoscopy with hot snare polypectomy. PREOPERATIVE INDICATION: The patient is a 65 -year-old female undergoing colonoscopy for evaluation of rectal bleeding and abnormal finding GI tract imaging POSTOPERATIVE DIAGNOSES: 1. Patient had an abnormal area of inflammation ulceration possible ischemia possible stercoral inflammation extending from about 15-25 cm above the anal verge from which biopsies were obtained 2. Patient had a 1.5 cm benign-appearing ascending colon polyp that was seen and removed via hot snare polypectomy 3. There was a 2 mm benign-appearing descending colon polyp that was seen and removed via cold biopsy forceps 4. 1+ internal hemorrhoids otherwise normal examination up to the cecum PROCEDURE PERFORMED BY: Bladimir Mckeon M.D. SCOPE: Olympus videocolonoscope. ASA CLASS: 3 PREOPERATIVE MEDICATIONS: Dr. Denisha Barnes PROCEDURE IN DETAIL: After obtaining an informed consent, the patient was placed on left lateral decubitus position. She was then sedated with the above medications. A rectal examination was performed that was normal. The colonoscope was then passed through the anus into the rectosigmoid and through the descending, transverse, and ascending colon up to the cecum with visualization of the appendiceal orifice, base of the cecum and the ileocecal valve. The colonoscope was then withdrawn. Patient had a 1.5-2 cm ascending colon polyp that was seen and removed by hot snare polypectomy and the specimens were retrieved There was another 2 mm benign-appearing descending colon polyp that was seen and removed by cold biopsy forceps There was no significant diverticulosis patient had an abnormal area of inflammation in the sigmoid from 15-25 cm This had area of superficial ulceration necrosis possible ischemic possible stercoral in nature from which biopsies were obtained On retroflexion patient had 1+ internal hemorrhoids. The patient tolerated the procedure well without difficulty. WITHDRAWAL TIME: 9 minutes QUALITY OF THE PREP: [place] Bowel Prep score: 8. COMPLICATIONS : None SPECIMENS: Ascending colon polyp Descending colon polyp Sigmoid biopsies DISPOSITION: Transfer back to the floor Stable PLAN: 1. Repeat colonoscopy base on biopsy result likely in 3-5 years 2. Resume full liquid diet advance to soft mechanical if tolerated 3. Discontinue NG tube 4. Increase fluid and fiber intake 5. Hold aspirin and blood thinners for 3-5 days plan 6. Outpatient follow up with me in 4-6 weeks to review results and discuss further management BLADIMIR MCKEON MD Oct 24, 2025 14:09
[2025-10-24] MEDS ORDERED: PANT40TA2 PO (14:56)
[2025-10-24] MEDS ORDERED: SUCR1SUS26 PO (14:56)
--- NOTE | 2025-10-24 15:27 | DVHPN2 ---
Progress Note - Dictate Date Seen: Oct 24, 2025 Medical Necessity Reason Pt with a Central, PICC or Fol: No The following are medically ne: Central Line, [place] Catheter Subjective iPT WELL KNOWN TO ME NOEW WITH RIGHT SIDED CHEST PAIN PMH DIABETES HTN COPD NEPHRECTOMY NEPHRECTOMY PAD WITH REVASCULARIZATION CAD HFrEF vital signs Vital Sign Date Time Temp Pulse Resp B/P (MAP) Pulse Ox O2 Delivery O2 Flow Rate FiO2 10/24/25 14:13 77 16 141/56 (84) 95 10/24/25 13:47 Room Air 0 10/24/25 13:47 97.8 97.8 10/24/25 13:47 96 Total Intake and Output 10/23/25 10/23/25 10/24/25 15:00 23:00 07:00 Intake Total 360 ml 600 ml Output Total 400 ml Balance -40 ml 600 ml medications Current Medications Medications Dose Ordered Sig/Audrey Route Start Time Stop Time Status Last Admin Dose Admin Atorvastatin Calcium 40 mg HS PO 10/07/25 22:00 10/23/25 21:47 40 MG Gabapentin 300 mg TID PO 10/07/25 22:00 10/24/25 14:51 300 MG Pantoprazole Sodium 40 mg BID IV 10/08/25 10:00 10/24/25 08:55 40 MG Sucralfate 1 gm TID@0600,1130,2200 PO 10/08/25 16:00 10/23/25 21:47 1 GM Acetaminophen/ Hydrocodone Bitart 1 tab Q6HP PRN PO 10/09/25 10:30 10/23/25 10:02 1 TAB Ondansetron HCl 4 mg Q6HPRN PRN IV 10/14/25 16:45 10/24/25 01:23 4 MG Levothyroxine Sodium 100 mcg QAM PO 10/17/25 07:00 10/24/25 06:23 100 MCG Cholestyramine Resin 4 gm DAILY@11 PO 10/18/25 11:00 10/23/25 11:38 4 GM Hydrocortisone Sodium Succinate 50 mg Q12HR IV 10/18/25 10:00 10/24/25 08:56 50 MG Ceftriaxone Sodium 50 ml @ 100 mls/hr DAILY@09 IV 10/20/25 09:00 10/24/25 08:56 100 MLS/HR Hydralazine HCl 10 mg Q4HP PRN IV 10/19/25 12:30 10/24/25 08:56 10 MG Morphine Sulfate 1 mg Q4HP PRN IV 10/19/25 19:00 10/24/25 10:38 1 MG Lorazepam 0.5 mg Q8HP PRN PO 10/19/25 22:15 10/23/25 21:47 0.5 MG Acetaminophen 325 mg Q6HR GT 10/21/25 18:00 10/22/25 18:00 325 MG Dextrose/Sodium Chloride 1,000 ml @ 75 mls/hr [id number] IV 10/23/25 10:45 10/24/25 00:17 75 MLS/HR laboratory and microbiology Laboratory Tests 10/24/25 07:07 Test 10/24/25 07:07 Range/Units Serum Glucose 105 74-106 mg/dL Problem List RIGHT SIDED CHEST PAIN PMH DIABETES HTN COPD NEPHRECTOMY NEPHRECTOMY PAD WITH REVASCULARIZATION CAD HFrEF BNP NL TROPONIN NL UGI BLEED HEMATEMESIS MELENA NAUSEA VOMITING AMS HX METABOLIC ENCEPHALOPATHY DIARRHEA HYPOTENSION HYPOVOLEMIA SECONDARY TO DIARRHEA AND POOR PO INTAKE ACUTE RENAL FAILURE CHRONIC RENAL DISEASE CXR MILD LLL ATELECTASIS PMH: LE DOPPLER CONSISTENT WITH ADVANCE PAD HX OF DM VASCULOPATHY NEUROPATHY HX OF RENAL CELL CARCINOMA WITH LEFT PARTIAL NEPHRECTOMY BUT RENAL US SHOWS RIGHT kidney measures 12.7 cm in length. No hydronephrosis. LEFT kidney measures 9.9 cm in length. No hydronephrosis. COPD HX OF TOBACCO USE HTN ORGANIC HD NL EF DIASTOLIC DYSFUNCTION ECHO MILD GLOBAL HYPOKINESIS Assessment/Plan SEVERE ANEMIA GI WORKUP ABX SINCE X RAY CONSISTENT WITH PNA CARDIAC STATUS STABLE EGD SEVERE EROSIVE ESOPHAGITIS GASTRITIS CORRECT ANEMIA CT OF CHEST AND ABD MULTIPLE LUNG NODULES CIRRHOSIS OF LIVER PAD* Right lower extremity shows patent right iliac. * Distal right iliac had a 95% narrowing. * A 95% narrowing of the right common femoral. * Right superficial femoral artery was occluded ostially, reconstitutes at the level of the profunda just above the knee with 3-vessel distal runoff; anterior tibial, posterior tibial, and the peroneal artery. However, the right profunda at the ostium which was giving the collateral circulation to the popliteal, had a 95% narrowing as well, status post thrombectomy with shockwave treatment and drug-eluting balloon angioplasty with less than 10% residual stenosis and now brisk flow into the profunda and then to the collaterals to the popliteal with excellent imaging noted above the tibioperoneal tree. * Left lower extremity angiography reveals 95% narrowing of the entire length of the left common iliac, common femoral, and the proximal segment of the superficial femoral artery on the left side. Entire length was then balloon angioplastied and shockwave treated with less than 10% residual stenosis. The left superficial femoral artery is also occluded with collateral circulation provided by the profunda at the level of the popliteal just above the knee with 3-vessel distal runoff. At this time, the inflow in both lower extremities have been improved. The outflow has to improve if we can establish better flow through the occluded superficial femoral artery, may require fem-pop bypass surgery or may require retrograde angioplasty from the popliteal. We will reassess the patient's anatomy at a later date. ECHO 03/14 LEFT VENTRICLE The Ejection Fraction is 35-45%. PULMONIC VALVE The pulmonic valve is not well visualized. AORTIC VALVE The aortic valve opens well. No aortic regurgitation is present. TRANSFUSE 1 UNIT PRBC IRON EPOGEN START PT CHECK UA POSITVE FOR UTI START ABX ANEMIA STABLE LYTES WITHIN NL LIMITS H/H STABLE CT OF CHEST Extensive pulmonary tree-in-bud nodularity, reticulonodular pattern which can be secondary to atypical infection, bronchiolitis, chronic lung processes/interstitial disease. POOR PROGNOSIS Dietary Evaluation Review Comments: Nutrition Recommendation: 1) Avdnace to soft diet as medically feasible 2) Monitor PO intake, lab values, weight trend, and I/O Expected Outcomes/Goals: GI symptoms to improve Intake to meet >75% estimated needs FU 2-3 days Plan discussed with: Patient, Son HUNG IVAN MD Oct 24, 2025 15:26
--- NOTE | 2025-10-24 15:29 | DVHDSRES ---
Discharge Summary Date of Admission Resident Creating Document: MCKENZIE CHRISTENSEN RESDIJOSE ROBERTO Oct 07, 2025 at 14:28 Date of Discharge: Oct 20, 2025 Labs/Diagnostic Data: Laboratory Results Test 10/24/25 07:07 10/21/25 05:50 10/20/25 05:17 10/17/25 16:00 White Blood Count 3.3 10^3/uL (4.4-10.8) Red Blood Count 3.81 10^6/uL (4.0-5.20) Hemoglobin 9.2 g/dL (12.2-16.2) Hematocrit 30.4 % (36.0-46.0) Mean Corpuscular Volume 79.9 fL (80.0-100.0) Mean Corpuscular Hemoglobin 24.2 pg (28.0-32.0) Mean Corpuscular Hemoglobin Concent 30.3 g/dL (32.0-36.0) Red Cell Distribution Width 20.6 % (11.8-14.3) Platelet Count 204 10^3/uL (140-450) Mean Platelet Volume 6.0 fL (6.9-10.8) Neutrophils (%) (Auto) 71.2 % (37.0-80.0) Lymphocytes (%) (Auto) 17.6 % (10.0-50.0) Monocytes (%) (Auto) 10.9 % (0.0-12.0) Eosinophils (%) (Auto) 0.2 % (0.0-7.0) Basophils (%) (Auto) 0.1 % (0.0-2.0) Neutrophils # (Auto) 2.4 10 ^3/uL (1.6-8.6) Lymphocytes # (Auto) 0.6 10 ^3/uL (0.4-5.4) Monocytes # (Auto) 0.4 10 ^3/uL (0-1.3) Eosinophils # (Auto) 0 10 ^3/uL (0-0.8) Basophils # (Auto) 0 10 ^3/uL (0-0.2) Nucleated Red Blood Cells 0.3 % Sodium Level 140 mmol/L (136-145) Potassium Level 3.1 mmol/L (3.5-5.1) Chloride Level 100 mmol/L (98-107) Carbon Dioxide Level 31 mmol/L (20-31) Anion Gap 9 (5-15) Blood Urea Nitrogen 7 mg/dL (9-23) Creatinine 0.62 mg/dL (0.550-1.02) Glomerular Filtration Rate Calc 99 mL/min (>90) BUN/Creatinine Ratio 11.3 (10.0-20.0) Serum Glucose 105 mg/dL (74-106) Calcium Level 8.2 mg/dL (8.7-10.4) Total Bilirubin 0.3 mg/dL (0.2-1.0) Aspartate Amino Transferase (AST) 9 U/L (13-40) Alanine Aminotransferase (ALT) < 9 U/L (7-40) Alkaline Phosphatase 93 U/L (46-116) Total Protein 5.3 g/dL (5.7-8.2) Albumin 3.0 g/dL (3.2-4.8) Differential Total Cells Counted 100.0 (100) Neutrophils % (Manual) 54 (37.0-80.0) Band Neutrophils % (Manual) 7 Lymphocytes % (Manual) 20 (10.0-50.0) Monocytes % (Manual) 16 (0-12) Eosinophils % (Manual) 0 (0-7) Basophils % (Manual) 0 (0.0-2.0) Metamyelocytes % (manual) 1 Myelocytes % (Manual) 2 Promyelocytes % (Manual) 0 Blast Cells % (Manual) 0 Reactive Lymphocytes 0 Platelet Estimate Adequate Hypochromasia (manual) Slight Microcytosis Slight Magnesium Level 2.1 mg/dL (1.6-2.6) Carcinoembryonic Antigen 1.47 ng/mL (<=5.0) Lactic Acid Level 1.1 mmol/L (0.4-2.0) Test 10/16/25 03:20 10/16/25 03:00 10/15/25 15:56 10/15/25 15:54 Thyroid Stimulating Hormone (TSH) 2.98 uIU/mL (0.55-4.78) Stool Occult Blood Positive (Negative) Stool Occult Blood Sample #3 (Negative) Stool for White Cells Few Iron Level 137 ug/dL (50-170) Total Iron Binding Capacity 152 ug/dL (250-425) Percent Iron Saturation 90.1 % (15-50) Ammonia < 10 umol/L (11-32) Free Thyroxine (T4) Calculated 1.00 ng/dL (0.89-1.76) Blood Gas Specimen Type Arterial Blood Gas Sample Site Left radial Blood Gas Patient Temperature 37.0 Arterial Blood Date Drawn [id number] Arterial Blood pH 7.373 (7.350-7.450) Arterial Blood Partial Pressure CO2 39.8 mmHg (32.0-45.0) Arterial Blood Partial Pressure O2 76.7 mmHg (83.0-108.0) Arterial Blood HCO3 22.6 mmol/L (21.0-28.0) Arterial Blood Oxygen Saturation 94.4 % (94.0-98.0) Arterial Blood Base Excess -2.4 mmol/L (-2.0-3.0) Arterial Blood Oxyhemoglobin 93.2 % (94.0-98.0) Arterial Blood Carboxyhemoglobin 1.0 % (0.5-1.5) Arterial Blood Methemoglobin 0.3 % (0.0-1.5) Arterial Blood Deoxyhemoglobin 5.5 % (0.0-5.0) Hernan Test Yes Blood Gas Total Hemoglobin 8.40 g/dL (12.0-16.0) Blood Gas Liter Flow 2.00 Blood Gas Modality Nasal cannula FiO2 % 28.0 Test 10/15/25 02:56 10/14/25 13:15 10/14/25 11:49 10/10/25 16:40 Reticulocyte Count (auto) 3.76 % (0.5-1.5) Urine Color Light-brown (Yellow) Urine Clarity Ex.turbid (Clear) Urine pH 5.0 (5.0-9.0) Urine Specific [place] 1.013 (1.001-1.035) Urine Protein 1+ (Negative) Urine Ketones Negative (Negative) Urine Blood 1+ /uL (Negative) Urine Nitrite Negative (Negative) Urine Bilirubin Negative (Negative) Urine Urobilinogen Normal mg/dL (Negative) Urine Leukocyte Esterase 3+ /uL (Negative) Urine RBC 61 /hpf (0 - 4) Urine WBC Clumps Present /hpf (None Seen) Urine Microscopic WBC 1451 /HPF (0-5) Urine Squamous Epithelial Cells Few /hpf (<5) Urine Bacteria Many /hpf (None Seen) Urine Granular Casts Mod /lpf (0) Urine Mucus Few (None Seen) Urine Yeast (Budding) Loaded /hpf (None Seen) Urine Glucose Normal mg/dL (Normal) Prothrombin Time 14.0 sec (9.3-11.8) Prothrombin Time INR 1.36 (0.9-1.15) CA 19-9 Antigen 4 U/mL (0-35) Test 10/09/25 05:45 10/08/25 05:52 10/07/25 10:56 10/07/25 09:30 Ferritin 186.9 ng/mL (10-291) Hepatitis B Surface Antigen Negative (Negative) Hepatitis C Antibody Negative (Negative) Activated Partial Thromboplast Time 30.2 SEC (24.5-34.5) B-Type Natriuretic Peptide 10.06 pg/mL (0-100) Troponin I High Sensitivity < 3 ng/L (</=34) Hemoglobin A1c 5.2 % A1C (<5.7) Phosphorus Level 2.5 mg/dL (2.4-5.1) Triglycerides Level 65 mg/dL (< 150) Cholesterol Level 95 mg/dL (< 200) LDL Cholesterol 30 mg/dL (< 100) HDL Cholesterol 47 mg/dL (40-59) Vitamin B12 Level 591 pg/mL (211-911) Vitamin D 25-Hydroxy 49.9 ng/mL (30.0-100) Other Laboratory Tests 10/24/25 07:07 Brief Hx & Hospital Course: HISTORY OF PRESENT ILLNESS: Chrissy Billings is a 65-year-old female patient who presents to the ED with chief complaint of burning right-sided chest pain which started on 10/06/2020 at 7:00 p.m. intensity 10/10 which lasted 10 minutes. Per patient pain initiated after she started eating a meal, and resolved spontaneously. Denies any other associated symptoms including dyspnea, syncope, diaphoresis, nausea, vomiting, abdominal pain and sick contacts. Past medical history: Diabetes, hypertension, COPD on home oxygen with 2 L/min, renal cell carcinoma status post partial nephrectomy with no recurrence, systolic congestive heart failure (HFrEF, LVEF 40%), PAD status post stent placement in 2021, diabetic retinopathy with bilateral amaurosis, hypothyroidism. Surgical history: Peripheral angiography with stent placement in iliac artery, cholecystectomy Family history: Mother has thyroid cancer Social history: Lives in [place] with son (next of kin, Marty). Ex tobacco abuse (30 pack-year history of smoking), quit five years ago. Denies current tobacco, alcohol and other drug abuse. Allergy: Codeine Home medication: Albuterol, aspirin, atorvastatin, digoxin, empagliflozin, fluconazole, furosemide, gabapentin, insulin, ipratropium, levothyroxine, spironolactone, pantoprazole, nivolumab, Vericiguat, nifedipine, metformin , lisinopril HOSPITAL COURSE: Patient was admitted due to chest pain, EKGs performed, showed no significant ST or T-wave changes. Cardiology consulted, recommended medical management. Patient was complaining of generalized weakness and abdominal pain. CT scan shows, extensive rectosigmoid colon wall thickening with surrounding stranding and perirectal lymphadenopathy, stool occult blood performed, showed positive. Gastroenterology consulted, performed EGD and found 2-3 cm sliding-type hiatal hernia with the acute severe linear erosive esophagitis with linear ulcers extending into the distal 10 cm of the esophagus with suspected underlying Barretts from which biopsies were obtained and mild antral gastritis otherwise essentially completely normal endoscopic examination up to the 2nd and 3rd part of the duodenum with no fresh or old blood in the upper GI tract at this time and the patient was started on Protonix b.i.d., and Carafate. Due to diarrhea and black stool, GI performed colonoscopy on 10/14, due to poor bowel preparation, colonoscopy postponed it. Due to severe anemia, blood transfusion performed, patient also underwent septic shock due to enterocolitis/gastroenteritis with the patient need vasopressor. On 10/24, colonoscopy performed for 2nd time, showed patient had an abnormal area of inflammation ulceration possible ischemia possible stercoral inflammation extending from about 15-25 cm above the anal verge from which biopsies were obtained, patient had a 1.5 cm benign-appearing ascending colon polyp that was seen and removed via hot snare polypectomy, there was a 2 mm benign-appearing descending colon polyp that was seen and removed via cold biopsy forceps and GI recommended Protonix, Carafate and outpatient basis follow up. On 10/24, the patient was feeling better, tolerating oral intake, does not have any active complaint. Discharge plan discussed with the patient the patient discharged home with home health with physiotherapy. DISCHARGE PLAN: Follow up with the PCP within 1 week of the discharge. Follow up with the GI on outpatient basis. Follow up with the Cardiology on outpatient basis. Protonix 40 mg b.i.d. for 30 days Carafate q.i.d. for 30 days Discontinue aspirin for now Continue rest of home meds FINAL DIAGNOSIS: Septic shock/hemorrhagic shock, due to GI bleeding/enterocolitis Sepsis due to infectious enterocolitis/gastroenteritis GI bleeding, upper and lower bowel Chest pain, likely musculoskeletal Possible GI bleeding Severe anemia, due to above Status post blood transfusion Precipitous hemoglobin dropped, likely due to active bleeding KELLY, likely VMN, due to above Diabetes type 2 COPD, on home oxygen 2 L through nasal cannula Hypertension History of renal cell carcinoma, status post partial nephrectomy Systolic heart failure, LVEF 40% History of peripheral artery disease, status post stent placement Diabetic retinopathy Severe hypothyroidism Hypokalemia History of renal cancer, status post nephrectomy Condition at Discharge: Fair Final Diagnosis/Problems List GI bleeding Discharge Disposition: Home with Health Services Discharge Instruct/Medications Diet: Regular Activity: No Restrictions, As Tolerated Follow Up/Referral: Follow up with the PCP within 1 week of the discharge. Follow up with the GI on outpatient basis for colonoscopy. Medications: Levothyroxine 88 mcg daily. Tonics 40 mg b.i.d. for 1 Carafate 4 times a day for 1 month Discontinue aspirin Continue home meds Scheduled Amoxicillin & Pot Clavulanate (Augmentin Tablet), 875 MG PO BID Atorvastatin Calcium (Atorvastatin Calcium), 40 MG PO HS Digoxin (Digoxin), 125 MCG PO DAILY, (Reported) Empagliflozin (Jardiance), 10 MG PO DAILY Fluconazole (Diflucan), 200 MG PO DAILY Furosemide (Furosemide), 40 MG PO DAILY Gabapentin (Gabapentin), 1 CAP PO TID, (Reported) Insulin Glargine (Lantus), 15 UNIT SC QPM Levothyroxine Sodium (Synthroid Tablet), 100 MCG PO QAM Levothyroxine Sodium (Levothyroxine Sodium), 200 MCG PO QAM, (Reported) Levothyroxine Sodium (Synthroid), 88 MCG PO DAILY Lisinopril (Lisinopril), 20 MG PO DAILY Lorazepam (Ativan), 1 MG PO BID, (Reported) Metformin Hydrochloride (Metformin Hcl), 500 MG PO BID Nifedipine (Nifedipine Er), 1 TAB PO DAILY, (Reported) Pantoprazole Sodium Sesquihydr (Protonix), 40 MG PO BID Spironolactone (Aldactone), 25 MG PO DAILY Sucralfate (Carafate Susp), 10 ML PO QID Vericiguat (Verquvo), 5 MG PO BID, (Reported) Scheduled PRN Albuterol Sulfate (Albuterol Sulfate), 1.25 MG IN TIDP PRN Hydrocodone-Acetaminophen (Hydrocodone Bitartrate/AC 10-325 mg), 1 TAB PO for PAIN SCALE 7 THRU 10, (Reported) Ipratropium Nipomo (Ipratropium Nipomo), 0.5 % HHN TIDP PRN Lorazepam (Ativan), 1 MG PO BIDPRN PRN for ANXIETY, (Reported) Miscellaneous Medications Nivolumab (Opdivo), 240 MG IV, (Reported) Discontinued Medications Aspirin (Aspirin Low Dose), 81 MG PO DAILY Pantoprazole Sodium Sesquihydr (Pantoprazole Sodium), 40 MG PO DAILY@0600 Discharge Statement: "Patient was advised to return to the ER or call 911 if any headaches, dizziness, shortness of breath, chest pain, abdominal pain, bleeding, fevers, or worsening of medical condition. Patient was counseled about treatment plan, medications, possible side effects, patientverbalized understanding. All questions were answered to the best of my ability. This discharge took greater then 30 minutes in planning, reviewing documentation, counseling the patient, and discussing with other team members." ASSESSMENT ASSESSMENT Assessment GI bleeding Visit Coding STANDARD RES Billing Provider: ADEEL REDDY DO Date of Service if different f: Oct 24, 2025 Common Visit Codes: 26992-CBA/OBS DISCH DAY >30min Visit Coding STANDARD RES Billing Provider: ADEEL REDDY DO Date of Service if different f: Oct 24, 2025 Common Visit Codes: 11833-DZQ/OBS DISCH DAY >30min MCKENZIE CHRISTENSEN RESDIENT Oct 24, 2025 15:29 ADEEL REDDY DO Oct 25, 2025 00:22
[2025-10-24] MEDS: POTASSIUM EFFERVESENT TAB 25 MEQ PO ONE (17:25)
== END 2025-10-24 19:14 | disposition home health service (06) | DRG 380 ==
LOC: ER 09:06 → EDBD 09:06 → OVERFLOW 14:28 → TELE-WESTW 10-08 20:53 → ICU WEST 10-14 13:41 → TELE-WESTW 10-19 17:06
PROVIDERS: ADMIT Student in an Organized Health Care Education/Training Program; ATTEND Student in an Organized Health Care Education/Training Program
PROC: 0DB68ZX Excision of Stomach, Via Natural or Artificial Opening Endoscopic, Diagnostic (ICD-10-PCS; 2025-10-10)
PROC: 0DB58ZX Excision of Esophagus, Via Natural or Artificial Opening Endoscopic, Diagnostic (ICD-10-PCS; 2025-10-10)
PROC: 0DB98ZX Excision of Duodenum, Via Natural or Artificial Opening Endoscopic, Diagnostic (ICD-10-PCS; principal; 2025-10-10 10:27)
PROC: 0DJD8ZZ Inspection of Lower Intestinal Tract, Via Natural or Artificial Opening Endoscopic (ICD-10-PCS; 2025-10-14)
PROC: 02H633Z Insertion of Infusion Device into Right Atrium, Percutaneous Approach (ICD-10-PCS; 2025-10-14)
PROC: 05HA33Z Insertion of Infusion Device into Left Brachial Vein, Percutaneous Approach (ICD-10-PCS; 2025-10-14)
PROC: B54NZZA Ultrasonography of Left Upper Extremity Veins, Guidance (ICD-10-PCS; 2025-10-14)
PROC: 30233N1 Transfusion of Nonautologous Red Blood Cells into Peripheral Vein, Percutaneous Approach (ICD-10-PCS; 2025-10-15)
PROC: 0DBK8ZZ Excision of Ascending Colon, Via Natural or Artificial Opening Endoscopic (ICD-10-PCS; 2025-10-24)
PROC: 0DBM8ZZ Excision of Descending Colon, Via Natural or Artificial Opening Endoscopic (ICD-10-PCS; 2025-10-24)
PROC: 0DBN8ZX Excision of Sigmoid Colon, Via Natural or Artificial Opening Endoscopic, Diagnostic (ICD-10-PCS; 2025-10-24)
DX: K22.11 Ulcer of esophagus with bleeding (principal); A41.9 Sepsis, unspecified organism; G93.41 Metabolic encephalopathy; N17.0 Acute kidney failure with tubular necrosis; J18.9 Pneumonia, unspecified organism; R65.21 Severe sepsis with septic shock; R57.8 Other shock; I50.22 Chronic systolic (congestive) heart failure; I13.0 Hypertensive heart and chronic kidney disease with heart failure and stage 1 through stage 4 chronic kidney disease, or unspecified chronic kidney disease; D64.9 Anemia, unspecified; E11.22 Type 2 diabetes mellitus with diabetic chronic kidney disease; J44.0 Chronic obstructive pulmonary disease with (acute) lower respiratory infection; J96.11 Chronic respiratory failure with hypoxia; K29.71 Gastritis, unspecified, with bleeding; N18.9 Chronic kidney disease, unspecified; E66.9 Obesity, unspecified; E03.9 Hypothyroidism, unspecified; N39.0 Urinary tract infection, site not specified; J98.11 Atelectasis; A09 Infectious gastroenteritis and colitis, unspecified; E11.319 Type 2 diabetes mellitus with unspecified diabetic retinopathy without macular edema; I25.10 Atherosclerotic heart disease of native coronary artery without angina pectoris; E87.6 Hypokalemia; K21.9 Gastro-esophageal reflux disease without esophagitis; K44.9 Diaphragmatic hernia without obstruction or gangrene; E86.1 Hypovolemia; K56.41 Fecal impaction; E11.51 Type 2 diabetes mellitus with diabetic peripheral angiopathy without gangrene; K74.60 Unspecified cirrhosis of liver; K63.5 Polyp of colon; K64.8 Other hemorrhoids; Z88.5 Allergy status to narcotic agent; Z90.49 Acquired absence of other specified parts of digestive tract; Z87.891 Personal history of nicotine dependence; Z85.528 Personal history of other malignant neoplasm of kidney; Z90.5 Acquired absence of kidney; Z80.8 Family history of malignant neoplasm of other organs or systems; Z79.4 Long term (current) use of insulin; Z74.01 Bed confinement status; Z82.5 Family history of asthma and other chronic lower respiratory diseases; Z82.49 Family history of ischemic heart disease and other diseases of the circulatory system; Z68.28 Body mass index [BMI] 28.0-28.9, adult
CPT/HCPCS: 36415; 36556; 36600; 43239; 45378; 45380; 45385; 71045; 71250; 74176; 80048; 80053; 80061; 81001; 82140; 82270; 82306; 82378; 82607; 82728; 82805; 83036; 83540; 83550; 83605; 83735; 83880; 84100; 84439; 84443; 84484; 85007; 85025; 85027; 85045; 85048; 85610; 85730; 86301; 86803; 86850; 86900; 86901; 86922; 87040; 87045; 87081; 87086; 87340; 87427; 87493; 88341; 93005; 93306; 94640; 96374; 97110; 97163; 99291; G0378; J1756; J2003; J2250; J2405; J2470; J2543; J2704; J3490